=== PATIENT | female | born 1995 | race Caucasian/White ===

== ENCOUNTER 2021-12-18 18:54 | Emergency (ER) | payer OTHER ==
[2021-12-18] MEDS ORDERED: diphenhydrAMINE 50 MG/ML 1 ML VIAL IVP STA (20:20)
[2021-12-18] MEDS ORDERED: ONDANSETRON 4 MG/2 ML VIAL IVP STA (20:20)
[2021-12-18] MEDS ORDERED: MORPHINE SULFATE 4 MG/ML SYRINGE IV STA (20:20)
[2021-12-18] MEDS ORDERED: SODIUM CHLORIDE 0.9% 1,000 ML IV STA (20:20)
[2021-12-18 21:01] LABS: Basophils % (A) 1 %; Eosinophils # (A) 0.2 k/uL (0-0.7); Eosinophils % (A) 3 %; HCT 29.3 % (34.0-46.0); HGB 9.3 gm/dL (11.4-16.0); Hypochromasia Marked; Lymphocytes % (A) 15 %; MCH 25.3 pg (25.0-35.0); MCHC 31.8 g/dL (31.0-37.0); MCV 79.7 fL (80.0-100.0); Mean Platelet Volume 7.4; Monocytes # (A) 0.3 k/uL (0-1.0); Monocytes % (A) 5 %; Neutrophils % (A) 75 %; Platelet Count 205 k/uL (150-450); RBC 3.67 m/uL (3.80-5.40); RDW 15.6 % (11.5-15.5); WBC 6.7 k/uL (3.8-10.6)
[2021-12-18 21:11] LABS: ALT 21 U/L (4-34); AST 18 U/L (14-36); African American GFR (CKD) >90 (>60 ml/min/1.73 sqM); Albumin 3.4 g/dL (3.5-5.0); Alkaline Phosphatase 111 U/L (38-126); Amylase 65 U/L (30-110); Anion Gap 8 mmol/L; Blood Urea Nitrogen 4 mg/dL (7-17); Calcium 8.4 mg/dL (8.4-10.2); Carbon Dioxide 19 mmol/L (22-30); Chloride 114 mmol/L (98-107); Glucose 86 mg/dL (74-99); Lipase 95 U/L (23-300); Non-African American GFR(CKD) >90 (>60 ml/min/1.73 sqM); Potassium 3.4 mmol/L (3.5-5.1); Sodium 141 mmol/L (137-145); Total Bilirubin 0.2 mg/dL (0.2-1.3); Total Protein 6.3 g/dL (6.3-8.2)
[2021-12-18 21:12] LABS: Prothrombin Time 10.6 sec (9.0-12.0); RBC,Urine >182 /hpf (0-5)
[2021-12-18 21:14] LABS: Appearance,Urine Bloody (Clear); Color,Urine Red
--- NOTE | 2021-12-18 21:31 | ED ---
Abdominal Pain HPI - General Chief Complaint: Abdominal Pain Stated Complaint: flank pain/coughing up blood/blood in ileostomy Time Seen by Provider: 12/18/21 19:47 Source: patient Mode of arrival: ambulatory Limitations: no limitations - History of Present Illness Initial Comments: Patient is a 26-year-old female presenting with chief complaint of right-sided flank pain. Patient states that symptoms began on , she is experiencing nausea and vomiting. Patient has an ileostomy, states that she has episodes of hematochezia. Patient states that she was admitted at [facility], however they were not treating her pain adequately so she left AGAINST MEDICAL ADVICE. She denies any chest pain, shortness of breath, fever, chills, dizziness, weakness, numbness, tingling, cough, congestion, sore throat, dysuria, urgency, frequency. - Related Data Allergies Allergy/AdvReac Type Severity Reaction Status Date / Time acetaminophen [From Tylenol] AdvReac Anaphylaxis Verified 12/18/21 19:15 aspirin AdvReac Anaphylaxis Verified 12/18/21 19:15 famotidine [From Pepcid] AdvReac Anaphylaxis Verified 12/18/21 19:15 haloperidol [From Haldol] AdvReac Anaphylaxis Verified 12/18/21 19:15 iodine AdvReac Anaphylaxis Verified 12/18/21 19:15 ketorolac [From Toradol] AdvReac Anaphylaxis Verified 12/18/21 19:15 metoclopramide [From Reglan] AdvReac Anaphylaxis Verified 12/18/21 19:15 NSAIDS (Non-Steroidal AdvReac Anaphylaxis Verified 12/18/21 19:15 Anti-Inflamma prochlorperazine AdvReac Anaphylaxis Verified 12/18/21 19:15 [From Compazine] Review of Systems ROS Statement: Those systems with pertinent positive or pertinent negative responses have been documented in the HPI. ROS Other: All systems not noted in ROS Statement are negative. Past Medical History Past Medical History: Asthma Additional Past Medical History / Comment(s): FAP Past Surgical History: Appendectomy, Bowel Resection, Cholecystectomy Additional Past Surgical History / Comment(s): ileostomy Past Psychological History: No Psychological Hx Reported Smoking Status: Never smoker Past Alcohol Use History: None Reported Past Drug Use History: None Reported General Exam Limitations: no limitations General appearance: alert, in no apparent distress Head exam: Present: atraumatic, normocephalic, normal inspection Neck exam: Present: normal inspection Respiratory exam: Present: normal lung sounds bilaterally. Absent: respiratory distress, wheezes, rales, rhonchi, stridor Cardiovascular Exam: Present: regular rate, normal rhythm, normal heart sounds. Absent: systolic murmur, diastolic murmur, rubs, gallop, clicks GI/Abdominal exam: Present: soft. Absent: distended, tenderness, guarding, rebound, rigid Back exam: Absent: CVA tenderness (R), CVA tenderness (L) Neurological exam: Present: alert, oriented X3, CN II-XII intact Psychiatric exam: Present: normal affect, normal mood Skin exam: Present: warm, dry, intact, normal color. Absent: rash Course Vital Signs 12/18/21 12/18/21 12/18/21 19:10 20:26 21:59 Temperature 98.6 F 98.4 F Pulse Rate 120 H 105 H 116 H Respiratory 20 18 20 Rate Blood Pressure 108/78 110/81 105/55 O2 Sat by Pulse 97 98 99 Oximetry 12/18/21 23:13 Temperature Pulse Rate 113 H Respiratory 18 Rate Blood Pressure 106/69 O2 Sat by Pulse 98 Oximetry Medical Decision Making - Medical Decision Making Patient is a 26-year-old female presenting with chief complaint of right flank pain, hematuria. Patient states symptoms have been ongoing since . On examination no abdominal tenderness, no blood seen in ostomy bag. Hemoglobin is 9.3, no previous value for reference. Potassium is 3.4. Urine is bloody with no WBC. Negative hCG. CT shows no acute changes, there is a nonobstructing calculi in the lower pole of the right kidney. No hydronephrosis or bowel obstruction. Patient reports improvement with pain medication. Instructed to follow up outpatient with PCP and urology. Report back to ER if any new or worsening symptoms. Discussed return parameters and answered all questions. Patient conveyed verbal understanding and agreed to the plan. I discussed this case with my attending Dr. Almeida. - Lab Data Result diagrams: 12/18/21 20:54 12/18/21 20:54 Lab Results 12/18/21 12/18/21 12/18/21 Range/Units 20:54 20:54 20:54 WBC 6.7 (3.8-10.6) k/uL RBC 3.67 L (3.80-5.40) m/uL Hgb 9.3 L (11.4-16.0) gm/dL Hct 29.3 L (34.0-46.0) % MCV 79.7 L (80.0-100.0) fL MCH 25.3 (25.0-35.0) pg MCHC 31.8 (31.0-37.0) g/dL RDW 15.6 H (11.5-15.5) % Plt Count 205 (150-450) k/uL MPV 7.4 Neutrophils % 75 % Lymphocytes % 15 % Monocytes % 5 % Eosinophils % 3 % Basophils % 1 % Neutrophils # 5.0 (1.3-7.7) k/uL Lymphocytes # 1.0 (1.0-4.8) k/uL Monocytes # 0.3 (0-1.0) k/uL Eosinophils # 0.2 (0-0.7) k/uL Basophils # 0.0 (0-0.2) k/uL Hypochromasia Marked PT 10.6 (9.0-12.0) sec INR 1.0 (<1.2) APTT 23.0 (22.0-30.0) sec Sodium (137-145) mmol/L Potassium (3.5-5.1) mmol/L Chloride (98-107) mmol/L Carbon Dioxide (22-30) mmol/L Anion Gap mmol/L BUN (7-17) mg/dL Creatinine (0.52-1.04) mg/dL Est GFR (CKD-EPI)AfAm (>60 ml/min/1.73 sqM) Est GFR (CKD-EPI)NonAf (>60 ml/min/1.73 sqM) Glucose (74-99) mg/dL Plasma Lactic Acid Obdulio (0.7-2.0) mmol/L Calcium (8.4-10.2) mg/dL Total Bilirubin (0.2-1.3) mg/dL AST (14-36) U/L ALT (4-34) U/L Alkaline Phosphatase (38-126) U/L Total Protein (6.3-8.2) g/dL Albumin (3.5-5.0) g/dL Amylase (30-110) U/L Lipase (23-300) U/L Urine Color Red Urine Appearance Bloody H (Clear) Urine RBC >182 H (0-5) /hpf Urine HCG, Qual (Not Detectd) 12/18/21 12/18/21 12/18/21 Range/Units 20:54 20:54 20:54 WBC (3.8-10.6) k/uL RBC (3.80-5.40) m/uL Hgb (11.4-16.0) gm/dL Hct (34.0-46.0) % MCV (80.0-100.0) fL MCH (25.0-35.0) pg MCHC (31.0-37.0) g/dL RDW (11.5-15.5) % Plt Count (150-450) k/uL MPV Neutrophils % % Lymphocytes % % Monocytes % % Eosinophils % % Basophils % % Neutrophils # (1.3-7.7) k/uL Lymphocytes # (1.0-4.8) k/uL Monocytes # (0-1.0) k/uL Eosinophils # (0-0.7) k/uL Basophils # (0-0.2) k/uL Hypochromasia PT (9.0-12.0) sec INR (<1.2) APTT (22.0-30.0) sec Sodium 141 (137-145) mmol/L Potassium 3.4 L (3.5-5.1) mmol/L Chloride 114 H (98-107) mmol/L Carbon Dioxide 19 L (22-30) mmol/L Anion Gap 8 mmol/L BUN 4 L (7-17) mg/dL Creatinine 0.55 (0.52-1.04) mg/dL Est GFR (CKD-EPI)AfAm >90 (>60 ml/min/1.73 sqM) Est GFR (CKD-EPI)NonAf >90 (>60 ml/min/1.73 sqM) Glucose 86 (74-99) mg/dL Plasma Lactic Acid Obdulio 1.2 (0.7-2.0) mmol/L Calcium 8.4 (8.4-10.2) mg/dL Total Bilirubin 0.2 (0.2-1.3) mg/dL AST 18 (14-36) U/L ALT 21 (4-34) U/L Alkaline Phosphatase 111 (38-126) U/L Total Protein 6.3 (6.3-8.2) g/dL Albumin 3.4 L (3.5-5.0) g/dL Amylase 65 (30-110) U/L Lipase 95 (23-300) U/L Urine Color Urine Appearance (Clear) Urine RBC (0-5) /hpf Urine HCG, Qual Not Detected (Not Detectd) Disposition Clinical Impression: Hematuria Disposition: HOME SELF-CARE Condition: Fair Instructions (If sedation given, give patient instructions): Hematuria (ED), Flank Pain (ED) Additional Instructions: Follow-up with PCP in one to 2 days. Follow-up with urology. Report back to ER if any new or worsening symptoms. Is patient prescribed a controlled substance at d/c from ED?: No Referrals: Jeremy Narayanan MD [STAFF PHYSICIAN] - 1-2 days Mika Torres DO [Doctor of Osteopathic Medicine] - 1-2 days Time of Disposition: 22:46
[2021-12-18] MEDS ORDERED: HYDROmorphone 1 MG/ML 1 ML SYRINGE IVP STA (21:52)
[2021-12-18 22:00] VITALS: TEMP 98.4
--- NOTE | 2021-12-18 22:06 | CT ---
EXAMINATION TYPE: CT abdomen pelvis wo con DATE OF EXAM: 12/18/2021 COMPARISON: None HISTORY: flank pain. hx of many kidney stones CT DLP: 1255.4 mGycm Automated exposure control for dose reduction was used. Images obtained from the diaphragm to the floor the pelvis with no contrast. Lung bases are clear of infiltrate. No pleural effusion. Heart size is normal. No pericardial effusio n. Liver spleen and stomach pancreas appear intact. There are clips from cholecystectomy. There is no adrenal mass. Kidneys have normal size and contour. No hydronephrosis. There are some camille culi lower pole right kidney that measure up to 4 mm. There is left-sided inferior vena cava and IVC filter noted. No retroperitoneal adenopathy. The bladder distends smoothly. No inguinal hernia. No fr ee fluid in the pelvis. No pelvic mass. Uterus is anteverted. Lumbar vertebrae have normal alignment. Posterior elements are intact. Disc spa maldonado are fairly normal. No compression fracture. Bony pelvis is intact. The hip joints are intact. There is rectal stump. There is ileostomy or colostomy in the right mid abdomen. There is peristomal hernia with multiple small bowel loops. No ascites or free air. No bowel obstruction. No mesenteric edema. IMPRESSION: There is subtotal or total colectomy with ileostomy or colostomy. Nonobstructing calculi lower pole r ight kidney. No hydronephrosis. Parastomal hernia. No bowel obstruction.
[2021-12-18 23:15] VITALS: BP 106/69; PULSE 113; RESP 18
== END 2021-12-18 23:15 | disposition home or self-care (01) ==
LOC: EC 18:54
DX: R31.9 Hematuria, unspecified (principal)
CPT/HCPCS: 36415; 80053; 82150; 83605; 83690; 85025; 85610; 85730; 81001; 81025; 87040; 74176; 99284; 96374; 96375 ×3; 96361 ×2; J2270; J1200; J2405; J1170

== ENCOUNTER 2021-12-19 19:33 | Inpatient (IN) | payer OTHER ==
[2021-12-19] MEDS ORDERED: CEFEPIME 2 GM in SODIUM CHLORIDE 0.9% 100 ML IVPB STA (20:54)
[2021-12-19] MEDS ORDERED: MORPHINE SULFATE 4 MG/ML SYRINGE IVP STA ×2 (20:54→22:34)
[2021-12-19] MEDS ORDERED: ONDANSETRON 4 MG/2 ML VIAL IVP STA ×2 (20:54→22:34)
[2021-12-19] MEDS ORDERED: diphenhydrAMINE 50 MG/ML 1 ML VIAL IVP STA (20:54)
--- NOTE | 2021-12-19 21:37 | ED ---
General Adult HPI - General Source: patient Mode of arrival: ambulatory Limitations: no limitations <Darling Calix - Last Filed: 12/19/21 21:57> <Chelo Maher - Last Filed: 12/20/21 03:18> - General Chief complaint: Abdominal Pain Stated complaint: We called to come back, + cultures Time Seen by Provider: 12/19/21 20:37 - History of Present Illness Initial comments: 26 year-old female patient presents to the emergency department after being called to come back in for positive blood cultures. Patient was seen yesterday for right flank pain, hematochezia, and hematemesis. She was discharged home, but blood cultures came back positive today for enterobacter. She state she was coming back anyway because she has been having intermittent fevers up to 103 degrees, nausea, vomiting, and persistent flank pain. She is also concerned she may have C diff as her stool is similar to when she has had it in the past. She was admitted to [facility] in the last few months for UTI with sepsis and was on antibiotics at that time. (Darling Calix) - Related Data Home Medications Medication Instructions Recorded Confirmed Albuterol Nebulized [Ventolin 2.5 mg INHALATION RT-QID PRN 12/19/21 12/19/21 Nebulized] Albuterol Sulfate [Proair Hfa] 2 puff INHALATION RT-Q6H PRN 12/19/21 12/19/21 EPINEPHrine (Auto Inject) [Epipen] 0.3 mg IM ONCE PRN 12/19/21 12/19/21 Ferrous Sulfate [Feosol] 325 mg PO DAILY 12/19/21 12/19/21 Galcanezumab-Gnlm [Emgality Pen] 120 mg SQ Q30D 12/19/21 12/19/21 Loratadine 10 mg PO DAILY 12/19/21 12/19/21 Montelukast [Singulair] 10 mg PO DAILY 12/19/21 12/19/21 Omeprazole 40 mg PO DAILY 12/19/21 12/19/21 Ondansetron Odt [Zofran Odt] 4 mg PO Q8HR PRN 12/19/21 12/19/21 QUEtiapine [SEROquel] 50 mg PO HS 12/19/21 12/19/21 Salmeterol 50 mcg [Serevent Diskus] 1 puff INHALATION DIRECTED 12/19/21 12/19/21 Ubrogepant [Ubrelvy] 100 mg PO BID PRN 12/19/21 12/19/21 clonazePAM [KlonoPIN] 1 mg PO DAILY PRN 12/19/21 12/19/21 Allergies Allergy/AdvReac Type Severity Reaction Status Date / Time acetaminophen [From Tylenol] AdvReac Anaphylaxis Verified 12/19/21 22:09 aspirin AdvReac Anaphylaxis Verified 12/19/21 22:09 famotidine [From Pepcid] AdvReac Anaphylaxis Verified 12/19/21 22:09 haloperidol [From Haldol] AdvReac Anaphylaxis Verified 12/19/21 22:09 iodine AdvReac Anaphylaxis Verified 12/19/21 22:09 ketorolac [From Toradol] AdvReac Anaphylaxis Verified 12/19/21 22:09 metoclopramide [From Reglan] AdvReac Anaphylaxis Verified 12/19/21 22:09 NSAIDS (Non-Steroidal AdvReac Anaphylaxis Verified 12/19/21 22:09 Anti-Inflamma prochlorperazine AdvReac Anaphylaxis Verified 12/19/21 22:09 [From Compazine] Review of Systems ROS Other: All systems not noted in ROS Statement are negative. <Darling Calix - Last Filed: 12/19/21 21:57> ROS Other: All systems not noted in ROS Statement are negative. <Chelo Maher - Last Filed: 12/20/21 03:18> ROS Statement: Those systems with pertinent positive or pertinent negative responses have been documented in the HPI. Past Medical History Past Medical History: Asthma Additional Past Medical History / Comment(s): FAP, c diff in past History of Any Multi-Drug Resistant Organisms: Unobtainable, VRE Date of last positivie culture/infection: 12/03/2021 MDRO Source:: urine Past Surgical History: Appendectomy, Bowel Resection, Cholecystectomy Additional Past Surgical History / Comment(s): ileostomy, Past Psychological History: No Psychological Hx Reported Smoking Status: Never smoker Past Alcohol Use History: None Reported Past Drug Use History: None Reported <Darling Calix - Last Filed: 12/19/21 21:57> General Exam Limitations: no limitations General appearance: alert, in no apparent distress, other (This is a well- developed, well-nourished adult female in no acute distress.) Respiratory exam: Present: normal lung sounds bilaterally. Absent: respiratory distress, wheezes, rales, rhonchi, stridor Cardiovascular Exam: Present: regular rate, normal rhythm, normal heart sounds. Absent: systolic murmur, diastolic murmur, rubs, gallop, clicks GI/Abdominal exam: Present: soft, normal bowel sounds. Absent: distended, tenderness, guarding, rebound, rigid Back exam: Present: CVA tenderness (R). Absent: CVA tenderness (L) Neurological exam: Present: alert, oriented X3, CN II-XII intact Psychiatric exam: Present: normal affect, normal mood Skin exam: Present: warm, dry, intact, normal color. Absent: rash <Darling Calix - Last Filed: 12/19/21 21:57> Course <Chelo Maher - Last Filed: 12/20/21 03:18> Vital Signs 12/19/21 12/19/21 12/19/21 19:56 21:51 22:00 Temperature 98.0 F Pulse Rate 119 H 103 H 91 Respiratory 20 Rate Blood Pressure 97/69 O2 Sat by Pulse 98 Oximetry 12/19/21 12/19/21 12/19/21 22:10 22:20 22:30 Temperature Pulse Rate 102 H 95 120 H Respiratory Rate Blood Pressure O2 Sat by Pulse Oximetry 12/19/21 12/19/21 12/19/21 22:40 22:50 23:00 Temperature Pulse Rate 98 117 H 115 H Respiratory Rate Blood Pressure O2 Sat by Pulse Oximetry 12/19/21 12/19/21 12/19/21 23:35 23:40 23:50 Temperature Pulse Rate Respiratory Rate Blood Pressure 148/98 148/98 148/98 O2 Sat by Pulse 98 98 Oximetry 12/20/21 12/20/21 12/20/21 00:00 00:10 00:20 Temperature Pulse Rate 130 H 128 H 125 H Respiratory Rate Blood Pressure 148/98 122/73 122/73 O2 Sat by Pulse 97 98 99 Oximetry 12/20/21 12/20/21 12/20/21 00:30 00:40 00:50 Temperature Pulse Rate 98 112 H 126 H Respiratory Rate Blood Pressure 122/73 122/73 122/73 O2 Sat by Pulse 99 100 100 Oximetry 12/20/21 12/20/21 12/20/21 01:00 01:10 01:20 Temperature 98.9 F Pulse Rate 118 H 120 H 122 H Respiratory 18 Rate Blood Pressure 122/73 118/89 118/89 O2 Sat by Pulse 100 99 100 Oximetry 12/20/21 12/20/21 12/20/21 01:30 01:40 01:50 Temperature Pulse Rate 130 H 134 H 135 H Respiratory Rate Blood Pressure 118/89 118/89 118/89 O2 Sat by Pulse 98 97 97 Oximetry 12/20/21 12/20/21 12/20/21 02:00 02:10 02:20 Temperature Pulse Rate 131 H 137 H 154 H Respiratory 18 Rate Blood Pressure 118/89 91/48 92/41 O2 Sat by Pulse 98 97 94 L Oximetry 12/20/21 12/20/21 12/20/21 02:30 02:40 02:50 Temperature Pulse Rate 144 H 138 H 131 H Respiratory Rate Blood Pressure 108/57 108/57 108/57 O2 Sat by Pulse 97 96 97 Oximetry 12/20/21 12/20/21 03:00 03:07 Temperature Pulse Rate 130 H 120 H Respiratory Rate Blood Pressure 108/57 O2 Sat by Pulse 97 Oximetry - Reevaluation(s) Reevaluation #1: 12/19/21 22:58 I assumed this patient's care from Marcelle Calix NP. There has been difficulty accessing this patient's port to obtain laboratory st udies and provide pain medication. Patient is aware and is cooperative with this plan. 12/20/21 03:[address] North who agrees to accept this patient. (Chelo Maher) EKG Findings - EKG Comments: EKG Findings:: EKG obtained at 2120 shows sinus rhythm with a ventricular 93, OH interval 153, QRS duration 78, QT 345, QTC [address] elevation or depression. <Darling Calix - Last Filed: 12/19/21 21:57> Medical Decision Making - Lab Data Result diagrams: 12/19/21 20:54 <Chelo Maher - Last Filed: 12/20/21 03:18> - Medical Decision Making This is a 26-year-old female with a past medical history of asthma, FAP, bowel resection with ileostomy, and recent hospitalization for urosepsis. She presents to the emergency department after receiving a phone call regarding positive blood cultures from her visit yesterday. Upon exam, patient is well- appearing, though complains of significant ongoing abdominal pain, primarily right sided. No fever upon arrival, however she is tachycardic. There was some difficulty accessing her port therefore treatment was delayed. She was given IV fluids, medications for pain and nausea, and IV antibiotic after cultures were collected. Laboratory studies show urinalysis with gross hematuria. C. diff s ample was negative. Lactic was 1.4. Blood culture from yesterday was positive for Enterobacter cloacae. Patient will be admitted to the hospital for further evaluation and treatment. She is agreeable with this plan of care. Attending: Willam. (Chelo Maher) - Lab Data Lab Results 12/19/21 12/19/21 12/19/21 Range/Units 20:54 23:01 23:21 PT (9.0-12.0) sec INR (<1.2) APTT (22.0-30.0) sec Sodium 140 (137-145) mmol/L Potassium 3.6 (3.5-5.1) mmol/L Chloride 112 H (98-107) mmol/L Carbon Dioxide 21 L (22-30) mmol/L Anion Gap 7 mmol/L BUN 7 (7-17) mg/dL Creatinine 0.52 (0.52-1.04) mg/dL Est GFR (CKD-EPI)AfAm >90 (>60 ml/min/1.73 sqM) Est GFR (CKD-EPI)NonAf >90 (>60 ml/min/1.73 sqM) Glucose 86 (74-99) mg/dL Plasma Lactic Acid Obdulio 1.4 (0.7-2.0) mmol/L Calcium 8.4 (8.4-10.2) mg/dL Total Bilirubin 0.3 (0.2-1.3) mg/dL AST 20 (14-36) U/L ALT 19 (4-34) U/L Alkaline Phosphatase 119 (38-126) U/L Total Protein 6.4 (6.3-8.2) g/dL Albumin 3.5 (3.5-5.0) g/dL Urine Color Red Urine Appearance Bloody H (Clear) Urine RBC >182 H (0-5) /hpf Urine WBC 14 H (0-5) /hpf Ur Squamous Epith Cells 6 H (0-4) /hpf Urine HCG, Qual (Not Detectd) C. difficile (EIA) Intrp (Negative) 12/19/21 12/19/21 12/20/21 Range/Units 23:21 23:45 01:10 PT 10.3 (9.0-12.0) sec INR 0.9 (<1.2) APTT 18.3 L (22.0-30.0) sec Sodium (137-145) mmol/L Potassium (3.5-5.1) mmol/L Chloride (98-107) mmol/L Carbon Dioxide (22-30) mmol/L Anion Gap mmol/L BUN (7-17) mg/dL Creatinine (0.52-1.04) mg/dL Est GFR (CKD-EPI)AfAm (>60 ml/min/1.73 sqM) Est GFR (CKD-EPI)NonAf (>60 ml/min/1.73 sqM) Glucose (74-99) mg/dL Plasma Lactic Acid Obdulio (0.7-2.0) mmol/L Calcium (8.4-10.2) mg/dL Total Bilirubin (0.2-1.3) mg/dL AST (14-36) U/L ALT (4-34) U/L Alkaline Phosphatase (38-126) U/L Total Protein (6.3-8.2) g/dL Albumin (3.5-5.0) g/dL Urine Color Urine Appearance (Clear) Urine RBC (0-5) /hpf Urine WBC (0-5) /hpf Ur Squamous Epith Cells (0-4) /hpf Urine HCG, Qual Not Detected (Not Detectd) C. difficile (EIA) Intrp Negative (Negative) Disposition <Darling Calix - Last Filed: 12/19/21 21:57> Is patient prescribed a controlled substance at d/c from ED?: No Decision Date: 12/20/21 Decision Time: 02:24 <Chelo Maher - Last Filed: 12/20/21 03:18> Clinical Impression: Abdominal pain, Positive blood culture, Hematuria Disposition: ADMITTED IP TO THIS HOSP Condition: Serious Referrals: None,Stated [Primary Care Provider] - 1-2 days
[2021-12-19] MEDS ORDERED: ONDANSETRON ODT 4 MG TAB PO STA (22:30)
[2021-12-19] MEDS ORDERED: MORPHINE SULFATE 4 MG/ML SYRINGE IM STA (22:31)
[2021-12-19] MEDS: SODIUM CHLORIDE 0.9% 500 ML 500 ML IV SCH (22:56)
[2021-12-19 23:37] LABS: INR 0.9 (<1.2); Prothrombin Time 10.3 sec (9.0-12.0)
[2021-12-19 23:51] LABS: Appearance,Urine Bloody (Clear); Color,Urine Red
[2021-12-19 23:58] LABS: Partial Thromboplastin Time 18.3 sec (22.0-30.0)
[2021-12-20] LABS: RBC,Urine >182 /hpf (0-5); Squamous Epithelial Cell,Urine 6 /hpf (0-4); WBC,Urine 14 /hpf (0-5)
[2021-12-20 00:01] LABS: ALT 19 U/L (4-34); AST 20 U/L (14-36); African American GFR (CKD) >90 (>60 ml/min/1.73 sqM); Albumin 3.5 g/dL (3.5-5.0); Alkaline Phosphatase 119 U/L (38-126); Anion Gap 7 mmol/L; Blood Urea Nitrogen 7 mg/dL (7-17); Calcium 8.4 mg/dL (8.4-10.2); Carbon Dioxide 21 mmol/L (22-30); Chloride 112 mmol/L (98-107); Glucose 86 mg/dL (74-99); Non-African American GFR(CKD) >90 (>60 ml/min/1.73 sqM); Potassium 3.6 mmol/L (3.5-5.1); Sodium 140 mmol/L (137-145); Total Bilirubin 0.3 mg/dL (0.2-1.3); Total Protein 6.4 g/dL (6.3-8.2)
[2021-12-20] MEDS ORDERED: HYDROmorphone 0.5 MG/0.5 ML SYRINGE IVP STA ×2 (00:24→02:08)
[2021-12-20] MEDS: SODIUM CHLORIDE 0.9% 500 ML 500 ML IV SCH (01:04)
[2021-12-20] MEDS ORDERED: SODIUM CHLORIDE 0.9% 500 ML 500 ML IV STA (02:23)
[2021-12-20] MEDS ORDERED: HYDROmorphone 0.5 MG/0.5 ML SYRINGE IVP PRN (02:47)
[2021-12-20] MEDS ORDERED: NALOXONE 0.4 MG/ML 1 ML VIAL IV PRN (02:47)
[2021-12-20] MEDS ORDERED: diphenhydrAMINE 50 MG/ML 1 ML VIAL IVP STA (02:57)
[2021-12-20] MEDS ORDERED: Salmeterol 50 mcg INHALER INHALATION SCH (03:00)
[2021-12-20 03:29] LABS: Anisocytosis Slight; Basophils % (A) 0 %; Eosinophils # (A) 0.2 k/uL (0-0.7); Eosinophils % (A) 2 %; HCT 28.6 % (34.0-46.0); HGB 8.9 gm/dL (11.4-16.0); Hypochromasia Marked; Lymphocytes # (A) 0.6 k/uL (1.0-4.8); Lymphocytes % (A) 5 %; MCV 80.6 fL (80.0-100.0); Mean Platelet Volume 7.4; Monocytes # (A) 0.4 k/uL (0-1.0); Monocytes % (A) 3 %; Neutrophils # (A) 10.3 k/uL (1.3-7.7); Neutrophils % (A) 89 %; Platelet Count 221 k/uL (150-450); RBC 3.55 m/uL (3.80-5.40); RDW 16.2 % (11.5-15.5); WBC 11.5 k/uL (3.8-10.6)
[2021-12-20] MEDS: SODIUM CHLORIDE 0.9% 1,000 ML IV SCH ×3 (04:52→19:59)
--- NOTE | 2021-12-20 05:34 | P.HPIM ---
History of Present Illness H&P Date: 12/20/21 The patient is a 26-year-old female with a PMH of familial adenomatosis polyposis, status post ileostomy, numerous ALLERGIES, who presented to the emergency room with complaints of right flank pain with hematuria. Patient reports her symptoms started this past , when she developed a right f lank pain with radiation down to her groin. She reports developing nausea and vomiting, for which she was seen at [facility] a few days ago. She however reports leaving AGAINST MEDICAL ADVICE from that facility due to complaints of not controlling her pain adequately. She reports ongoing in termittent right flank pain dysuria, urinary frequency, as well as bright red hematuria. She reports developing a fever of 103.0F while at home. EKG in the emergency room revealed sinus rhythm at 92 bpm. Of note, the patient presented to the emergency room with similar complaints the day prior, at which point she was discharged home. She however was called back in after her blood cultures [place] a preliminary result of Enterobacter. She denied experiencing chest discomfort, shortness of breath, dizziness, headaches, weakness, numbness, tingling. Laboratory evaluation in emergency room was remarkable for WBC, 11.5, hemoglobin 8.9, and a UA with greater than [address] abdomen and pelvis performed on 12/18 revealed a nonobstructing calculi in the lower pole of the right kidney with no hydronephrosis. Review of systems: Pertinent positives and negatives as discussed in HPI, a complete review of systems was performed and all other systems are negative. Physical examination: General: Chronically ill-appearing female, no distress, appears older than stated age, obese Derm: no unusual rashes/lesions, warm Head: atraumatic, normocephalic, symmetric Eyes: EOMI, no lid lag, anicteric sclera, pupils equal round reactive to light ENT: Nose and ears atraumatic Neck: No cervical lymphadenopathy, trachea midline, supple Mouth: no lip lesion, mucus membranes moist Cardiovascular: S1S2 reg, no murmur, positive dorsalis pedis pulse bilateral, no edema Lungs: CTA bilateral, no rhonchi, no rales, no accessory muscle use Abdominal: soft, mild right flank and CVA tenderness, ileostomy bag in place with liquidy brown fecal material, no guarding Ext: muscle strength 5 out of 5 in all 4 extremities grossly, no gross muscle atrophy, no contractures, Neuro: CN II-XI grossly intact, no gross focal neuro deficits Psych: Alert, oriented, appropriate affect Assessment/plan Bacteremia, unclear etiology -Infectious disease consulted -Continue with empiric antibiotics cefepime Symptomatic right kidney stone -Urology consult -IV fluids -Pain control -Antiemetics Normocytic anemia -No long-term baseline for comparison -Monitor for now DVT prophylaxis -Heparin subcu The patient is admitted with an anticipated greater than 2 midnight stay for evaluation of bacteremia. CODE STATUS: Full Code Discussed with: Patient Anticipated discharge date: 3-[address]: Home Past Medical History Past Medical History: Asthma Additional Past Medical History / Comment(s): FAP, c diff in past History of Any Multi-Drug Resistant Organisms: Unobtainable, VRE Date of last positivie culture/infection: 12/03/2021 MDRO Source:: urine Past Surgical History: Appendectomy, Bowel Resection, Cholecystectomy Additional Past Surgical History / Comment(s): ileostomy, kidney stone removal, IVC filter in left groin October 2021. Past Psychological History: No Psychological Hx Reported Smoking Status: Never smoker Past Alcohol Use History: None Reported Past Drug Use History: None Reported - Past Family History Father Family Medical History: GI Bleed Medications and Allergies Home Medications Medication Instructions Recorded Confirmed Type Albuterol Nebulized [Ventolin 2.5 mg INHALATION RT-QID PRN 12/19/21 12/19/21 History Nebulized] Albuterol Sulfate [Proair Hfa] 2 puff INHALATION RT-Q6H PRN 12/19/21 12/19/21 History EPINEPHrine (Auto Inject) [Epipen] 0.3 mg IM ONCE PRN 12/19/21 12/19/21 History Ferrous Sulfate [Feosol] 325 mg PO DAILY 12/19/21 12/19/21 History Galcanezumab-Gnlm [Emgality Pen] 120 mg SQ Q30D 12/19/21 12/19/21 History Loratadine 10 mg PO DAILY 12/19/21 12/19/21 History Montelukast [Singulair] 10 mg PO DAILY 12/19/21 12/19/21 History Omeprazole 40 mg PO DAILY 12/19/21 12/19/21 History Ondansetron Odt [Zofran Odt] 4 mg PO Q8HR PRN 12/19/21 12/19/21 History QUEtiapine [SEROquel] 50 mg PO HS 12/19/21 12/19/21 History Salmeterol 50 mcg [Serevent Diskus] 1 puff INHALATION DIRECTED 12/19/21 12/19/21 History Ubrogepant [Ubrelvy] 100 mg PO BID PRN 12/19/21 12/19/21 History clonazePAM [KlonoPIN] 1 mg PO DAILY PRN 12/19/21 12/19/21 History Allergies Allergy/AdvReac Type Severity Reaction Status Date / Time acetaminophen [From Tylenol] AdvReac Anaphylaxis Verified 12/19/21 22:09 aspirin AdvReac Anaphylaxis Verified 12/19/21 22:09 famotidine [From Pepcid] AdvReac Anaphylaxis Verified 12/19/21 22:09 haloperidol [From Haldol] AdvReac Anaphylaxis Verified 12/19/21 22:09 iodine AdvReac Anaphylaxis Verified 12/19/21 22:09 ketorolac [From Toradol] AdvReac Anaphylaxis Verified 12/19/21 22:09 metoclopramide [From Reglan] AdvReac Anaphylaxis Verified 12/19/21 22:09 NSAIDS (Non-Steroidal AdvReac Anaphylaxis Verified 12/19/21 22:09 Anti-Inflamma prochlorperazine AdvReac Anaphylaxis Verified 12/19/21 22:09 [From Compazine] Physical Exam Vitals: Vital Signs Temp Pulse Resp BP Pulse Ox 12/20/21 03:31 98.4 F 12/20/21 03:07 120 H 12/20/21 03:00 130 H 108/57 97 12/20/21 02:50 131 H 108/57 97 12/20/21 02:40 138 H 108/57 96 12/20/21 02:30 144 H 108/57 97 12/20/21 02:20 154 H 18 92/41 94 L 12/20/21 02:10 137 H 91/48 97 12/20/21 02:00 131 H 118/89 98 12/20/21 01:50 135 H 118/89 97 12/20/21 01:40 134 H 118/89 97 12/20/21 01:30 130 H 118/89 98 12/20/21 01:20 122 H 118/89 100 12/20/21 01:10 98.9 F 120 H 18 118/89 99 12/20/21 01:00 118 H 122/73 100 12/20/21 00:50 126 H 122/73 100 12/20/21 00:40 112 H 122/73 100 12/20/21 00:30 98 122/73 99 12/20/21 00:20 125 H 122/73 99 12/20/21 00:10 128 H 122/73 98 12/20/21 00:00 130 H 148/98 97 12/19/21 23:50 148/98 12/19/21 23:40 148/98 98 12/19/21 23:35 148/98 98 12/19/21 23:00 115 H 12/19/21 22:50 117 H 12/19/21 22:40 98 12/19/21 22:30 120 H 12/19/21 22:20 95 12/19/21 22:10 102 H 12/19/21 22:00 91 12/19/21 21:51 103 H 12/19/21 19:56 98.0 F 119 H 20 97/69 98 Intake and Output 12/19/21 12/19/21 12/20/21 14:59 22:59 06:59 Other: Weight 105.823 kg 105.823 kg Results CBC & Chem 7: 12/20/21 02:25 12/19/21 20:54 Labs: Abnormal Lab Results - Last 24 Hours (Table) 12/19/21 12/19/21 12/19/21 Range/Units 20:54 23:21 23:45 WBC (3.8-10.6) k/uL RBC (3.80-5.40) m/uL Hgb (11.4-16.0) gm/dL Hct (34.0-46.0) % RDW (11.5-15.5) % Neutrophils # (1.3-7.7) k/uL Lymphocytes # (1.0-4.8) k/uL APTT 18.3 L (22.0-30.0) sec Chloride 112 H (98-107) mmol/L Carbon Dioxide 21 L (22-30) mmol/L Urine Appearance Bloody H (Clear) Urine RBC >182 H (0-5) /hpf Urine WBC 14 H (0-5) /hpf Ur Squamous Epith Cells 6 H (0-4) /hpf 12/20/21 Range/Units 02:25 WBC 11.5 H (3.8-10.6) k/uL RBC 3.55 L (3.80-5.40) m/uL Hgb 8.9 L (11.4-16.0) gm/dL Hct 28.6 L (34.0-46.0) % RDW 16.2 H (11.5-15.5) % Neutrophils # 10.3 H (1.3-7.7) k/uL Lymphocytes # 0.6 L (1.0-4.8) k/uL APTT (22.0-30.0) sec Chloride (98-107) mmol/L Carbon Dioxide (22-30) mmol/L Urine Appearance (Clear) Urine RBC (0-5) /hpf Urine WBC (0-5) /hpf Ur Squamous Epith Cells (0-4) /hpf Thrombosis Risk Factor Assmnt - Choose All That Apply Each Risk Factor Represents 3 Points: History of DVT/PE Thrombosis Risk Factor Assessment Total Risk Factor Score: 3 Thrombosis Risk Factor Assessment Level: Moderate Risk
[2021-12-20] MEDS ORDERED: MORPHINE SULFATE 4 MG/ML SYRINGE IVP PRN (09:08)
[2021-12-20] MEDS: MONTELUKAST 10 MG TAB PO SCH (09:26)
[2021-12-20] MEDS: PANTOPRAZOLE 40 MG TABLET PO SCH (09:26)
[2021-12-20] MEDS: LORATADINE 10 MG TAB PO SCH (09:26)
[2021-12-20] MEDS: CEFEPIME 2 GM in SODIUM CHLORIDE 0.9% 100 ML IVPB SCH ×2 (09:27→16:00)
--- NOTE | 2021-12-20 13:11 | P.PN ---
Progress Note - Text Progress Note Date: 12/20/21 Patient seen and examined. Awaiting ID evaluation. Follow up blood cultures negative.
[2021-12-20] MEDS: MORPHINE SULFATE 4 MG/ML SYRINGE IVP PRN ×2 (16:01→19:59)
--- NOTE | 2021-12-20 16:08 | P.GSCN ---
History of Present Illness Consult date: 12/20/21 Reason for Consult: Right-sided renal stones History of present illness: This is a 26-year-old female with history of recurrent kidney stones. Admitted to the hospital with sepsis. Urology is consulted for CT finding of right-sided renal stones. On presentation to the hospital she presented with right flank pain associated with gross hematuria. She is also been having fevers, chills and with associated with nausea and vomiting. Does have history of recurrent kidney stones required holmium laser lithotripsy in the past, she is unsure which which urology she follows up with. Blood culture is growing gram-negative bacilli. On presentation she underwent a CT that showed evidence of right-sided nonobstructing renal stones, no evidence of hydronephrosis or ureteral stones. Urine culture is pending. Review of Systems - Constitutional Reports chills, Reports fatigue, Reports fever - EENT Ears, nose, mouth and throat: Denies dysphagia - Cardiovascular Denies chest pain, Denies shortness of breath - Respiratory Denies cough, Denies 7 - Gastrointestinal Reports abdominal pain, Reports nausea, Reports vomiting - Genitourinary Genitourinary: Reports flank pain, Reports hematuria - Integumentary Denies rash, Denies unusual bruising - Neurological Denies headaches, Denies syncope Past Medical History Past Medical History: Asthma Additional Past Medical History / Comment(s): FAP, c diff in past History of Any Multi-Drug Resistant Organisms: Unobtainable, VRE Year Discovered:: 12/03/2021 MDRO Source:: urine Past Surgical History: Appendectomy, Bowel Resection, Cholecystectomy Additional Past Surgical History / Comment(s): ileostomy, kidney stone removal, IVC filter in left groin October 2021. Past Psychological History: No Psychological Hx Reported Smoking Status: Never smoker Past Alcohol Use History: None Reported Past Drug Use History: None Reported - Past Family History Father Family Medical History: GI Bleed Medications and Allergies Home Medications Medication Instructions Recorded Confirmed Type Albuterol Nebulized [Ventolin 2.5 mg INHALATION RT-QID PRN 12/19/21 12/19/21 History Nebulized] Albuterol Sulfate [Proair Hfa] 2 puff INHALATION RT-Q6H PRN 12/19/21 12/19/21 History EPINEPHrine (Auto Inject) [Epipen] 0.3 mg IM ONCE PRN 12/19/21 12/19/21 History Ferrous Sulfate [Feosol] 325 mg PO DAILY 12/19/21 12/19/21 History Galcanezumab-Gnlm [Emgality Pen] 120 mg SQ Q30D 12/19/21 12/19/21 History Loratadine 10 mg PO DAILY 12/19/21 12/19/21 History Montelukast [Singulair] 10 mg PO DAILY 12/19/21 12/19/21 History Omeprazole 40 mg PO DAILY 12/19/21 12/19/21 History Ondansetron Odt [Zofran Odt] 4 mg PO Q8HR PRN 12/19/21 12/19/21 History QUEtiapine [SEROquel] 50 mg PO HS 12/19/21 12/19/21 History Salmeterol 50 mcg [Serevent Diskus] 1 puff INHALATION RT-BID 12/19/21 12/20/21 History Ubrogepant [Ubrelvy] 100 mg PO BID PRN 12/19/21 12/19/21 History clonazePAM [KlonoPIN] 1 mg PO DAILY PRN 12/19/21 12/19/21 History Allergies Allergy/AdvReac Type Severity Reaction Status Date / Time acetaminophen [From Tylenol] AdvReac Anaphylaxis Verified 12/19/21 22:09 aspirin AdvReac Anaphylaxis Verified 12/19/21 22:09 famotidine [From Pepcid] AdvReac Anaphylaxis Verified 12/19/21 22:09 haloperidol [From Haldol] AdvReac Anaphylaxis Verified 12/19/21 22:09 iodine AdvReac Anaphylaxis Verified 12/19/21 22:09 ketorolac [From Toradol] AdvReac Anaphylaxis Verified 12/19/21 22:09 metoclopramide [From Reglan] AdvReac Anaphylaxis Verified 12/19/21 22:09 NSAIDS (Non-Steroidal AdvReac Anaphylaxis Verified 12/19/21 22:09 Anti-Inflamma prochlorperazine AdvReac Anaphylaxis Verified 12/19/21 22:09 [From Compazine] Surgical - Exam Vital Signs Temp Pulse Resp BP Pulse Ox 98.0 F 119 H 20 97/69 98 12/19/21 19:56 12/19/21 19:56 12/19/21 19:56 12/19/21 19:56 12/19/21 19:56 - General no distress, moderate pain - Eyes normal ocular movement, no pale - ENT normal nares, normal mucosa - Respiratory normal expansion, normal respiratory effort - Abdomen Abdomen: soft, tender (Right flank) - Psychiatric oriented to time, oriented to person, oriented to place Results - Labs 12/20/21 02:25 12/19/21 20:54 Abnormal Lab Results - Last 24 Hours (Table) 12/19/21 12/19/21 12/19/21 Range/Units 20:54 23:21 23:45 WBC (3.8-10.6) k/uL RBC (3.80-5.40) m/uL Hgb (11.4-16.0) gm/dL Hct (34.0-46.0) % RDW (11.5-15.5) % Neutrophils # (1.3-7.7) k/uL Lymphocytes # (1.0-4.8) k/uL APTT 18.3 L (22.0-30.0) sec Chloride 112 H (98-107) mmol/L Carbon Dioxide 21 L (22-30) mmol/L Urine Appearance Bloody H (Clear) Urine RBC >182 H (0-5) /hpf Urine WBC 14 H (0-5) /hpf Ur Squamous Epith Cells 6 H (0-4) /hpf 12/20/21 Range/Units 02:25 WBC 11.5 H (3.8-10.6) k/uL RBC 3.55 L (3.80-5.40) m/uL Hgb 8.9 L (11.4-16.0) gm/dL Hct 28.6 L (34.0-46.0) % RDW 16.2 H (11.5-15.5) % Neutrophils # 10.3 H (1.3-7.7) k/uL Lymphocytes # 0.6 L (1.0-4.8) k/uL APTT (22.0-30.0) sec Chloride (98-107) mmol/L Carbon Dioxide (22-30) mmol/L Urine Appearance (Clear) Urine RBC (0-5) /hpf Urine WBC (0-5) /hpf Ur Squamous Epith Cells (0-4) /hpf Microbiology - Last 24 Hours (Table) 12/20/21 01:04 Blood Culture Gram Stain - Preliminary Blood 12/20/21 01:04 Blood Culture - Final Blood 12/19/21 23:01 Blood Culture Gram Stain - Preliminary Blood 12/19/21 23:21 Urine Culture - Preliminary Urine,Voided 12/19/21 23:01 Blood Culture - Final Blood Diabetes panel 12/19/21 Range/Units 20:54 Sodium 140 (137-145) mmol/L Potassium 3.6 (3.5-5.1) mmol/L Chloride 112 H (98-107) mmol/L Carbon Dioxide 21 L (22-30) mmol/L BUN 7 (7-17) mg/dL Creatinine 0.52 (0.52-1.04) mg/dL Glucose 86 (74-99) mg/dL Calcium 8.4 (8.4-10.2) mg/dL AST 20 (14-36) U/L ALT 19 (4-34) U/L Alkaline Phosphatase 119 (38-126) U/L Total Protein 6.4 (6.3-8.2) g/dL Albumin 3.5 (3.5-5.0) g/dL Calcium panel 12/19/21 Range/Units 20:54 Calcium 8.4 (8.4-10.2) mg/dL Albumin 3.5 (3.5-5.0) g/dL Pituitary panel 12/19/21 Range/Units 20:54 Sodium 140 (137-145) mmol/L Potassium 3.6 (3.5-5.1) mmol/L Chloride 112 H (98-107) mmol/L Carbon Dioxide 21 L (22-30) mmol/L BUN 7 (7-17) mg/dL Creatinine 0.52 (0.52-1.04) mg/dL Glucose 86 (74-99) mg/dL Calcium 8.4 (8.4-10.2) mg/dL Adrenal panel 12/19/21 Range/Units 20:54 Sodium 140 (137-145) mmol/L Potassium 3.6 (3.5-5.1) mmol/L Chloride 112 H (98-107) mmol/L Carbon Dioxide 21 L (22-30) mmol/L BUN 7 (7-17) mg/dL Creatinine 0.52 (0.52-1.04) mg/dL Glucose 86 (74-99) mg/dL Calcium 8.4 (8.4-10.2) mg/dL Total Bilirubin 0.3 (0.2-1.3) mg/dL AST 20 (14-36) U/L ALT 19 (4-34) U/L Alkaline Phosphatase 119 (38-126) U/L Total Protein 6.4 (6.3-8.2) g/dL Albumin 3.5 (3.5-5.0) g/dL Assessment and Plan Assessment: This is a 26-year-old female with history of recurrent kidney stones. Presented to the hospital with right flank pain with gross hematuria, patient was bacteremic. Urology is consulted for her CT finding of right-sided nonobstructing renal stones. I reviewed the images I see no evidence of hydronephrosis or obstruction. The stones are nonobstructive. From urology standpoint no acute surgical intervention. Recommend following up on urine cultures and treating accordingly. Discussed with the patient she might benefit from further evaluation for her recurrent kidney stones as an outpatient.
[2021-12-20] MEDS: QUEtiapine 50 MG TAB PO SCH (19:59)
[2021-12-20] MEDS: ONDANSETRON 4 MG/2 ML VIAL IVP PRN (20:00)
--- NOTE | 2021-12-20 22:54 | P.CONS ---
History of Present Illness - Reason for Consult Consult date: 12/20/21 Positive blood culture Requesting physician: Chelo Maher - Chief Complaint Right flank pain and hematuria x few days - History of Present Illness Patient is a 26-year-old female with a past medical history significant for familial adenomatosis polyposis status post colectomy and did have an ileostomy patient did have a Mediport placed few years ago as the pa tient did have a hard time getting IV access patient presented to the ER with complaints of right-sided flank pain and hematuria symptom has been going on since last patient was developing nausea and vomiting, patient is also complaining of right flank pain more of a sharp 5-6 out of 10 no radiation complaining of some dysuria and frequency as well as hematuria patient was evaluated in the ER and the patient was discharged home subsequently blood culture came back positive and the patient advised to come back to the hospital patient did have a CT abdominal pelvis on 12/18/2021 which shows a nonobstructing calculi in the lower pole of the right kidney with no hydronephrosis there was n o evidence of any bowel obstruction or enteritis patient is currently being treated with cefepime infectious disease was consulted for further management of antibiotic therapy Review of Systems Positive point has been mentioned in the HPI rest of the systems are negative Past Medical History Past Medical History: Asthma Additional Past Medical History / Comment(s): FAP, c diff in past History of Any Multi-Drug Resistant Organisms: Unobtainable, VRE Year Discovered:: 12/03/2021 MDRO Source:: urine Past Surgical History: Appendectomy, Bowel Resection, Cholecystectomy Additional Past Surgical History / Comment(s): ileostomy, kidney stone removal, IVC filter in left groin October 2021. Past Psychological History: No Psychological Hx Reported Smoking Status: Never smoker Past Alcohol Use History: None Reported Past Drug Use History: None Reported - Past Family History Father Family Medical History: GI Bleed Medications and Allergies Home Medications Medication Instructions Recorded Confirmed Type Albuterol Nebulized [Ventolin 2.5 mg INHALATION RT-QID PRN 12/19/21 12/19/21 History Nebulized] Albuterol Sulfate [Proair Hfa] 2 puff INHALATION RT-Q6H PRN 12/19/21 12/19/21 History EPINEPHrine (Auto Inject) [Epipen] 0.3 mg IM ONCE PRN 12/19/21 12/19/21 History Ferrous Sulfate [Feosol] 325 mg PO DAILY 12/19/21 12/19/21 History Galcanezumab-Gnlm [Emgality Pen] 120 mg SQ Q30D 12/19/21 12/19/21 History Loratadine 10 mg PO DAILY 12/19/21 12/19/21 History Montelukast [Singulair] 10 mg PO DAILY 12/19/21 12/19/21 History Omeprazole 40 mg PO DAILY 12/19/21 12/19/21 History Ondansetron Odt [Zofran Odt] 4 mg PO Q8HR PRN 12/19/21 12/19/21 History QUEtiapine [SEROquel] 50 mg PO HS 12/19/21 12/19/21 History Salmeterol 50 mcg [Serevent Diskus] 1 puff INHALATION RT-BID 12/19/21 12/20/21 History Ubrogepant [Ubrelvy] 100 mg PO BID PRN 12/19/21 12/19/21 History clonazePAM [KlonoPIN] 1 mg PO DAILY PRN 12/19/21 12/19/21 History Allergies Allergy/AdvReac Type Severity Reaction Status Date / Time acetaminophen [From Tylenol] AdvReac Anaphylaxis Verified 12/19/21 22:09 aspirin AdvReac Anaphylaxis Verified 12/19/21 22:09 famotidine [From Pepcid] AdvReac Anaphylaxis Verified 12/19/21 22:09 haloperidol [From Haldol] AdvReac Anaphylaxis Verified 12/19/21 22:09 iodine AdvReac Anaphylaxis Verified 12/19/21 22:09 ketorolac [From Toradol] AdvReac Anaphylaxis Verified 12/19/21 22:09 metoclopramide [From Reglan] AdvReac Anaphylaxis Verified 12/19/21 22:09 NSAIDS (Non-Steroidal AdvReac Anaphylaxis Verified 12/19/21 22:09 Anti-Inflamma prochlorperazine AdvReac Anaphylaxis Verified 12/19/21 22:09 [From Compazine] Physical Exam Vitals: Vital Signs Temp Pulse Pulse Resp BP BP Pulse Ox 12/20/21 04:08 98.3 F 117 H 16 116/75 100 12/20/21 03:31 98.4 F 12/20/21 03:07 120 H 12/20/21 03:00 130 H 108/57 97 12/20/21 02:50 131 H 108/57 97 12/20/21 02:40 138 H 108/57 96 12/20/21 02:30 144 H 108/57 97 12/20/21 02:20 154 H 18 92/41 94 L 12/20/21 02:10 137 H 91/48 97 12/20/21 02:00 131 H 118/89 98 12/20/21 01:50 135 H 118/89 97 12/20/21 01:40 134 H 118/89 97 12/20/21 01:30 130 H 118/89 98 12/20/21 01:20 122 H 118/89 100 12/20/21 01:10 98.9 F 120 H 18 118/89 99 12/20/21 01:00 118 H 122/73 100 12/20/21 00:50 126 H 122/73 100 12/20/21 00:40 112 H 122/73 100 12/20/21 00:30 98 122/73 99 12/20/21 00:20 125 H 122/73 99 12/20/21 00:10 128 H 122/73 98 12/20/21 00:00 130 H 148/98 97 12/19/21 23:50 148/98 12/19/21 23:40 148/98 98 12/19/21 23:35 148/98 98 12/19/21 23:00 115 H 12/19/21 22:50 117 H 12/19/21 22:40 98 12/19/21 22:30 120 H 12/19/21 22:20 95 12/19/21 22:10 102 H 12/19/21 22:00 91 12/19/21 21:51 103 H 12/19/21 19:56 98.0 F 119 H 20 97/69 98 Intake and Output 12/19/21 12/20/21 12/20/21 22:59 06:59 14:59 Intake Total 50 Balance 50 Intake: Oral 50 Other: Voiding Method Toilet Weight 105.823 kg 105.823 kg GENERAL DESCRIPTION: Middle-aged female lying in bed, no distress. No tachypnea or accessory muscle of respiration use. HEENT: Shows Pallor , no scleral icterus. Oral mucous membrane is dry. No pharyngeal erythema or thrush NECK: Trachea central, no thyromegaly. LUNGS: Unlabored breathing. Clear to auscultation anteriorly. No wheeze or crackle. HEART: S1, S2, regular rate and rhythm. No loud murmur ABDOMEN: Soft, no tenderness , guarding or rigidity, no organomegaly EXTREMITIES: No edema of feet. SKIN: No rash, no masses palpable. NEUROLOGICAL: The patient is awake, alert, oriented x3, mood and affect normal. Results CBC & Chem 7: 12/20/21 02:25 12/19/21 20:54 Labs: Abnormal Lab Results - Last 24 Hours (Table) 12/19/21 12/19/21 12/19/21 Range/Units 20:54 23:21 23:45 WBC (3.8-10.6) k/uL RBC (3.80-5.40) m/uL Hgb (11.4-16.0) gm/dL Hct (34.0-46.0) % RDW (11.5-15.5) % Neutrophils # (1.3-7.7) k/uL Lymphocytes # (1.0-4.8) k/uL APTT 18.3 L (22.0-30.0) sec Chloride 112 H (98-107) mmol/L Carbon Dioxide 21 L (22-30) mmol/L Urine Appearance Bloody H (Clear) Urine RBC >182 H (0-5) /hpf Urine WBC 14 H (0-5) /hpf Ur Squamous Epith Cells 6 H (0-4) /hpf 12/20/21 Range/Units 02:25 WBC 11.5 H (3.8-10.6) k/uL RBC 3.55 L (3.80-5.40) m/uL Hgb 8.9 L (11.4-16.0) gm/dL Hct 28.6 L (34.0-46.0) % RDW 16.2 H (11.5-15.5) % Neutrophils # 10.3 H (1.3-7.7) k/uL Lymphocytes # 0.6 L (1.0-4.8) k/uL APTT (22.0-30.0) sec Chloride (98-107) mmol/L Carbon Dioxide (22-30) mmol/L Urine Appearance (Clear) Urine RBC (0-5) /hpf Urine WBC (0-5) /hpf Ur Squamous Epith Cells (0-4) /hpf Microbiology - Last 24 Hours (Table) 12/19/21 23:21 Urine Culture - Preliminary Urine,Voided 12/19/21 23:01 Blood Culture Gram Stain - Preliminary Blood 12/19/21 23:01 Blood Culture - Final Blood Assessment and Plan (1) Positive blood culture Current Visit: Yes Status: Acute Code(s): R78.81 - BACTEREMIA SNOMED Code(s): 129509107 Plan: 1patient with Enterobacter bacteremia in this patient predominantly urinary symptom of right flank pain and did have some hematuria with urinary burning I clinically suspicious for urinary source of this bacteremia CT abdominal pelvis did not show any evidence of enteritis or abscess however the patient do have a Mediport and bacteremia related to the port need to be ruled out. 2we will obtain blood cultures from the port and peripherally. 3patient to continue cefepime 2 g every 8 hours. We will follow on clinical condition and cultures to further adjust medication if needed Thank you for this consultation will follow this patient along with you Time with Patient: Greater than 30
[2021-12-20] MEDS ORDERED: diphenhydrAMINE 25 MG CAP PO STA (23:49)
[2021-12-21] MEDS: CEFEPIME 2 GM in SODIUM CHLORIDE 0.9% 100 ML IVPB SCH ×3 (00:05→18:40)
[2021-12-21] MEDS: MORPHINE SULFATE 4 MG/ML SYRINGE IVP PRN ×5 (00:05→20:15)
[2021-12-21] MEDS: SODIUM CHLORIDE 0.9% 1,000 ML IV SCH ×2 (04:15→21:14)
[2021-12-21] MEDS: PANTOPRAZOLE 40 MG TABLET PO SCH (09:29)
[2021-12-21] MEDS: MONTELUKAST 10 MG TAB PO SCH (09:29)
[2021-12-21] MEDS: LORATADINE 10 MG TAB PO SCH (09:29)
[2021-12-21 10:08] LABS: Basophils % (A) 0 %; Eosinophils # (A) 0.4 k/uL (0-0.7); Eosinophils % (A) 8 %; HCT 27.5 % (34.0-46.0); HGB 8.3 gm/dL (11.4-16.0); Hypochromasia Marked; Lymphocytes % (A) 18 %; MCH 24.2 pg (25.0-35.0); MCHC 30.2 g/dL (31.0-37.0); Mean Platelet Volume 8.5; Monocytes # (A) 0.4 k/uL (0-1.0); Monocytes % (A) 7 %; Neutrophils # (A) 3.4 k/uL (1.3-7.7); Neutrophils % (A) 65 %; Platelet Count 150 k/uL (150-450); RBC 3.44 m/uL (3.80-5.40); WBC 5.3 k/uL (3.8-10.6)
[2021-12-21 10:29] LABS: ALT 22 U/L (4-34); African American GFR (CKD) >90 (>60 ml/min/1.73 sqM); Albumin 3.1 g/dL (3.5-5.0); Anion Gap 8 mmol/L; Blood Urea Nitrogen 7 mg/dL (7-17); C Reactive Protein 4.1 mg/dL (<1.0); Calcium 8.2 mg/dL (8.4-10.2); Carbon Dioxide 19 mmol/L (22-30); Chloride 110 mmol/L (98-107); Glucose 91 mg/dL (74-99); Non-African American GFR(CKD) >90 (>60 ml/min/1.73 sqM); Sodium 137 mmol/L (137-145); Total Bilirubin 0.5 mg/dL (0.2-1.3)
[2021-12-21 10:41] LABS: Potassium 4.4 mmol/L (3.5-5.1)
[2021-12-21 10:42] LABS: AST 36 U/L (14-36); Alkaline Phosphatase 86 U/L (38-126)
--- NOTE | 2021-12-21 11:32 | P.PN ---
Subjective Progress Note Date: 12/21/21 Principal diagnosis: Right flank pain She is complaining of itching in the skin area covered by tape on the port area. She got po benadryl last night for that but did not help. Now she is asking for IV benadryl. No fevers. No sob. No n/v. Objective - Vital Signs Vital signs: Vital Signs Temp 98.0 F 12/21/21 08:00 Pulse 96 12/21/21 08:00 Resp 16 12/21/21 08:00 BP 92/66 12/21/21 08:00 Pulse Ox 100 12/21/21 08:00 FiO2 Intake & Output 12/20/21 12/21/21 12/21/21 18:59 06:59 18:59 Intake Total 118 200 120 Balance 118 200 120 Intake: Oral 118 200 120 Other: Voiding Method Toilet Toilet # Voids 2 1 1 - Exam General: Chronically ill-appearing female, no distress, appears older than stated age, obese Derm: no unusual rashes/lesions, warm Head: atraumatic, normocephalic, symmetric Eyes: EOMI, no lid lag, anicteric sclera, pupils equal round reactive to light ENT: Nose and ears atraumatic Neck: No cervical lymphadenopathy, trachea midline, supple Mouth: no lip lesion, mucus membranes moist Cardiovascular: S1S2 reg, no murmur, positive dorsalis pedis pulse bilateral, no edema Lungs: Port in the right chest area. CTA bilateral, no rhonchi, no rales, no accessory muscle use Abdominal: soft, mild right flank and CVA tenderness, ileostomy bag in place with liquidy brown fecal material, no guarding Ext: muscle strength 5 out of 5 in all 4 extremities grossly, no gross muscle atrophy, no contractures, Neuro: CN II-XI grossly intact, no gross focal neuro deficits Psych: Alert, oriented, appropriate affect - Labs CBC & Chem 7: 12/21/21 09:45 12/21/21 09:45 Labs: Abnormal Lab Results - Last 24 Hours (Table) 12/21/21 12/21/21 Range/Units 09:45 09:45 RBC 3.44 L (3.80-5.40) m/uL Hgb 8.3 L (11.4-16.0) gm/dL Hct 27.5 L (34.0-46.0) % MCH 24.2 L (25.0-35.0) pg MCHC 30.2 L (31.0-37.0) g/dL RDW 16.0 H (11.5-15.5) % Chloride 110 H (98-107) mmol/L Carbon Dioxide 19 L (22-30) mmol/L Calcium 8.2 L (8.4-10.2) mg/dL C-Reactive Protein 4.1 H (<1.0) mg/dL Total Protein 6.0 L (6.3-8.2) g/dL Albumin 3.1 L (3.5-5.0) g/dL Microbiology - Last 24 Hours (Table) 12/20/21 01:04 Blood Culture Gram Stain - Preliminary Blood Blood Culture - Preliminary Gram Neg Bacilli 12/19/21 23:01 Blood Culture Gram Stain - Preliminary Blood Blood Culture - Preliminary Gram Neg Bacilli 12/20/21 01:04 Blood Culture - Final Blood 12/19/21 23:21 Urine Culture - Preliminary Urine,Voided 12/19/21 23:01 Blood Culture - Final Blood Assessment and Plan Plan: Gram negative bacteremia -Infectious disease consulted -Continue with empiric antibiotics cefepime -Repeat blood cultures done Symptomatic right kidney stone -Urology consulted, stones are not obstructive, will need outpatient follow up. -IV fluids -Pain control -Antiemetics Normocytic anemia -No long-term baseline for comparison -Monitor for now DVT prophylaxis -Heparin subcu CODE STATUS: Full Code Discussed with: Patient Anticipated discharge date: 1-[address]: Home
[2021-12-21] MEDS: diphenhydrAMINE 50 MG/ML 1 ML VIAL IVP PRN ×2 (12:11→20:19)
[2021-12-21] MEDS: ONDANSETRON 4 MG/2 ML VIAL IVP PRN (12:11)
[2021-12-21] MEDS: QUEtiapine 50 MG TAB PO SCH (20:15)
[2021-12-22] MEDS: MORPHINE SULFATE 4 MG/ML SYRINGE IVP PRN ×6 (00:20→20:31)
[2021-12-22] MEDS: ONDANSETRON 4 MG/2 ML VIAL IVP PRN ×3 (00:20→16:40)
[2021-12-22] MEDS: CEFEPIME 2 GM in SODIUM CHLORIDE 0.9% 100 ML IVPB SCH ×3 (00:21→16:40)
[2021-12-22] MEDS: diphenhydrAMINE 50 MG/ML 1 ML VIAL IVP PRN ×3 (02:10→18:15)
[2021-12-22] MEDS: SODIUM CHLORIDE 0.9% 1,000 ML IV SCH ×3 (04:21→13:11)
--- NOTE | 2021-12-22 06:44 | P.PN ---
Subjective Progress Note Date: 12/21/21 Principal diagnosis: Gram-negative bacteremia Patient is a 26-year-old female with a past medical history significant for familial adenomatous polyposis status post colectomy and ileostomy also with a history of renal stones patient did have right chest wall Mediport presenting to the hospital with right-sided flank pain nausea vomiting and hematuria also have a positive blood culture. On today's evaluation that is 12/31/2021, the patient is afebrile she is feeling slightly better right flank pain has improved no further vomiting have some urinary symptoms no chest pain shortness of breath or cough and no worsening output in the ileostomy Objective - Vital Signs Vital signs: Vital Signs Temp 98.0 F 12/21/21 08:00 Pulse 96 12/21/21 08:00 Resp 16 12/21/21 08:00 BP 92/66 12/21/21 08:00 Pulse Ox 100 12/21/21 08:00 FiO2 Intake & Output 12/20/21 12/21/21 12/21/21 18:59 06:59 18:59 Intake Total 118 200 120 Balance 118 200 120 Intake: Oral 118 200 120 Other: Voiding Method Toilet Toilet # Voids 2 1 1 - Exam GENERAL DESCRIPTION: Middle-aged female lying in bed in no distress RESPIRATORY SYSTEM: Unlabored breathing , decreased breath sounds at bases HEART: S1 S2 regular rate and rhythm , ABDOMEN: Soft , no tenderness EXTREMITIES: No edema feet - Labs CBC & Chem 7: 12/21/21 09:45 12/21/21 09:45 Labs: Abnormal Lab Results - Last 24 Hours (Table) 12/21/21 12/21/21 Range/Units 09:45 09:45 RBC 3.44 L (3.80-5.40) m/uL Hgb 8.3 L (11.4-16.0) gm/dL Hct 27.5 L (34.0-46.0) % MCH 24.2 L (25.0-35.0) pg MCHC 30.2 L (31.0-37.0) g/dL RDW 16.0 H (11.5-15.5) % Chloride 110 H (98-107) mmol/L Carbon Dioxide 19 L (22-30) mmol/L Calcium 8.2 L (8.4-10.2) mg/dL C-Reactive Protein 4.1 H (<1.0) mg/dL Total Protein 6.0 L (6.3-8.2) g/dL Albumin 3.1 L (3.5-5.0) g/dL Microbiology - Last 24 Hours (Table) 12/20/21 01:04 Blood Culture Gram Stain - Preliminary Blood Blood Culture - Preliminary Gram Neg Bacilli 12/19/21 23:01 Blood Culture Gram Stain - Preliminary Blood Blood Culture - Preliminary Gram Neg Bacilli 12/20/21 01:04 Blood Culture - Final Blood 12/19/21 23:21 Urine Culture - Preliminary Urine,Voided Assessment and Plan (1) Positive blood culture Current Visit: Yes Status: Acute Code(s): R78.81 - BACTEREMIA SNOMED Code(s): 595647770 Plan: 1patient with Enterobacter bacteremia in this patient predominantly urinary symptom of right flank pain and did have some hematuria with urinary burning I clinically suspicious for urinary source of this bacteremia CT abdominal pelvis did not show any evidence of enteritis or abscess however the patient do have a Mediport and bacteremia related to the port need to be ruled out. 2repeat blood cultures from the port and peripheral are currently pending. 3patient to continue cefepime 2 g every 8 hours while waiting for these cultures to finalize, patient is reluctant to the idea of removal of her port. Time with Patient: Less than 30
[2021-12-22] MEDS: PANTOPRAZOLE 40 MG TABLET PO SCH (08:18)
[2021-12-22] MEDS: MONTELUKAST 10 MG TAB PO SCH (08:18)
[2021-12-22] MEDS: LORATADINE 10 MG TAB PO SCH (08:18)
[2021-12-22 08:41] LABS: Basophils % (A) 1 %; Eosinophils # (A) 0.5 k/uL (0-0.7); Eosinophils % (A) 8 %; HGB 8.6 gm/dL (11.4-16.0); Hypochromasia Marked; Lymphocytes # (A) 1.1 k/uL (1.0-4.8); Lymphocytes % (A) 21 %; MCH 24.8 pg (25.0-35.0); MCHC 30.7 g/dL (31.0-37.0); MCV 80.7 fL (80.0-100.0); Monocytes # (A) 0.3 k/uL (0-1.0); Monocytes % (A) 6 %; Neutrophils # (A) 3.4 k/uL (1.3-7.7); Neutrophils % (A) 63 %; Platelet Count 188 k/uL (150-450); RBC 3.47 m/uL (3.80-5.40); WBC 5.4 k/uL (3.8-10.6)
[2021-12-22 08:50] LABS: African American GFR (CKD) >90 (>60 ml/min/1.73 sqM); Anion Gap 9 mmol/L; Blood Urea Nitrogen 8 mg/dL (7-17); Calcium 8.1 mg/dL (8.4-10.2); Carbon Dioxide 18 mmol/L (22-30); Chloride 111 mmol/L (98-107); Glucose 103 mg/dL (74-99); Non-African American GFR(CKD) >90 (>60 ml/min/1.73 sqM); Sodium 138 mmol/L (137-145)
[2021-12-22 08:51] LABS: Potassium 5.1 mmol/L (3.5-5.1)
--- NOTE | 2021-12-22 15:24 | P.PN ---
Subjective Progress Note Date: 12/22/21 Principal diagnosis: Right flank pain Patient is still complaining of subjective severe pain in the right flank. No nausea or vomiting. No fevers or chills. No urinary symptoms. Objective - Vital Signs Vital signs: Vital Signs Temp 98.0 F 12/22/21 12:00 Pulse 87 12/22/21 13:10 Resp 17 12/22/21 12:00 BP 104/64 12/22/21 12:00 Pulse Ox 99 12/22/21 12:00 FiO2 Intake & Output 12/21/21 12/22/21 12/22/21 18:59 06:59 18:59 Intake Total 480 240 Balance 480 240 Intake: Oral 480 240 Other: Voiding Method Toilet Toilet Toilet # Voids 1 - Exam General: Chronically ill-appearing female, no distress, appears older than stated age, obese Derm: no unusual rashes/lesions, warm Head: atraumatic, normocephalic, symmetric Eyes: EOMI, no lid lag, anicteric sclera, pupils equal round reactive to light ENT: Nose and ears atraumatic Neck: No cervical lymphadenopathy, trachea midline, supple Mouth: no lip lesion, mucus membranes moist Cardiovascular: S1S2 reg, no murmur, positive dorsalis pedis pulse bilateral, no edema Lungs: Port in the right chest area. CTA bilateral, no rhonchi, no rales, no accessory muscle use Abdominal: soft, mild right flank and CVA tenderness, ileostomy bag in place with liquidy brown fecal material, no guarding Ext: muscle strength 5 out of 5 in all 4 extremities grossly, no gross muscle atrophy, no contractures, Neuro: CN II-XI grossly intact, no gross focal neuro deficits Psych: Alert, oriented, appropriate affect - Labs CBC & Chem 7: 12/22/21 08:26 12/22/21 08:26 Labs: Abnormal Lab Results - Last 24 Hours (Table) 12/22/21 12/22/21 Range/Units 08:26 08:26 RBC 3.47 L (3.80-5.40) m/uL Hgb 8.6 L (11.4-16.0) gm/dL Hct 28.0 L (34.0-46.0) % MCH 24.8 L (25.0-35.0) pg MCHC 30.7 L (31.0-37.0) g/dL RDW 16.0 H (11.5-15.5) % Chloride 111 H (98-107) mmol/L Carbon Dioxide 18 L (22-30) mmol/L Glucose 103 H (74-99) mg/dL Calcium 8.1 L (8.4-10.2) mg/dL Microbiology - Last 24 Hours (Table) 12/20/21 12:13 Blood Culture - Preliminary Blood No Growth after 48 hours 12/21/21 09:45 Blood Culture - Preliminary Blood No Growth after 24 hours 12/20/21 01:04 Blood Culture Gram Stain - Preliminary Blood Blood Culture - Preliminary Enterobacter cloacae 12/19/21 23:01 Blood Culture Gram Stain - Preliminary Blood Blood Culture - Preliminary Enterobacter cloacae 12/19/21 23:21 Urine Culture - Final Urine,Voided Assessment and Plan Plan: Gram negative bacteremia, growing Enterobacter in the blood -Infectious disease following -Continue with empiric antibiotics cefepime -Repeat blood cultures done, follow until negative Symptomatic right kidney stone -Urology consulted, stones are not obstructive, will need outpatient follow up. -IV fluids -Pain control -Antiemetics Normocytic anemia -No long-term baseline for comparison -Monitor for now DVT prophylaxis -Heparin subcu CODE STATUS: Full Code Discussed with: Patient Anticipated discharge date: 2-[address]: Home
[2021-12-22] MEDS: QUEtiapine 50 MG TAB PO SCH (20:31)
--- NOTE | 2021-12-22 20:35 | P.PN ---
Subjective Progress Note Date: 12/22/21 Principal diagnosis: Gram-negative bacteremia Patient is a 26-year-old female with a past medical history significant for familial adenomatous polyposis status post colectomy and ileostomy also with a history of renal stones patient did have right chest wall Mediport presenting to the hospital with right-sided flank pain nausea vomiting and hematuria also have a positive blood culture. On today's evaluation that is 12/22/2021, the patient remains to be afebrile, the patient is feeling slightly better , the patient right flank pain has improved no further vomiting have some urinary symptoms no chest pain shortness of breath or cough and no worsening output in the ileostomy Objective - Vital Signs Vital signs: Vital Signs Temp 98.2 F 12/22/21 08:00 Pulse 87 12/22/21 08:00 Resp 17 12/22/21 08:00 BP 91/66 12/22/21 08:00 Pulse Ox 98 12/22/21 08:00 FiO2 Intake & Output 12/21/21 12/22/21 12/22/21 18:59 06:59 18:59 Intake Total 480 Balance 480 Intake: Oral 480 Other: Voiding Method Toilet Toilet Toilet # Voids 1 - Exam GENERAL DESCRIPTION: Middle-aged female lying in bed in no distress RESPIRATORY SYSTEM: Unlabored breathing , decreased breath sounds at bases HEART: S1 S2 regular rate and rhythm , ABDOMEN: Soft , no tenderness EXTREMITIES: No edema feet - Labs CBC & Chem 7: 12/22/21 08:26 12/22/21 08:26 Labs: Abnormal Lab Results - Last 24 Hours (Table) 12/22/21 12/22/21 Range/Units 08:26 08:26 RBC 3.47 L (3.80-5.40) m/uL Hgb 8.6 L (11.4-16.0) gm/dL Hct 28.0 L (34.0-46.0) % MCH 24.8 L (25.0-35.0) pg MCHC 30.7 L (31.0-37.0) g/dL RDW 16.0 H (11.5-15.5) % Chloride 111 H (98-107) mmol/L Carbon Dioxide 18 L (22-30) mmol/L Glucose 103 H (74-99) mg/dL Calcium 8.1 L (8.4-10.2) mg/dL Microbiology - Last 24 Hours (Table) 12/20/21 12:13 Blood Culture - Preliminary Blood No Growth after 24 hours 12/19/21 23:21 Urine Culture - Final Urine,Voided 12/20/21 01:04 Blood Culture Gram Stain - Preliminary Blood Blood Culture - Preliminary Gram Neg Bacilli 12/19/21 23:01 Blood Culture Gram Stain - Preliminary Blood Blood Culture - Preliminary Gram Neg Bacilli Assessment and Plan (1) Positive blood culture Current Visit: Yes Status: Acute Code(s): R78.81 - BACTEREMIA SNOMED Code(s): 347133817 Plan: 1patient with Enterobacter bacteremia in this patient predominantly urinary symptom of right flank pain and did have some hematuria with urinary burning I clinically suspicious for urinary source of this bacteremia CT abdominal pelvis did not show any evidence of enteritis or abscess however the patient do have a Mediport and bacteremia related to the port need to be ruled out. 2repeat blood cultures from the port and peripheral are so far negative 3patient seemed to have improved and will continue cefepime 2 g every 8 hours , patient is reluctant to the idea of removal of her port. Time with Patient: Less than 30
[2021-12-23] MEDS: diphenhydrAMINE 50 MG/ML 1 ML VIAL IVP PRN ×2 (00:05→06:17)
[2021-12-23] MEDS: MORPHINE SULFATE 4 MG/ML SYRINGE IVP PRN ×3 (00:06→08:33)
[2021-12-23] MEDS: CEFEPIME 2 GM in SODIUM CHLORIDE 0.9% 100 ML IVPB SCH ×3 (00:06→15:58)
[2021-12-23] MEDS: ONDANSETRON 4 MG/2 ML VIAL IVP PRN ×3 (00:06→15:32)
[2021-12-23] MEDS: SODIUM CHLORIDE 0.9% 1,000 ML IV SCH ×3 (04:32→11:57)
[2021-12-23] MEDS: MONTELUKAST 10 MG TAB PO SCH (08:33)
[2021-12-23] MEDS: PANTOPRAZOLE 40 MG TABLET PO SCH (08:33)
[2021-12-23] MEDS: LORATADINE 10 MG TAB PO SCH (08:33)
[2021-12-23] MEDS ORDERED: HYDROcodone/APAP 5-325MG 1 EACH TAB PO PRN (09:18)
[2021-12-23] MEDS ORDERED: diphenhydrAMINE 25 MG CAP ONE (10:00)
[2021-12-23] MEDS: traMADol 50 MG TAB PO PRN ×3 (10:01→21:21)
--- NOTE | 2021-12-23 10:57 | P.PN ---
Subjective Progress Note Date: 12/23/21 Principal diagnosis: Right flank pain Patient complaining from hives and itching subjectively but when examined, hives are not present on her skin. She is asking for IV Benadryl. Still complaining of pain. Objective - Vital Signs Vital signs: Vital Signs Temp 98 F 12/23/21 08:00 Pulse 108 H 12/23/21 08:00 Resp 16 12/23/21 08:00 BP 108/76 12/23/21 08:00 Pulse Ox 98 12/23/21 08:00 FiO2 Intake & Output 12/22/21 12/23/21 12/23/21 18:59 06:59 18:59 Intake Total 480 Balance 480 Intake: Oral 480 Other: Voiding Method Toilet Toilet Toilet - Exam General: Chronically ill-appearing female, no distress, appears older than stated age, obese Derm: no unusual rashes/lesions, warm Head: atraumatic, normocephalic, symmetric Eyes: EOMI, no lid lag, anicteric sclera, pupils equal round reactive to light ENT: Nose and ears atraumatic Neck: No cervical lymphadenopathy, trachea midline, supple Mouth: no lip lesion, mucus membranes moist Cardiovascular: S1S2 reg, no murmur, positive dorsalis pedis pulse bilateral, no edema Lungs: Port in the right chest area. CTA bilateral, no rhonchi, no rales, no accessory muscle use Abdominal: soft, mild right flank and CVA tenderness, ileostomy bag in place with liquidy brown fecal material, no guarding Ext: muscle strength 5 out of 5 in all 4 extremities grossly, no gross muscle atrophy, no contractures, Neuro: CN II-XI grossly intact, no gross focal neuro deficits Psych: Alert, oriented, appropriate affect - Labs CBC & Chem 7: 12/22/21 08:26 12/22/21 08:26 Labs: Microbiology - Last 24 Hours (Table) 12/20/21 12:13 Blood Culture - Preliminary Blood No Growth after 48 hours 12/21/21 09:45 Blood Culture - Preliminary Blood No Growth after 24 hours 12/20/21 01:04 Blood Culture Gram Stain - Preliminary Blood Blood Culture - Preliminary Enterobacter cloacae 12/19/21 23:01 Blood Culture Gram Stain - Preliminary Blood Blood Culture - Preliminary Enterobacter cloacae Assessment and Plan Plan: Gram negative bacteremia, growing Enterobacter in the blood -Infectious disease following -Continue with empiric antibiotics cefepime -Repeat blood cultures done, follow until negative Symptomatic right kidney stone -Urology consulted, stones are not obstructive, will need outpatient follow up. -IV fluids -Pain control -Antiemetics Normocytic anemia -No long-term baseline for comparison -Monitor for now DVT prophylaxis -Heparin subcu CODE STATUS: Full Code Discussed with: Patient Anticipated discharge date: 2-[address]: Home
[2021-12-23] MEDS: diphenhydrAMINE 50 MG CAP PO PRN ×2 (15:33→16:53)
[2021-12-23] MEDS: QUEtiapine 50 MG TAB PO SCH (19:50)
[2021-12-23] MEDS ORDERED: ONDANSETRON 4 MG/2 ML VIAL IVP STA (20:55)
[2021-12-23] MEDS: PANTOPRAZOLE 40 MG/10 ML VIAL IVP ONE (20:59)
[2021-12-23] MEDS ORDERED: diphenhydrAMINE 50 MG/ML 1 ML VIAL IVP ONE (21:00)
[2021-12-23 21:38] LABS: HGB 9.3 gm/dL (11.4-16.0); Hypochromasia Moderate; MCH 25.1 pg (25.0-35.0); MCHC 31.9 g/dL (31.0-37.0); MCV 78.6 fL (80.0-100.0); Mean Platelet Volume 7.2; Platelet Count 243 k/uL (150-450); RBC 3.69 m/uL (3.80-5.40); RDW 15.8 % (11.5-15.5); WBC 9.2 k/uL (3.8-10.6)
[2021-12-23 21:52] LABS: Amylase 67 U/L (30-110); Lipase 39 U/L (23-300)
--- NOTE | 2021-12-23 23:01 | P.EN ---
patient reported hematemesis , she has no history of this , she was eating dinner, followed by desert. when examined the bassinet where she has vomited into, it was pure blood with c lots. very large amount, however without any food particles. RN had suspicion that the patient probably used her mediport to bleed through and placed it in the bassinet. vital signs stable general alert, oriented X 4 , pleasant , no acute distress abd soft lax no tenderness llungs CTA bilaterally heart normal S1 S2 RRR plan IVP 80 mg of protonix , then continue with IVP BID 40mg cbc q6hr NPO IVF hydration with normal saline Surgery consult d/c heparin sc DVT PPX symptomatic control of nausea and vomtiing check lipase and amylase bed side sitter for safety psych consult , suspected patient seeking secondary gain continue to monitor closely on the 3S floor
[2021-12-24] MEDS ORDERED: SODIUM CHLORIDE 0.9% 1,000 ML IV ONE (00:08)
[2021-12-24] MEDS ORDERED: MORPHINE SULFATE 2 MG/ML SYRINGE IVP STA ×3 (00:21→21:24)
[2021-12-24] MEDS: CEFEPIME 2 GM in SODIUM CHLORIDE 0.9% 100 ML IVPB SCH ×3 (00:35→17:36)
--- NOTE | 2021-12-24 00:49 | XR ---
EXAM: XR Abdomen, 2 Views and XR Chest, 1 View CLINICAL HISTORY: ITS.REASON XR Reason: Vomiting blood TECHNIQUE: Frontal view of the chest, frontal view of the abdomen/pelvis and upright or decubitus view of the abdomen. COMPARISON: No previous studies. FINDINGS: Lungs: No consolidative change. Pleural space: No pleural effusions. No pneumothorax. Heart: Unremarkable. No cardiomegaly. Mediastinum: Cardiomediastinal silhouette unremarkable. Intraperitoneal space: No free air. Gastrointestinal tract: Nonspecific bowel gas pattern. No dilation. Organs: The patient is status post cholecystectomy. Bones/joints: Osseous structures are unremarkable. Vasculature: IVC filter is noted in place. Tubes, lines and devices: Right internal jugular Port-A-Cath is noted in place with its tip at the mid superior vena cava. Other findings: No abnormal calcifications. IMPRESSION: 1. Nonspecific bowel gas pattern. 2. No active disease.
[2021-12-24 00:54] LABS: Glucose,Whole Blood 102 mg/dL (70-110)
[2021-12-24 00:55] LABS: Anisocytosis Slight; HCT 28.3 % (34.0-46.0); HGB 8.9 gm/dL (11.4-16.0); Hypochromasia Moderate; MCH 24.9 pg (25.0-35.0); MCHC 31.4 g/dL (31.0-37.0); MCV 79.5 fL (80.0-100.0); Platelet Count 261 k/uL (150-450); RBC 3.57 m/uL (3.80-5.40); RDW 16.4 % (11.5-15.5); WBC 7.4 k/uL (3.8-10.6)
[2021-12-24] MEDS: SODIUM CHLORIDE 0.9% 1,000 ML IV SCH ×3 (01:13→21:08)
[2021-12-24] MEDS ORDERED: methylPREDNISolone SOD SUCCI 125 MG/2 ML VIAL IV STA ×2 (01:47→15:05)
[2021-12-24] MEDS ORDERED: diphenhydrAMINE 50 MG/ML 1 ML VIAL IVP STA ×2 (01:47→15:06)
[2021-12-24 04:13] LABS: HCT 25.3 % (34.0-46.0); HGB 7.9 gm/dL (11.4-16.0); Hypochromasia Marked; MCH 24.8 pg (25.0-35.0); MCHC 31.3 g/dL (31.0-37.0); MCV 79.2 fL (80.0-100.0); Mean Platelet Volume 8.1; Platelet Count 231 k/uL (150-450); RBC 3.19 m/uL (3.80-5.40); RDW 15.9 % (11.5-15.5); WBC 6.7 k/uL (3.8-10.6)
--- NOTE | 2021-12-24 04:17 | CT ---
EXAM: CT Abdomen and Pelvis Without Intravenous Contrast CLINICAL HISTORY: ITS.REASON CT Reason: Abdominal pain/hematemisis TECHNIQUE: Axial computed tomography images of the abdomen and pelvis without intravenous contrast. CTDI is 17.8 mGy and DLP is 1003.9 mGy-cm. This CT exam was performed using one or more of the following dose reduction techniques: automated exposure control, adjustment of the mA and/or kV according to patient size, and/or use of iterative reconstruction technique. COMPARISON: 12/18/2021. Plain film evaluation of the chest and abdomen 12/24/2021. FINDINGS: Lung bases: Best seen on series 204 image 4, there is a 0.9 cm noncalcified pulmonary nodule of uncertain etiology. Areas of scarring and atelectasis noted at the lung bases. Located at the left lung base posterior laterally there is a second similar 1.1 cm noncalcified pulmonary nodule with central cavitation. Heart: Heart is normal in size. ABDOMEN: Liver: Fatty liver. Gallbladder and bile ducts: Patient is status post cholecystectomy. No ductal dilation. Pancreas: See below. Spleen: Spleen is normal in contour. Adrenals: The adrenal glands, the head, body, tail of the pancreas are unremarkable. Kidneys and ureters: No renal calculus or hydronephrosis. Stomach and bowel: Moderate quantity of ingested material in the stomach. A medial right periumbilical ostomy site is noted. A 6.7 x 4.2 cm infrasternal hernias noted containing nondilated bowel loops. Postsurgical changes of bowel. No bowel obstruction. No mucosal thickening. PELVIS: Appendix: No findings to suggest acute appendicitis. Bladder: Mildly distended urinary bladder which requires clinical correlation. No stones. Reproductive: Atrophic uterus. ABDOMEN and PELVIS: Intraperitoneal space: Unremarkable. No free air. No significant fluid collection. Bones/joints: No acute fracture. No dislocation. Soft tissues: Ischiorectal fat is clean. Vasculature: Abdominal aorta is normal in caliber. IVC filter is noted in place. No abdominal aortic aneurysm. Lymph nodes: No retroperitoneal lymphadenopathy. No pelvic or inguinal lymphadenopathy. No spondylolysis. Other findings: These findings are new since the previous study of 12/18/2021. Consideration should be given etiology such as septic emboli. Minimal ASCVD. IMPRESSION: 1. New noncalcified nodular densities are noted at the lung bases as discussed above 1 of which is cavitary at the left lung base. Etiology such as septic emboli should be considered. Further workup or follow-up are advised of the findings are equivocal. 2. Status post cholecystectomy. 3. No hydronephrosis. 4. Infrasternal hernias noted containing nondilated bowel loops. 5. Extensive bowel surgery. 6. No bowel obstruction. 7. Distention of the urinary bladder of uncertain etiology which requires clinical correlation.
[2021-12-24 04:23] LABS: Prothrombin Time 11.3 sec (9.0-12.0)
[2021-12-24 04:36] LABS: African American GFR (CKD) >90 (>60 ml/min/1.73 sqM); Anion Gap 6 mmol/L; Blood Urea Nitrogen 5 mg/dL (7-17); Calcium 8.3 mg/dL (8.4-10.2); Carbon Dioxide 19 mmol/L (22-30); Chloride 110 mmol/L (98-107); Glucose 88 mg/dL (74-99); Non-African American GFR(CKD) >90 (>60 ml/min/1.73 sqM); Potassium 3.8 mmol/L (3.5-5.1); Sodium 135 mmol/L (137-145)
[2021-12-24 07:11] LABS: Basophils % (A) 0 %; Eosinophils # (A) 0.3 k/uL (0-0.7); Eosinophils % (A) 5 %; HCT 25.7 % (34.0-46.0); HGB 8.2 gm/dL (11.4-16.0); Hypochromasia Marked; Lymphocytes % (A) 16 %; MCH 25.1 pg (25.0-35.0); MCHC 31.8 g/dL (31.0-37.0); MCV 78.9 fL (80.0-100.0); Mean Platelet Volume 7.4; Monocytes # (A) 0.4 k/uL (0-1.0); Monocytes % (A) 6 %; Neutrophils # (A) 4.6 k/uL (1.3-7.7); Neutrophils % (A) 72 %; Platelet Count 248 k/uL (150-450); RBC 3.25 m/uL (3.80-5.40); RDW 15.9 % (11.5-15.5); WBC 6.4 k/uL (3.8-10.6)
[2021-12-24] MEDS ORDERED: Potassium Replacement Protocol 1 EACH MISC MISCELLANE PRN (07:21)
[2021-12-24] MEDS: MONTELUKAST 10 MG TAB PO SCH (09:01)
[2021-12-24] MEDS: LORATADINE 10 MG TAB PO SCH (09:02)
[2021-12-24] MEDS: ONDANSETRON 4 MG/2 ML VIAL IVP PRN ×2 (09:04→17:38)
[2021-12-24] MEDS: PANTOPRAZOLE 40 MG/10 ML VIAL IVP SCH ×2 (09:05→21:09)
[2021-12-24] MEDS: POTASSIUM CHLORIDE 10 MEQ in WATER FOR INJECTION 1 100ML.BAG IVPB SCH ×2 (09:06→10:18)
[2021-12-24] MEDS: traMADol 50 MG TAB PO PRN ×2 (13:10→18:09)
--- NOTE | 2021-12-24 13:26 | P.PN ---
Subjective Progress Note Date: 12/24/21 Principal diagnosis: Right flank pain Overnight patient had a few episodes of hematemesis. Large amount of blood was reported with vomiting. It was witnessed by the nursing staff. Patient continues to have abdominal pain which she always describes. Objective - Vital Signs Vital signs: Vital Signs Temp 98.1 F 12/24/21 08:00 Pulse 96 12/24/21 11:00 Resp 21 12/24/21 11:00 BP 90/63 12/24/21 11:00 Pulse Ox 97 12/24/21 11:00 FiO2 Intake & Output 12/23/21 12/24/21 12/24/21 18:59 06:59 18:59 Intake Total 1780 920 Output Total 1020 Balance 1780 -100 Intake: Intake, IV Titration 178 920 Amount Cefepime 2 gm In Sodium 100 Chloride 0.9% 100 ml @ 25 mls/hr IVPB Q8H [facility] Rx#: [id number] Potassium Chloride 10 meq 300 In Water For Injection 1 100ml.bag @ 100 mls/hr IVPB Q1H [facility] Rx#: [id number] Sodium Chloride 0.9% 1, 780 520 000 ml @ 130 mls/hr IV . Q7H42M [facility] Rx#:[id number] Sodium Chloride 0.9% 1, 1000 000 ml @ 999 mls/hr IV . Q1H1M ONE Rx#:[id number] Output: Urine 950 Stool 70 Other: Voiding Method Toilet Bedside Commode # Voids 1 - Exam General: Chronically ill-appearing female, no distress, appears older than stated age, obese Derm: no unusual rashes/lesions, warm Head: atraumatic, normocephalic, symmetric Eyes: EOMI, no lid lag, anicteric sclera, pupils equal round reactive to light ENT: Nose and ears atraumatic Neck: No cervical lymphadenopathy, trachea midline, supple Mouth: no lip lesion, mucus membranes moist Cardiovascular: S1S2 reg, no murmur, positive dorsalis pedis pulse bilateral, no edema Lungs: Port in the right chest area. CTA bilateral, no rhonchi, no rales, no accessory muscle use Abdominal: soft, mild right flank and CVA tenderness, ileostomy bag in place with liquidy brown fecal material, no guarding Ext: muscle strength 5 out of 5 in all 4 extremities grossly, no gross muscle atrophy, no contractures, Neuro: CN II-XI grossly intact, no gross focal neuro deficits Psych: Alert, oriented, appropriate affect - Labs CBC & Chem 7: 12/24/21 06:55 12/24/21 04:00 Labs: Abnormal Lab Results - Last 24 Hours (Table) 12/23/21 12/24/21 12/24/21 Range/Units 21:20 00:30 00:30 RBC 3.69 L 3.57 L (3.80-5.40) m/uL Hgb 9.3 L 8.9 L (11.4-16.0) gm/dL Hct 29.0 L 28.3 L (34.0-46.0) % MCV 78.6 L 79.5 L (80.0-100.0) fL MCH 24.9 L (25.0-35.0) pg RDW 15.8 H 16.4 H (11.5-15.5) % Sodium (137-145) mmol/L Chloride (98-107) mmol/L Carbon Dioxide (22-30) mmol/L BUN (7-17) mg/dL Calcium (8.4-10.2) mg/dL Crossmatch See Detail 12/24/21 12/24/21 12/24/21 Range/Units 04:00 04:00 06:55 RBC 3.19 L 3.25 L (3.80-5.40) m/uL Hgb 7.9 L 8.2 L (11.4-16.0) gm/dL Hct 25.3 L 25.7 L (34.0-46.0) % MCV 79.2 L 78.9 L (80.0-100.0) fL MCH 24.8 L (25.0-35.0) pg RDW 15.9 H 15.9 H (11.5-15.5) % Sodium 135 L (137-145) mmol/L Chloride 110 H (98-107) mmol/L Carbon Dioxide 19 L (22-30) mmol/L BUN 5 L (7-17) mg/dL Calcium 8.3 L (8.4-10.2) mg/dL Crossmatch Microbiology - Last 24 Hours (Table) 12/21/21 09:45 Blood Culture - Preliminary Blood No Growth after 72 hours 12/20/21 01:04 Blood Culture Gram Stain - Final Blood Blood Culture - Final Enterobacter cloacae 12/19/21 23:01 Blood Culture Gram Stain - Final Blood Blood Culture - Final Enterobacter cloacae 12/20/21 12:13 Blood Culture - Preliminary Blood No Growth after 72 hours Assessment and Plan Plan: Gram negative bacteremia, growing Enterobacter in the blood -Infectious disease following -Enterobacter sensitive to third-generation cephalosporin, we'll discontinue cefepime, start ceftriaxone. -Repeat blood cultures done, follow until negative Septic emboli found on CT chest in the lung bases -Will notify ID Hematemesis -Consult GI -IV PPI -IV fluids -Follow hemoglobin Symptomatic right kidney stone -Urology consulted, stones are not obstructive, will need outpatient follow up. -IV fluids -Pain control -Antiemetics Normocytic anemia -No long-term baseline for comparison -Monitor for now DVT prophylaxis -Heparin subcu CODE STATUS: Full Code Discussed with: Patient Anticipated discharge date: 2-[address]: Home
--- NOTE | 2021-12-24 13:29 | P.CONS ---
History of Present Illness - Reason for Consult Consult date: 12/24/21 GI bleed Requesting physician: Wojciech Richards - Chief Complaint Abdominal pain, positive blood cultures - History of Present Illness This is a 26-year-old white female who presented to the emergency department on 12/19/2021 for complaints of abdominal pain and patient was called back to the emergency department for positive blood cultures. Apparently the patient had b een seen the day before for right flank pain and urinary tract infection symptoms. Patient had stated that she was having fevers up to 103 with nausea and vomiting since last Friday. She has a past medical history including asthma, familial adenomatosis polyposis, and peptic ulcer disease. She had reported vomiting yesterday evening with bright red blood. Last episode 1 AM. Hemoglobin was 7.2 with a repeat today of 8.2. She has 2 units of blood on hold. 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 She states that she gets EGDs and colonoscopies every 3 years. Her last EGD was in May 2021 which she states she had a ulc ers as well as 4-5 polyps. She continues to have lower abdominal pain. No further nausea or vomiting. Review of Systems REVIEW OF SYSTEMS: CARDIOPULMONARY: No chest pain or shortness of breath. Gastrointestinal: Reports of flank pain. Left lower abdominal pain. Nausea and vomiting with bright red emesis No hematemesis, coffee-ground emesis. No rectal bleeding, or melena. GENITOURINARY: No dysuria, flank pain. History of kidney stones. MUSCULOSKELETAL: Reports normal range of motion. SKIN: No rashes. No jaundice. ENDOCRINE: No chills, fevers. No excessive weight gain or loss. No polydipsia or polyuria. PSYCHIATRIC: Unremarkable. NEUROLOGY: No change in mental status. Denies dizziness, headache. ENT: Vision unremarkable. CONSTITUTIONAL: No recent weight loss. Fevers. Past Medical History Past Medical History: Asthma Additional Past Medical History / Comment(s): FAP, c diff in past History of Any Multi-Drug Resistant Organisms: Unobtainable, VRE Year Discovered:: 12/03/2021 MDRO Source:: urine Past Surgical History: Appendectomy, Bowel Resection, Cholecystectomy Additional Past Surgical History / Comment(s): ileostomy, kidney stone removal, IVC filter in left groin October 2021. Past Psychological History: No Psychological Hx Reported Smoking Status: Never smoker Past Alcohol Use History: None Reported Past Drug Use History: None Reported - Past Family History Father Family Medical History: GI Bleed Medications and Allergies Home Medications Medication Instructions Recorded Confirmed Type Albuterol Nebulized [Ventolin 2.5 mg INHALATION RT-QID PRN 12/19/21 12/19/21 History Nebulized] Albuterol Sulfate [Proair Hfa] 2 puff INHALATION RT-Q6H PRN 12/19/21 12/19/21 History EPINEPHrine (Auto Inject) [Epipen] 0.3 mg IM ONCE PRN 12/19/21 12/19/21 History Ferrous Sulfate [Feosol] 325 mg PO DAILY 12/19/21 12/19/21 History Galcanezumab-Gnlm [Emgality Pen] 120 mg SQ Q30D 12/19/21 12/19/21 History Loratadine 10 mg PO DAILY 12/19/21 12/19/21 History Montelukast [Singulair] 10 mg PO DAILY 12/19/21 12/19/21 History Omeprazole 40 mg PO DAILY 12/19/21 12/19/21 History Ondansetron Odt [Zofran Odt] 4 mg PO Q8HR PRN 12/19/21 12/19/21 History QUEtiapine [SEROquel] 50 mg PO HS 12/19/21 12/19/21 History Salmeterol 50 mcg [Serevent Diskus] 1 puff INHALATION RT-BID 12/19/21 12/20/21 History Ubrogepant [Ubrelvy] 100 mg PO BID PRN 12/19/21 12/19/21 History clonazePAM [KlonoPIN] 1 mg PO DAILY PRN 12/19/21 12/19/21 History Allergies Allergy/AdvReac Type Severity Reaction Status Date / Time acetaminophen [From Tylenol] AdvReac Anaphylaxis Verified 12/19/21 22:09 aspirin AdvReac Anaphylaxis Verified 12/19/21 22:09 famotidine [From Pepcid] AdvReac Anaphylaxis Verified 12/19/21 22:09 haloperidol [From Haldol] AdvReac Anaphylaxis Verified 12/19/21 22:09 iodine AdvReac Anaphylaxis Verified 07/06/22 22:09 ketorolac [From Toradol] AdvReac Anaphylaxis Verified 12/19/21 22:09 metoclopramide [From Reglan] AdvReac Anaphylaxis Verified 12/19/21 22:09 NSAIDS (Non-Steroidal AdvReac Anaphylaxis Verified 12/19/21 22:09 Anti-Inflamma prochlorperazine AdvReac Anaphylaxis Verified 12/19/21 22:09 [From Compazine] Physical Exam Vitals: Vital Signs Temp Pulse Pulse Pulse Resp BP BP 12/24/21 07:00 101 H 26 H 91/59 12/24/21 06:30 25 H 100/63 12/24/21 06:00 21 92/46 12/24/21 05:30 19 98/56 12/24/21 05:00 109 H 20 98/49 12/24/21 04:30 108 H 17 94/42 12/24/21 04:00 97.9 F 105 H 105 H 14 98/56 12/24/21 03:30 112 H 21 107/65 12/24/21 03:00 108 H 14 98/40 12/24/21 02:30 100/61 12/24/21 02:00 114 H 19 110/55 12/24/21 01:30 107 H 27 H 94/63 12/24/21 01:18 19 12/24/21 01:00 31 H 98/58 12/24/21 00:53 112 H 25 H 108/69 12/23/21 23:41 98.4 F 129 H 97/61 12/23/21 19:51 98.5 F 131 H 131 H 18 107/68 12/23/21 12:00 97.8 F 104 H 18 110/67 Pulse Ox 12/24/21 07:00 95 12/24/21 06:30 95 12/24/21 06:00 95 12/24/21 05:30 12/24/21 05:00 95 12/24/21 04:30 95 12/24/21 04:00 97 12/24/21 03:30 96 12/24/21 03:00 98 12/24/21 02:30 12/24/21 02:00 97 12/24/21 01:30 100 12/24/21 01:18 12/24/21 01:00 98 12/24/21 00:53 12/23/21 23:41 100 12/23/21 19:51 99 12/23/21 12:00 98 Intake and Output 12/23/21 12/24/21 12/24/21 22:59 06:59 14:59 Intake Total 1780 Balance 1780 Intake: Intake, IV Titration 1780 Amount Sodium Chloride 0.9% 1, 780 000 ml @ 130 mls/hr IV . Q7H42M [facility] Rx#:[id number] Sodium Chloride 0.9% 1, 1000 000 ml @ 999 mls/hr IV . Q1H1M [facility] Rx#:[id number] Other: # Voids 1 General appearance: The patient is alert, oriented, appears in no acute distress. HET: Head is normocephalic and atraumatic. Conjunctiva pink. Sclera anicteric. Neck: Supple without lymphadenopathy. Trachea midline. Heart: S1 S2. Regular rate and rhythm. Lungs: Clear to auscultation. Abdomen: Soft, mid and left lower abdominal tenderness nondistended with bowel sounds. Ostomy right abdomen with loose brown stool. No guarding or rigidity. Skin: No rashes. No jaundice. Extremities: Normal skin color and turgor. No pedal edema. Neurological: No focal deficits. Alert and oriented x3. Results CBC & Chem 7: 12/24/21 06:55 12/24/21 04:00 Labs: Abnormal Lab Results - Last 24 Hours (Table) 12/23/21 12/24/21 12/24/21 Range/Units 21:20 00:30 00:30 RBC 3.69 L 3.57 L (3.80-5.40) m/uL Hgb 9.3 L 8.9 L (11.4-16.0) gm/dL Hct 29.0 L 28.3 L (34.0-46.0) % MCV 78.6 L 79.5 L (80.0-100.0) fL MCH 24.9 L (25.0-35.0) pg RDW 15.8 H 16.4 H (11.5-15.5) % Sodium (137-145) mmol/L Chloride (98-107) mmol/L Carbon Dioxide (22-30) mmol/L BUN (7-17) mg/dL Calcium (8.4-10.2) mg/dL Crossmatch See Detail 12/24/21 12/24/21 12/24/21 Range/Units 04:00 04:00 06:55 RBC 3.19 L 3.25 L (3.80-5.40) m/uL Hgb 7.9 L 8.2 L (11.4-16.0) gm/dL Hct 25.3 L 25.7 L (34.0-46.0) % MCV 79.2 L 78.9 L (80.0-100.0) fL MCH 24.8 L (25.0-35.0) pg RDW 15.9 H 15.9 H (11.5-15.5) % Sodium 135 L (137-145) mmol/L Chloride 110 H (98-107) mmol/L Carbon Dioxide 19 L (22-30) mmol/L BUN 5 L (7-17) mg/dL Calcium 8.3 L (8.4-10.2) mg/dL Crossmatch Microbiology - Last 24 Hours (Table) 12/20/21 01:04 Blood Culture Gram Stain - Final Blood Blood Culture - Final Enterobacter cloacae 12/19/21 23:01 Blood Culture Gram Stain - Final Blood Blood Culture - Final Enterobacter cloacae 12/20/21 12:13 Blood Culture - Preliminary Blood No Growth after 72 hours 12/21/21 09:45 Blood Culture - Preliminary Blood No Growth after 48 hours Comments: CT abdomen and pelvis reports new noncalcified nodular densities noted at the lung bases as discussed above one of which is cavitary at the left lung base. Etiology such as septic emboli should be considered. Further workup or follow- up advised of the findings are equivocal. Status post cholecystectomy. No hydronephrosis. And for sternal hernia is noted containing nondilated bowel loops. Extensive bowel surgery. Distention of urinary bladder of uncertain etiology which requires clinical correlation. Assessment and Plan (1) Hematemesis Narrative/Plan: 26-year-old female who was admitted several days ago for positive blood cultures and flank pain. Has a history of FAP who currently has a colostomy. Patient is admitted to the ICU with positive blood cultures and sepsis. Unsure etiology. Patient has had nausea and vomiting since last week Friday. Apparently late yesterday evening patient had 4 episodes of nausea with vomiting with small to moderate amount of bright red blood. Likely we are dealing with a Jo-Currie tear. However patient does state that she has a history of peptic ulcer disease as well as polyps. Will proceed with EGD for further evaluation. Current Visit: Yes Status: Acute Code(s): K92.0 - HEMATEMESIS SNOMED Code(s): 5241334 (2) Abdominal pain Current Visit: Yes Status: Acute Code(s): R10.9 - UNSPECIFIED ABDOMINAL PAIN SNOMED Code(s): 86019183 (3) Positive blood culture Current Visit: Yes Status: Acute Code(s): R78.81 - BACTEREMIA SNOMED Code(s): 807230310 Plan: 1. Continue symptomatic and supportive care 2. Clear liquid diet, nothing by mouth after midnight 3. Daily CBC 4. Protonix 40 mg twice a day 5. Will proceed with EGD tomorrow 6. Continue medical management Thank you for this consultation, we will continue to follow. Dr. Alvaro Sofia I agree with the dictator's note, documented as a scribe by Cyndi SNELL.
--- NOTE | 2021-12-24 13:58 | P.CNPUL ---
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 She was seen at [facility] . Days prior to admission however patient left AGAINST MEDICAL ADVICE related to poor pain control. Patient continued to have a fever at home, her blood cultures showed a preliminary result of Enterobacter. In the emergency department on 12/20/2021 patient had mild leukocytosis with a white blood cell count of 11.5, her hemoglobin was 8.9 INR was 0.9, sodium is 140, potassium 3.6, chloride is 112, CO2 is 21, BUN 7 creatinine 0.52, LFTs within normal limits, lactic acid was 1.4, urinalysis was bloody, with 14 white blood cells, urine hCG was negative, blood culture collected on 12/19/2021 showed Enterobacter cloacae, urine culture showed no growth. Patient was started on antibiotics in the form of cefepime, urology service saw the patient in consultation for recurrent kidney stones and CT of the abdomen and pelvis showed right-sided nonobstructing renal stones without evidence of hydronephrosis. No surgical intervention was recommended. On the computed tomography scan of the abdomen and pelvis they were new noncalcified nodular densities noted at the lung bases one of which was cavitary in nature at the left lung base with a suspicion of septic emboli. In addition patient had a IVC filter placed in October 2021. She is not on any chronic anticoagulation on a regular basis. On 12/24/2021 rapid response team was called because of hematemesis, patient had 2 episodes of bloody vomiting. And patient was noted to have Pure blood in the emesis with clots, was a fairly large amount. Patient was transferred to the intensive care unit, her vital signs have remained stable, she was given IV hydration with normal saline, her prophylactic subcutaneous heparin was discontinued, she was initiated on antiemetics, on PPI therapy with IV Protonix. Serial H&H's were initiated, admission hemoglobin was 8.9, and is currently up to 9.3, 1 unit of packed red blood cells has been ord ered but patient has not required a transfusion. Hemodynamically she remains stable, she is in sinus mechanism no tachycardia, no complaints of shortness of breath, no chest pain. No further hematemesis since transfer to the intensive care unit, GI service has been consulted and patient is scheduled for EGD tomorrow. Review of Systems All systems: negative Constitutional: Denies chills, Denies fever Eyes: denies blurred vision, denies pain Ears, nose, mouth and throat: Denies headache, Denies sore throat Cardiovascular: Denies chest pain, Denies shortness of breath Respiratory: Denies cough Gastrointestinal: Reports hematemesis, Denies abdominal pain, Denies diarrhea, Denies nausea, Denies vomiting Genitourinary: Denies dysuria, Denies hematuria Musculoskeletal: Denies myalgias Integumentary: Denies pruritus, Denies rash Neurological: Denies numbness, Denies weakness Psychiatric: Denies anxiety, Denies depression Endocrine: Denies fatigue, Denies weight change Past Medical History Past Medical History: Asthma Additional Past Medical History / Comment(s): FAP, c diff in past History of Any Multi-Drug Resistant Organisms: Unobtainable, VRE Date of last positivie culture/infection: 12/03/2021 MDRO Source:: urine Past Surgical History: Appendectomy, Bowel Resection, Cholecystectomy Additional Past Surgical History / Comment(s): ileostomy, kidney stone removal, IVC filter in left groin October 2021. Past Psychological History: No Psychological Hx Reported Smoking Status: Never smoker Past Alcohol Use History: None Reported Past Drug Use History: None Reported - Past Family History Father Family Medical History: GI Bleed Medications and Allergies Home Medications Medication Instructions Recorded Confirmed Type Albuterol Nebulized [Ventolin 2.5 mg INHALATION RT-QID PRN 12/19/21 12/19/21 History Nebulized] Albuterol Sulfate [Proair Hfa] 2 puff INHALATION RT-Q6H PRN 12/19/21 12/19/21 History EPINEPHrine (Auto Inject) [Epipen] 0.3 mg IM ONCE PRN 12/19/21 12/19/21 History Ferrous Sulfate [Feosol] 325 mg PO DAILY 12/19/21 12/19/21 History Galcanezumab-Gnlm [Emgality Pen] 120 mg SQ Q30D 12/19/21 12/19/21 History Loratadine 10 mg PO DAILY 12/19/21 12/19/21 History Montelukast [Singulair] 10 mg PO DAILY 12/19/21 12/19/21 History Omeprazole 40 mg PO DAILY 12/19/21 12/19/21 History Ondansetron Odt [Zofran Odt] 4 mg PO Q8HR PRN 12/19/21 12/19/21 History QUEtiapine [SEROquel] 50 mg PO HS 12/19/21 12/19/21 History Salmeterol 50 mcg [Serevent Diskus] 1 puff INHALATION RT-BID 12/19/21 12/20/21 History Ubrogepant [Ubrelvy] 100 mg PO BID PRN 12/19/21 12/19/21 History clonazePAM [KlonoPIN] 1 mg PO DAILY PRN 12/19/21 12/19/21 History Allergies Allergy/AdvReac Type Severity Reaction Status Date / Time acetaminophen [From Tylenol] AdvReac Anaphylaxis Verified 12/19/21 22:09 aspirin AdvReac Anaphylaxis Verified 12/19/21 22:09 famotidine [From Pepcid] AdvReac Anaphylaxis Verified 12/19/21 22:09 haloperidol [From Haldol] AdvReac Anaphylaxis Verified 12/19/21 22:09 iodine AdvReac Anaphylaxis Verified 12/19/21 22:09 ketorolac [From Toradol] AdvReac Anaphylaxis Verified 12/19/21 22:09 metoclopramide [From Reglan] AdvReac Anaphylaxis Verified 12/19/21 22:09 NSAIDS (Non-Steroidal AdvReac Anaphylaxis Verified 12/19/21 22:09 Anti-Inflamma prochlorperazine AdvReac Anaphylaxis Verified 12/19/21 22:09 [From Compazine] Physical Exam Vitals: Vital Signs Temp Pulse Pulse Pulse Resp BP BP 12/24/21 11:00 96 21 90/63 12/24/21 10:30 98 25 H 80/56 12/24/21 10:00 95 24 91/60 12/24/21 09:30 101 H 27 H 107/68 12/24/21 09:00 105 H 14 90/67 12/24/21 08:30 98 24 88/61 12/24/21 08:00 98.1 F 100 105 H 19 92/54 12/24/21 07:30 101 H 16 101/65 12/24/21 07:00 101 H 26 H 91/59 12/24/21 06:30 25 H 100/63 12/24/21 06:00 21 92/46 12/24/21 05:30 19 98/56 12/24/21 05:00 109 H 20 98/49 12/24/21 04:30 108 H 17 94/42 12/24/21 04:00 97.9 F 105 H 105 H 14 98/56 12/24/21 03:30 112 H 21 107/65 12/24/21 03:00 108 H 14 98/40 12/24/21 02:30 100/61 12/24/21 02:00 114 H 19 110/55 12/24/21 01:30 107 H 27 H 94/63 12/24/21 01:18 19 12/24/21 01:00 31 H 98/58 12/24/21 00:53 112 H 25 H 108/69 12/23/21 23:41 98.4 F 129 H 97/61 12/23/21 19:51 98.5 F 131 H 131 H 18 107/68 Pulse Ox 12/24/21 11:00 97 12/24/21 10:30 97 12/24/21 10:00 97 12/24/21 09:30 97 12/24/21 09:00 97 12/24/21 08:30 96 12/24/21 08:00 96 12/24/21 07:30 12/24/21 07:00 95 12/24/21 06:30 95 12/24/21 06:00 95 12/24/21 05:30 12/24/21 05:00 95 12/24/21 04:30 95 12/24/21 04:00 97 12/24/21 03:30 96 12/24/21 03:00 98 12/24/21 02:30 12/24/21 02:00 97 12/24/21 01:30 100 12/24/21 01:18 12/24/21 01:00 98 12/24/21 00:53 12/23/21 23:41 100 12/23/21 19:51 99 Intake and Output 12/23/21 12/24/21 12/24/21 22:59 06:59 14:59 Intake Total 1780 920 Output Total 1020 Balance 1780 -100 Intake: Intake, IV Titration 1780 920 Amount Cefepime 2 gm In Sodium 100 Chloride 0.9% 100 ml @ 25 mls/hr IVPB Q8H [facility] Rx#: [id number] Potassium Chloride 10 meq 300 In Water For Injection 1 100ml.bag @ 100 mls/hr IVPB Q1H [facility] Rx#: [id number] Sodium Chloride 0.9% 1, 780 520 000 ml @ 130 mls/hr IV . Q7H42M [facility] Rx#:[id number] Sodium Chloride 0.9% 1, 1000 000 ml @ 999 mls/hr IV . Q1H1M [facility] Rx#:[id number] Output: Urine 950 Stool 70 Other: Voiding Method Bedside Commode # Voids 1 GENERAL EXAM: Alert, very pleasant, 26-year-old very pale white female, appears to be in no acute distress, room air with pulse ox of 96% comfortable in no apparent distress. HEAD: Normocephalic/atraumatic. EYES: Normal reaction of pupils, equal size. Conjunctiva pink, sclera white. NOSE: Clear with pink turbinates. THROAT: No erythema or exudates. NECK: No masses, no JVD, no thyroid enlargement, no adenopathy. CHEST: No chest wall deformity. Symmetrical expansion. Right chest MediPort is in place and accessed with IV fluids infusing, the site is clean dry and intact LUNGS: Equal air entry with no crackles, wheeze, rhonchi or dullness. CVS: Regular rate and rhythm, normal S1 and S2, no gallops, no murmurs, no rubs ABDOMEN: Soft, nontender. No hepatosplenomegaly, normal bowel sounds, no guarding or rigidity. EXTREMITIES: No clubbing, no edema, no cyanosis, 2+ pulses and upper and lower extremities. MUSCULOSKELETAL: Muscle strength and tone normal. SPINE: No scoliosis or deformity SKIN: No rashes CENTRAL NERVOUS SYSTEM: Alert and oriented -3. No focal deficits, tone is normal in all 4 extremities. PSYCHIATRIC: Alert and oriented -3. Appropriate affect. Intact judgment and insight. Results - Laboratory Findings CBC and BMP: 12/24/21 06:55 12/24/21 04:00 PT/INR, D-dimer PT 11.3 sec (9.0-12.0) 12/24/21 04:00 INR 1.0 (<1.2) 12/24/21 04:00 Abnormal lab findings: Abnormal Labs 12/19/21 12/19/21 12/19/21 20:54 23:21 23:45 WBC RBC Hgb Hct MCV MCH MCHC RDW Neutrophils # Lymphocytes # APTT 18.3 L Sodium Chloride 112 H Carbon Dioxide 21 L BUN Glucose Calcium C-Reactive Protein Total Protein Albumin Urine Appearance Bloody H Urine RBC >182 H Urine WBC 14 H Ur Squamous Epith Cells 6 H Crossmatch 12/20/21 12/21/21 12/21/21 02:25 09:45 09:45 WBC 11.5 H RBC 3.55 L 3.44 L Hgb 8.9 L 8.3 L Hct 28.6 L 27.5 L MCV MCH 24.2 L MCHC 30.2 L RDW 16.2 H 16.0 H Neutrophils # 10.3 H Lymphocytes # 0.6 L APTT Sodium Chloride 110 H Carbon Dioxide 19 L BUN Glucose Calcium 8.2 L C-Reactive Protein 4.1 H Total Protein 6.0 L Albumin 3.1 L Urine Appearance Urine RBC Urine WBC Ur Squamous Epith Cells Crossmatch 12/22/21 12/22/21 12/23/21 08:26 08:26 21:20 WBC RBC 3.47 L 3.69 L Hgb 8.6 L 9.3 L Hct 28.0 L 29.0 L MCV 78.6 L MCH 24.8 L MCHC 30.7 L RDW 16.0 H 15.8 H Neutrophils # Lymphocytes # APTT Sodium Chloride 111 H Carbon Dioxide 18 L BUN Glucose 103 H Calcium 8.1 L C-Reactive Protein Total Protein Albumin Urine Appearance Urine RBC Urine WBC Ur Squamous Epith Cells Crossmatch 12/24/21 12/24/21 12/24/21 00:30 00:30 04:00 WBC RBC 3.57 L 3.19 L Hgb 8.9 L 7.9 L Hct 28.3 L 25.3 L MCV 79.5 L 79.2 L MCH 24.9 L 24.8 L MCHC RDW 16.4 H 15.9 H Neutrophils # Lymphocytes # APTT Sodium Chloride Carbon Dioxide BUN Glucose Calcium C-Reactive Protein Total Protein Albumin Urine Appearance Urine RBC Urine WBC Ur Squamous Epith Cells Crossmatch See Detail 12/24/21 12/24/21 04:00 06:55 WBC RBC 3.25 L Hgb 8.2 L Hct 25.7 L MCV 78.9 L MCH MCHC RDW 15.9 H Neutrophils # Lymphocytes # APTT Sodium 135 L Chloride 110 H Carbon Dioxide 19 L BUN 5 L Glucose Calcium 8.3 L C-Reactive Protein Total Protein Albumin Urine Appearance Urine RBC Urine WBC Ur Squamous Epith Cells Crossmatch - Diagnostic Findings Additional studies: CT scan of the abdomen and pelvis, EKG, and acute abdominal series Assessment and Plan Plan: Assessment: #1. Acute GI blood loss anemia related to hematemesis, patient is awaiting EGD tomorrow on 12/25/2021 #2. Enterococcus faecalis bacteremia related to urinary source #3. Recurrent nephrolithiasis, non-obstructing, no surgical intervention was recommended by urology #4. Possible septic emboli, computed tomography scan of the abdomen and pelvis showed noncalcified new nodular densities at the lung bases with cavitation in t he left lung base. Dedicated computed tomography scan of the chest is pending #5. 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 History of familial adenomatosis polyposis, status post ileostomy #7. Numerous ALLERGIES #8. Obesity with BMI 38.8 kg/m #9. Previous history of VRE urinary tract infection #10. History of IVC placement in the mid 2021 #11. Migraine headaches #12. Anxiety Plan: Computed tomography scan of the abdomen and pelvis shows possibility of septic emboli at the lung bases We'll obtain dedicated computed tomography scan of the chest without contrast Most recent set of blood cultures from 12/21/2021 has shown no growth Patient remains on IV antibiotics No further hematemesis General surgeries on the case and patient is scheduled for EGD tomorrow Patient's asthma is currently stable We'll DC the Serevent We will continue on Singulair and albuterol We'll continue close monitoring in the intensive care unit Serial H&H's Continue PPI therapy I have personally seen and examined the patient, performed the documentation and the assessment and plan as written. Number of minutes spent on the visit: [15] Time with Patient: Greater than 30
[2021-12-24] MEDS ORDERED: ALBUTEROL HFA INHALER INHALATION PRN (13:59)
--- NOTE | 2021-12-24 15:43 | P.GSCN ---
History of Present Illness Consult date: 12/24/21 Reason for Consult: GI bleeding History of present illness: The patient presented to the emergency department after report of positive blood cultures. She was seen in the ER and had been discharged home. She was contacted when Enterococcus grew in her blood cultures. After being admitted she had a couple of episodes of hematemesis. She has a history of ulcer disease with bleeding ulcers in the past. Patient denies any bleeding this morning. Has some discomfort in the upper abdomen. Has a extensive surgical history. Evidently had a colonic perforation after colonoscopy which required several surgeries and she was in the hospital for prolonged period of time. She also has had a total colectomy with ileostomy due to familial adenomatous polyposis syndrome. A ventral hernia was seen on CT scan. The patient herself has not noticed a hernia Review of Systems All systems: negative Past Medical History Past Medical History: Asthma Additional Past Medical History / Comment(s): FAP, c diff in past History of Any Multi-Drug Resistant Organisms: Unobtainable, VRE Year Discovered:: 12/03/2021 MDRO Source:: urine Past Surgical History: Appendectomy, Bowel Resection, Cholecystectomy Additional Past Surgical History / Comment(s): ileostomy, kidney stone removal, IVC filter in left groin October 2021. Past Psychological History: No Psychological Hx Reported Smoking Status: Never smoker Past Alcohol Use History: None Reported Past Drug Use History: None Reported - Past Family History Father Family Medical History: GI Bleed Medications and Allergies Home Medications Medication Instructions Recorded Confirmed Type Albuterol Nebulized [Ventolin 2.5 mg INHALATION RT-QID PRN 12/19/21 12/19/21 History Nebulized] Albuterol Sulfate [Proair Hfa] 2 puff INHALATION RT-Q6H PRN 12/19/21 12/19/21 History EPINEPHrine (Auto Inject) [Epipen] 0.3 mg IM ONCE PRN 12/19/21 12/19/21 History Ferrous Sulfate [Feosol] 325 mg PO DAILY 12/19/21 12/19/21 History Galcanezumab-Gnlm [Emgality Pen] 120 mg SQ Q30D 12/19/21 12/19/21 History Loratadine 10 mg PO DAILY 12/19/21 12/19/21 History Montelukast [Singulair] 10 mg PO DAILY 12/19/21 12/19/21 History Omeprazole 40 mg PO DAILY 12/19/21 12/19/21 History Ondansetron Odt [Zofran Odt] 4 mg PO Q8HR PRN 12/19/21 12/19/21 History QUEtiapine [SEROquel] 50 mg PO HS 12/19/21 12/19/21 History Salmeterol 50 mcg [Serevent Diskus] 1 puff INHALATION RT-BID 12/19/21 12/20/21 History Ubrogepant [Ubrelvy] 100 mg PO BID PRN 12/19/21 12/19/21 History clonazePAM [KlonoPIN] 1 mg PO DAILY PRN 12/19/21 12/19/21 History Allergies Allergy/AdvReac Type Severity Reaction Status Date / Time acetaminophen [From Tylenol] AdvReac Anaphylaxis Verified 12/19/21 22:09 aspirin AdvReac Anaphylaxis Verified 12/19/21 22:09 famotidine [From Pepcid] AdvReac Anaphylaxis Verified 12/19/21 22:09 haloperidol [From Haldol] AdvReac Anaphylaxis Verified 12/19/21 22:09 iodine AdvReac Anaphylaxis Verified 12/19/21 22:09 ketorolac [From Toradol] AdvReac Anaphylaxis Verified 12/19/21 22:09 metoclopramide [From Reglan] AdvReac Anaphylaxis Verified 12/19/21 22:09 NSAIDS (Non-Steroidal AdvReac Anaphylaxis Verified 12/19/21 22:09 Anti-Inflamma prochlorperazine AdvReac Anaphylaxis Verified 12/19/21 22:09 [From Compazine] sulfur hexafluoride AdvReac Anaphylaxis Verified 12/24/21 15:18 microspheres [From Lumason] Surgical - Exam Osteopathic Statement: *. No significant issues noted on an osteopathic structural exam other than those noted in the History and Physical/Consult. Vital Signs Temp Pulse Resp BP Pulse Ox 98.0 F 119 H 20 97/69 98 12/19/21 19:56 12/19/21 19:56 12/19/21 19:56 12/19/21 19:56 12/19/21 19:56 - General well developed, well nourished, moderate distress - Eyes normal ocular movement - Neck trachea midline - Respiratory clear to auscultation - Cardiovascular Rhythm: regular - Abdomen Abdomen: soft, tender (Epigastric tenderness), bowel sounds, no guarding, no rigid, no rebound, no distended Results - Labs 12/24/21 06:55 12/24/21 04:00 Abnormal Lab Results - Last 24 Hours (Table) 12/23/21 12/24/21 12/24/21 Range/Units 21:20 00:30 00:30 RBC 3.69 L 3.57 L (3.80-5.40) m/uL Hgb 9.3 L 8.9 L (11.4-16.0) gm/dL Hct 29.0 L 28.3 L (34.0-46.0) % MCV 78.6 L 79.5 L (80.0-100.0) fL MCH 24.9 L (25.0-35.0) pg RDW 15.8 H 16.4 H (11.5-15.5) % Sodium (137-145) mmol/L Chloride (98-107) mmol/L Carbon Dioxide (22-30) mmol/L BUN (7-17) mg/dL Calcium (8.4-10.2) mg/dL Crossmatch See Detail 12/24/21 12/24/21 12/24/21 Range/Units 04:00 04:00 06:55 RBC 3.19 L 3.25 L (3.80-5.40) m/uL Hgb 7.9 L 8.2 L (11.4-16.0) gm/dL Hct 25.3 L 25.7 L (34.0-46.0) % MCV 79.2 L 78.9 L (80.0-100.0) fL MCH 24.8 L (25.0-35.0) pg RDW 15.9 H 15.9 H (11.5-15.5) % Sodium 135 L (137-145) mmol/L Chloride 110 H (98-107) mmol/L Carbon Dioxide 19 L (22-30) mmol/L BUN 5 L (7-17) mg/dL Calcium 8.3 L (8.4-10.2) mg/dL Crossmatch Microbiology - Last 24 Hours (Table) 12/20/21 12:13 Blood Culture - Preliminary Blood No Growth after 96 hours 12/21/21 09:45 Blood Culture - Preliminary Blood No Growth after 72 hours 12/20/21 01:04 Blood Culture Gram Stain - Final Blood Blood Culture - Final Enterobacter cloacae 12/19/21 23:01 Blood Culture Gram Stain - Final Blood Blood Culture - Final Enterobacter cloacae Diabetes panel 12/24/21 Range/Units 04:00 Sodium 135 L (137-145) mmol/L Potassium 3.8 (3.5-5.1) mmol/L Chloride 110 H (98-107) mmol/L Carbon Dioxide 19 L (22-30) mmol/L BUN 5 L (7-17) mg/dL Creatinine 0.54 (0.52-1.04) mg/dL Glucose 88 (74-99) mg/dL Calcium 8.3 L (8.4-10.2) mg/dL Calcium panel 12/24/21 Range/Units 04:00 Calcium 8.3 L (8.4-10.2) mg/dL Pituitary panel 12/24/21 Range/Units 04:00 Sodium 135 L (137-145) mmol/L Potassium 3.8 (3.5-5.1) mmol/L Chloride 110 H (98-107) mmol/L Carbon Dioxide 19 L (22-30) mmol/L BUN 5 L (7-17) mg/dL Creatinine 0.54 (0.52-1.04) mg/dL Glucose 88 (74-99) mg/dL Calcium 8.3 L (8.4-10.2) mg/dL Adrenal panel 12/24/21 Range/Units 04:00 Sodium 135 L (137-145) mmol/L Potassium 3.8 (3.5-5.1) mmol/L Chloride 110 H (98-107) mmol/L Carbon Dioxide 19 L (22-30) mmol/L BUN 5 L (7-17) mg/dL Creatinine 0.54 (0.52-1.04) mg/dL Glucose 88 (74-99) mg/dL Calcium 8.3 L (8.4-10.2) mg/dL - Imaging CT scan - abdomen: report reviewed, image reviewed (parastomal hernia) Assessment and Plan (1) GI bleeding Current Visit: Yes Status: Acute Code(s): K92.2 - GASTROINTESTINAL HEMORRHAGE, UNSPECIFIED SNOMED Code(s): 43020419 (2) History of bleeding ulcers Current Visit: Yes Status: Acute Code(s): Z87.11 - PERSONAL HISTORY OF PEPTIC ULCER DISEASE SNOMED Code(s): 430421146 (3) FAP (familial adenomatous polyposis) Current Visit: Yes Status: Acute Code(s): D12.6 - BENIGN NEOPLASM OF COLON, UNSPECIFIED SNOMED Code(s): 18364141 (4) Sepsis Current Visit: Yes Status: Acute Code(s): A41.9 - SEPSIS, UNSPECIFIED ORGANISM SNOMED Code(s): 75634358 (5) Ventral hernia without obstruction or gangrene Current Visit: Yes Status: Acute Code(s): K43.9 - VENTRAL HERNIA WITHOUT OBSTRUCTION OR GANGRENE SNOMED Code(s): 364948919 Plan: Patient will undergo EGD by gastroenterology. Serial H&H. There is an incidentally found ventral hernia which is currently asymptomatic. That can be addressed as outpatient. Continue medical work-up and treatment for the sepsis. Patient is currently nonsurgical.
[2021-12-24 16:46] LABS: Basophils % (A) 1 %; Eosinophils # (A) 0.3 k/uL (0-0.7); Eosinophils % (A) 6 %; HGB 8.4 gm/dL (11.4-16.0); Hypochromasia Marked; Lymphocytes # (A) 0.5 k/uL (1.0-4.8); Lymphocytes % (A) 10 %; MCH 24.8 pg (25.0-35.0); MCHC 31.3 g/dL (31.0-37.0); MCV 79.2 fL (80.0-100.0); Mean Platelet Volume 7.7; Monocytes # (A) 0.3 k/uL (0-1.0); Monocytes % (A) 5 %; Neutrophils % (A) 77 %; Platelet Count 227 k/uL (150-450); RBC 3.41 m/uL (3.80-5.40); RDW 15.9 % (11.5-15.5); WBC 5.2 k/uL (3.8-10.6)
--- NOTE | 2021-12-24 17:57 | CA ---
Transthoracic Echo Report Name: Lissett Gutierrez Age: 26 Gender: F : 1995 Exam Date: 12/24/2021 14:48 Exam Location: [facility] Ht (in): 65 Wt (lb): 233 Ordering Physician: Nicho Dickerson MD Attending/Referring Phys: [id number], Jayla [employer] Anusha Damon RDCS Procedure CPT: Indications: septic emboli Cardiac Hx: Technical Quality: Very technically difficult study Contrast 1: Lumason Total Dose (mL): 1 Contrast 2: Total Dose (mL): MEASUREMENTS (Male / Female) Normal Values 2D ECHO LV Diastolic Diameter PLAX 3.8 cm 4.2 - 5.9 / 3.9 - 5.3 cm LV Systolic Diameter PLAX 2.2 cm IVS Diastolic Thickness 1.0 cm 0.6 - 1.0 / 0.6 - 0.9 cm LVPW Diastolic Thickness 1.1 cm 0.6 - 1.0 / 0.6 - 0.9 cm LV Relative Wall Thickness 0.5 RV Internal Dim ED PLAX 2.2 cm M-MODE Aortic Root Diameter MM 3.3 cm LA Systolic Diameter MM 2.1 cm LA Ao Ratio MM 0.6 MV E Point Septal Separation 0.8 cm AV Cusp Separation MM 2.0 cm DOPPLER AV Peak Velocity 82.7 cm/s AV Peak Gradient 2.7 mmHg MV Area PHT 6.7 cm??? MR Peak Velocity 111.1 cm/s MR Peak Gradient 4.9 mmHg Mitral E Point Velocity 64.2 cm/s Mitral A Point Velocity 69.1 cm/s Mitral E to A Ratio 0.9 MV Deceleration Time 112.6 ms TR Peak Velocity 118.9 cm/s TR Peak Gradient 5.7 mmHg Right Ventricular Systolic Press 10.7 mmHg FINDINGS Left Ventricle Mildly increased septal wall thickness. Mildly increased posterior wall thickness. Left ventricular ejection fraction is estimated at 55-60_ %. Left ventricular cavity size normal. Right Ventricle The right ventricle is normal in size and function. Right Atrium The right atrium is normal in size. Left Atrium The left atrium is normal in size. Mitral Valve Structurally normal mitral valve without significant stenosis or prolapse. There is trace mitral regurgitation. Aortic Valve Structurally normal aortic valve without significant sclerosis or stenosis. There is no aortic regurgitation. Tricuspid Valve Structurally normal tricuspid valve without significant stenosis. Pulmonary artery systolic pressure is normal. Trace tricuspid regurgitation. Pulmonic Valve Pericardium Normal pericardium without effusion. Aorta Normal aortic root dimension. CONCLUSIONS Pt had itchy throat after recieving lumason. Put in chart as allergy. Technically difficult study 1. Normal size and systolic function 2. No clear valvular abnormalities although suboptimal. Previewed by: Dr. Jonn Dominique MD (Electronically Signed) Final Date: 24 December 2021 17:56
--- NOTE | 2021-12-24 21:07 | CT ---
EXAMINATION TYPE: CT chest wo con CT DLP: 473.7 mGycm, Automated exposure control for dose reduction was used. DATE OF EXAM: 12/24/2021 5:21 PM COMPARISON: None. CLINICAL INDICATION:Female, 26 years old with history of dyspnea; TECHNIQUE: Multiple axial images were obtained through the chest without IV contrast. Lack of IV or o ral contrast limits evaluation of solid and hollow organ viscera. FINDINGS: LUNGS/ PLEURA: Multiple lower lobe nodules some of which are groundglass and multiple others have mor e solid appearance including a more solid-appearing nodule measuring 12 mm in the right lower lobe an d 16 mm groundglass nodule in the left lower lobe. These nodules have increased in size compared to . No evidence of pleural effusion since focal consolidation or pneumothorax. AIRWAY: Patent and unremarkable. HEART: Size within normal limits. MEDIASTINUM: No gross evidence of adenopathy. VASCULATURE: No aortic aneurysm. Right Niwzff-d-Crod with distal tip projecting at the superior cavo atrial junction. MUSCULOSKELETAL: No acute osseous abnormalities SOFT TISSUES/LYMPH NODES: Unremarkable. LOWER NECK: No significant findings. UPPER ABDOMEN: Diffuse low-attenuation to the liver parenchyma. IMPRESSION: 1. Scattered lower lobe pulmonary nodules lobe which appear increased from prior on 12/18/2021. Some o f these have a more solid appearance while others are more groundglass. Correlate for septic emboli g iven patient's [id number], consider infectious/inflammatory process. 2. Hepatic steatosis.
[2021-12-24] MEDS: QUEtiapine 50 MG TAB PO SCH (21:34)
[2021-12-25 00:40] LABS: Basophils % (A) 1 %; Eosinophils % (A) 0 %; HCT 28.6 % (34.0-46.0); HGB 9.1 gm/dL (11.4-16.0); Hypochromasia Marked; Lymphocytes # (A) 0.4 k/uL (1.0-4.8); Lymphocytes % (A) 12 %; MCH 25.5 pg (25.0-35.0); MCV 79.8 fL (80.0-100.0); Mean Platelet Volume 7.6; Monocytes % (A) 1 %; Neutrophils # (A) 3.1 k/uL (1.3-7.7); Neutrophils % (A) 86 %; Platelet Count 271 k/uL (150-450); RBC 3.58 m/uL (3.80-5.40); RDW 15.6 % (11.5-15.5); WBC 3.6 k/uL (3.8-10.6)
[2021-12-25] MEDS ORDERED: MORPHINE SULFATE 2 MG/ML SYRINGE IVP STA (02:02)
[2021-12-25] MEDS: SODIUM CHLORIDE 0.9% 1,000 ML IV SCH ×3 (02:43→17:38)
[2021-12-25] MEDS: CEFEPIME 2 GM in SODIUM CHLORIDE 0.9% 100 ML IVPB SCH ×3 (02:53→17:38)
[2021-12-25 06:06] LABS: Basophils % (A) 1 %; Eosinophils % (A) 0 %; HGB 8.8 gm/dL (11.4-16.0); Hypochromasia Marked; Lymphocytes # (A) 0.5 k/uL (1.0-4.8); Lymphocytes % (A) 11 %; MCH 24.8 pg (25.0-35.0); MCHC 31.3 g/dL (31.0-37.0); Mean Platelet Volume 7.5; Monocytes # (A) 0.1 k/uL (0-1.0); Monocytes % (A) 3 %; Neutrophils # (A) 3.9 k/uL (1.3-7.7); Neutrophils % (A) 85 %; Platelet Count 297 k/uL (150-450); RBC 3.54 m/uL (3.80-5.40); RDW 15.6 % (11.5-15.5); WBC 4.5 k/uL (3.8-10.6)
[2021-12-25 06:19] LABS: African American GFR (CKD) >90 (>60 ml/min/1.73 sqM); Anion Gap 8 mmol/L; Blood Urea Nitrogen 6 mg/dL (7-17); Calcium 9.4 mg/dL (8.4-10.2); Carbon Dioxide 20 mmol/L (22-30); Chloride 109 mmol/L (98-107); Glucose 136 mg/dL (74-99); Magnesium 1.9 mg/dL (1.6-2.3); Non-African American GFR(CKD) >90 (>60 ml/min/1.73 sqM); Potassium 4.5 mmol/L (3.5-5.1); Sodium 137 mmol/L (137-145)
--- NOTE | 2021-12-25 07:10 | P.PN ---
Subjective Progress Note Date: 12/23/21 Principal diagnosis: Gram-negative bacteremia Patient is a 26-year-old female with a past medical history significant for familial adenomatous polyposis status post colectomy and ileostomy also with a history of renal stones patient did have right chest wall Mediport presenting to the hospital with right-sided flank pain nausea vomiting and hematuria also have a positive blood culture. On today's evaluation that is 12/23/2021, the patient continues to be afebrile, the patient is right flank pain decreased in intensity and no further vomiting have some urinary symptoms no chest pain shortness of breath or cough and no worsening output in the ileostomy Objective - Vital Signs Vital signs: Vital Signs Temp 97.8 F 12/23/21 12:00 Pulse 104 H 12/23/21 12:00 Resp 18 12/23/21 12:00 BP 110/67 12/23/21 12:00 Pulse Ox 98 12/23/21 12:00 FiO2 Intake & Output 12/22/21 12/23/21 12/23/21 18:59 06:59 18:59 Intake Total 480 Balance 480 Intake: Oral 480 Other: Voiding Method Toilet Toilet Toilet - Exam GENERAL DESCRIPTION: Middle-aged female lying in bed in no distress RESPIRATORY SYSTEM: Unlabored breathing , decreased breath sounds at bases HEART: S1 S2 regular rate and rhythm , ABDOMEN: Soft , no tenderness EXTREMITIES: No edema feet - Labs CBC & Chem 7: 12/25/21 05:50 12/25/21 05:50 Labs: Microbiology - Last 24 Hours (Table) 12/20/21 01:04 Blood Culture Gram Stain - Final Blood Blood Culture - Final Enterobacter cloacae 12/19/21 23:01 Blood Culture Gram Stain - Final Blood Blood Culture - Final Enterobacter cloacae 12/20/21 12:13 Blood Culture - Preliminary Blood No Growth after 72 hours 12/21/21 09:45 Blood Culture - Preliminary Blood No Growth after 48 hours Assessment and Plan (1) Positive blood culture Current Visit: Yes Status: Acute Code(s): R78.81 - BACTEREMIA SNOMED Code(s): 573260794 Plan: 1patient with Enterobacter bacteremia in this patient predominantly urinary symptom of right flank pain and did have some hematuria with urinary burning I clinically suspicious for urinary source of this bacteremia CT abdominal pelvis did not show any evidence of enteritis or abscess however the patient do have a Mediport and bacteremia related to the port need to be ruled out. 2repeat blood cultures from the port and peripheral are so far negative 3patient currently being treated with cefepime 2 g every 8 hours , patient continued to refuse the idea of removal of her port. Time with Patient: Less than 30
--- NOTE | 2021-12-25 07:13 | P.PN ---
Subjective Progress Note Date: 12/24/21 Principal diagnosis: Gram-negative bacteremia Patient is a 26-year-old female with a past medical history significant for familial adenomatous polyposis status post colectomy and ileostomy also with a history of renal stones patient did have right chest wall Mediport presenting to the hospital with right-sided flank pain nausea vomiting and hematuria also have a positive blood culture. Patient did have an episode of vomiting and hematemesis. The patient has been transferred to ICU On today's evaluation that is 12/24/2021, the patient remains to be afebrile, the patient is sleep lethargic and did not provide any history no further nausea vomiting per the nursing staff patient is hemodynamically stable not requiring any pressor support or supplemental oxygen, Objective - Vital Signs Vital signs: Vital Signs Temp 98.0 F 12/24/21 12:00 Pulse 107 H 12/24/21 14:00 Resp 27 H 12/24/21 14:00 BP 86/60 12/24/21 14:00 Pulse Ox 97 12/24/21 14:00 FiO2 Intake & Output 12/23/21 12/24/21 12/24/21 18:59 06:59 18:59 Intake Total 1780 1180 Output Total 1820 Balance 1780 -640 Intake: Intake, IV Titration 1780 1180 Amount Cefepime 2 gm In Sodium 100 Chloride 0.9% 100 ml @ 25 mls/hr IVPB Q8H [facility] Rx#: [id number] Potassium Chloride 10 meq 300 In Water For Injection 1 100ml.bag @ 100 mls/hr IVPB Q1H [facility] Rx#: [id number] Sodium Chloride 0.9% 1, 780 780 000 ml @ 130 mls/hr IV . Q7H42M [facility] Rx#:[id number] Sodium Chloride 0.9% 1, 1000 000 ml @ 999 mls/hr IV . Q1H1M [facility] Rx#:[id number] Output: Urine 1750 Stool 70 Other: Voiding Method Toilet Bedside Commode # Voids 1 - Exam GENERAL DESCRIPTION: Middle-aged female lying in bed in no distress RESPIRATORY SYSTEM: Unlabored breathing , decreased breath sounds at bases HEART: S1 S2 regular rate and rhythm , ABDOMEN: Soft , no tenderness EXTREMITIES: No edema feet - Labs CBC & Chem 7: 12/25/21 05:50 12/25/21 05:50 Labs: Abnormal Lab Results - Last 24 Hours (Table) 12/23/21 12/24/21 12/24/21 Range/Units 21:20 00:30 00:30 RBC 3.69 L 3.57 L (3.80-5.40) m/uL Hgb 9.3 L 8.9 L (11.4-16.0) gm/dL Hct 29.0 L 28.3 L (34.0-46.0) % MCV 78.6 L 79.5 L (80.0-100.0) fL MCH 24.9 L (25.0-35.0) pg RDW 15.8 H 16.4 H (11.5-15.5) % Sodium (137-145) mmol/L Chloride (98-107) mmol/L Carbon Dioxide (22-30) mmol/L BUN (7-17) mg/dL Calcium (8.4-10.2) mg/dL Crossmatch See Detail 12/24/21 12/24/21 12/24/21 Range/Units 04:00 04:00 06:55 RBC 3.19 L 3.25 L (3.80-5.40) m/uL Hgb 7.9 L 8.2 L (11.4-16.0) gm/dL Hct 25.3 L 25.7 L (34.0-46.0) % MCV 79.2 L 78.9 L (80.0-100.0) fL MCH 24.8 L (25.0-35.0) pg RDW 15.9 H 15.9 H (11.5-15.5) % Sodium 135 L (137-145) mmol/L Chloride 110 H (98-107) mmol/L Carbon Dioxide 19 L (22-30) mmol/L BUN 5 L (7-17) mg/dL Calcium 8.3 L (8.4-10.2) mg/dL Crossmatch Microbiology - Last 24 Hours (Table) 12/21/21 09:45 Blood Culture - Preliminary Blood No Growth after 72 hours 12/20/21 01:04 Blood Culture Gram Stain - Final Blood Blood Culture - Final Enterobacter cloacae 12/19/21 23:01 Blood Culture Gram Stain - Final Blood Blood Culture - Final Enterobacter cloacae 12/20/21 12:13 Blood Culture - Preliminary Blood No Growth after 72 hours Assessment and Plan (1) Positive blood culture Current Visit: Yes Status: Acute Code(s): R78.81 - BACTEREMIA SNOMED Code(s): 913078573 Plan: 1patient with Enterobacter bacteremia in this patient predominantly urinary symptom of right flank pain and did have some hematuria with urinary burning I clinically suspicious for urinary source of this bacteremia CT abdominal pelvis did not show any evidence of enteritis or abscess however the patient do have a Mediport and bacteremia related to the port need to be ruled out. 2repeat blood cultures from the port and peripheral are so far negative 3patient did have a CT of abdominal pelvis with evidence of pulmonary nodules and one of them being cavitating concerning for endocarditis, echocardiogram has been ordered 4-continue with the cefepime and monitor clinical course closely Time with Patient: Less than 30
[2021-12-25] MEDS: LORATADINE 10 MG TAB PO SCH (09:34)
[2021-12-25] MEDS: MONTELUKAST 10 MG TAB PO SCH (09:34)
[2021-12-25] MEDS: ONDANSETRON 4 MG/2 ML VIAL IVP PRN ×2 (09:47→18:45)
[2021-12-25] MEDS: PANTOPRAZOLE 40 MG/10 ML VIAL IVP SCH ×2 (09:49→20:48)
[2021-12-25] MEDS ORDERED: diphenhydrAMINE 25 MG CAP PO PRN (10:03)
--- NOTE | 2021-12-25 11:17 | P.PN ---
Subjective Progress Note Date: 12/25/21 Principal diagnosis: Acute hematemesis, GI blood loss anemia, bacteremia, septic emboli 26-year-old female patient with past medical history of mild intermittent bronchial asthma, with history of multiple ALLERGIES including aspirin, NSAIDs, and many others (please refer to the ALLERGY list), history of recurrent kidney stones, urinary tract infections including vancomycin-resistant enterococcus, familial adenomatosis polyposis, status post ileostomy, who presented to the e mergepry department on 12/20/2021 with complaints of right flank pain and hematuria. She was seen at [facility] . Days prior to admission however patient left AGAINST MEDICAL ADVICE related to poor pain control. Patient continued to have a fever at home, her blood cultures showed a preliminary result of Enterobacter. In the emergency department on 12/20/2021 patient had mild leukocytosis with a white blood cell count of 11.5, her hemoglobin was 8.9 INR was 0.9, sodium is 140, potassium 3.6, chloride is 112, CO2 is 21, BUN 7 creatinine 0.52, LFTs within normal limits, lactic acid was 1.4, urinalysis was bloody, with 14 white blood cells, urine hCG was negative, blood culture collected on 12/19/2021 showed Enterobacter cloacae, urine culture showed no growth. Patient was started on antibiotics in the form of cefepime, urology service saw the patient in consultation for recurrent kidney stones and CT of the abdomen and pelvis showed right-sided nonobstructing renal stones without evidence of hydronephrosis. No surgical intervention was recommended. On the computed tomography scan of the abdomen and pelvis they were new noncalcified nodular densities noted at the lung bases one of which was cavitary in nature at the left lung base with a suspicion of septic emboli. In addition patient had a IVC filter placed in October 2021. She is not on any chronic anticoagulation on a r egular basis. On 12/24/2021 rapid response team was called because of hematemesis, patient had 2 episodes of bloody vomiting. And patient was noted to have Pure blood in the emesis with clots, was a fairly large amount. Patient was transferred to the intensive care unit, her vital signs have remained stable, she was given IV hydration with normal saline, her prophylactic subcutaneous heparin was discontinued, she was initiated on antiemetics, on PPI therapy with IV Protonix. Serial H&H's were initiated, admission hemoglobin was 8.9, and is currently up to 9.3, 1 unit of packed red blood cells has been ordered but patient has not required a transfusion. Hemodynamically she remains stable, she is in sinus mechanism no tachycardia, no complaints of shortness of breath, no chest pain. No further hematemesis since transfer to the intensive care unit, GI service has been consulted and patient is scheduled for EGD tomorrow. On 12/25/2021 patient seen in follow-up in the intensive care unit, she states during the day yesterday she had the 2 smaller episodes of hematemesis, and no hematemesis overnight. She has ileostomy in place, she is passing some liquid stools, possibly a bit more liquid than usual. But no dark or bloody output was noted, she is hemodynamically stable, she is in sinus mechanism with a rate of 71 BPM, blood pressure is 96/62, afebrile, she remains on antibiotics with cefepime for enterococcus cloacae bacteremia, follow-up blood cultures from 12/21/[address] scan of the chest was obtained yesterday, showing scattered lower lobe pulmonary nodules that were seen on the computed tomography scan of the abdomen and pelvis, with the possibility of septic emboli given the patient's [id number]. Hepatic steatosis noted. Echocardiogram has been completed showing normal size and systolic function, no clear valvular abnormalities however suboptimal. Remainder pulse ox is 93%, patient is breathing comfortably, no rhonchi or wheezing, shortness of breath, no chest pain. No hemoptysis, no fever or chills. Cardiology is on the case, and case discussed with them for possibility of transesophageal echocardiogram. General surgeries on the case and patient scheduled for EGD today. Today's hemoglobin is 8.8 Objective - Vital Signs Vital signs: Vital Signs Temp 97.9 F 12/25/21 08:00 Pulse 83 12/25/21 08:00 Resp 11 L 12/25/21 08:00 BP 96/62 12/25/21 08:00 Pulse Ox 93 L 12/25/21 08:00 FiO2 Intake & Output 12/24/21 12/25/21 12/25/21 18:59 06:59 18:59 Intake Total 1830 1610 260 Output Total 3420 2470 Balance -1590 -860 260 Weight 105.823 kg 108.9 kg Intake: IV 130 Sodium Chloride 0.9% 1, 130 000 ml @ 130 mls/hr IV . Q7H42M RADHA Rx#:[id number] Intake, IV Titration 1830 1560 130 Amount Cefepime 2 gm In Sodium 100 Chloride 0.9% 100 ml @ 25 mls/hr IVPB Q8H RADHA Rx#: [id number] Potassium Chloride 10 meq 300 In Water For Injection 1 100ml.bag @ 100 mls/hr IVPB Q1H RADHA Rx#: [id number] Sodium Chloride 0.9% 1, 1430 1560 130 000 ml @ 130 mls/hr IV . Q7H42M RADHA Rx#:[id number] Oral 50 Output: Urine 3350 2300 Stool 70 150 Emesis 20 Other: Voiding Method Bedside Commode Bedside Commode - Exam GENERAL EXAM: Alert, very pleasant, 26-year-old very pale white female, appears to be in no acute distress, room air with pulse ox of 96% comfortable in no apparent distress. HEAD: Normocephalic/atraumatic. EYES: Normal reaction of pupils, equal size. Conjunctiva pink, sclera white. NOSE: Clear with pink turbinates. THROAT: No erythema or exudates. NECK: No masses, no JVD, no thyroid enlargement, no adenopathy. CHEST: No chest wall deformity. Symmetrical expansion. Right chest MediPort is in place and accessed with IV fluids infusing, the site is clean dry and intact LUNGS: Equal air entry with no crackles, wheeze, rhonchi or dullness. CVS: Regular rate and rhythm, normal S1 and S2, no gallops, no murmurs, no rubs ABDOMEN: Soft, nontender. No hepatosplenomegaly, normal bowel sounds, no guarding or rigidity. EXTREMITIES: No clubbing, no edema, no cyanosis, 2+ pulses and upper and lower extremities. MUSCULOSKELETAL: Muscle strength and tone normal. SPINE: No scoliosis or deformity SKIN: No rashes CENTRAL NERVOUS SYSTEM: Alert and oriented -3. No focal deficits, tone is normal in all 4 extremities. PSYCHIATRIC: Alert and oriented -3. Appropriate affect. Intact judgment and insight. - Labs CBC & Chem 7: 12/25/21 05:50 12/25/21 05:50 Labs: Abnormal Lab Results - Last 24 Hours (Table) 12/24/21 12/24/21 12/25/21 Range/Units 16:25 16:25 00:30 WBC 3.6 L (3.8-10.6) k/uL RBC 3.41 L 3.58 L (3.80-5.40) m/uL Hgb 8.4 L 9.1 L (11.4-16.0) gm/dL Hct 27.0 L 28.6 L (34.0-46.0) % MCV 79.2 L 79.8 L (80.0-100.0) fL MCH 24.8 L (25.0-35.0) pg RDW 15.9 H 15.6 H (11.5-15.5) % Lymphocytes # 0.5 L 0.4 L (1.0-4.8) k/uL D-Dimer 1.24 H (<0.60) mg/L FEU Chloride (98-107) mmol/L Carbon Dioxide (22-30) mmol/L BUN (7-17) mg/dL Creatinine (0.52-1.04) mg/dL Glucose (74-99) mg/dL 12/25/21 12/25/21 Range/Units 05:50 05:50 WBC (3.8-10.6) k/uL RBC 3.54 L (3.80-5.40) m/uL Hgb 8.8 L (11.4-16.0) gm/dL Hct 28.0 L (34.0-46.0) % MCV 79.0 L (80.0-100.0) fL MCH 24.8 L (25.0-35.0) pg RDW 15.6 H (11.5-15.5) % Lymphocytes # 0.5 L (1.0-4.8) k/uL D-Dimer (<0.60) mg/L FEU Chloride 109 H (98-107) mmol/L Carbon Dioxide 20 L (22-30) mmol/L BUN 6 L (7-17) mg/dL Creatinine 0.44 L (0.52-1.04) mg/dL Glucose 136 H (74-99) mg/dL Microbiology - Last 24 Hours (Table) 12/20/21 12:13 Blood Culture - Preliminary Blood No Growth after 96 hours 12/21/21 09:45 Blood Culture - Preliminary Blood No Growth after 72 hours Assessment and Plan Plan: Assessment: #1. Acute GI blood loss anemia related to hematemesis, patient is awaiting EGD tomorrow on 12/25/2021 #2. Enterococcus faecalis bacteremia related to urinary source, rule out possibility of endocarditis, RADHA will be scheduled for tomorrow 12/26/2021 #3. Recurrent nephrolithiasis, non-obstructing, no surgical intervention was recommended by urology #4. Possible septic emboli, computed tomography scan of the abdomen and pelvis showed noncalcified new nodular densities at the lung bases with cavitation in the left lung base. Dedicated computed tomography scan of the chest completed showing scattered lower lobe pulmonary nodules one of them with cavitation, possibly related to septic emboli #5. 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 History of familial adenomatosis polyposis, status post ileostomy #7. Numerous ALLERGIES #8. Obesity with BMI 38.8 kg/m #9. Previous history of VRE urinary tract infection #10. History of IVC placement in the mid 2021 #11. Migraine headaches #12. Anxiety Plan: Hemodynamic patient has remained stable, and there is been no active bleeding overnight No hematemesis Continue PPI therapy, Patient is scheduled for EGD today Cardiology has been consulted for a transesophageal echocardiogram to rule out endocarditis Continue antibiotics per ID service recommendations Continue close monitoring in the ICU I have personally seen and examined the patient, performed the documentation and the assessment and plan as written. Number of minutes spent on the visit: [15] Time with Patient: Less than 30
[2021-12-25] MEDS ORDERED: ONDANSETRON 4 MG/2 ML VIAL ONE (12:01)
[2021-12-25] MEDS ORDERED: PROPOFOL 10 MG/ML 20 ML VIAL IV ONE (12:01)
[2021-12-25] MEDS ORDERED: LIDOCAINE 2% INJ 20 MG/ML (2 ML VIAL) ONE (12:01)
[2021-12-25] MEDS ORDERED: fentaNYL (PF) 50 MCG/ML 2 ML AMP ONE (12:01)
[2021-12-25] MEDS ORDERED: DEXAMETHASONE SOD PHOSPHATE 10 MG/ML 1 ML VIAL ONE (12:01)
--- NOTE | 2021-12-25 12:12 | P.PN ---
Subjective Progress Note Date: 12/25/21 Principal diagnosis: Right flank pain Patient keeps asking for pain medications IV. She states that she has severe abdominal pain. She has been saying the same thing since she was admitted. She keeps asking for IV benadryl and IV morphine. No further episodes of bleeding noted. Objective - Vital Signs Vital signs: Vital Signs Temp 97.9 F 12/25/21 08:00 Pulse 61 12/25/21 11:00 Resp 18 12/25/21 11:00 BP 106/64 12/25/21 11:00 Pulse Ox 95 12/25/21 11:00 FiO2 Intake & Output 12/24/21 12/25/21 12/25/21 18:59 06:59 18:59 Intake Total 1830 1610 335 Output Total 3420 2470 Balance -1590 -860 335 Weight 105.823 kg 108.9 kg Intake: IV 205 Cefepime 2 gm In Sodium 75 Chloride 0.9% 100 ml @ 25 mls/hr IVPB Q8H RADHA Rx#: [id number] Sodium Chloride 0.9% 1, 130 000 ml @ 130 mls/hr IV . Q7H42M RADHA Rx#:[id number] Intake, IV Titration 1830 1560 130 Amount Cefepime 2 gm In Sodium 100 Chloride 0.9% 100 ml @ 25 mls/hr IVPB Q8H RADHA Rx#: [id number] Potassium Chloride 10 meq 300 In Water For Injection 1 100ml.bag @ 100 mls/hr IVPB Q1H RADHA Rx#: [id number] Sodium Chloride 0.9% 1, 1430 1560 130 000 ml @ 130 mls/hr IV . Q7H42M RADHA Rx#:[id number] Oral 50 Output: Urine 3350 2300 Stool 70 150 Emesis 20 Other: Voiding Method Bedside Commode Bedside Commode Bedside Commode - Exam General: Chronically ill-appearing female, no distress, appears older than stated age, obese Derm: no unusual rashes/lesions, warm Head: atraumatic, normocephalic, symmetric Eyes: EOMI, no lid lag, anicteric sclera, pupils equal round reactive to light ENT: Nose and ears atraumatic Neck: No cervical lymphadenopathy, trachea midline, supple Mouth: no lip lesion, mucus membranes moist Cardiovascular: S1S2 reg, no murmur, positive dorsalis pedis pulse bilateral, no edema Lungs: Port in the right chest area. CTA bilateral, no rhonchi, no rales, no accessory muscle use Abdominal: soft, mild right flank and CVA tenderness, ileostomy bag in place with liquidy brown fecal material, no guarding Ext: muscle strength 5 out of 5 in all 4 extremities grossly, no gross muscle atrophy, no contractures, Neuro: CN II-XI grossly intact, no gross focal neuro deficits Psych: Alert, oriented, appropriate affect - Labs CBC & Chem 7: 12/25/21 05:50 12/25/21 05:50 Labs: Abnormal Lab Results - Last 24 Hours (Table) 12/24/21 12/24/21 12/25/21 Range/Units 16:25 16:25 00:30 WBC 3.6 L (3.8-10.6) k/uL RBC 3.41 L 3.58 L (3.80-5.40) m/uL Hgb 8.4 L 9.1 L (11.4-16.0) gm/dL Hct 27.0 L 28.6 L (34.0-46.0) % MCV 79.2 L 79.8 L (80.0-100.0) fL MCH 24.8 L (25.0-35.0) pg RDW 15.9 H 15.6 H (11.5-15.5) % Lymphocytes # 0.5 L 0.4 L (1.0-4.8) k/uL D-Dimer 1.24 H (<0.60) mg/L FEU Chloride (98-107) mmol/L Carbon Dioxide (22-30) mmol/L BUN (7-17) mg/dL Creatinine (0.52-1.04) mg/dL Glucose (74-99) mg/dL 12/25/21 12/25/21 Range/Units 05:50 05:50 WBC (3.8-10.6) k/uL RBC 3.54 L (3.80-5.40) m/uL Hgb 8.8 L (11.4-16.0) gm/dL Hct 28.0 L (34.0-46.0) % MCV 79.0 L (80.0-100.0) fL MCH 24.8 L (25.0-35.0) pg RDW 15.6 H (11.5-15.5) % Lymphocytes # 0.5 L (1.0-4.8) k/uL D-Dimer (<0.60) mg/L FEU Chloride 109 H (98-107) mmol/L Carbon Dioxide 20 L (22-30) mmol/L BUN 6 L (7-17) mg/dL Creatinine 0.44 L (0.52-1.04) mg/dL Glucose 136 H (74-99) mg/dL Microbiology - Last 24 Hours (Table) 12/20/21 12:13 Blood Culture - Preliminary Blood No Growth after 96 hours 12/21/21 09:45 Blood Culture - Preliminary Blood No Growth after 72 hours Assessment and Plan Plan: Gram negative bacteremia, growing Enterobacter in the blood -Infectious disease following -Repeat blood cultures have been negative so far Septic emboli found on CT chest in the lung bases -D/w ID, echo done, no vegetations found. Cardio consulted for RADHA. Hematemesis -Hgb stable, is this truely hematemesis or blood from the port?, episode happened right after she was refused pain meds. -GI planning EGD today -IV PPI -IV fluids -Follow hemoglobin Symptomatic right kidney stone -Urology consulted, stones are not obstructive, will need outpatient follow up. -IV fluids -Pain control -Antiemetics Normocytic anemia -No long-term baseline for comparison -Monitor for now Drug seeking behaviors: -Pateint singed out ama from multiple medical institutions in the past due to this issue -She keeps asking for IV pain meds for ''severe abdominal pain'' since she was a dmitted. Objectively she does not have any signs of severe pain. DVT prophylaxis -Hold heparin due to bleeding CODE STATUS: Full Code Discussed with: Patient Anticipated discharge date: 2-[address]: Home
[2021-12-25] MEDS ORDERED: SODIUM CHLORIDE 0.9% 500 ML 500 ML IV ONE (12:13)
--- NOTE | 2021-12-25 12:13 | P.PCN ---
Date of Procedure: 12/25/21 Procedure(s) Performed: BRIEF HISTORY: Patient is a 26-year-old, pleasant, [ hematemesiwhite female admitted hospital with gram-negative bacteremia and sepsis. While in the hospital she developed acute upper GI bleed. Had 3 episodes of hematemesis 2 days ago. Last hemoglobinwas 8.5 g/dL. She has history of familial adenomatous polyposis and underwent total colectomy with ileostomy several years ago.she was diagnosed with multiple duodenal polyps and she undergoes upper endoscopy every 6 weeks by her loss mitigation specialist in [facility]. Last EGD according to the patient was 6 months ago and was diagnosed withpeptic ulcer disease. PROCEDURE PERFORMED: Esophagogastroduodenoscopy with biopsy. PREOPERATIVE DIAGNOSIS: Acute upper GI bleed. IV sedation per anesthesia. PROCEDURE: After informed consent was obtained, the patient was brought into the endoscopy unit. IV sedation was administered by Anesthesia under continuous monitoring. Initially the Olympus GIF-140 video endoscope was inserted into the mouth. Esophagus intubated without any difficulty. It was gradually advanced into the stomach and duodenum and carefully examined. The bulb and the second part of the duodenum and multiple small sessile polyps measuring between 2-3 mm in size and some of which were biopsied.. The scope at this time was withdrawn to the stomach, adequately insufflated with air, and upon careful examination, mucosa of the antrum, body, cardia and the fundus appeared normal. The scope was then withdrawn into the esophagus. The GE junction was located at 39 cm from the incisors. The esophagus appeared normal. There were no erosions or ulcerations seen and the patient tolerated the procedure well. IMPRESSION: 1. No active upper GI bleed. 2. Multiple small duodenal polyps measuring between 3-4 mm in size involving the duodenal bulb and second part of the duodenum and multiple biopsies were done from this area.. RECOMMENDATIONS: The findings of this examination were discussed with the patient . She was advised to follow with the biopsy results. Continue with Protonix 40 mg daily. Advance diet as tolerated..
--- NOTE | 2021-12-25 13:07 | CONS ---
CONSULTATION REASON FOR CONSULTATION: Need for transesophageal echo. HISTORY OF PRESENT ILLNESS: This is a 26-year-old lady who has been admitted to the hospital with a history of bronchial asthma, multiple allergies, and also recurrent kidney stones, urinary tract infection, and vancomycin-resistant Enterococcus infection. She has familial adenomatosis. She has had a previous ileostomy. She came into the hospital with flank pain, hematuria. Prior to that, apparently, she left against medical advice. She now has Enterobacter bacteremia. CT scan suggests the possibility of septic emboli in the lungs and there is also some nonobstructing renal stones. The patient has had an IVC filter placed in 2021. She is not on any chronic anticoagulation. She is on subcu heparin and also because of septic emboli, we were asked to see her for possible transesophageal echo. I discussed with Dr. Pinto and I will request Dr. Dominique to perform transesophageal echo tomorrow. She is having an upper endoscopy today. This patient has multiple comorbid conditions. However, concern about septic emboli is justified. She does have a port on the right side. We will therefore perform transesophageal echo tomorrow. I explained to the patient the risks, benefits, options, rationale. She understands and wishes to proceed with the procedure. PHYSICAL EXAMINATION: On examination, blood pressure is 108/70, pulse rate is 64 per minute. EKG revealed a sinus mechanism, no acute changes. Physical exam revealed no JVD. S1-S2 heard normally. No significant murmurs. Lungs reveal bilateral air entry. Abdomen is soft, nontender. Lower extremities reveal diminished pulses. Central nervous system grossly no focal deficits. IMPRESSION: 1. Concern regarding septic emboli. 2. History of acute gastrointestinal bleed with anemia, rule out any upper gastrointestinal bleeding. 3. Enterococcus bacteremia. 4. Nephrolithiasis. RECOMMENDATIONS: I will arrange for a transesophageal echo tomorrow. We will request Dr. Dominique to perform the procedure. I explained to the patient. She understands and wishes to proceed. MMODL / IJN: [id number] /
[2021-12-25 13:21] LABS: Basophils % (A) 0 %; Eosinophils % (A) 0 %; HCT 27.1 % (34.0-46.0); HGB 8.6 gm/dL (11.4-16.0); Hypochromasia Marked; Lymphocytes # (A) 0.8 k/uL (1.0-4.8); Lymphocytes % (A) 11 %; MCHC 31.6 g/dL (31.0-37.0); MCV 79.1 fL (80.0-100.0); Mean Platelet Volume 7.4; Monocytes # (A) 0.4 k/uL (0-1.0); Monocytes % (A) 5 %; Neutrophils # (A) 5.8 k/uL (1.3-7.7); Neutrophils % (A) 82 %; Platelet Count 308 k/uL (150-450); RBC 3.43 m/uL (3.80-5.40); RDW 15.5 % (11.5-15.5); WBC 7.1 k/uL (3.8-10.6)
[2021-12-25] MEDS: traMADol 50 MG TAB PO PRN (18:46)
[2021-12-25] MEDS: QUEtiapine 50 MG TAB PO SCH (20:47)
[2021-12-26] MEDS: MORPHINE SULFATE 2 MG/ML SYRINGE IVP PRN ×6 (00:02→21:55)
[2021-12-26] MEDS: CEFEPIME 2 GM in SODIUM CHLORIDE 0.9% 100 ML IVPB SCH ×3 (00:03→17:53)
[2021-12-26] MEDS: SODIUM CHLORIDE 0.9% 1,000 ML IV SCH ×2 (04:08→08:34)
[2021-12-26 06:56] LABS: Basophils % (A) 0 %; Eosinophils # (A) 0.1 k/uL (0-0.7); Eosinophils % (A) 1 %; HCT 25.5 % (34.0-46.0); HGB 7.7 gm/dL (11.4-16.0); Hypochromasia Marked; Lymphocytes # (A) 1.4 k/uL (1.0-4.8); Lymphocytes % (A) 25 %; MCH 24.4 pg (25.0-35.0); MCHC 30.4 g/dL (31.0-37.0); MCV 80.3 fL (80.0-100.0); Mean Platelet Volume 7.6; Monocytes # (A) 0.3 k/uL (0-1.0); Monocytes % (A) 6 %; Neutrophils # (A) 3.6 k/uL (1.3-7.7); Neutrophils % (A) 65 %; Platelet Count 302 k/uL (150-450); RBC 3.17 m/uL (3.80-5.40); WBC 5.5 k/uL (3.8-10.6)
[2021-12-26 07:10] LABS: African American GFR (CKD) >90 (>60 ml/min/1.73 sqM); Anion Gap 8 mmol/L; Blood Urea Nitrogen 15 mg/dL (7-17); Calcium 8.2 mg/dL (8.4-10.2); Carbon Dioxide 17 mmol/L (22-30); Chloride 115 mmol/L (98-107); Glucose 117 mg/dL (74-99); Non-African American GFR(CKD) >90 (>60 ml/min/1.73 sqM); Potassium 3.7 mmol/L (3.5-5.1); Sodium 140 mmol/L (137-145)
[2021-12-26] MEDS: MONTELUKAST 10 MG TAB PO SCH (08:56)
[2021-12-26] MEDS: LORATADINE 10 MG TAB PO SCH (08:56)
[2021-12-26] MEDS: ONDANSETRON 4 MG/2 ML VIAL IVP PRN ×2 (09:04→17:51)
[2021-12-26] MEDS: PANTOPRAZOLE 40 MG/10 ML VIAL IVP SCH ×2 (09:05→21:57)
[2021-12-26] MEDS ORDERED: fentaNYL (PF) 50 MCG/ML 2 ML AMP ONE (10:12)
[2021-12-26] MEDS ORDERED: MIDAZOLAM 2 MG/2 ML VIAL ONE ×2 (10:12→10:35)
--- NOTE | 2021-12-26 10:51 | P.PCN ---
Date of Procedure: 12/26/21 Description of Procedure: Indication: Evaluation for possible endocarditis Procedure Description: After explaining the procedure to the patient, it's risk and complications, blood pressure, heart rate and O2 saturation were monitored. The throat was sprayed with Cetacaine. Patient received 3 mg intravenous Versed, 50 mcg intravenous fentanyl. The probe was introduced into the esophagus without difficulty. Images were obtained. Following that, the probe was removed. There was no immediate complication. Findings: Left atrial size is normal, left atrial appendage is normal, left ventricular size and systolic function is normal. The aortic valve, mitral valve, tricuspid and pulmonic valves are normal. Descending thoracic aorta appears to be normal. No pericardial effusion was noted. Contrast bubble study revealed no shunting across the intra-atrial septum. Doppler: Pulse wave and color Doppler were obtained, mild mitral and tricuspid regurgitation with no evidence of shunting across the intra-atrial septum. Conclusion: 1. Normal left ventricle size and systolic function 2. Normal appearance of the valvular structures 3. No evidence of vegetations 4. Mild mitral and tricuspid regurgitation 5. No shunting across the intra-atrial septum
[2021-12-26] MEDS ORDERED: SODIUM CHLORIDE 0.9% 1,000 ML IV SCH (11:00)
--- NOTE | 2021-12-26 11:13 | P.PN ---
Subjective Progress Note Date: 12/26/21 Principal diagnosis: Acute hematemesis, GI blood loss anemia, bacteremia, septic emboli 26-year-old female patient with past medical history of mild intermittent bronchial asthma, with history of multiple ALLERGIES including aspirin, NSAIDs, and many others (please refer to the ALLERGY list), history of recurrent kidney stones, urinary tract infections including vancomycin-resistant enterococcus, familial adenomatosis polyposis, status post ileostomy, who presented to the [facility] department on 12/20/2021 with complaints of right flank pain and hematuria. She was seen at [facility] . Days prior to admission however patient left AGAINST MEDICAL ADVICE related to poor pain control. Patient continued to have a fever at home, her blood cultures showed a preliminary result of Enterobacter. In the emergency department on 12/20/2021 patient had mild leukocytosis with a white blood cell count of 11.5, her hemoglobin was 8.9 INR was 0.9, sodium is 140, potassium 3.6, chloride is 112, CO2 is 21, BUN 7 creatinine 0.52, LFTs within normal limits, lactic acid was 1.4, urinalysis was bloody, with 14 white blood cells, urine hCG was negative, blood culture collected on 12/19/2021 showed Enterobacter cloacae, urine culture showed no growth. Patient was started on antibiotics in the form of cefepime, urology service saw the patient in consultation for recurrent kidney stones and CT of the abdomen and pelvis showed right-sided nonobstructing renal stones without evidence of hydronephrosis. No surgical intervention was recommended. On the computed tomography scan of the abdomen and pelvis they were new noncalcified nodular densities noted at the lung bases one of which was cavitary in nature at the left lung base with a suspicion of septic emboli. In addition patient had a IVC filter placed in October 2021. She is not on any chronic anticoagulation on a r egular basis. On 12/24/2021 rapid response team was called because of hematemesis, patient had 2 episodes of bloody vomiting. And patient was noted to have Pure blood in the emesis with clots, was a fairly large amount. Patient was transferred to the intensive care unit, her vital signs have remained stable, she was given IV hydration with normal saline, her prophylactic subcutaneous heparin was discontinued, she was initiated on antiemetics, on PPI therapy with IV Protonix. Serial H&H's were initiated, admission hemoglobin was 8.9, and is currently up to 9.3, 1 unit of packed red blood cells has been ordered but patient has not required a transfusion. Hemodynamically she remains stable, she is in sinus mechanism no tachycardia, no complaints of shortness of breath, no chest pain. No further hematemesis since transfer to the intensive care unit, GI service has been consulted and patient is scheduled for EGD tomorrow. On 12/25/2021 patient seen in follow-up in the intensive care unit, she states during the day yesterday she had the 2 smaller episodes of hematemesis, and no hematemesis overnight. She has ileostomy in place, she is passing some liquid stools, possibly a bit more liquid than usual. But no dark or bloody output was noted, she is hemodynamically stable, she is in sinus mechanism with a rate of 71 BPM, blood pressure is 96/62, afebrile, she remains on antibiotics with cefepime for enterococcus cloacae bacteremia, follow-up blood cultures from 12/21/[address] scan of the chest was obtained yesterday, showing scattered lower lobe pulmonary nodules that were seen on the computed tomography scan of the abdomen and pelvis, with the possibility of septic emboli given the patient's [id number]. Hepatic steatosis noted. Echocardiogram has been completed showing normal size and systolic function, no clear valvular abnormalities however suboptimal. Remainder pulse ox is 93%, patient is breathing comfortably, no rhonchi or wheezing, shortness of breath, no chest pain. No hemoptysis, no fever or chills. Cardiology is on the case, and case discussed with them for possibility of transesophageal echocardiogram. General surgeries on the case and patient scheduled for EGD today. Today's hemoglobin is 8.8 On 12/26/2021 patient seen in follow-up in intensive care unit. She is awake and alert, she stated she had 3 episodes of hematemesis last night, moderate amount. Hemodynamically she has remained stable, she did have EGD yesterday which showed no active upper GI bleed, multiple small duodenal polyps involving the duodenal bulb and second part of the duodenum and multiple biopsies were done from this area. Patient remains on PPI therapy. She is tolerating clear liquid diet, she had her transesophageal echocardiogram today, and there was no evidence of vegetation, there was normal left ventricle size and systolic function, there was no shunting across the intra-atrial septum. Patient still has intermittent discomfort in the epigastric area, but abdomen is soft. Her ileostomy is functioning, and putting out brown colored stool, with no visible blood in it. Today's hemoglobin is 7.7, platelet count is 302, sodium is 140, potassium 3.7, chloride is 115, CO2 is 17, BUN is 15, creatinine 0.63. Patient has IV fluids infusing at a rate of 130 ML per hour, she remains on room air, lung sounds are clear to auscultation. Her asthma is stable without evidence of exacerbation. Objective - Vital Signs Vital signs: Vital Signs Temp 97.8 F 12/26/21 08:00 Pulse 84 12/26/21 10:45 Resp 16 12/26/21 10:45 BP 102/64 12/26/21 10:45 Pulse Ox 93 L 12/26/21 10:45 FiO2 Intake & Output 12/25/21 12/26/21 12/26/21 18:59 06:59 18:59 Intake Total 1315 1185 310 Output Total 1100 550 Balance 1315 85 -240 Weight 110 kg Intake: IV 1005 825 310 Cefepime 2 gm In Sodium 125 175 50 Chloride 0.9% 100 ml @ 25 mls/hr IVPB Q8H RADHA Rx#: [id number] Sodium Chloride 0.9% 1, 780 650 260 000 ml @ 130 mls/hr IV . Q7H42M RADHA Rx#:[id number] Intake, IV Titration 130 Amount Sodium Chloride 0.9% 1, 130 000 ml @ 130 mls/hr IV . Q7H42M RADHA Rx#:[id number] Oral 180 360 Output: Urine 1100 400 Stool 150 Other: Voiding Method Bedside Commode Bedside Commode Bedside Commode # Voids 3 1 1 - Exam GENERAL EXAM: Alert, very pleasant, 26-year-old very pale white female, appears to be in no acute distress, room air with pulse ox of 96% comfortable in no apparent distress. HEAD: Normocephalic/atraumatic. EYES: Normal reaction of pupils, equal size. Conjunctiva pink, sclera white. NOSE: Clear with pink turbinates. THROAT: No erythema or exudates. NECK: No masses, no JVD, no thyroid enlargement, no adenopathy. CHEST: No chest wall deformity. Symmetrical expansion. Right chest MediPort is in place and accessed with IV fluids infusing, the site is clean dry and intact LUNGS: Equal air entry with no crackles, wheeze, rhonchi or dullness. CVS: Regular rate and rhythm, normal S1 and S2, no gallops, no murmurs, no rubs ABDOMEN: Soft, nontender. No hepatosplenomegaly, normal bowel sounds, no guarding or rigidity. EXTREMITIES: No clubbing, no edema, no cyanosis, 2+ pulses and upper and lower extremities. MUSCULOSKELETAL: Muscle strength and tone normal. SPINE: No scoliosis or deformity SKIN: No rashes CENTRAL NERVOUS SYSTEM: Alert and oriented -3. No focal deficits, tone is normal in all 4 extremities. PSYCHIATRIC: Alert and oriented -3. Appropriate affect. Intact judgment and insight. - Labs CBC & Chem 7: 12/26/21 06:45 12/26/21 06:45 Labs: Abnormal Lab Results - Last 24 Hours (Table) 12/24/21 12/25/21 12/26/21 Range/Units 00:30 13:18 06:45 RBC 3.43 L 3.17 L (3.80-5.40) m/uL Hgb 8.6 L 7.7 L (11.4-16.0) gm/dL Hct 27.1 L 25.5 L (34.0-46.0) % MCV 79.1 L (80.0-100.0) fL MCH 24.4 L (25.0-35.0) pg MCHC 30.4 L (31.0-37.0) g/dL RDW 16.0 H (11.5-15.5) % Lymphocytes # 0.8 L (1.0-4.8) k/uL Chloride (98-107) mmol/L Carbon Dioxide (22-30) mmol/L Glucose (74-99) mg/dL Calcium (8.4-10.2) mg/dL Crossmatch See Detail 12/26/21 Range/Units 06:45 RBC (3.80-5.40) m/uL Hgb (11.4-16.0) gm/dL Hct (34.0-46.0) % MCV (80.0-100.0) fL MCH (25.0-35.0) pg MCHC (31.0-37.0) g/dL RDW (11.5-15.5) % Lymphocytes # (1.0-4.8) k/uL Chloride 115 H (98-107) mmol/L Carbon Dioxide 17 L (22-30) mmol/L Glucose 117 H (74-99) mg/dL Calcium 8.2 L (8.4-10.2) mg/dL Crossmatch Microbiology - Last 24 Hours (Table) 12/20/21 12:13 Blood Culture - Preliminary Blood No Growth after 120 hours 12/21/21 09:45 Blood Culture - Preliminary Blood No Growth after 96 hours Assessment and Plan Plan: Assessment: #1. Acute GI blood loss anemia related to hematemesis, patient is awaiting EGD tomorrow on 12/25/2021 #2. Enterococcus faecalis bacteremia related to urinary source, rule out possibility of endocarditis, RADHA on 12/26/2021 showed no evidence of vegetation on the valves #3. Recurrent nephrolithiasis, non-obstructing, no surgical intervention was recommended by urology #4. Possible septic emboli, computed tomography scan of the abdomen and pelvis showed noncalcified new nodular densities at the lung bases with cavitation in the left lung base. Dedicated computed tomography scan of the chest completed showing scattered lower lobe pulmonary nodules one of them with cavitation, possibly related to septic emboli #5. 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 History of familial adenomatosis polyposis, status post ileostomy #7. Numerous ALLERGIES #8. Obesity with BMI 38.8 kg/m #9. Previous history of VRE urinary tract infection #10. History of IVC placement in the mid 2021 #11. Migraine headaches #12. Anxiety Plan: Continue antibiotics per ID service recommendation Follow-up blood cultures from 12/21/2021 remain negative Vital signs are stable EGD results have been noted Transesophageal echocardiogram has been completed show no evidence of vegetation on the valves Patient can be transferred out of intensive care unit to medical surgical floor She continues on PPI therapy She continues to have some intermittent hematemesis GI service recommendations I have personally seen and examined the patient, performed the documentation and the assessment and plan as written. Number of minutes spent on the visit: [10] Time with Patient: Less than 30
--- NOTE | 2021-12-26 14:49 | P.PN ---
Subjective Progress Note Date: 12/26/21 Principal diagnosis: GI bleed, hematemesis This is a 26-year-old female who was admitted with sepsis who had been having nausea and vomiting for several days. About 2 days ago she had hematemesis approximately 3-4 times. Yesterday she underwent an EGD that showed no evidence of active upper GI bleed. There were multiple small tumor no polyps status post biopsy. Today the patient states she is doing better. Has some minimal abdominal discomfort. States she had a little vomiting yesterday with a small amount of blood. Patient likely retching and has a small Jo Currie tear. Hemoglobin 7.7. Objective - Vital Signs Vital signs: Vital Signs Temp 98.3 F 12/26/21 04:00 Pulse 90 12/26/21 07:00 Resp 23 12/26/21 07:00 BP 93/54 12/26/21 07:00 Pulse Ox 96 12/26/21 07:00 FiO2 Intake & Output 12/25/21 12/26/21 12/26/21 18:59 06:59 18:59 Intake Total 1315 1185 130 Output Total 1100 0 Balance 1315 85 130 Weight 110 kg Intake: IV 1005 825 130 Cefepime 2 gm In Sodium 125 175 Chloride 0.9% 100 ml @ 25 mls/hr IVPB Q8H RADHA Rx#: [id number] Sodium Chloride 0.9% 1, 780 650 130 000 ml @ 130 mls/hr IV . Q7H42M RADHA Rx#:[id number] Intake, IV Titration 130 Amount Sodium Chloride 0.9% 1, 130 000 ml @ 130 mls/hr IV . Q7H42M RADHA Rx#:[id number] Oral 180 360 Output: Urine 1100 0 Other: Voiding Method Bedside Commode Bedside Commode # Voids 3 1 - Exam General appearance: The patient is alert, oriented, appears in no acute distress. HET: Head is normocephalic and atraumatic. Conjunctiva pink. Sclera anicteric. Neck: Supple without lymphadenopathy. Abdomen: Soft, obese, nontender, ostomy with soft brown stool, nondistended with bowel sounds. No guarding or rigidity. Extremities: Normal skin color and turgor. No pedal edema Skin: No rashes, no jaundice Neurological: No focal deficits. Alert and oriented x 3. - Labs CBC & Chem 7: 12/26/21 06:45 12/26/21 06:45 Labs: Abnormal Lab Results - Last 24 Hours (Table) 12/24/21 12/25/21 12/26/21 Range/Units 00:30 13:18 06:45 RBC 3.43 L 3.17 L (3.80-5.40) m/uL Hgb 8.6 L 7.7 L (11.4-16.0) gm/dL Hct 27.1 L 25.5 L (34.0-46.0) % MCV 79.1 L (80.0-100.0) fL MCH 24.4 L (25.0-35.0) pg MCHC 30.4 L (31.0-37.0) g/dL RDW 16.0 H (11.5-15.5) % Lymphocytes # 0.8 L (1.0-4.8) k/uL Chloride (98-107) mmol/L Carbon Dioxide (22-30) mmol/L Glucose (74-99) mg/dL Calcium (8.4-10.2) mg/dL Crossmatch See Detail 12/26/21 Range/Units 06:45 RBC (3.80-5.40) m/uL Hgb (11.4-16.0) gm/dL Hct (34.0-46.0) % MCV (80.0-100.0) fL MCH (25.0-35.0) pg MCHC (31.0-37.0) g/dL RDW (11.5-15.5) % Lymphocytes # (1.0-4.8) k/uL Chloride 115 H (98-107) mmol/L Carbon Dioxide 17 L (22-30) mmol/L Glucose 117 H (74-99) mg/dL Calcium 8.2 L (8.4-10.2) mg/dL Crossmatch Microbiology - Last 24 Hours (Table) 12/20/21 12:13 Blood Culture - Preliminary Blood No Growth after 120 hours 12/21/21 09:45 Blood Culture - Preliminary Blood No Growth after 96 hours Assessment and Plan (1) Hematemesis Narrative/Plan: 26-year-old female who was admitted several days ago for positive blood cultures and flank pain. Has a history of FAP who currently has a colostomy. Patient is admitted to the ICU with positive blood cultures and sepsis. Unsure etiology. Patient has had nausea and vomiting since last week Friday. Apparently late yesterday evening patient had 4 episodes of nausea with vomiting with small to moderate amount of bright red blood. Likely we are dealing with a Jo-Currie tear. However patient does state that she has a history of peptic ulcer disease as well as polyps. Will proceed with EGD for further evaluation. EGD performed with no evidence of active GI bleed. Multiple small duodenal polyps status post biopsy. Possible Jo-Currie tear from vomiting and retching. Current Visit: Yes Status: Acute Code(s): K92.0 - HEMATEMESIS SNOMED Code(s): 2430905 (2) Abdominal pain Current Visit: Yes Status: Acute Code(s): R10.9 - UNSPECIFIED ABDOMINAL PAIN SNOMED Code(s): 48108903 (3) Positive blood culture Current Visit: Yes Status: Acute Code(s): R78.81 - BACTEREMIA SNOMED Code(s): 958882113 Plan: 1. Continue symptomatic and supportive care 2. Diabetes tolerated 3. Protonix 40 mg twice a day 4. Patient is status post EGD with no active bleeding 5. Continue medical management Thank you for this consultation, we will sign off at this time. Dr. Alvaro Sofia I agree with the dictator's note, documented as a scribe by Cyndi Dempsey.
--- NOTE | 2021-12-26 15:57 | P.PN ---
Subjective Progress Note Date: 12/26/21 Principal diagnosis: Abdominal pain Patient was seen and examined. No acute events overnight. Patient reports epigastric pain that is 9 out of 10 in severity. She reports that morphine is the only thing that works for her pain. She is requesting IV Benadryl. RADHA showing normal EF and no vegetation. Repeat blood cultures negative so far. No more hematemesis. Objective - Vital Signs Vital signs: Vital Signs Temp 97.8 F 12/26/21 08:00 Pulse 93 12/26/21 15:00 Resp 20 12/26/21 15:00 BP 101/57 12/26/21 15:00 Pulse Ox 97 12/26/21 15:00 FiO2 Intake & Output 12/25/21 12/26/21 12/26/21 18:59 06:59 18:59 Intake Total 1315 1185 310 Output Total 1100 550 Balance 1315 85 -240 Weight 110 kg Intake: IV 1005 825 310 Cefepime 2 gm In Sodium 125 175 50 Chloride 0.9% 100 ml @ 25 mls/hr IVPB Q8H RADHA Rx#: [id number] Sodium Chloride 0.9% 1, 780 650 260 000 ml @ 130 mls/hr IV . Q7H42M RADHA Rx#:[id number] Intake, IV Titration 130 Amount Sodium Chloride 0.9% 1, 130 000 ml @ 130 mls/hr IV . Q7H42M RADHA Rx#:[id number] Oral 180 360 Output: Urine 1100 400 Stool 150 Other: Voiding Method Bedside Commode Bedside Commode Bedside Commode # Voids 3 1 1 - Exam General: [non toxic], [no distress], [appears at stated age] Derm: [warm], [dry] Head: [atraumatic], [normocephalic], [symmetric] Eyes: [EOMI], [no lid lag], [anicteric sclera] Mouth: [no lip lesion], [mucus membranes moist] Cardiovascular: [S1S2 reg], [no murmur] Lungs: [CTA bilateral], [no rhonchi, no rales] , [no accessory muscle use] Abdominal: [soft], [ nontender to palpation], [no guarding], [no appreciable organomegaly], [colostomy bag intact with stool] Ext: [no gross muscle atrophy], [no edema], [no contractures] Neuro: [no focal neuro deficits] Psych: [Alert], [oriented], [appropriate affect] - Labs CBC & Chem 7: 12/26/21 06:45 12/26/21 06:45 Labs: Abnormal Lab Results - Last 24 Hours (Table) 12/24/21 12/26/21 12/26/21 Range/Units 00:30 06:45 06:45 RBC 3.17 L (3.80-5.40) m/uL Hgb 7.7 L (11.4-16.0) gm/dL Hct 25.5 L (34.0-46.0) % MCH 24.4 L (25.0-35.0) pg MCHC 30.4 L (31.0-37.0) g/dL RDW 16.0 H (11.5-15.5) % Chloride 115 H (98-107) mmol/L Carbon Dioxide 17 L (22-30) mmol/L Glucose 117 H (74-99) mg/dL Calcium 8.2 L (8.4-10.2) mg/dL Crossmatch See Detail Microbiology - Last 24 Hours (Table) 12/20/21 12:13 Blood Culture - Final Blood No Growth after 144 hours 12/21/21 09:45 Blood Culture - Preliminary Blood No Growth after 120 hours Assessment and Plan Assessment: Gram negative bacteremia, growing Enterobacter in the blood -Infectious disease following -Repeat blood cultures have been negative so far -Will likely need terminal manager IV antibiotics Septic emboli found on CT chest in the lung bases -D/w ID, echo done, no vegetations found -RADHA negative -Pulmonology on board Hematemesis -Hgb stable, is this truely hematemesis or blood from the port?, episode happened right after she was refused pain meds. -EGD showing polyps -PPI IV BID -Follow hemoglobin Symptomatic right kidney stone -Urology consulted, stones are not obstructive, will need outpatient follow up. -Pain control -Antiemetics Normocytic anemia -No long-term baseline for comparison -Monitor for now Drug seeking behaviors: -Pateint singed out AMA from multiple medical institutions in the past due to this issue -She keeps asking for IV pain meds for ''severe abdominal pain'' since she was admitted. Objectively she does not have any signs of severe pain. DVT prophylaxis -Hold heparin due to bleeding CODE STATUS: Full Code Discussed with: Patient Anticipated discharge date: 1-[address]: Home
[2021-12-26 17:56] LABS: Appearance,Urine Clear (Clear); Bacteria,Urine Rare /hpf; Bilirubin,Urine Negative (Negative); Blood,Urine Negative (Negative); Color,Urine Light Yellow; Glucose,Urine (UA) Negative (Negative); Ketones,Urine Negative (Negative); Leukocyte Esterase,Urine Large (Negative); Mucus,Urine Occasional /hpf; Nitrite,Urine Negative (Negative); PH, Urine 6.5 (5.0-8.0); Protein,Urine Trace (Negative); RBC,Urine 10 /hpf (0-5); Specific Gravity,Urine 1.016 (1.001-1.035); Squamous Epithelial Cell,Urine 2 /hpf (0-4); Urobilinogen,Urine <2.0 mg/dL (<2.0); WBC,Urine 40 /hpf (0-5)
--- NOTE | 2021-12-26 18:42 | PN ---
PROGRESS NOTE The patient is a 26-year-old lady with possible septic emboli. She is doing well. Vitals are stable. S1-S2 heard normally. Lungs are clear. Abdomen and lower extremity exam unchanged. Patient is going to have a transesophageal echo today and based on the findings, will make further recommendations. MMODL / IJN: [id number] /
[2021-12-26 21:15] VITALS: RESP 16
[2021-12-26] MEDS: QUEtiapine 50 MG TAB PO SCH (21:57)
[2021-12-26] MEDS: diphenhydrAMINE 50 MG/ML 1 ML VIAL IVP PRN (23:23)
--- NOTE | 2021-12-27 00:20 | P.PN ---
Subjective Progress Note Date: 12/25/21 Principal diagnosis: Gram-negative bacteremia Patient is a 26-year-old female with a past medical history significant for familial adenomatous polyposis status post colectomy and ileostomy also with a history of renal stones patient did have right chest wall Mediport presenting to the hospital with right-sided flank pain nausea vomiting and hematuria also have a positive blood culture. Patient did have an episode of vomiting and hematemesis. The patient has been transferred to ICU, cardiology has been consulted for RADHA On today's evaluation that is 12/25/2021, the patient denies any fever or chills, the patient is breathing comfortably on nasal cannula oxygen, denies any chest pain or cough no further vomiting or hematemesis or abdominal pain no diarrhea Objective - Vital Signs Vital signs: Vital Signs Temp 97.9 F 12/25/21 08:00 Pulse 61 12/25/21 11:00 Resp 18 12/25/21 11:00 BP 106/64 12/25/21 11:00 Pulse Ox 95 12/25/21 11:00 FiO2 Intake & Output 12/24/21 12/25/21 12/25/21 18:59 06:59 18:59 Intake Total 1830 1610 590 Output Total 3420 2470 Balance -1590 -860 590 Weight 105.823 kg 108.9 kg Intake: IV 460 Cefepime 2 gm In Sodium 100 Chloride 0.9% 100 ml @ 25 mls/hr IVPB Q8H RADHA Rx#: [id number] Sodium Chloride 0.9% 1, 260 000 ml @ 130 mls/hr IV . Q7H42M RADHA Rx#:[id number] Intake, IV Titration 1830 1560 130 Amount Cefepime 2 gm In Sodium 100 Chloride 0.9% 100 ml @ 25 mls/hr IVPB Q8H RADHA Rx#: [id number] Potassium Chloride 10 meq 300 In Water For Injection 1 100ml.bag @ 100 mls/hr IVPB Q1H RADHA Rx#: [id number] Sodium Chloride 0.9% 1, 1430 1560 130 000 ml @ 130 mls/hr IV . Q7H42M RADHA Rx#:[id number] Oral 50 Output: Urine 3350 2300 Stool 70 150 Emesis 20 Other: Voiding Method Bedside Commode Bedside Commode Bedside Commode # Voids 3 - Exam GENERAL DESCRIPTION: Middle-aged female lying in bed in no distress RESPIRATORY SYSTEM: Unlabored breathing , decreased breath sounds at bases HEART: S1 S2 regular rate and rhythm , ABDOMEN: Soft , no tenderness EXTREMITIES: No edema feet - Labs CBC & Chem 7: 12/26/21 06:45 12/26/21 06:45 Labs: Abnormal Lab Results - Last 24 Hours (Table) 12/24/21 12/24/21 12/25/21 Range/Units 16:25 16:25 00:30 WBC 3.6 L (3.8-10.6) k/uL RBC 3.41 L 3.58 L (3.80-5.40) m/uL Hgb 8.4 L 9.1 L (11.4-16.0) gm/dL Hct 27.0 L 28.6 L (34.0-46.0) % MCV 79.2 L 79.8 L (80.0-100.0) fL MCH 24.8 L (25.0-35.0) pg RDW 15.9 H 15.6 H (11.5-15.5) % Lymphocytes # 0.5 L 0.4 L (1.0-4.8) k/uL D-Dimer 1.24 H (<0.60) mg/L FEU Chloride (98-107) mmol/L Carbon Dioxide (22-30) mmol/L BUN (7-17) mg/dL Creatinine (0.52-1.04) mg/dL Glucose (74-99) mg/dL 12/25/21 12/25/21 12/25/21 Range/Units 05:50 05:50 13:18 WBC (3.8-10.6) k/uL RBC 3.54 L 3.43 L (3.80-5.40) m/uL Hgb 8.8 L 8.6 L (11.4-16.0) gm/dL Hct 28.0 L 27.1 L (34.0-46.0) % MCV 79.0 L 79.1 L (80.0-100.0) fL MCH 24.8 L (25.0-35.0) pg RDW 15.6 H (11.5-15.5) % Lymphocytes # 0.5 L 0.8 L (1.0-4.8) k/uL D-Dimer (<0.60) mg/L FEU Chloride 109 H (98-107) mmol/L Carbon Dioxide 20 L (22-30) mmol/L BUN 6 L (7-17) mg/dL Creatinine 0.44 L (0.52-1.04) mg/dL Glucose 136 H (74-99) mg/dL Microbiology - Last 24 Hours (Table) 12/21/21 09:45 Blood Culture - Preliminary Blood No Growth after 96 hours 12/20/21 12:13 Blood Culture - Preliminary Blood No Growth after 96 hours Assessment and Plan (1) Positive blood culture Current Visit: Yes Status: Acute Code(s): R78.81 - BACTEREMIA SNOMED Code(s): 472465022 Plan: 1patient with Enterobacter bacteremia in this patient predominantly urinary symptom of right flank pain and did have some hematuria with urinary burning I clinically suspicious for urinary source of this bacteremia CT abdominal pelvis did not show any evidence of enteritis or abscess however the patient do have a Mediport and bacteremia related to the port need to be ruled out. 2repeat blood cultures from the port and peripheral are so far negative 3patient did have a CT of abdominal pelvis with evidence of pulmonary nodules and one of them being cavitating concerning for endocarditis, echocardiogram did not show any vegetation RADHA is pending 4-patient to continue with the cefepime and monitor clinical course closely Time with Patient: Less than 30
--- NOTE | 2021-12-27 00:22 | P.PN ---
Subjective Progress Note Date: 12/26/21 Principal diagnosis: Gram-negative bacteremia Patient is a 26-year-old female with a past medical history significant for familial adenomatous polyposis status post colectomy and ileostomy also with a history of renal stones patient did have right chest wall Mediport presenting to the hospital with right-sided flank pain nausea vomiting and hematuria also have a positive blood culture. Patient did have an episode of vomiting and hematemesis. The patient has been transferred to ICU, patient is status post RADHA this morning didn't mention any endocarditis On today's evaluation that is 12/26/2021, the patient remains to be afebrile, the patient is breathing comfortably on nasal cannula oxygen, the patient denies any chest pain or cough no further vomiting or hematemesis or abdominal pain no diarrhea Objective - Vital Signs Vital signs: Vital Signs Temp 97.8 F 12/26/21 08:00 Pulse 84 12/26/21 10:45 Resp 16 12/26/21 10:45 BP 102/64 12/26/21 10:45 Pulse Ox 93 L 12/26/21 10:45 FiO2 Intake & Output 12/25/21 12/26/21 12/26/21 18:59 06:59 18:59 Intake Total 1315 1185 310 Output Total 1100 550 Balance 1315 85 -240 Weight 110 kg Intake: IV 1005 825 310 Cefepime 2 gm In Sodium 125 175 50 Chloride 0.9% 100 ml @ 25 mls/hr IVPB Q8H RADHA Rx#: [id number] Sodium Chloride 0.9% 1, 780 650 260 000 ml @ 130 mls/hr IV . Q7H42M RADHA Rx#:[id number] Intake, IV Titration 130 Amount Sodium Chloride 0.9% 1, 130 000 ml @ 130 mls/hr IV . Q7H42M RADHA Rx#:[id number] Oral 180 360 Output: Urine 1100 400 Stool 150 Other: Voiding Method Bedside Commode Bedside Commode Bedside Commode # Voids 3 1 1 - Exam GENERAL DESCRIPTION: Middle-aged female lying in bed in no distress RESPIRATORY SYSTEM: Unlabored breathing , decreased breath sounds at bases HEART: S1 S2 regular rate and rhythm , ABDOMEN: Soft , no tenderness EXTREMITIES: No edema feet - Labs CBC & Chem 7: 12/26/21 06:45 12/26/21 06:45 Labs: Abnormal Lab Results - Last 24 Hours (Table) 12/24/21 12/25/21 12/26/21 Range/Units 00:30 13:18 06:45 RBC 3.43 L 3.17 L (3.80-5.40) m/uL Hgb 8.6 L 7.7 L (11.4-16.0) gm/dL Hct 27.1 L 25.5 L (34.0-46.0) % MCV 79.1 L (80.0-100.0) fL MCH 24.4 L (25.0-35.0) pg MCHC 30.4 L (31.0-37.0) g/dL RDW 16.0 H (11.5-15.5) % Lymphocytes # 0.8 L (1.0-4.8) k/uL Chloride (98-107) mmol/L Carbon Dioxide (22-30) mmol/L Glucose (74-99) mg/dL Calcium (8.4-10.2) mg/dL Crossmatch See Detail 12/26/21 Range/Units 06:45 RBC (3.80-5.40) m/uL Hgb (11.4-16.0) gm/dL Hct (34.0-46.0) % MCV (80.0-100.0) fL MCH (25.0-35.0) pg MCHC (31.0-37.0) g/dL RDW (11.5-15.5) % Lymphocytes # (1.0-4.8) k/uL Chloride 115 H (98-107) mmol/L Carbon Dioxide 17 L (22-30) mmol/L Glucose 117 H (74-99) mg/dL Calcium 8.2 L (8.4-10.2) mg/dL Crossmatch Microbiology - Last 24 Hours (Table) 12/21/21 09:45 Blood Culture - Preliminary Blood No Growth after 120 hours 12/20/21 12:13 Blood Culture - Preliminary Blood No Growth after 120 hours Assessment and Plan (1) Positive blood culture Current Visit: Yes Status: Acute Code(s): R78.81 - BACTEREMIA SNOMED Code(s): 997707138 Plan: 1patient with Enterobacter bacteremia in this patient predominantly urinary symptom of right flank pain and did have some hematuria with urinary burning I clinically suspicious for urinary source of this bacteremia CT abdominal pelvis did not show any evidence of enteritis or abscess however the patient do have a Mediport and bacteremia related to the port need to be ruled out. 2repeat blood cultures from the port and peripheral are so far negative 3patient did have a CT of abdominal pelvis with evidence of pulmonary nodules and one of them being cavitating concerning for endocarditis, echocardiogram did not show any vegetation RADHA was negative as well however did not mention anything about the Mediport site 4-patient to continue with the cefepime however high clinical suspicious for the port to be infected and needs to be removed when discussed further with the admitting team as the patient has been reluctant Time with Patient: Less than 30
[2021-12-27] MEDS: CEFEPIME 2 GM in SODIUM CHLORIDE 0.9% 100 ML IVPB SCH ×2 (02:13→08:40)
[2021-12-27] MEDS: MORPHINE SULFATE 2 MG/ML SYRINGE IVP PRN ×4 (02:26→14:36)
[2021-12-27 02:46] VITALS: TEMP 98.4
[2021-12-27 08:25] VITALS: BP 94/63; PULSE 90
[2021-12-27] MEDS: MONTELUKAST 10 MG TAB PO SCH (08:40)
[2021-12-27] MEDS: PANTOPRAZOLE 40 MG/10 ML VIAL IVP SCH (08:40)
[2021-12-27] MEDS: LORATADINE 10 MG TAB PO SCH (08:40)
--- NOTE | 2021-12-27 11:33 | P.PN ---
Subjective Progress Note Date: 12/27/21 Principal diagnosis: Acute hematemesis, GI blood loss anemia, bacteremia, septic emboli 26-year-old female patient with past medical history of mild intermittent bronchial asthma, with history of multiple ALLERGIES including aspirin, NSAIDs, and many others (please refer to the ALLERGY list), history of recurrent kidney stones, urinary tract infections including vancomycin-resistant enterococcus, familial adenomatosis polyposis, status post ileostomy, [facility] with complaints of right flank pain and hematuria. She was seen at [facility] Days prior to admission however patient left AGAINST MEDICAL ADVICE related to poor pain control. Patient continued to have a fever at home, her blood cultures showed a preliminary result of Enterobacter. In the emergency department on 12/20/2021 patient had mild leukocytosis with a white blood cell count of 11.5, her hemoglobin was 8.9 INR was 0.9, sodium is 140, potassium 3.6, chloride is 112, CO2 is 21, BUN 7 creatinine 0.52, LFTs within normal limits, lactic acid was 1.4, urinalysis was bloody, with 14 white blood cells, urine hCG was negative, blood culture collected on 12/19/2021 showed Enterobacter cloacae, urine culture showed no growth. Patient was started on antibiotics in the form of cefepime, urology service saw the patient in consultation for recurrent kidney stones and CT of the abdomen and pelvis showed right-sided nonobstructing renal stones without e vidence of hydronephrosis. No surgical intervention was recommended. On the computed tomography scan of the abdomen and pelvis they were new noncalcified nodular densities noted at the lung bases one of which was cavitary in nature at the left lung base with a suspicion of septic emboli. In addition patient had a IVC filter placed in October 2021. She is not on any chronic anticoagulation on a regular basis. On 12/24/2021 rapid response team was called because of hematemesis, patient had 2 episodes of bloody vomiting. And patient was noted to have Pure blood in the emesis with clots, was a fairly large amount. Patient was transferred to the intensive care unit, her vital signs have remained stable, she was given IV hydration with normal saline, her prophylactic subcutaneous heparin was discontinued, she was initiated on antiemetics, on PPI therapy with IV Protonix. Serial H&H's were initiated, admission hemoglobin was 8.9, and is currently up to 9.3, 1 unit of packed red blood cells has been ordered but patient has not required a transfusion. Hemodynamically she remains stable, she is in sinus mechanism no tachycardia, no complaints of shortness of breath, no chest pain. No further hematemesis since transfer to the intensive care unit, GI service has been consulted and patient is scheduled for EGD tomorrow. On 12/25/2021 patient seen in follow-up in the intensive care unit, she states during the day yesterday she had the 2 smaller episodes of hematemesis, and no hematemesis overnight. She has ileostomy in place, she is passing some liquid stools, possibly a bit more liquid than usual. But no dark or bloody output was noted, she is hemodynamically stable, she is in sinus mechanism with a rate of 71 BPM, blood pressure is 96/62, afebrile, she remains on antibiotics with cefepime for enterococcus cloacae bacteremia, follow-up blood cultures from 12/21/[address] scan of the chest was obtained yesterday, showing scattered lower lobe pulmonary nodules that were seen on the computed tomography scan of the abdomen and pelvis, with the possibility of septic emboli given the patient's [id number]. Hepatic steatosis noted. Echocardiogram has been completed showing normal size and systolic function, no clear valvular abnormalities however suboptimal. Remainder pulse ox is 93%, patient is breathing comfortably, no rhonchi or wheezing, shortness of breath, no chest pain. No hemoptysis, no fever or chills. Cardiology is on the case, and case discussed with them for possibility of transesophageal echocardiogram. General surgeries on the case and patient scheduled for EGD today. Today's hemoglobin is 8.8 On 12/26/2021 patient seen in follow-up in intensive care unit. She is awake and alert, she stated she had 3 episodes of hematemesis last night, moderate amount. Hemodynamically she has remained stable, she did have EGD yesterday which showed no active upper GI bleed, multiple small duodenal polyps involving the duodenal bulb and second part of the duodenum and multiple biopsies were done from this area. Patient remains on PPI therapy. She is tolerating clear liquid diet, she had her transesophageal echocardiogram today, and there was no evidence of vegetation, there was normal left ventricle size and systolic function, there was no shunting across the intra-atrial septum. Patient still has intermittent discomfort in the epigastric area, but abdomen is soft. Her ileostomy is functioning, and putting out brown colored stool, with no visible blood in it. Today's hemoglobin is 7.7, platelet count is 302, sodium is 140, potassium 3.7, chloride is 115, CO2 is 17, BUN is 15, creatinine 0.63. Patient has IV fluids infusing at a rate of 130 ML per hour, she remains on room air, lung sounds are clear to auscultation. Her asthma is stable without evidence of exacerbation. The patient is seen today 12/27/2021 in follow-up on the regular medical floor. She is currently sitting up in bed. Awake and alert in no acute distress. No further hematemesis. She is maintaining good O2 saturations in the upper 90s on room air. She's been afebrile. Hemodynamically stable. Follow-up blood cultures revealed no growth. No new labs today. She is continued on cefepime. RADHA revealed no evidence of vegetation. EGD revealed no active bleeding. Objective - Vital Signs Vital signs: Vital Signs Temp 98.4 F 12/27/21 08:00 Pulse 90 12/27/21 08:00 Resp 16 12/27/21 08:00 BP 94/63 12/27/21 08:00 Pulse Ox 98 12/27/21 08:00 FiO2 Intake & Output 12/26/21 12/27/21 12/27/21 18:59 06:59 18:59 Intake Total 515 1080 Output Total 990 Balance -475 1080 Intake: IV 335 Cefepime 2 gm In Sodium 75 Chloride 0.9% 100 ml @ 25 mls/hr IVPB Q8H RADHA Rx#: [id number] Sodium Chloride 0.9% 1, 260 000 ml @ 130 mls/hr IV . Q7H42M RADHA Rx#:[id number] Oral 180 1080 Output: Urine 840 Stool 150 Other: Voiding Method Bedside Commode # Voids 1 - Exam GENERAL EXAM: Alert, pleasant 26-year-old female, on room air, comfortable in no apparent distress. HEAD: Normocephalic. EYES: Normal reaction of pupils, equal size. NOSE: Clear with pink turbinates. THROAT: No erythema or exudates. NECK: No masses, no JVD. CHEST: No chest wall deformity. Right chest Mediport in place. LUNGS: Equal air entry with no crackles, wheeze, rhonchi or dullness. CVS: S1 and S2 normal with no audible murmur, regular rhythm. ABDOMEN: No hepatosplenomegaly, normal bowel sounds, no guarding or rigidity. SPINE: No scoliosis or deformity SKIN: No rashes. Multiple tattoos CENTRAL NERVOUS SYSTEM: No focal deficits, tone is normal in all 4 extremities. EXTREMITIES: There is no peripheral edema. No clubbing, no cyanosis. Peripheral pulses are intact. - Labs CBC & Chem 7: 12/26/21 06:45 12/26/21 06:45 Labs: Abnormal Lab Results - Last 24 Hours (Table) 12/26/21 Range/Units 17:09 Urine Protein Trace H (Negative) Ur Leukocyte Esterase Large H (Negative) Urine RBC 10 H (0-5) /hpf Urine WBC 40 H (0-5) /hpf Urine Bacteria Rare H (None) /hpf Urine Mucus Occasional H (None) /hpf Microbiology - Last 24 Hours (Table) 12/26/21 17:09 Urine Culture - Preliminary Urine,Voided 12/20/21 12:13 Blood Culture - Final Blood No Growth after 144 hours 12/21/21 09:45 Blood Culture - Preliminary Blood No Growth after 120 hours Assessment and Plan Assessment: 1 Acute GI blood loss anemia related to hematemesis, EGD revealed no active bleeding 2 Enterococcus faecalis bacteremia related to urinary source, RADHA on 12/26/2021 showed no evidence of vegetation on the valves 3 Recurrent nephrolithiasis, non-obstructing, no surgical intervention was recommended by urology 4 Possible septic emboli, computed tomography scan of the abdomen and pelvis showed noncalcified new nodular densities at the lung bases with cavitation in the left lung base. 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 Number of minutes spent on the visit: 10.
[2021-12-27 13:51] VITALS: BMI 40.3
--- NOTE | 2021-12-27 15:36 | P.PN ---
Subjective Progress Note Date: 12/27/21 Principal diagnosis: Abdominal pain Patient was seen and examined. No acute events overnight. Patient reports epigastric pain that is 9 out of 10 in severity. RADHA showing normal EF and no vegetation. Repeat blood cultures negative so far. No more hematemesis. Objective - Vital Signs Vital signs: Vital Signs Temp 98.4 F 12/27/21 08:00 Pulse 90 12/27/21 08:00 Resp 16 12/27/21 08:00 BP 94/63 12/27/21 08:00 Pulse Ox 98 12/27/21 08:00 FiO2 Intake & Output 12/26/21 12/27/21 12/27/21 18:59 06:59 18:59 Intake Total 515 1080 Output Total 990 Balance -475 1080 Weight 110 kg Intake: IV 335 Cefepime 2 gm In Sodium 75 Chloride 0.9% 100 ml @ 25 mls/hr IVPB Q8H RADHA Rx#: [id number] Sodium Chloride 0.9% 1, 260 000 ml @ 130 mls/hr IV . Q7H42M RADHA Rx#:[id number] Oral 180 1080 Output: Urine 840 Stool 150 Other: Voiding Method Bedside Commode # Voids 1 - Exam General: [non toxic], [no distress], [appears at stated age] Derm: [warm], [dry] Head: [atraumatic], [normocephalic], [symmetric] Eyes: [EOMI], [no lid lag], [anicteric sclera] Mouth: [no lip lesion], [mucus membranes moist] Cardiovascular: [S1S2 reg], [no murmur] Lungs: [CTA bilateral], [no rhonchi, no rales] , [no accessory muscle use] Abdominal: [soft], [ nontender to palpation], [no guarding], [no appreciable organomegaly], [colostomy bag intact with stool] Ext: [no gross muscle atrophy], [no edema], [no contractures] Neuro: [no focal neuro deficits] Psych: [Alert], [oriented], [appropriate affect] - Labs CBC & Chem 7: 12/26/21 06:45 12/26/21 06:45 Labs: Abnormal Lab Results - Last 24 Hours (Table) 12/26/21 Range/Units 17:09 Urine Protein Trace H (Negative) Ur Leukocyte Esterase Large H (Negative) Urine RBC 10 H (0-5) /hpf Urine WBC 40 H (0-5) /hpf Urine Bacteria Rare H (None) /hpf Urine Mucus Occasional H (None) /hpf Microbiology - Last 24 Hours (Table) 12/21/21 09:45 Blood Culture - Final Blood No Growth after 144 hours 12/26/21 17:09 Urine Culture - Preliminary Urine,Voided 12/20/21 12:13 Blood Culture - Final Blood No Growth after 144 hours Assessment and Plan Assessment: Gram negative bacteremia, growing Enterobacter in the blood -Infectious disease following -Repeat blood cultures have been negative so far -Will likely need intermediate accountant IV antibiotics -Discussed with Dr. Potts, consult surgery for Mediport removal, will need PICC line and 6 weeks of Cefepime afterwards Septic emboli found on CT chest in the lung bases -D/w ID, echo done, no vegetations found -RADHA negative -Pulmonology on board Hematemesis -Hgb stable, is this truely hematemesis or blood from the port?, episode happened right after she was refused pain meds. -EGD showing polyps -PPI IV BID -Follow hemoglobin Symptomatic right kidney stone -Urology consulted, stones are not obstructive, will need outpatient follow up. -Pain control -Antiemetics Normocytic anemia -No long-term baseline for comparison -Monitor for now Drug seeking behaviors: -Pateint singed out AMA from multiple medical institutions in the past due to this issue -She keeps asking for IV pain meds for ''severe abdominal pain'' since she was admitted. Objectively she does not have any signs of severe pain. DVT prophylaxis -Hold heparin due to bleeding CODE STATUS: Full Code Discussed with: Patient Anticipated discharge date: 1-[address]: Home
[2021-12-27] MEDS: diphenhydrAMINE 50 MG/ML 1 ML VIAL IVP PRN (16:04)
== END 2021-12-27 16:25 | disposition left against medical advice (07) | DRG 871 ==
LOC: EC 19:33 → 3SCARD 12-20 02:21 → 2SICU 12-24 01:01 → 4SSUR 12-26 20:50
PROVIDERS: ADMIT Internal Medicine; ATTEND Internal Medicine
PROC: 0DB98ZX Excision of Duodenum, Via Natural or Artificial Opening Endoscopic, Diagnostic (ICD-10-PCS; principal; 2021-12-25 11:05)
PROC: B24BZZ4 Ultrasonography of Heart with Aorta, Transesophageal (ICD-10-PCS; 2021-12-26)
DX: A41.81 Sepsis due to Enterococcus (principal); K22.6 Gastro-esophageal laceration-hemorrhage syndrome; K27.4 Chronic or unspecified peptic ulcer, site unspecified, with hemorrhage; N39.0 Urinary tract infection, site not specified; I76 Septic arterial embolism; D62 Acute posthemorrhagic anemia; Z16.21 Resistance to vancomycin; E66.9 Obesity, unspecified; K76.0 Fatty (change of) liver, not elsewhere classified; J45.20 Mild intermittent asthma, uncomplicated; Z68.38 Body mass index [BMI] 38.0-38.9, adult; B95.2 Enterococcus as the cause of diseases classified elsewhere; R00.0 Tachycardia, unspecified; R31.0 Gross hematuria; K31.7 Polyp of stomach and duodenum; R91.8 Other nonspecific abnormal finding of lung field; K43.9 Ventral hernia without obstruction or gangrene; K43.5 Parastomal hernia without obstruction or gangrene; I08.1 Rheumatic disorders of both mitral and tricuspid valves; G43.909 Migraine, unspecified, not intractable, without status migrainosus; F41.9 Anxiety disorder, unspecified; L29.9 Pruritus, unspecified; Z76.5 Malingerer [conscious simulation]; Z53.29 Procedure and treatment not carried out because of patient's decision for other reasons; R53.83 Other fatigue; D12.6 Benign neoplasm of colon, unspecified; N20.0 Calculus of kidney; Z93.2 Ileostomy status; Z79.899 Other long term (current) drug therapy; Z93.3 Colostomy status; Z88.6 Allergy status to analgesic agent; Z91.041 Radiographic dye allergy status; Z88.8 Allergy status to other drugs, medicaments and biological substances; Z86.19 Personal history of other infectious and parasitic diseases; Z90.89 Acquired absence of other organs; Z90.49 Acquired absence of other specified parts of digestive tract; Z87.442 Personal history of urinary calculi; Z98.890 Other specified postprocedural states; Z83.79 Family history of other diseases of the digestive system
CPT/HCPCS: 36415; 43239; 71250; 74022; 74176; 80048; 80053; 81001; 81025; 82150; 83605; 83690; 83735; 85025; 85027; 85379; 85610; 85730; 86140; 86850; 86900; 86901; 86920; 87040; 87077; 87086; 87186; 87324; 88305; 93005; 93306; 93312; 93320; 93325; 94760; 96365; 96375; 96376; 99285

== ENCOUNTER 2022-01-14 20:52 | Inpatient (IN) | payer OTHER ==
[2022-01-14] MEDS ORDERED: SODIUM CHLORIDE 0.9% 1,000 ML IV STA ×2 (21:24)
[2022-01-14] MEDS ORDERED: HYDROmorphone 1 MG/ML 1 ML SYRINGE IVP STA (22:32)
[2022-01-14] MEDS ORDERED: ONDANSETRON 4 MG/2 ML VIAL IVP STA (22:32)
[2022-01-14] MEDS ORDERED: LORazepam 2 MG/ML INJ IV STA (22:32)
--- NOTE | 2022-01-14 22:42 | ED ---
Fever HPI - General Chief Complaint: Fever Stated Complaint: Coughing up blood Time Seen by Provider: 01/14/22 21:23 Source: patient Mode of arrival: wheelchair Limitations: no limitations - Related Data Home Medications Medication Instructions Recorded Confirmed Albuterol Nebulized [Ventolin 2.5 mg INHALATION RT-QID PRN 12/19/21 01/14/22 Nebulized] Albuterol Sulfate [Proair Hfa] 2 puff INHALATION RT-Q6H PRN 12/19/21 01/14/22 EPINEPHrine (Auto Inject) [Epipen] 0.3 mg IM ONCE PRN 12/19/21 01/14/22 Ferrous Sulfate [Feosol] 325 mg PO DAILY 12/19/21 01/14/22 Galcanezumab-Gnlm [Emgality Pen] 120 mg SQ Q30D 12/19/21 01/14/22 Loratadine 10 mg PO DAILY 12/19/21 01/14/22 Montelukast [Singulair] 10 mg PO DAILY 12/19/21 01/14/22 Omeprazole 40 mg PO DAILY 12/19/21 01/14/22 Ondansetron Odt [Zofran Odt] 4 mg PO Q8HR PRN 12/19/21 01/14/22 QUEtiapine [SEROquel] 50 mg PO HS 12/19/21 01/14/22 Salmeterol 50 mcg [Serevent Diskus] 1 puff INHALATION RT-BID 12/19/21 01/14/22 Ubrogepant [Ubrelvy] 100 mg PO BID PRN 12/19/21 01/14/22 clonazePAM [KlonoPIN] 1 mg PO DAILY PRN 12/19/21 01/14/22 medroxyPROGESTERone [Depo-Provera] 150 mg IM Q84D 01/14/22 01/14/22 Allergies Allergy/AdvReac Type Severity Reaction Status Date / Time acetaminophen [From Tylenol] Allergy Anaphylaxis Verified 01/14/22 22:21 aspirin Allergy Anaphylaxis Verified 01/14/22 22:21 famotidine [From Pepcid] Allergy Anaphylaxis Verified 01/14/22 22:21 haloperidol [From Haldol] Allergy Anaphylaxis Verified 01/14/22 22:21 iodine Allergy Anaphylaxis Verified 01/14/22 22:21 ketorolac [From Toradol] Allergy Anaphylaxis Verified 01/14/22 22:21 metoclopramide [From Reglan] Allergy Anaphylaxis Verified 01/14/22 22:21 NSAIDS (Non-Steroidal Allergy Anaphylaxis Verified 01/14/22 22:21 Anti-Inflamma prochlorperazine Allergy Anaphylaxis Verified 01/14/22 22:21 [From Compazine] sulfur hexafluoride Allergy Anaphylaxis Verified 01/14/22 22:21 microspheres [From Lumason] Review of Systems ROS Statement: Those systems with pertinent positive or pertinent negative responses have been documented in the HPI. ROS Other: All systems not noted in ROS Statement are negative. Past Medical History Past Medical History: Asthma Additional Past Medical History / Comment(s): FAP, c diff in past History of Any Multi-Drug Resistant Organisms: VRE Date of last positivie culture/infection: 12/26/21 MDRO Source:: Urine Past Surgical History: Appendectomy, Bowel Resection, Cholecystectomy Additional Past Surgical History / Comment(s): ileostomy, kidney stone removal, IVC filter in left groin October 2021. , medi port Past Psychological History: No Psychological Hx Reported Smoking Status: Never smoker Past Alcohol Use History: None Reported Past Drug Use History: None Reported - Past Family History Father Family Medical History: GI Bleed General Exam Limitations: no limitations Course Vital Signs 01/14/22 01/14/22 01/14/22 21:18 21:28 21:30 Temperature 102.7 F H Pulse Rate 174 H 172 H 168 H Respiratory 34 H 42 H 32 H Rate Blood Pressure 101/70 113/70 O2 Sat by Pulse 98 95 Oximetry 01/14/22 01/14/22 01/14/22 21:40 21:50 22:00 Temperature Pulse Rate 163 H 165 H 163 H Respiratory 9 L 15 33 H Rate Blood Pressure 113/70 107/87 107/87 O2 Sat by Pulse 96 96 Oximetry 01/14/22 01/14/22 01/14/22 22:10 22:20 22:30 Temperature Pulse Rate 154 H 158 H 181 H Respiratory 27 H 18 40 H Rate Blood Pressure 124/89 124/89 118/60 O2 Sat by Pulse 97 97 97 Oximetry 01/14/22 01/14/22 01/14/22 22:40 22:50 23:00 Temperature Pulse Rate 184 H 179 H 176 H Respiratory 23 6 L 10 L Rate Blood Pressure 118/60 118/85 118/85 O2 Sat by Pulse 85 L 100 98 Oximetry 01/14/22 01/14/22 01/14/22 23:10 23:16 23:20 Temperature Pulse Rate 184 H 189 H 186 H Respiratory 11 L 23 22 Rate Blood Pressure 113/67 109/55 109/55 O2 Sat by Pulse 93 L 97 95 Oximetry 01/14/22 01/14/22 01/14/22 23:26 23:30 23:40 Temperature 103 F H Pulse Rate 186 H 181 H Respiratory 22 19 Rate Blood Pressure 102/65 89/43 O2 Sat by Pulse 96 Oximetry 01/14/22 01/15/22 01/15/22 23:50 00:00 00:10 Temperature Pulse Rate 172 H 172 H 168 H Respiratory 36 H 14 36 H Rate Blood Pressure 103/37 99/55 80/55 O2 Sat by Pulse 100 Oximetry 01/15/22 01/15/22 01/15/22 00:20 00:30 00:40 Temperature Pulse Rate 163 H 170 H 168 H Respiratory 35 H 16 7 L Rate Blood Pressure 102/53 87/54 O2 Sat by Pulse Oximetry 01/15/22 01/15/22 01/15/22 00:50 01:00 01:10 Temperature Pulse Rate 161 H 161 H 163 H Respiratory 15 13 19 Rate Blood Pressure 110/45 110/45 86/42 O2 Sat by Pulse Oximetry 01/15/22 01/15/22 01/15/22 01:20 01:30 01:40 Temperature Pulse Rate 158 H 161 H 168 H Respiratory 32 H 11 L 30 H Rate Blood Pressure 84/48 85/40 94/67 O2 Sat by Pulse Oximetry 01/15/22 01/15/22 01/15/22 01:50 02:00 02:10 Temperature 101.9 F H Pulse Rate 156 H 165 H 163 H Respiratory 29 H 18 29 H Rate Blood Pressure 88/60 73/40 88/47 O2 Sat by Pulse Oximetry 01/15/22 01/15/22 01/15/22 02:20 02:30 02:40 Temperature Pulse Rate 163 H 156 H 149 H Respiratory 32 H 18 16 Rate Blood Pressure 95/43 71/34 88/34 O2 Sat by Pulse Oximetry 01/15/22 01/15/22 01/15/22 02:50 03:00 03:10 Temperature 102.3 F H Pulse Rate 142 H 141 H 144 H Respiratory 21 14 9 L Rate Blood Pressure 94/40 92/46 78/46 O2 Sat by Pulse Oximetry 01/15/22 01/15/22 01/15/22 03:20 03:30 03:40 Temperature 102.3 F H 102.5 F H Pulse Rate 151 H 144 H 142 H Respiratory 18 27 H 23 Rate Blood Pressure 105/54 103/39 88/45 O2 Sat by Pulse Oximetry 01/15/22 01/15/22 03:50 04:00 Temperature Pulse Rate 140 H 146 H Respiratory 39 H 17 Rate Blood Pressure 91/58 98/82 O2 Sat by Pulse Oximetry Medical Decision Making - Lab Data Result diagrams: 01/14/22 22:20 01/14/22 22:20 Lab Results 01/14/22 01/14/22 01/14/22 Range/Units 22:20 22:20 22:20 WBC 5.1 (3.8-10.6) k/uL RBC 4.04 (3.80-5.40) m/uL Hgb 9.4 L D (11.4-16.0) gm/dL Hct 31.1 L (34.0-46.0) % MCV 77.0 L (80.0-100.0) fL MCH 23.2 L (25.0-35.0) pg MCHC 30.1 L (31.0-37.0) g/dL RDW 15.3 (11.5-15.5) % Plt Count [employer] MPV 8.7 Neutrophils % 88 % Lymphocytes % 8 % Monocytes % 3 % Eosinophils % 1 % Basophils % 0 % Neutrophils # 4.4 (1.3-7.7) k/uL Lymphocytes # 0.4 L (1.0-4.8) k/uL Monocytes # 0.1 (0-1.0) k/uL Eosinophils # 0.1 (0-0.7) k/uL Basophils # 0.0 (0-0.2) k/uL Manual Slide Review Performed Large Platelets Present Polychromasia Present Hypochromasia Marked Microcytosis Slight Sodium 133 L (137-145) mmol/L Potassium 3.8 (3.5-5.1) mmol/L Chloride 104 (98-107) mmol/L Carbon Dioxide 17 L (22-30) mmol/L Anion Gap 12 mmol/L BUN 5 L (7-17) mg/dL Creatinine 0.74 (0.52-1.04) mg/dL Est GFR (CKD-EPI)AfAm >90 (>60 ml/min/1.73 sqM) Est GFR (CKD-EPI)NonAf >90 (>60 ml/min/1.73 sqM) Glucose 144 H (74-99) mg/dL Plasma Lactic Acid Obdulio 1.8 (0.7-2.0) mmol/L Calcium 8.4 (8.4-10.2) mg/dL Phosphorus 2.7 (2.5-4.5) mg/dL Magnesium 1.6 (1.6-2.3) mg/dL Total Bilirubin 1.1 (0.2-1.3) mg/dL AST 47 H (14-36) U/L ALT 47 H (4-34) U/L Alkaline Phosphatase 195 H (38-126) U/L Troponin I (0.000-0.034) ng/mL NT-Pro-B Natriuret Pep pg/mL Total Protein 6.8 (6.3-8.2) g/dL Albumin 3.4 L (3.5-5.0) g/dL TSH 1.090 (0.465-4.680) mIU/L 01/14/22 01/14/22 Range/Units 22:20 22:20 WBC (3.8-10.6) k/uL RBC (3.80-5.40) m/uL Hgb (11.4-16.0) gm/dL Hct (34.0-46.0) % MCV (80.0-100.0) fL MCH (25.0-35.0) pg MCHC (31.0-37.0) g/dL RDW (11.5-15.5) % Plt Count MPV Neutrophils % % Lymphocytes % % Monocytes % % Eosinophils % % Basophils % % Neutrophils # (1.3-7.7) k/uL Lymphocytes # (1.0-4.8) k/uL Monocytes # (0-1.0) k/uL Eosinophils # (0-0.7) k/uL Basophils # (0-0.2) k/uL Manual Slide Review Large Platelets Polychromasia Hypochromasia Microcytosis Sodium (137-145) mmol/L Potassium (3.5-5.1) mmol/L Chloride (98-107) mmol/L Carbon Dioxide (22-30) mmol/L Anion Gap mmol/L BUN (7-17) mg/dL Creatinine (0.52-1.04) mg/dL Est GFR (CKD-EPI)AfAm (>60 ml/min/1.73 sqM) Est GFR (CKD-EPI)NonAf (>60 ml/min/1.73 sqM) Glucose (74-99) mg/dL Plasma Lactic Acid Obdulio (0.7-2.0) mmol/L Calcium (8.4-10.2) mg/dL Phosphorus (2.5-4.5) mg/dL Magnesium (1.6-2.3) mg/dL Total Bilirubin (0.2-1.3) mg/dL AST (14-36) U/L ALT (4-34) U/L Alkaline Phosphatase (38-126) U/L Troponin I <0.012 (0.000-0.034) ng/mL NT-Pro-B Natriuret Pep 83 pg/mL Total Protein (6.3-8.2) g/dL Albumin (3.5-5.0) g/dL TSH (0.465-4.680) mIU/L - EKG Data -: EKG Interpreted by Me (EKG is SVT 169 QRS 69 QTC 352) Disposition Clinical Impression: Sepsis, Positive blood culture, UTI (urinary tract infection), Fever, Bacteremia, Hemoptysis, Anemia, Hematemesis, Abdominal pain, History of bleeding ulcers Disposition: ADMITTED IP TO THIS HOSP Condition: Serious Is patient prescribed a controlled substance at d/c from ED?: No
[2022-01-14 22:52] LABS: ALT 47 U/L (4-34); AST 47 U/L (14-36); African American GFR (CKD) >90 (>60 ml/min/1.73 sqM); Albumin 3.4 g/dL (3.5-5.0); Alkaline Phosphatase 195 U/L (38-126); Anion Gap 12 mmol/L; Blood Urea Nitrogen 5 mg/dL (7-17); Calcium 8.4 mg/dL (8.4-10.2); Carbon Dioxide 17 mmol/L (22-30); Chloride 104 mmol/L (98-107); Glucose 144 mg/dL (74-99); Magnesium 1.6 mg/dL (1.6-2.3); Non-African American GFR(CKD) >90 (>60 ml/min/1.73 sqM); Phosphorus 2.7 mg/dL (2.5-4.5); Potassium 3.8 mmol/L (3.5-5.1); Sodium 133 mmol/L (137-145); Total Bilirubin 1.1 mg/dL (0.2-1.3); Total Protein 6.8 g/dL (6.3-8.2)
[2022-01-14 23:20] LABS: Basophils % (A) 0 %; Eosinophils # (A) 0.1 k/uL (0-0.7); Eosinophils % (A) 1 %; HCT 31.1 % (34.0-46.0); HGB 9.4 gm/dL (11.4-16.0); Hypochromasia Marked; Lymphocytes # (A) 0.4 k/uL (1.0-4.8); Lymphocytes % (A) 8 %; MCH 23.2 pg (25.0-35.0); MCHC 30.1 g/dL (31.0-37.0); Mean Platelet Volume 8.7; Microcytosis Slight; Monocytes # (A) 0.1 k/uL (0-1.0); Monocytes % (A) 3 %; Neutrophils # (A) 4.4 k/uL (1.3-7.7); Neutrophils % (A) 88 %; RBC 4.04 m/uL (3.80-5.40); RDW 15.3 % (11.5-15.5); WBC 5.1 k/uL (3.8-10.6)
[2022-01-14] MEDS ORDERED: CEFEPIME 2 GM in SODIUM CHLORIDE 0.9% 100 ML IVPB STA (23:27)
[2022-01-14] MEDS ORDERED: NALOXONE 0.4 MG/ML 1 ML VIAL IV PRN (23:28)
[2022-01-14] MEDS ORDERED: HYDROmorphone 1 MG/ML 1 ML SYRINGE IVP PRN (23:28)
[2022-01-14] MEDS ORDERED: GENTAMICIN 110 MG in SODIUM CHLORIDE 0.9% 100 ML IVPB SCH (23:30)
[2022-01-14 23:52] LABS: Large Platelets Present; Polychromasia Present
[2022-01-14] MEDS ORDERED: HYDROCORTISONE SUCCINATE 100 MG/2 ML VIAL IV STA (23:52)
[2022-01-15] MEDS ORDERED: fentaNYL (PF) 50 MCG/ML 2 ML AMP IV STA ×2 (00:34)
[2022-01-15] MEDS ORDERED: GENTAMICIN 380 MG in SODIUM CHLORIDE 0.9% 100 ML IVPB ONE (01:00)
[2022-01-15] MEDS: PANTOPRAZOLE 40 MG/10 ML VIAL IVP SCH ×2 (01:13→08:45)
--- NOTE | 2022-01-15 01:28 | XR ---
EXAMINATION TYPE: XR chest 1V portable DATE OF EXAM: 01/15/2022 COMPARISON: NONE HISTORY: Pain TECHNIQUE: FINDINGS: Heart and mediastinum are normal. Lungs are clear. Diaphragm is normal. Bony thorax appears normal. There is right central venous catheter with tip in the top of the right atrium. There are ch est leads. IMPRESSION: Normal chest.
[2022-01-15] MEDS: SODIUM CHLORIDE 0.9% 1,000 ML IV SCH ×2 (01:34→08:08)
[2022-01-15 01:40] LABS: INR 1.1 (<1.2); Partial Thromboplastin Time 22.1 sec (22.0-30.0); Prothrombin Time 11.7 sec (9.0-12.0)
[2022-01-15] MEDS ORDERED: SODIUM CHLORIDE 0.9% 2,000 ML IV ONE (01:53)
[2022-01-15] MEDS ORDERED: diphenhydrAMINE 50 MG/ML 1 ML VIAL IVP STA (02:12)
[2022-01-15] MEDS ORDERED: diphenhydrAMINE 50 MG/ML 1 ML VIAL IVP PRN (02:12)
[2022-01-15] MEDS ORDERED: TRIMETHOBENZAMIDE 100 MG/ML 2 ML VIAL IM STA (02:13)
[2022-01-15] MEDS ORDERED: NALOXONE 0.4 MG/ML 1 ML VIAL IV PRN (03:21)
[2022-01-15] MEDS ORDERED: fentaNYL (PF) 50 MCG/ML 2 ML AMP IVP STA (03:53)
[2022-01-15] MEDS ORDERED: fentaNYL (PF) 50 MCG/ML 2 ML AMP IVP PRN (03:54)
[2022-01-15] MEDS: CEFEPIME 2 GM in SODIUM CHLORIDE 0.9% 100 ML IVPB SCH ×3 (05:47→18:07)
[2022-01-15 06:44] LABS: Glucose,Whole Blood 132 mg/dL (70-110)
[2022-01-15 07:23] LABS: Appearance,Urine Clear (Clear); Bilirubin,Urine Negative (Negative); Blood,Urine Negative (Negative); Color,Urine Yellow; Glucose,Urine (UA) Negative (Negative); Hyaline Casts,Urine 1 /lpf (0-2); Ketones,Urine Negative (Negative); Leukocyte Esterase,Urine Negative (Negative); Mucus,Urine Few /hpf; Nitrite,Urine Negative (Negative); Protein,Urine 1+ (Negative); RBC,Urine 1 /hpf (0-5); Specific Gravity,Urine 1.007 (1.001-1.035); Squamous Epithelial Cell,Urine 2 /hpf (0-4); Urobilinogen,Urine <2.0 mg/dL (<2.0); WBC,Urine 2 /hpf (0-5)
[2022-01-15] MEDS: LACTATED RINGERS 1,000 ML IV SCH ×8 (08:38→16:08)
[2022-01-15] MEDS ORDERED: PANTOPRAZOLE 40 MG/10 ML VIAL IVP SCH (09:00)
[2022-01-15] MEDS ORDERED: HYDROCORTISONE SUCCINATE 100 MG/2 ML VIAL IV SCH (09:00)
[2022-01-15] MEDS: NOREPINEPHRINE 8 MG in SODIUM CHLORIDE 0.9% 250 ML IV SCH (09:33)
[2022-01-15 09:39] LABS: Albumin 2.8 g/dL (3.5-5.0); Calcium 7.3 mg/dL (8.4-10.2); Magnesium 1.2 mg/dL (1.6-2.3); Phosphorus 3.2 mg/dL (2.5-4.5); Potassium 4.7 mmol/L (3.5-5.1); Total Protein 6.1 g/dL (6.3-8.2)
[2022-01-15 09:52] LABS: Basophils % (A) 0 %; Eosinophils % (A) 0 %; HCT 28.9 % (34.0-46.0); HGB 8.5 gm/dL (11.4-16.0); Hypochromasia Marked; Lymphocytes # (A) 0.4 k/uL (1.0-4.8); Lymphocytes % (A) 3 %; MCH 24.2 pg (25.0-35.0); MCHC 29.6 g/dL (31.0-37.0); MCV 81.6 fL (80.0-100.0); Mean Platelet Volume 9.4; Monocytes # (A) 0.4 k/uL (0-1.0); Monocytes % (A) 3 %; Neutrophils # (A) 14.8 k/uL (1.3-7.7); Neutrophils % (A) 93 %; RBC 3.54 m/uL (3.80-5.40); RDW 15.6 % (11.5-15.5); WBC 15.9 k/uL (3.8-10.6)
--- NOTE | 2022-01-15 09:52 | P.CNPUL ---
History of Present Illness Consult date: 01/15/22 Requesting physician: Susi Sherman Chief complaint: Sepsis. History of present illness: Pulmonary consult dated 01/15/2022. 26-year-old female, recently saw here in the hospital last month I believe. The patient has a history of multiple medical problems including asthma, Clostridium difficile infection, vancomycin-resistant enterococci, and a previous history of bowel resection for familial adenomatous polyposis. The patient also has a history of kidney stone, and an IVC filter placement. She apparently was on cefepime and gentamicin as an outpatient. The patient apparently came into the hospital with fever, and coughing up blood. There is not much in the way of information provided by the ER physician. I did speak to the ER physician last night. The patient was accepted into the intensive care unit, for possible sepsis, and hypotension. The patient's on room air. She's getting saline at 130 mL an hour. I've asked the nurses to convert her to lactated Ringer's. She Hospital between December 24 of December 27, of this year, and left AMA, because her stepdad apparently was involved in a car accident, and . I've asked the nurses to give her 2 L of lactated Ringer's, check a cortisol level, and add norepinephrine, if we can get a mean of 65. White count 5.1, hemoglobin 9.4, Macrobid 31.1, white count was not noted. Sodium 138, potassium 4.7, chlorides 116, CO2 12, BUN 12, creatinine 1.08. AST is 56 with an ALT of 40. Albumin 2.8. TSH is normal. Cortisol level is pending. Urine appears to be relatively clean. Previous blood cultures and urine cultures have shown Enterobacter cloacae, and VRE in the urine. The patient's chest x-ray is normal. Review of Systems REVIEW OF SYSTEMS: CONSTITUTIONAL: Fever. NEUROLOGIC: [ Negative.] HEENT: [ Negative.] CARDIAC: [Negative.] PULMONARY: Minimal hemoptysis. GI: [Negative.] : [Negative.] RHEUMATOLOGIC: [ Negative.] IMMUNOLOGIC: [ Negative.] ENDOCRINE: [Negative. ] DERMATOLOGIC: [Negative.] Past Medical History Past Medical History: Asthma Additional Past Medical History / Comment(s): FAP, c diff in past History of Any Multi-Drug Resistant Organisms: VRE Date of last positivie culture/infection: 12/26/21 MDRO Source:: Urine Past Surgical History: Appendectomy, Bowel Resection, Cholecystectomy Additional Past Surgical History / Comment(s): ileostomy, kidney stone removal, IVC filter in left groin October 2021. , medi port Past Psychological History: No Psychological Hx Reported Smoking Status: Never smoker Past Alcohol Use History: None Reported Past Drug Use History: None Reported - Past Family History Father Family Medical History: GI Bleed Medications and Allergies Home Medications Medication Instructions Recorded Confirmed Type Albuterol Nebulized [Ventolin 2.5 mg INHALATION RT-QID PRN 12/19/21 01/14/22 History Nebulized] Albuterol Sulfate [Proair Hfa] 2 puff INHALATION RT-Q6H PRN 12/19/21 01/14/22 History EPINEPHrine (Auto Inject) [Epipen] 0.3 mg IM ONCE PRN 12/19/21 01/14/22 History Ferrous Sulfate [Feosol] 325 mg PO DAILY 12/19/21 01/14/22 History Galcanezumab-Gnlm [Emgality Pen] 120 mg SQ Q30D 12/19/21 01/14/22 History Loratadine 10 mg PO DAILY 12/19/21 01/14/22 History Montelukast [Singulair] 10 mg PO DAILY 12/19/21 01/14/22 History Omeprazole 40 mg PO DAILY 12/19/21 01/14/22 History Ondansetron Odt [Zofran Odt] 4 mg PO Q8HR PRN 12/19/21 01/14/22 History QUEtiapine [SEROquel] 50 mg PO HS 12/19/21 01/14/22 History Salmeterol 50 mcg [Serevent Diskus] 1 puff INHALATION RT-BID 12/19/21 01/14/22 History Ubrogepant [Ubrelvy] 100 mg PO BID PRN 12/19/21 01/14/22 History clonazePAM [KlonoPIN] 1 mg PO DAILY PRN 12/19/21 01/14/22 History medroxyPROGESTERone [Depo-Provera] 150 mg IM Q84D 01/14/22 01/14/22 History Allergies Allergy/AdvReac Type Severity Reaction Status Date / Time acetaminophen [From Tylenol] Allergy Anaphylaxis Verified 01/14/22 22:21 aspirin Allergy Anaphylaxis Verified 01/14/22 22:21 famotidine [From Pepcid] Allergy Anaphylaxis Verified 01/14/22 22:21 haloperidol [From Haldol] Allergy Anaphylaxis Verified 01/14/22 22:21 iodine Allergy Anaphylaxis Verified 01/14/22 22:21 ketorolac [From Toradol] Allergy Anaphylaxis Verified 01/14/22 22:21 metoclopramide [From Reglan] Allergy Anaphylaxis Verified 01/14/22 22:21 NSAIDS (Non-Steroidal Allergy Anaphylaxis Verified 01/14/22 22:21 Anti-Inflamma prochlorperazine Allergy Anaphylaxis Verified 01/14/22 22:21 [From Compazine] sulfur hexafluoride Allergy Anaphylaxis Verified 01/14/22 22:21 microspheres [From Lumason] Physical Exam Osteopathic Statement: *. No significant issues noted on an osteopathic structural exam other than those noted in the History and Physical/Consult. Vitals: Vital Signs Temp Pulse Pulse Resp BP Pulse Ox 01/15/22 07:08 125 H 21 01/15/22 06:50 131 H 32 H 77/48 97 01/15/22 06:48 99.1 F 133 H 16 77/48 97 01/15/22 06:30 94/47 01/15/22 06:20 133 H 36 H 94/47 01/15/22 06:10 128 H 39 H 90/45 01/15/22 06:00 129 H 38 H 90/46 01/15/22 05:50 131 H 25 H 87/43 01/15/22 05:40 133 H 90/43 01/15/22 05:30 134 H 35 H 82/53 01/15/22 05:20 131 H 37 H 86/44 01/15/22 05:10 96 92/49 01/15/22 05:00 138 H 35 H 76/59 01/15/22 04:50 138 H 34 H 89/45 01/15/22 04:40 134 H 35 H 87/32 01/15/22 04:36 101.8 F H 137 H 16 01/15/22 04:30 138 H 13 81/56 01/15/22 04:20 135 H 35 H 90/49 01/15/22 04:10 135 H 35 H 101/62 01/15/22 04:00 146 H 17 98/82 01/15/22 03:50 140 H 39 H 91/58 01/15/22 03:40 142 H 23 88/45 01/15/22 03:30 102.5 F H 144 H 27 H 103/39 01/15/22 03:20 102.3 F H 151 H 18 105/54 01/15/22 03:10 102.3 F H 144 H 9 L 78/46 01/15/22 03:00 141 H 14 92/46 01/15/22 02:50 142 H 21 94/40 01/15/22 02:40 149 H 16 88/34 01/15/22 02:30 156 H 18 71/34 01/15/22 02:20 163 H 32 H 95/43 01/15/22 02:10 163 H 29 H 88/47 01/15/22 02:00 101.9 F H 165 H 18 73/40 01/15/22 01:50 156 H 29 H 88/60 01/15/22 01:40 168 H 30 H 94/67 01/15/22 01:30 161 H 11 L 85/40 01/15/22 01:20 158 H 32 H 84/48 01/15/22 01:10 163 H 19 86/42 01/15/22 01:00 161 H 13 110/45 01/15/22 00:50 161 H 15 110/45 01/15/22 00:40 168 H 7 L 87/54 01/15/22 00:30 170 H 16 01/15/22 00:20 163 H 35 H 102/53 01/15/22 00:10 168 H 36 H 80/55 01/15/22 00:00 172 H 14 99/55 01/14/22 23:50 172 H 36 H 103/37 100 01/14/22 23:40 181 H 19 89/43 96 01/14/22 23:30 186 H 22 102/65 01/14/22 23:26 103 F H 01/14/22 23:20 186 H 22 109/55 95 01/14/22 23:16 189 H 23 109/55 97 01/14/22 23:10 184 H 11 L 113/67 93 L 01/14/22 23:00 176 H 10 L 118/85 98 01/14/22 22:50 179 H 6 L 118/85 100 01/14/22 22:40 184 H 23 118/60 85 L 01/14/22 22:30 181 H 40 H 118/60 97 01/14/22 22:20 158 H 18 124/89 97 01/14/22 22:10 154 H 27 H 124/89 97 01/14/22 22:00 163 H 33 H 107/87 96 01/14/22 21:50 165 H 15 107/87 01/14/22 21:40 163 H 9 L 113/70 96 01/14/22 21:30 168 H 32 H 113/70 95 01/14/22 21:28 172 H 42 H 01/14/22 21:18 102.7 F H 174 H 34 H 101/70 98 Intake and Output 01/14/22 01/15/22 01/15/22 22:59 06:59 14:59 Intake Total 310 260 Output Total 435 Balance 310 -175 Intake: IV 260 Sodium Chloride 0.9% 1, 260 000 ml @ 130 mls/hr IV . Q7H42M [facility] Rx#:[id number] Blood Product 310 Rc Cpda-1 Unit 310 [id number] Output: Urine 435 Other: Voiding Method Indwelling Catheter Weight 102.512 kg No acute distress, oriented 3. Currently on room air. HEENT examination is grossly unremarkable. Neck supple. Full range of motion. No adenopathy thyromegaly or neck vein distention. Cardiovascular examination reveals regular rhythm rate. S1-S2 normal. No S3 or S4. No discernible murmur noted. Heart rate 130 bpm. Lungs reveal clear breath sounds. Breath sounds are equal bilaterally. No adventitious lung sounds including wheezes rhonchi or crackles. Abdomen soft bowel sounds are heard. No masses or tenderness. Extremities are intact. No cyanosis clubbing or edema. Skin is without rash or lesion. Neurologic examination is brief but nonfocal. Results - Laboratory Findings CBC and BMP: 01/14/22 22:20 01/15/22 08:36 PT/INR, D-dimer PT 11.7 sec (9.0-12.0) 01/15/22 01:20 INR 1.1 (<1.2) 01/15/22 01:20 Abnormal lab findings: Abnormal Labs 01/14/22 01/14/22 01/15/22 22:20 22:20 01:20 Hgb 9.4 L D Hct 31.1 L MCV 77.0 L MCH 23.2 L MCHC 30.1 L Lymphocytes # 0.4 L Sodium 133 L Chloride Carbon Dioxide 17 L BUN 5 L Creatinine Glucose 144 H POC Glucose (mg/dL) Calcium Magnesium Total Bilirubin AST 47 H ALT 47 H Alkaline Phosphatase 195 H Total Protein Albumin 3.4 L Urine Protein Urine Mucus Crossmatch See Detail 01/15/22 01/15/22 01/15/22 06:42 07:03 08:36 Hgb Hct MCV MCH MCHC Lymphocytes # Sodium Chloride 116 H Carbon Dioxide 12 L BUN Creatinine 1.08 H Glucose 104 H POC Glucose (mg/dL) 132 H Calcium 7.3 L Magnesium 1.2 L Total Bilirubin 10.0 H AST 56 H ALT 40 H Alkaline Phosphatase 164 H Total Protein 6.1 L Albumin 2.8 L Urine Protein 1+ H Urine Mucus Few H Crossmatch - Diagnostic Findings Chest x-ray: image reviewed Assessment and Plan Assessment: Fever, with hypotension, rule out recurrent sepsis either from a blood or urinary source. Prior history of vancomycin-resistant enterococci urinary tract infection, and Enterobacter cloacae bacteremia. Recurrent nephrolithiasis. History of mild intermittent asthma. History of FAP, status post ileostomy. Numerous ALLERGIES. History of IVC placement, mid 2021. Migraine headaches. Chronic anxiety. Plan: Plan dated 01/15/2022. The patient's IV fluids will be switched to a balanced salt solution, i.e. lactated Ringer's. The patient will get 2 L of fluid, and if the blood pressure is not 65, mean, we will add norepinephrine. We'll check a stat cortisol level. The patient's antibiotics including cefepime and gentamicin are restarted. The patient's currently on room air. Labs, x-rays, and medications are reviewed. Also, her last admission from December 24 through December 27, are reviewed. We will continue to follow and make recommendations where appropriate. Time with Patient: Greater than 30
[2022-01-15 09:53] LABS: Platelet Count 116 k/uL (150-450)
[2022-01-15] MEDS ORDERED: SODIUM CHLORIDE 0.9% 1,000 ML IV ONE (10:22)
--- NOTE | 2022-01-15 10:54 | P.CONS ---
History of Present Illness - Reason for Consult Consult date: 01/15/22 Upper GI bleed Requesting physician: Agus Quarles - Chief Complaint Fever, coughing up blood - History of Present Illness This is a 26-year-old white female with a past medical history including asthma, chronic anemia, familial adenomatosis polyposis, sepsis, UTI, and peptic ulcer disease. 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 The patient had presented to the emergency department on 12/19/2021 for complaints of abdominal pain and patient was called back to the emergency department for positive blood cultures. Apparently the patient had been seen the day before for right flank pain and urinary tract infection symptoms. Patient had stated that she was having fevers up to 103 with nausea and vomiting, and was having episodes of hematemesis. 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 During that hospitalization gastroenterology was consulted and we performed an EGD on 12/25/2021 for abdominal pain and questionable upper GI bleed. Patient had a small polyp status post polypectomy. No evidence of a GI bleed, no peptic ulcer disease. The patient was admitted for UTI and left AGAINST MEDICAL ADVICE due to her stepfather being in an motor vehicle accident and passing away. She states she never really recovered from her symptoms since her last admission. However over the last 4 days symptoms became worse, she was spiking fevers at home, she states that she was having quite a bit of coughing and she was coughing up blood and then would start coughing so hard she would vomit blood as well. She's had none since she has come up to the ICU. Again she was admitted with concerns for UTI, max temp 103. Hemoglobin on admission 9.4 with repeat today 8.5. She denies any epigastric or abdominal pain. No nausea or vomiting. She is tolerating a regular diet. She denies any black stool or blood in her stool. Ostomy was soft brown stool. WBC 15.9 hemoglobin 8.5 hematocrit 28.9 platelet count 116,000 and INR 1.1 sodium 138 potassium 4.7 BUN 12 creatinine 1.08, magnesium 1.2 total bilirubin 10.0 AST 56 ALT 40 alkaline phosphatase 164 Review of Systems REVIEW OF SYSTEMS: CARDIOPULMONARY: No chest pain or shortness of breath. Cough with hemotpysis Gastrointestinal: No abdominal pain, or epigastric pain. No nausea, patient states she will start coughing and then eventually it makes her vomit states that she has vomited bright red blood. No rectal bleeding, or melena. GENITOURINARY: No dysuria or hematuria. MUSCULOSKELETAL: Reports normal range of motion. SKIN: No rashes. No jaundice. ENDOCRINE: No chills, fevers. No excessive weight gain or loss. No polydipsia or polyuria. PSYCHIATRIC: Unremarkable. NEUROLOGY: No change in mental status. Denies dizziness, headache. ENT: Vision unremarkable. CONSTITUTIONAL: No recent weight loss. Fever, chills. Past Medical History Past Medical History: Asthma Additional Past Medical History / Comment(s): FAP, c diff in past History of Any Multi-Drug Resistant Organisms: VRE Year Discovered:: 12/26/21 MDRO Source:: Urine Past Surgical History: Appendectomy, Bowel Resection, Cholecystectomy Additional Past Surgical History / Comment(s): ileostomy, kidney stone removal, IVC filter in left groin October 2021. , medi port Past Psychological History: No Psychological Hx Reported Smoking Status: Never smoker Past Alcohol Use History: None Reported Past Drug Use History: None Reported - Past Family History Father Family Medical History: GI Bleed Medications and Allergies Home Medications Medication Instructions Recorded Confirmed Type Albuterol Nebulized [Ventolin 2.5 mg INHALATION RT-QID PRN 12/19/21 01/14/22 History Nebulized] Albuterol Sulfate [Proair Hfa] 2 puff INHALATION RT-Q6H PRN 12/19/21 01/14/22 History EPINEPHrine (Auto Inject) [Epipen] 0.3 mg IM ONCE PRN 12/19/21 01/14/22 History Ferrous Sulfate [Feosol] 325 mg PO DAILY 12/19/21 01/14/22 History Galcanezumab-Gnlm [Emgality Pen] 120 mg SQ Q30D 12/19/21 01/14/22 History Loratadine 10 mg PO DAILY 12/19/21 01/14/22 History Montelukast [Singulair] 10 mg PO DAILY 12/19/21 01/14/22 History Omeprazole 40 mg PO DAILY 12/19/21 01/14/22 History Ondansetron Odt [Zofran Odt] 4 mg PO Q8HR PRN 12/19/21 01/14/22 History QUEtiapine [SEROquel] 50 mg PO HS 12/19/21 01/14/22 History Salmeterol 50 mcg [Serevent Diskus] 1 puff INHALATION RT-BID 12/19/21 01/14/22 History Ubrogepant [Ubrelvy] 100 mg PO BID PRN 12/19/21 01/14/22 History clonazePAM [KlonoPIN] 1 mg PO DAILY PRN 12/19/21 01/14/22 History medroxyPROGESTERone [Depo-Provera] 150 mg IM Q84D 01/14/22 01/14/22 History Allergies Allergy/AdvReac Type Severity Reaction Status Date / Time acetaminophen [From Tylenol] Allergy Anaphylaxis Verified 01/14/22 22:21 aspirin Allergy Anaphylaxis Verified 01/14/22 22:21 famotidine [From Pepcid] Allergy Anaphylaxis Verified 01/14/22 22:21 haloperidol [From Haldol] Allergy Anaphylaxis Verified 01/14/22 22:21 iodine Allergy Anaphylaxis Verified 01/14/22 22:21 ketorolac [From Toradol] Allergy Anaphylaxis Verified 01/14/22 22:21 metoclopramide [From Reglan] Allergy Anaphylaxis Verified 01/14/22 22:21 NSAIDS (Non-Steroidal Allergy Anaphylaxis Verified 01/14/22 22:21 Anti-Inflamma prochlorperazine Allergy Anaphylaxis Verified 01/14/22 22:21 [From Compazine] sulfur hexafluoride Allergy Anaphylaxis Verified 01/14/22 22:21 microspheres [From Lumason] Physical Exam Vitals: Vital Signs Temp Pulse Pulse Resp BP Pulse Ox 01/15/22 07:08 125 H 21 01/15/22 06:50 131 H 32 H 77/48 97 01/15/22 06:48 99.1 F 133 H 16 77/48 97 01/15/22 06:30 94/47 01/15/22 06:20 133 H 36 H 94/47 01/15/22 06:10 128 H 39 H 90/45 01/15/22 06:00 129 H 38 H 90/46 01/15/22 05:50 131 H 25 H 87/43 01/15/22 05:40 133 H 90/43 01/15/22 05:30 134 H 35 H 82/53 08/02/22 05:20 131 H 37 H 86/44 01/15/22 05:10 96 92/49 01/15/22 05:00 138 H 35 H 76/59 01/15/22 04:50 138 H 34 H 89/45 01/15/22 04:40 134 H 35 H 87/32 01/15/22 04:36 101.8 F H 137 H 16 01/15/22 04:30 138 H 13 81/56 01/15/22 04:20 135 H 35 H 90/49 01/15/22 04:10 135 H 35 H 101/62 01/15/22 04:00 146 H 17 98/82 01/15/22 03:50 140 H 39 H 91/58 01/15/22 03:40 142 H 23 88/45 01/15/22 03:30 102.5 F H 144 H 27 H 103/39 01/15/22 03:20 102.3 F H 151 H 18 105/54 01/15/22 03:10 102.3 F H 144 H 9 L 78/46 01/15/22 03:00 141 H 14 92/46 01/15/22 02:50 142 H 21 94/40 02 02:40 149 H 16 88/34 01/15/22 02:30 156 H 18 71/34 01/15/22 02:20 163 H 32 H 95/43 01/15/22 02:10 163 H 29 H 88/47 01/15/22 02:00 101.9 F H 165 H 18 73/40 01/15/22 01:50 156 H 29 H 88/60 02 01:40 168 H 30 H 94/67 01/15/22 01:30 161 H 11 L 85/40 02 01:20 158 H 32 H 84/48 02 01:10 163 H 19 86/42 01/15/22 01:00 161 H 13 110/45 01/15/22 00:50 161 H 15 110/45 01/15/22 00:40 168 H 7 L 87/54 01/15/22 00:30 170 H 16 01/15/22 00:20 163 H 35 H 102/53 02 00:10 168 H 36 H 80/55 08/02/22 00:00 172 H 14 99/55 01/14/22 23:50 172 H 36 H 103/37 100 01/14/22 23:40 181 H 19 89/43 96 01/14/22 23:30 186 H 22 102/65 01/14/22 23:26 103 F H 01/14/22 23:20 186 H 22 109/55 95 01/14/22 23:16 189 H 23 109/55 97 01/14/22 23:10 184 H 11 L 113/67 93 L 01/14/22 23:00 176 H 10 L 118/85 98 01/14/22 22:50 179 H 6 L 118/85 100 01/14/22 22:40 184 H 23 118/60 85 L 01/14/22 22:30 181 H 40 H 118/60 97 01/14/22 22:20 158 H 18 124/89 97 01/14/22 22:10 154 H 27 H 124/89 97 01/14/22 22:00 163 H 33 H 107/87 96 01/14/22 21:50 165 H 15 107/87 01/14/22 21:40 163 H 9 L 113/70 96 01/14/22 21:30 168 H 32 H 113/70 95 01/14/22 21:28 172 H 42 H 01/14/22 21:18 102.7 F H 174 H 34 H 101/70 98 Intake and Output 01/14/22 01/15/22 01/15/22 22:59 06:59 14:59 Intake Total 310 260 Output Total 435 Balance 310 -175 Intake: IV 260 Sodium Chloride 0.9% 1, 260 000 ml @ 130 mls/hr IV . Q7H42M [facility] Rx#:[id number] Blood Product 310 Rc Cpda-1 Unit 310 [id number] Output: Urine 435 Other: Voiding Method Indwelling Catheter Weight 102.512 kg General appearance: The patient is alert, oriented, appears in no acute distress. HET: Head is normocephalic and atraumatic. Conjunctiva pink. Sclera anicteric. Neck: Supple without lymphadenopathy. Trachea midline. Heart: S1 S2. Regular rate and rhythm. Lungs: Clear to auscultation. Abdomen: Soft, nontender, nondistended with bowel sounds. Ostomy with soft brown stool. No guarding or rigidity. Skin: No rashes. No jaundice. Extremities: Normal skin color and turgor. No pedal edema. Neurological: No focal deficits. Alert and oriented x3. Results CBC & Chem 7: 01/15/22 08:08 01/15/22 08:36 Labs: Abnormal Lab Results - Last 24 Hours (Table) 01/14/22 01/14/22 01/15/22 Range/Units 22:20 22:20 01:20 Hgb 9.4 L D (11.4-16.0) gm/dL Hct 31.1 L (34.0-46.0) % MCV 77.0 L (80.0-100.0) fL MCH 23.2 L (25.0-35.0) pg MCHC 30.1 L (31.0-37.0) g/dL Lymphocytes # 0.4 L (1.0-4.8) k/uL Sodium 133 L (137-145) mmol/L Carbon Dioxide 17 L (22-30) mmol/L BUN 5 L (7-17) mg/dL Glucose 144 H (74-99) mg/dL POC Glucose (mg/dL) (70-110) mg/dL AST 47 H (14-36) U/L ALT 47 H (4-34) U/L Alkaline Phosphatase 195 H (38-126) U/L Albumin 3.4 L (3.5-5.0) g/dL Urine Protein (Negative) Urine Mucus (None) /hpf Crossmatch See Detail 01/15/22 01/15/22 Range/Units 06:42 07:03 Hgb (11.4-16.0) gm/dL Hct (34.0-46.0) % MCV (80.0-100.0) fL MCH (25.0-35.0) pg MCHC (31.0-37.0) g/dL Lymphocytes # (1.0-4.8) k/uL Sodium (137-145) mmol/L Carbon Dioxide (22-30) mmol/L BUN (7-17) mg/dL Glucose (74-99) mg/dL POC Glucose (mg/dL) 132 H (70-110) mg/dL AST (14-36) U/L ALT (4-34) U/L Alkaline Phosphatase (38-126) U/L Albumin (3.5-5.0) g/dL Urine Protein 1+ H (Negative) Urine Mucus Few H (None) /hpf Crossmatch Chest x-ray: report reviewed (Normal chest) Assessment and Plan (1) Hemoptysis Narrative/Plan: An 26-year-old female readmitted with symptoms of fever, who was recently admitted left AGAINST MEDICAL ADVICE for elevated fever, UTI, bacteremia. During that admission patient had been stating that she had vomiting blood. She had an EGD status post polypectomy, no evidence of GI bleed or peptic ulcer disease. Patient states over last 4 days she's been coughing significantly coughing up blood, and then will start vomiting and will vomit blood. Likely were dealing with a Jo-Currie tear. Patient has been admitted to the ICU to rule out recurrent sepsis. No plans on endoscopic evaluation in light of patie nt just recently underwent EGD with no evidence of GI bleed. Current Visit: Yes Status: Acute Code(s): R04.2 - HEMOPTYSIS SNOMED Code(s): 78782815 (2) Chronic anemia Narrative/Plan: The patient has history of chronic anemia, currently on oral iron. Current Visit: Yes Status: Acute Code(s): D64.9 - ANEMIA, UNSPECIFIED SNOMED Code(s): 872238021 (3) Fever Current Visit: Yes Status: Acute Code(s): R50.9 - FEVER, UNSPECIFIED SNOMED Code(s): 447767068 (4) FAP (familial adenomatous polyposis) Narrative/Plan: History of total colectomy in 2016 with ileostomy, February 2021 Current Visit: No Status: Acute Code(s): D12.6 - BENIGN NEOPLASM OF COLON, UNSPECIFIED SNOMED Code(s): 35890888 Plan: 1. Continue symptomatic and supportive care 2. Protonix 40 mg daily 3. Antiemetics as needed 4. Patient recently underwent EGD on 12/25/2021 with no evidence of GI bleed, duodenal bulb polyp status post polypectomy. No plans on endoscopic evaluation. Likely Jo Currie tear 5. Consider possible ENT evaluation for hemoptysis 7. Continue medical/ICU management Thank you for this consultation, we will continue to follow. Dr. Alvaro Sofia I agree with the dictator's note, documented as a scribe by Cyndi Dempsey.
[2022-01-15] MEDS: HYDROmorphone 0.5 MG/0.5 ML SYRINGE IVP PRN ×4 (11:04→21:04)
[2022-01-15] MEDS ORDERED: diphenhydrAMINE 25 MG CAP PO PRN (11:12)
--- NOTE | 2022-01-15 11:23 | P.HPIM ---
History of Present Illness 26-year-old female came to the hospital and see is that she came in because she left AMA last time and wanted to be treated for her bacteremia now. Patient was seen early December and left against medical advise around mid-December. Patient was comparing of abdominal pain in the left flank area 10/10 with radiating pain into the groin sharp in nature. Patient denied any other UTI symptoms her urine is not abnormal although patient was bacteremic during her last hospitalization with Enterobacter cloaca and enterococcus in the urine patient was recommended to be on IV cefepime although patient left AGAINST MEDICAL ADVICE patient mak sn't have any leukocytosis on admission but the white blood cell count went up to 15,000 now at this time patient highest temperature is around 99.1. Patient to although remains hypotensive and is on pressor support. Patient does have mildly elevated liver enzymes patient is presently on lactated Ringer's because of hyperchloremia patient does have hypomagnesemia as well. During her last hospitalization source of gram-negative bacteremia was not clear patient appeared to have multifocal lesions in the lung at that time. Patient also complaining of hematemesis with gastro-oncology evaluated the patient and patient is presently in the next they are not recommending any endoscopy at this time. Patient presently doesn't have any hematemesis. Patient is presently in IC because of hypotension and patient's requirement for norepinephrine. Apart from low blood pressure patient otherwise looks good patient is also tachycardic sinus tachycardia. Infectious disease was consulted patient was bit hyponatremic which improved with IV fluids. REVIEW OF SYSTEMS: CONSTITUTIONAL: As mentioned in HPI HEENT: No recent visual problems or hearing problems. Denied any sore throat. CARDIOVASCULAR: No chest pain, orthopnea, PND, no palpitations, no syncope. PULMONARY: No shortness of breath, no cough, no hemoptysis. GASTROINTESTINAL: No diarrhea. NEUROLOGICAL: No headaches, no weakness, no numbness. HEMATOLOGICAL: Denies any bleeding or petechiae. GENITOURINARY: Denies any burning micturition, frequency, or urgency. MUSCULOSKELETAL/RHEUMATOLOGICAL: Denies any joint pain, swelling, or any muscle pain. ENDOCRINE: Denies any polyuria or polydipsia. The rest of the 14-point review of systems is negative. PHYSICAL EXAMINATION: GENERAL: The patient is alert and oriented x3, not in any acute distress. Well developed, well nourished. HEENT: Pupils are round and equally reacting to light. EOMI. No scleral icterus. No conjunctival pallor. Normocephalic, atraumatic. No pharyngeal erythema. No thyromegaly. CARDIOVASCULAR: S1 and S2 present. No murmurs, rubs, or gallops. PULMONARY: Chest is clear to auscultation, no wheezing or crackles. ABDOMEN: Soft, some subjective left lateral lab abdominal tenderness but no CVA tenderness, nondistended, normoactive bowel sounds. No palpable organomegaly. MUSCULOSKELETAL: No joint swelling or deformity. EXTREMITIES: No cyanosis, clubbing, or pedal edema. NEUROLOGICAL: Gross neurological examination did not reveal any focal deficits. SKIN: No rashes. Assessment and plan -Hypotension, possible shock: Etiology is not clear at this time patient is being treated for sepsis and septic shock patient continues to be on Levothroid IV fluids patient had bacteremia in the past etiology of this bacteremia is not clear patient does have abdominal pain because of which I'll obtain a CT of the abdomen unfortunately because of her contrast ALLERGY a cannot use either oral or IV contrast. There is a concern for nephrolithiasis as well. Although urine is not impressive for urinary tract infection patient remains on cefepime co nsidering her Enterobacter cloacae in the past and bacteremia in the past. -Hypovolemic hyponatremia continue with IV fluids -Non-anion gap at work acidosis secondary to hyperchloremia and patient was switched to lactated Ringer's -Mild acute renal failure: Hypovolemia, continue with IV fluids -Hypomagnesemia magnesium will be replaced mild transaminitis etiology is not clear hepatitis panel will be obtained and -History of familial adenomatous polyposis status post colectomy -Possible nephrolithiasis -History of migraine for which patient is on more once a month Emgality DVT prophylaxis: Lovenox Past Medical History Past Medical History: Asthma Additional Past Medical History / Comment(s): FAP, c diff in past History of Any Multi-Drug Resistant Organisms: VRE Date of last positivie culture/infection: 12/26/21 MDRO Source:: Urine Past Surgical History: Appendectomy, Bowel Resection, Cholecystectomy Additional Past Surgical History / Comment(s): ileostomy, kidney stone removal, IVC filter in left groin October 2021. , medi port Past Psychological History: No Psychological Hx Reported Smoking Status: Never smoker Past Alcohol Use History: None Reported Past Drug Use History: None Reported - Past Family History Father Family Medical History: GI Bleed Medications and Allergies Home Medications Medication Instructions Recorded Confirmed Type Albuterol Nebulized [Ventolin 2.5 mg INHALATION RT-QID PRN 12/19/21 01/14/22 History Nebulized] Albuterol Sulfate [Proair Hfa] 2 puff INHALATION RT-Q6H PRN 12/19/21 01/14/22 History EPINEPHrine (Auto Inject) [Epipen] 0.3 mg IM ONCE PRN 12/19/21 01/14/22 History Ferrous Sulfate [Feosol] 325 mg PO DAILY 12/19/21 01/14/22 History Galcanezumab-Gnlm [Emgality Pen] 120 mg SQ Q30D 12/19/21 01/14/22 History Loratadine 10 mg PO DAILY 12/19/21 01/14/22 History Montelukast [Singulair] 10 mg PO DAILY 12/19/21 01/14/22 History Omeprazole 40 mg PO DAILY 12/19/21 01/14/22 History Ondansetron Odt [Zofran Odt] 4 mg PO Q8HR PRN 12/19/21 01/14/22 History QUEtiapine [SEROquel] 50 mg PO HS 12/19/21 01/14/22 History Salmeterol 50 mcg [Serevent Diskus] 1 puff INHALATION RT-BID 12/19/21 01/14/22 History Ubrogepant [Ubrelvy] 100 mg PO BID PRN 12/19/21 01/14/22 History clonazePAM [KlonoPIN] 1 mg PO DAILY PRN 12/19/21 01/14/22 History medroxyPROGESTERone [Depo-Provera] 150 mg IM Q84D 01/14/22 01/14/22 History Allergies Allergy/AdvReac Type Severity Reaction Status Date / Time acetaminophen [From Tylenol] Allergy Anaphylaxis Verified 01/14/22 22:21 aspirin Allergy Anaphylaxis Verified 01/14/22 22:21 famotidine [From Pepcid] Allergy Anaphylaxis Verified 01/14/22 22:21 haloperidol [From Haldol] Allergy Anaphylaxis Verified 01/14/22 22:21 iodine Allergy Anaphylaxis Verified 01/14/22 22:21 ketorolac [From Toradol] Allergy Anaphylaxis Verified 01/14/22 22:21 metoclopramide [From Reglan] Allergy Anaphylaxis Verified 01/14/22 22:21 NSAIDS (Non-Steroidal Allergy Anaphylaxis Verified 01/14/22 22:21 Anti-Inflamma prochlorperazine Allergy Anaphylaxis Verified 01/14/22 22:21 [From Compazine] sulfur hexafluoride Allergy Anaphylaxis Verified 01/14/22 22:21 microspheres [From Lumason] Physical Exam Vitals: Vital Signs Temp Pulse Pulse Resp BP Pulse Ox 01/15/22 10:00 114 H 24 87/64 98 01/15/22 09:00 120 H 24 91/49 95 01/15/22 08:00 98.1 F 120 H 29 H 73/42 95 01/15/22 07:08 125 H 21 01/15/22 07:00 135 H 32 H 70/39 01/15/22 06:50 131 H 32 H 77/48 97 01/15/22 06:48 99.1 F 133 H 16 77/48 97 01/15/22 06:30 94/47 01/15/22 06:20 133 H 36 H 94/47 01/15/22 06:10 128 H 39 H 90/45 01/15/22 06:00 129 H 38 H 90/46 01/15/22 05:50 131 H 25 H 87/43 01/15/22 05:40 133 H 90/43 01/15/22 05:30 134 H 35 H 82/53 01/15/22 05:20 131 H 37 H 86/44 01/15/22 05:10 96 92/49 01/15/22 05:00 138 H 35 H 76/59 01/15/22 04:50 138 H 34 H 89/45 01/15/22 04:40 134 H 35 H 87/32 02 04:36 101.8 F H 137 H 16 01/15/22 04:30 138 H 13 81/56 01/15/22 04:20 135 H 35 H 90/49 01/15/22 04:10 135 H 35 H 101/62 01/15/22 04:00 146 H 17 98/82 01/15/22 03:50 140 H 39 H 91/58 01/15/22 03:40 142 H 23 88/45 01/15/22 03:30 102.5 F H 144 H 27 H 103/39 01/15/22 03:20 102.3 F H 151 H 18 105/54 01/15/22 03:10 102.3 F H 144 H 9 L 78/46 01/15/22 03:00 141 H 14 92/46 01/15/22 02:50 142 H 21 94/40 01/15/22 02:40 149 H 16 88/34 01/15/22 02:30 156 H 18 71/34 01/15/22 02:20 163 H 32 H 95/43 01/15/22 02:10 163 H 29 H 88/47 01/15/22 02:00 101.9 F H 165 H 18 73/40 01/15/22 01:50 156 H 29 H 88/60 01/15/22 01:40 168 H 30 H 94/67 01/15/22 01:30 161 H 11 L 85/40 01/15/22 01:20 158 H 32 H 84/48 01/15/22 01:10 163 H 19 86/42 01/15/22 01:00 161 H 13 110/45 01/15/22 00:50 161 H 15 110/45 01/15/22 00:40 168 H 7 L 87/54 01/15/22 00:30 170 H 16 01/15/22 00:20 163 H 35 H 102/53 01/15/22 00:10 168 H 36 H 80/55 01/15/22 00:00 172 H 14 99/55 01/14/22 23:50 172 H 36 H 103/37 100 01/14/22 23:40 181 H 19 89/43 96 01/14/22 23:30 186 H 22 102/65 01/14/22 23:26 103 F H 01/14/22 23:20 186 H 22 109/55 95 01/14/22 23:16 189 H 23 109/55 97 01/14/22 23:10 184 H 11 L 113/67 93 L 01/14/22 23:00 176 H 10 L 118/85 98 01/14/22 22:50 179 H 6 L 118/85 100 01/14/22 22:40 184 H 23 118/60 85 L 01/14/22 22:30 181 H 40 H 118/60 97 01/14/22 22:20 158 H 18 124/89 97 01/14/22 22:10 154 H 27 H 124/89 97 01/14/22 22:00 163 H 33 H 107/87 96 01/14/22 21:50 165 H 15 107/87 01/14/22 21:40 163 H 9 L 113/70 96 01/14/22 21:30 168 H 32 H 113/70 95 01/14/22 21:28 172 H 42 H 01/14/22 21:18 102.7 F H 174 H 34 H 101/70 98 Intake and Output 01/14/22 01/15/22 01/15/22 22:59 06:59 14:59 Intake Total 310 260 Output Total 435 Balance 310 -175 Intake: IV 260 Sodium Chloride 0.9% 1, 260 000 ml @ 130 mls/hr IV . Q7H42M [facility] Rx#:[id number] Blood Product 310 Rc Cpda-1 Unit 310 [id number] Output: Urine 435 Other: Voiding Method Indwelling Catheter Weight 102.512 kg Results CBC & Chem 7: 01/15/22 08:08 01/15/22 08:36 Labs: Abnormal Lab Results - Last 24 Hours (Table) 01/14/22 01/14/22 01/15/22 Range/Units 22:20 22:20 01:20 WBC (3.8-10.6) k/uL RBC (3.80-5.40) m/uL Hgb 9.4 L D (11.4-16.0) gm/dL Hct 31.1 L (34.0-46.0) % MCV 77.0 L (80.0-100.0) fL MCH 23.2 L (25.0-35.0) pg MCHC 30.1 L (31.0-37.0) g/dL RDW (11.5-15.5) % Plt Count (150-450) k/uL Neutrophils # (1.3-7.7) k/uL Lymphocytes # 0.4 L (1.0-4.8) k/uL Sodium 133 L (137-145) mmol/L Chloride (98-107) mmol/L Carbon Dioxide 17 L (22-30) mmol/L BUN 5 L (7-17) mg/dL Creatinine (0.52-1.04) mg/dL Glucose 144 H (74-99) mg/dL POC Glucose (mg/dL) (70-110) mg/dL Calcium (8.4-10.2) mg/dL Magnesium (1.6-2.3) mg/dL Total Bilirubin (0.2-1.3) mg/dL AST 47 H (14-36) U/L ALT 47 H (4-34) U/L Alkaline Phosphatase 195 H (38-126) U/L Total Protein (6.3-8.2) g/dL Albumin 3.4 L (3.5-5.0) g/dL Urine Protein (Negative) Urine Mucus (None) /hpf Crossmatch See Detail 01/15/22 01/15/22 01/15/22 Range/Units 06:42 07:03 08:08 WBC 15.9 H (3.8-10.6) k/uL RBC 3.54 L (3.80-5.40) m/uL Hgb 8.5 L (11.4-16.0) gm/dL Hct 28.9 L (34.0-46.0) % MCV (80.0-100.0) fL MCH 24.2 L (25.0-35.0) pg MCHC 29.6 L (31.0-37.0) g/dL RDW 15.6 H (11.5-15.5) % Plt Count 116 L D (150-450) k/uL Neutrophils # 14.8 H (1.3-7.7) k/uL Lymphocytes # 0.4 L (1.0-4.8) k/uL Sodium (137-145) mmol/L Chloride (98-107) mmol/L Carbon Dioxide (22-30) mmol/L BUN (7-17) mg/dL Creatinine (0.52-1.04) mg/dL Glucose (74-99) mg/dL POC Glucose (mg/dL) 132 H (70-110) mg/dL Calcium (8.4-10.2) mg/dL Magnesium (1.6-2.3) mg/dL Total Bilirubin (0.2-1.3) mg/dL AST (14-36) U/L ALT (4-34) U/L Alkaline Phosphatase (38-126) U/L Total Protein (6.3-8.2) g/dL Albumin (3.5-5.0) g/dL Urine Protein 1+ H (Negative) Urine Mucus Few H (None) /hpf Crossmatch 01/15/22 Range/Units 08:36 WBC (3.8-10.6) k/uL RBC (3.80-5.40) m/uL Hgb (11.4-16.0) gm/dL Hct (34.0-46.0) % MCV (80.0-100.0) fL MCH (25.0-35.0) pg MCHC (31.0-37.0) g/dL RDW (11.5-15.5) % Plt Count (150-450) k/uL Neutrophils # (1.3-7.7) k/uL Lymphocytes # (1.0-4.8) k/uL Sodium (137-145) mmol/L Chloride 116 H (98-107) mmol/L Carbon Dioxide 12 L (22-30) mmol/L BUN (7-17) mg/dL Creatinine 1.08 H (0.52-1.04) mg/dL Glucose 104 H (74-99) mg/dL POC Glucose (mg/dL) (70-110) mg/dL Calcium 7.3 L (8.4-10.2) mg/dL Magnesium 1.2 L (1.6-2.3) mg/dL Total Bilirubin 10.0 H (0.2-1.3) mg/dL AST 56 H (14-36) U/L ALT 40 H (4-34) U/L Alkaline Phosphatase 164 H (38-126) U/L Total Protein 6.1 L (6.3-8.2) g/dL Albumin 2.8 L (3.5-5.0) g/dL Urine Protein (Negative) Urine Mucus (None) /hpf Crossmatch Microbiology - Last 24 Hours (Table) 01/14/22 23:49 Blood Culture Gram Stain - Preliminary Blood 01/14/22 23:45 Blood Culture - Final Blood
[2022-01-15 11:42] LABS: Albumin 2.5 g/dL (3.5-5.0); Bilirubin, Conjugated 4.9 mg/dL (0.0-0.3); Bilirubin, Delta 1.3 mg/dL (0.0-0.2); Bilirubin,Unconjugated 3.8 mg/dL (0.0-1.1); Total Protein 5.4 g/dL (6.3-8.2)
[2022-01-15 11:48] LABS: Gentamicin,Random 5.1 ug/mL
--- NOTE | 2022-01-15 12:12 | CT ---
EXAMINATION TYPE: CT abdomen pelvis wo con CT DLP: 1226.4 mGycm, Automated exposure control for dose reduction was used. DATE OF EXAM: 01/15/2022 11:45 AM COMPARISON: CT abdomen pelvis most recent from 12/24/2021 CLINICAL INDICATION:Female, 26 years old with history of abdominal pain, kidney stones; TECHNIQUE: Axial CT of the abdomen and pelvis. Sagittal and coronal reformats were created on a [employer] workstation. Contrast used: None Oral contrast used: without Oral Contrast FINDINGS: LOWER CHEST: Streaky atelectasis changes are seen within the lung bases. Suspected trace right pleura l effusion. This is new from prior. Partially visualized Lolnrh-r-Juqv tip terminating in the right a trium. ABDOMEN LIVER: Diffusely hypoattenuating parenchyma. GALLBLADDER AND BILE DUCTS: The gallbladder is surgically absent. PANCREAS: Unremarkable. SPLEEN: Unremarkable. ADRENAL GLANDS: Unremarkable. KIDNEYS AND URETERS: No evidence of hydronephrosis or obstructive renal calculus. Nonobstructing righ t-sided calculi measuring up to 6 mm. PELVIS BLADDER: Nondistended with Avitia catheter in place. Gas is seen within the bladder lumen. REPRODUCTIVE: Unremarkable. ABDOMEN & PELVIS STOMACH AND BOWEL: No evidence of bowel obstruction. Postsurgical changes to the cecum and sigmoid co awilda/rectum. PERITONEUM: No evidence of pneumoperitoneum or free fluid. VASCULATURE: No evidence of aortic aneurysm. The inferior vena cava is on the left side of the aorta in the abdomen. There is an IVC filter present. MUSCULOSKELETAL: No acute osseous abnormalities LYMPH NODES: No gross evidence for lymphadenopathy. SOFT TISSUE/ABDOMINAL WALL: Ostomy in the right lower quadrant is present. IMPRESSION: 1. No evidence for obstructive uropathy. Nonobstructing right renal calculi. 2. Post surgical changes to the colon with ostomy in place. No evidence of bowel obstruction. 3. Avitia catheter with urine within the bladder lumen, correlate for Avitia catheter malfunction. 4. IVC filter within the left-sided inferior vena cava. 5. Hepatic steatosis
[2022-01-15] MEDS: DAPTOmycin 500 MG in SODIUM CHLORIDE 0.9% 50 ML IVPB SCH (12:28)
[2022-01-15] MEDS: MAGNESIUM SULFATE-D5W PMX 1 GM in DEXTROSE/WATER 1 100ML.BAG IVPB SCH ×2 (13:47→16:06)
[2022-01-15] MEDS: ONDANSETRON 4 MG/2 ML VIAL IVP PRN ×2 (13:59→21:51)
[2022-01-15 19:56] LABS: Hepatitis A Antibody IgM Nonreactive (Nonreactive); Hepatitis B Core IgM Nonreactive (Nonreactive); Hepatitis C IgG Antibody Nonreactive (Nonreactive)
[2022-01-15 22:12] LABS: Hepatitis B Surface Antigen Nonreactive (Nonreactive)
--- NOTE | 2022-01-15 22:31 | P.CONS ---
History of Present Illness - Reason for Consult Consult date: 01/15/22 - History of Present Illness Patient is a 26-year-old female with a past medical history significant for familial adenomatosis polyposis in this patient status post colectomy and ileostomy the patient also have a Mediport that has been placed few years ago for IV access patient was recently admitted at this facility and the patient did have Enterobacter bacteremia which was thought to be related to the Mediport and there was a concern for a septic emboli to the lungs [facility] was negative General surgery was consulted for removal of the port however the patient signed out AMA patient is now presenting back to the hospital for fever and throwing up blood patient mention symptom has been going on for the last few days patient mention she was in the ER for similar problem few days ago patient has been complaining of some shortness of breath and cough patient has been complaining of feeling nauseated vomiting and throwing up blood some abdominal discomfort more of a dull aching at times sharp denies any diarrhea or urinary symptoms on presentation to the hospital and the patient did have a fever of 103 F patient was tachycardic did have a elevated ALT of 18.9 with a left shift creatinine is mildly elevated liver exams are elevated patient blood cultures coming back positive with Klebsiella and Enterococcus patient is currently on cefepime and gentamicin infectious disease was consulted for further management of antibiotic therapy Past Medical History Past Medical History: Asthma Additional Past Medical History / Comment(s): FAP, c diff in past History of Any Multi-Drug Resistant Organisms: VRE Year Discovered:: 12/26/21 MDRO Source:: Urine Past Surgical History: Appendectomy, Bowel Resection, Cholecystectomy Additional Past Surgical History / Comment(s): ileostomy, kidney stone removal, IVC filter in left groin October 2021. , medi port Past Psychological History: No Psychological Hx Reported Smoking Status: Never smoker Past Alcohol Use History: None Reported Past Drug Use History: None Reported - Past Family History Father Family Medical History: GI Bleed Mother Family Medical History: GI Bleed Additional Family Medical History / Comment(s): FAP Medications and Allergies Home Medications Medication Instructions Recorded Confirmed Type Albuterol Nebulized [Ventolin 2.5 mg INHALATION RT-QID PRN 12/19/21 01/14/22 History Nebulized] Albuterol Sulfate [Proair Hfa] 2 puff INHALATION RT-Q6H PRN 12/19/21 01/14/22 History EPINEPHrine (Auto Inject) [Epipen] 0.3 mg IM ONCE PRN 12/19/21 01/14/22 History Ferrous Sulfate [Feosol] 325 mg PO DAILY 12/19/21 01/14/22 History Galcanezumab-Gnlm [Emgality Pen] 120 mg SQ Q30D 12/19/21 01/14/22 History Loratadine 10 mg PO DAILY 12/19/21 01/14/22 History Montelukast [Singulair] 10 mg PO DAILY 12/19/21 01/14/22 History Omeprazole 40 mg PO DAILY 12/19/21 01/14/22 History Ondansetron Odt [Zofran Odt] 4 mg PO Q8HR PRN 12/19/21 01/14/22 History QUEtiapine [SEROquel] 50 mg PO HS 12/19/21 01/14/22 History Salmeterol 50 mcg [Serevent Diskus] 1 puff INHALATION RT-BID 12/19/21 01/14/22 History Ubrogepant [Ubrelvy] 100 mg PO BID PRN 12/19/21 01/14/22 History clonazePAM [KlonoPIN] 1 mg PO DAILY PRN 12/19/21 01/14/22 History medroxyPROGESTERone [Depo-Provera] 150 mg IM Q84D 01/14/22 01/14/22 History Allergies Allergy/AdvReac Type Severity Reaction Status Date / Time acetaminophen [From Tylenol] Allergy Anaphylaxis Verified 01/14/22 22:21 aspirin Allergy Anaphylaxis Verified 01/14/22 22:21 famotidine [From Pepcid] Allergy Anaphylaxis Verified 01/14/22 22:21 haloperidol [From Haldol] Allergy Anaphylaxis Verified 01/14/22 22:21 iodine Allergy Anaphylaxis Verified 01/14/22 22:21 ketorolac [From Toradol] Allergy Anaphylaxis Verified 01/14/22 22:21 metoclopramide [From Reglan] Allergy Anaphylaxis Verified 01/14/22 22:21 NSAIDS (Non-Steroidal Allergy Anaphylaxis Verified 01/14/22 22:21 Anti-Inflamma prochlorperazine Allergy Anaphylaxis Verified 01/14/22 22:21 [From Compazine] sulfur hexafluoride Allergy Anaphylaxis Verified 01/14/22 22:21 [facility] Physical Exam Vitals: Vital Signs Temp Pulse Pulse Resp BP Pulse Ox 01/15/22 10:00 114 H 24 87/64 98 01/15/22 09:00 120 H 24 91/49 95 01/15/22 08:00 98.1 F 120 H 29 H 73/42 95 01/15/22 07:08 125 H 21 01/15/22 07:00 135 H 32 H 70/39 01/15/22 06:50 131 H 32 H 77/48 97 01/15/22 06:48 99.1 F 133 H 16 77/48 97 01/15/22 06:30 94/47 01/15/22 06:20 133 H 36 H 94/47 01/15/22 06:10 128 H 39 H 90/45 01/15/22 06:00 129 H 38 H 90/46 01/15/22 05:50 131 H 25 H 87/43 01/15/22 05:40 133 H 90/43 01/15/22 05:30 134 H 35 H 82/53 01/15/22 05:20 131 H 37 H 86/44 01/15/22 05:10 96 92/49 01/15/22 05:00 138 H 35 H 76/59 01/15/22 04:50 138 H 34 H 89/45 01/15/22 04:40 134 H 35 H 87/32 01/15/22 04:36 101.8 F H 137 H 16 01/15/22 04:30 138 H 13 81/56 01/15/22 04:20 135 H 35 H 90/49 01/15/22 04:10 135 H 35 H 101/62 01/15/22 04:00 146 H 17 98/82 01/15/22 03:50 140 H 39 H 91/58 01/15/22 03:40 142 H 23 88/45 01/15/22 03:30 102.5 F H 144 H 27 H 103/39 01/15/22 03:20 102.3 F H 151 H 18 105/54 01/15/22 03:10 102.3 F H 144 H 9 L 78/46 01/15/22 03:00 141 H 14 92/46 01/15/22 02:50 142 H 21 94/40 01/15/22 02:40 149 H 16 88/34 01/15/22 02:30 156 H 18 71/34 01/15/22 02:20 163 H 32 H 95/43 01/15/22 02:10 163 H 29 H 88/47 01/15/22 02:00 101.9 F H 165 H 18 73/40 01/15/22 01:50 156 H 29 H 88/60 01/15/22 01:40 168 H 30 H 94/67 01/15/22 01:30 161 H 11 L 85/40 01/15/22 01:20 158 H 32 H 84/48 01/15/22 01:10 163 H 19 86/42 01/15/22 01:00 161 H 13 110/45 01/15/22 00:50 161 H 15 110/45 01/15/22 00:40 168 H 7 L 87/54 01/15/22 00:30 170 H 16 01/15/22 00:20 163 H 35 H 102/53 01/15/22 00:10 168 H 36 H 80/55 01/15/22 00:00 172 H 14 99/55 01/14/22 23:50 172 H 36 H 103/37 100 01/14/22 23:40 181 H 19 89/43 96 01/14/22 23:30 186 H 22 102/65 01/14/22 23:26 103 F H 01/14/22 23:20 186 H 22 109/55 95 01/14/22 23:16 189 H 23 109/55 97 01/14/22 23:10 184 H 11 L 113/67 93 L 01/14/22 23:00 176 H 10 L 118/85 98 01/14/22 22:50 179 H 6 L 118/85 100 01/14/22 22:40 184 H 23 118/60 85 L 01/14/22 22:30 181 H 40 H 118/60 97 01/14/22 22:20 158 H 18 124/89 97 01/14/22 22:10 154 H 27 H 124/89 97 01/14/22 22:00 163 H 33 H 107/87 96 01/14/22 21:50 165 H 15 107/87 01/14/22 21:40 163 H 9 L 113/70 96 01/14/22 21:30 168 H 32 H 113/70 95 01/14/22 21:28 172 H 42 H 01/14/22 21:18 102.7 F H 174 H 34 H 101/70 98 Intake and Output 01/14/22 01/15/22 01/15/22 22:59 06:59 14:59 Intake Total 310 260 Output Total 435 Balance 310 -175 Intake: IV 260 Sodium Chloride 0.9% 1, 260 000 ml @ 130 mls/hr IV . Q7H42M [facility] Rx#:[id number] Blood Product 310 Rc Cpda-1 Unit 310 [id number] Output: Urine 435 Other: Voiding Method Indwelling Catheter Weight 102.512 kg Results CBC & Chem 7: 01/15/22 08:08 01/15/22 08:36 Labs: Abnormal Lab Results - Last 24 Hours (Table) 01/14/22 01/14/22 01/15/22 Range/Units 22:20 22:20 01:20 WBC (3.8-10.6) k/uL RBC (3.80-5.40) m/uL Hgb 9.4 L D (11.4-16.0) gm/dL Hct 31.1 L (34.0-46.0) % MCV 77.0 L (80.0-100.0) fL MCH 23.2 L (25.0-35.0) pg MCHC 30.1 L (31.0-37.0) g/dL RDW (11.5-15.5) % Plt Count (150-450) k/uL Neutrophils # (1.3-7.7) k/uL Lymphocytes # 0.4 L (1.0-4.8) k/uL Sodium 133 L (137-145) mmol/L Chloride (98-107) mmol/L Carbon Dioxide 17 L (22-30) mmol/L BUN 5 L (7-17) mg/dL Creatinine (0.52-1.04) mg/dL Glucose 144 H (74-99) mg/dL POC Glucose (mg/dL) (70-110) mg/dL Calcium (8.4-10.2) mg/dL Magnesium (1.6-2.3) mg/dL Total Bilirubin (0.2-1.3) mg/dL AST 47 H (14-36) U/L ALT 47 H (4-34) U/L Alkaline Phosphatase 195 H (38-126) U/L Total Protein (6.3-8.2) g/dL Albumin 3.4 L (3.5-5.0) g/dL Urine Protein (Negative) Urine Mucus (None) /hpf Crossmatch See Detail 01/15/22 01/15/22 01/15/22 Range/Units 06:42 07:03 08:08 WBC 15.9 H (3.8-10.6) k/uL RBC 3.54 L (3.80-5.40) m/uL Hgb 8.5 L (11.4-16.0) gm/dL Hct 28.9 L (34.0-46.0) % MCV (80.0-100.0) fL MCH 24.2 L (25.0-35.0) pg MCHC 29.6 L (31.0-37.0) g/dL RDW 15.6 H (11.5-15.5) % Plt Count 116 L D (150-450) k/uL Neutrophils # 14.8 H (1.3-7.7) k/uL Lymphocytes # 0.4 L (1.0-4.8) k/uL Sodium (137-145) mmol/L Chloride (98-107) mmol/L Carbon Dioxide (22-30) mmol/L BUN (7-17) mg/dL Creatinine (0.52-1.04) mg/dL Glucose (74-99) mg/dL POC Glucose (mg/dL) 132 H (70-110) mg/dL Calcium (8.4-10.2) mg/dL Magnesium (1.6-2.3) mg/dL Total Bilirubin (0.2-1.3) mg/dL AST (14-36) U/L ALT (4-34) U/L Alkaline Phosphatase (38-126) U/L Total Protein (6.3-8.2) g/dL Albumin (3.5-5.0) g/dL Urine Protein 1+ H (Negative) Urine Mucus Few H (None) /hpf Crossmatch 01/15/22 Range/Units 08:36 WBC (3.8-10.6) k/uL RBC (3.80-5.40) m/uL Hgb (11.4-16.0) gm/dL Hct (34.0-46.0) % MCV (80.0-100.0) fL MCH (25.0-35.0) pg MCHC (31.0-37.0) g/dL RDW (11.5-15.5) % Plt Count (150-450) k/uL Neutrophils # (1.3-7.7) k/uL Lymphocytes # (1.0-4.8) k/uL Sodium (137-145) mmol/L Chloride 116 H (98-107) mmol/L Carbon Dioxide 12 L (22-30) mmol/L BUN (7-17) mg/dL Creatinine 1.08 H (0.52-1.04) mg/dL Glucose 104 H (74-99) mg/dL POC Glucose (mg/dL) (70-110) mg/dL Calcium 7.3 L (8.4-10.2) mg/dL Magnesium 1.2 L (1.6-2.3) mg/dL Total Bilirubin 10.0 H (0.2-1.3) mg/dL AST 56 H (14-36) U/L ALT 40 H (4-34) U/L Alkaline Phosphatase 164 H (38-126) U/L Total Protein 6.1 L (6.3-8.2) g/dL Albumin 2.8 L (3.5-5.0) g/dL Urine Protein (Negative) Urine Mucus (None) /hpf Crossmatch Microbiology - Last 24 Hours (Table) 01/14/22 23:49 Blood Culture Gram Stain - Preliminary Blood 01/14/22 23:45 Blood Culture - Final Blood Assessment and Plan Plan: 1patient presented hospital with sepsis in this patient did have a fever elevated white count tachycardia now with evidence of gram-negative as well as gram-positive bacteremia high clinic suspicious for her Mediport infection versus abdominal source as the patient been throwing up blood however abdominal was soft on rectal examination. 2blood cultures will be repeated document clearance of bacteremia. 3CT abdominal pelvis will be followed. 4continue with cefepime however discontinued azithromycin and add daptomycin to cover for the gram-positive as the patient recently grew VRE in the urine. We will follow on clinical condition and cultures to further adjust medication if needed Thank you for this consultation will follow this patient along with you Time with Patient: Greater than 30
[2022-01-16] MEDS: LACTATED RINGERS 1,000 ML IV SCH ×4 (00:01→23:20)
[2022-01-16] MEDS: CEFEPIME 2 GM in SODIUM CHLORIDE 0.9% 100 ML IVPB SCH ×4 (00:01→23:22)
[2022-01-16] MEDS: HYDROmorphone 0.5 MG/0.5 ML SYRINGE IVP PRN ×8 (00:02→22:01)
[2022-01-16] MEDS ORDERED: GENTAMICIN 380 MG in SODIUM CHLORIDE 0.9% 100 ML IVPB SCH (02:00)
[2022-01-16] MEDS: ONDANSETRON 4 MG/2 ML VIAL IVP PRN ×3 (06:22→23:31)
[2022-01-16 06:26] LABS: Basophils % (A) 0 %; Eosinophils # (A) 0.1 k/uL (0-0.7); Eosinophils % (A) 0 %; HGB 8.6 gm/dL (11.4-16.0); Hypochromasia Marked; Lymphocytes # (A) 1.2 k/uL (1.0-4.8); Lymphocytes % (A) 7 %; MCH 23.8 pg (25.0-35.0); MCHC 30.6 g/dL (31.0-37.0); MCV 77.7 fL (80.0-100.0); Mean Platelet Volume 9.8; Microcytosis Slight; Monocytes # (A) 0.3 k/uL (0-1.0); Monocytes % (A) 2 %; Neutrophils # (A) 14.1 k/uL (1.3-7.7); Neutrophils % (A) 88 %; Platelet Count 117 k/uL (150-450); Poikilocytosis Slight; RDW 15.9 % (11.5-15.5)
[2022-01-16 06:53] LABS: ALT 40 U/L (4-34); AST 36 U/L (14-36); African American GFR (CKD) >90 (>60 ml/min/1.73 sqM); Albumin 2.5 g/dL (3.5-5.0); Alkaline Phosphatase 138 U/L (38-126); Anion Gap 6 mmol/L; Blood Urea Nitrogen 9 mg/dL (7-17); Carbon Dioxide 18 mmol/L (22-30); Chloride 120 mmol/L (98-107); Glucose 117 mg/dL (74-99); Non-African American GFR(CKD) >90 (>60 ml/min/1.73 sqM); Potassium 3.9 mmol/L (3.5-5.1); Sodium 144 mmol/L (137-145); Total Bilirubin 1.6 mg/dL (0.2-1.3); Total Protein 5.2 g/dL (6.3-8.2)
[2022-01-16] MEDS: NOREPINEPHRINE 8 MG in SODIUM CHLORIDE 0.9% 250 ML IV SCH (07:00)
[2022-01-16] MEDS: PANTOPRAZOLE 40 MG/10 ML VIAL IVP SCH (08:35)
[2022-01-16] MEDS: ENOXAPARIN 40 MG/0.4 ML SYRINGE SQ SCH (08:40)
--- NOTE | 2022-01-16 08:56 | P.PN ---
Subjective Progress Note Date: 01/16/22 Principal diagnosis: Sepsis. Pulmonary consult dated 01/15/2022. 26-year-old female, recently saw here in the hospital last month I believe. The patient has a history of multiple medical problems including asthma, Clostridium difficile infection, vancomycin-resistant enterococci, and a previous history of bowel resection for familial adenomatous polyposis. The patient also has a history of kidney stone, and an IVC filter placement. She apparently was on cefepime and gentamicin as an outpatient. The patient apparently came into the hospital with fever, and coughing up blood. There is not much in the way of information provided by the ER physician. I did speak to the ER physician last night. The patient was accepted into the intensive care unit, for possible seps is, and hypotension. The patient's on room air. She's getting saline at 130 mL an hour. I've asked the nurses to convert her to lactated Ringer's. She Hospital between December 24 of December 27, of this year, and left AMA, because her stepdad apparently was involved in a car accident, and . I've asked the nurses to give her 2 L of lactated Ringer's, check a cortisol level, and add norepinephrine, if we can get a mean of 65. White count 5.1, hemoglobin 9.4, Macrobid 31.1, white count was not noted. Sodium 138, potassium 4.7, chlorides 116, CO2 12, BUN 12, creatinine 1.08. AST is 56 with an ALT of 40. Albumin 2.8. TSH is normal. Cortisol level is pending. Urine appears to be relatively clean. Previous blood cultures and urine cultures have shown Enterobacter cloacae, and VRE in the urine. The patient's chest x-ray is normal. Progress note dated 01/16/2022. This is a patient well-known to me. She was recently in the hospital a couple weeks back. She was readmitted with a diagnosis of sepsis. She came into the emergency room, with fever, and hypotension. Blood cultures did come back for Enterobacter, group D enterococcus, and Klebsiella. Currently, the patient is on cefepime and daptomycin. She is on room air. The patient is receiving norepinephrine at 0.05 mcg/kg/m, and lactated Ringer's at 130 mL an hour. White count 16, hemoglobin 8.6, hematocrit 28, and platelet count 217,000. Sodium 144, potassium 3.9, chlorides 120, CO2 18, BUN 9, and creatinine 0.56. Cortisol level was 35. CT of the abdomen and pelvis showed no evidence of obstructive uropathy, a nonobstructing right renal stone, postsurgical changes to the colon with ostomy, Avitia catheter, an IVC filter. Objective - Vital Signs Vital signs: Vital Signs Temp 97.7 F 01/16/22 03:00 Pulse 79 01/16/22 07:00 Resp 22 01/16/22 07:00 BP 95/65 01/16/22 07:00 Pulse Ox 96 01/16/22 07:00 FiO2 Intake & Output 01/15/22 01/16/22 01/16/22 18:59 06:59 18:59 Intake Total 4910 2683.313 32.068 Output Total 3935 1205 Balance 975 1478.313 32.068 Weight 102.512 kg 109 kg Intake: IV 3060 1790 Cefepime 2 gm In Sodium 200 Chloride 0.9% 100 ml @ 200 mls/hr [facility]PB [facility] Rx#:[id number] Cefepime 2 gm In Sodium 100 Chloride 0.9% 100 ml @ 25 mls/hr IVPB Q8HR [facility] Rx# :[id number] Lactated Ringers 1,000 ml 1170 1690 @ 130 mls/hr IV .Q7H42M [facility] Rx#:[id number] Lactated Ringers 1,000 ml 1130 @ 999 mls/hr IV .Q1H1M [facility] Rx#:[id number] Magnesium Sulfate-D5w Pmx 300 1 gm In Dextrose/Water 1 100ml.bag @ 100 mls/hr IVPB Q1H [facility] Rx#: [id number] Sodium Chloride 0.9% 1, 260 000 ml @ 130 mls/hr IV . Q7H42M [facility] Rx#:[id number] Intake, IV Titration 1050 163.313 32.068 Amount DAPTOmycin 500 mg In 50 Sodium Chloride 0.9% 50 ml @ 100 mls/hr IVPB Q24HR [facility] Rx#:[id number] Norepinephrine 8 mg In 163.313 32.068 Sodium Chloride 0.9% 250 ml @ 0.05 MCG/KG/MIN 9. 918 mls/hr IV .Q24H [facility] Rx#:[id number] Sodium Chloride 0.9% 1, 1000 000 ml @ 999 mls/hr IV . Q1H1M [facility] Rx#:[id number] Oral 800 730 Output: Urine 3935 1155 Stool 50 Other: Voiding Method Indwelling Catheter Indwelling Catheter - Exam No acute distress, oriented 3. Currently on room air. HEENT examination is grossly unremarkable. Neck supple. Full range of motion. No adenopathy thyromegaly or neck vein distention. Cardiovascular examination reveals regular rhythm rate. S1-S2 normal. No S3 or S4. No discernible murmur noted. Heart rate 79 bpm. Lungs reveal clear breath sounds. Breath sounds are equal bilaterally. No adventitious lung sounds including wheezes rhonchi or crackles. Abdomen soft bowel sounds are heard. No masses or tenderness. Extremities are intact. No cyanosis clubbing or edema. Skin is without rash or lesion. Neurologic examination is brief but nonfocal. - Labs CBC & Chem 7: 01/16/22 05:51 01/16/22 05:51 Labs: Abnormal Lab Results - Last 24 Hours (Table) 01/15/22 01/15/22 01/15/22 Range/Units 08:08 08:36 10:28 WBC 15.9 H (3.8-10.6) k/uL RBC 3.54 L (3.80-5.40) m/uL Hgb 8.5 L (11.4-16.0) gm/dL Hct 28.9 L (34.0-46.0) % MCV (80.0-100.0) fL MCH 24.2 L (25.0-35.0) pg MCHC 29.6 L (31.0-37.0) g/dL RDW 15.6 H (11.5-15.5) % Plt Count 116 L D (150-450) k/uL Neutrophils # 14.8 H (1.3-7.7) k/uL Lymphocytes # 0.4 L (1.0-4.8) k/uL Chloride 116 H (98-107) mmol/L Carbon Dioxide 12 L (22-30) mmol/L Creatinine 1.08 H (0.52-1.04) mg/dL Glucose 104 H (74-99) mg/dL Calcium 7.3 L (8.4-10.2) mg/dL Magnesium 1.2 L (1.6-2.3) mg/dL Total Bilirubin 10.0 H 10.0 H (0.2-1.3) mg/dL Conjugated Bilirubin 4.9 H (0.0-0.3) mg/dL Unconjugated Bilirubin 3.8 H (0.0-1.1) mg/dL Delta Bilirubin 1.3 H (0.0-0.2) mg/dL AST 56 H 58 H (14-36) U/L ALT 40 H 40 H (4-34) U/L Alkaline Phosphatase 164 H 133 H (38-126) U/L Total Protein 6.1 L 5.4 L (6.3-8.2) g/dL Albumin 2.8 L 2.5 L (3.5-5.0) g/dL 01/16/22 01/16/22 Range/Units 05:51 05:51 WBC 16.0 H (3.8-10.6) k/uL RBC 3.60 L (3.80-5.40) m/uL Hgb 8.6 L (11.4-16.0) gm/dL Hct 28.0 L (34.0-46.0) % MCV 77.7 L (80.0-100.0) fL MCH 23.8 L (25.0-35.0) pg MCHC 30.6 L (31.0-37.0) g/dL RDW 15.9 H (11.5-15.5) % Plt Count 117 L (150-450) k/uL Neutrophils # 14.1 H (1.3-7.7) k/uL Lymphocytes # (1.0-4.8) k/uL Chloride 120 H (98-107) mmol/L Carbon Dioxide 18 L (22-30) mmol/L Creatinine (0.52-1.04) mg/dL Glucose 117 H (74-99) mg/dL Calcium 8.0 L (8.4-10.2) mg/dL Magnesium (1.6-2.3) mg/dL Total Bilirubin 1.6 H (0.2-1.3) mg/dL Conjugated Bilirubin (0.0-0.3) mg/dL Unconjugated Bilirubin (0.0-1.1) mg/dL Delta Bilirubin (0.0-0.2) mg/dL AST (14-36) U/L ALT 40 H (4-34) U/L Alkaline Phosphatase 138 H (38-126) U/L Total Protein 5.2 L (6.3-8.2) g/dL Albumin 2.5 L (3.5-5.0) g/dL Microbiology - Last 24 Hours (Table) 01/15/22 00:29 Blood Culture Gram Stain - Preliminary Blood 01/14/22 23:49 Blood Culture Gram Stain - Preliminary Blood Blood Culture - Preliminary Enterobacter species Group D Enterococcus Klebsiella species 01/15/22 00:29 Blood Culture - Final Blood 01/14/22 23:45 Blood Culture - Final Blood Assessment and Plan Assessment: Fever, with hypotension, rule out recurrent sepsis either from a blood or urinary source, with blood cultures showing evidence of Enterobacter species, group D enterococcus, and Klebsiella. Patient currently on cefepime and dap tomycin. Prior history of vancomycin-resistant enterococci urinary tract infection, and Enterobacter cloacae bacteremia. Recurrent nephrolithiasis. History of mild intermittent asthma. History of FAP, status post ileostomy. Numerous ALLERGIES. History of IVC placement, mid 2021. Migraine headaches. Chronic anxiety. Plan: Plan dated 01/15/2022. The patient's IV fluids will be switched to a balanced salt solution, i.e. lactated Ringer's. The patient will get 2 L of fluid, and if the blood pressure is not 65, mean, we will add norepinephrine. We'll check a stat cortisol level. The patient's antibiotics including cefepime and gentamicin are restarted. The patient's currently on room air. Labs, x-rays, and medications are reviewed. Also, her last admission from December 24 through December 27, are reviewed. We will continue to follow and make recommendations where appropriate. Plan dated 01/16/2022. The patient's blood cultures were positive for Enterobacter, group D enterococcus, and Klebsiella. The patient is currently on cefepime and daptomycin. The patient is receiving norepinephrine for blood pressure support. She is at 0.05 mcg/kg/m. Receiving lactated Ringer's at 130 mL an hour. Labs, x-rays, and medications are reviewed. Additional recommendations and suggestions are forthcoming. Prognosis is guarded. Time with Patient: Less than 30
[2022-01-16] MEDS: DAPTOmycin 500 MG in SODIUM CHLORIDE 0.9% 50 ML IVPB SCH (09:02)
--- NOTE | 2022-01-16 11:29 | P.PN ---
Subjective Progress Note Date: 01/16/22 Principal diagnosis: Sepsis, hematemesis This is a 26-year-old white female with a past medical history including asthma, chronic anemia, familial adenomatosis polyposis, sepsis, UTI, and peptic ulcer disease. 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 The patient had presented to the emergency department on 12/19/2021 for complaints of abdominal pain and patient was called back to the emergency department for positive blood cultures. Apparently the patient had been seen the day before for right flank pain and urinary tract infection symptoms. Patient had stated that she was having fevers up to 103 with nausea and vomiting, and was having episodes of hematemesis. 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 During that hospitalization gastroenterology was consulted and we performed an EGD on 12/25/2021 for abdominal pain and questionable upper GI bleed. Patient had a small polyp status post polypectomy. No evidence of a GI bleed, no peptic ulcer disease. The patient was admitted for UTI and left AGAINST MEDICAL ADVICE due to her stepfather being in an motor vehicle accident and passing away. She states she never really recovered from her symptoms since her last admission. However over the last 4 days symptoms became worse, she was spiking fevers at home, she states that she was having quite a bit of coughing and she was coughing up blood and then would start coughing so hard she would vomit blood as well. She's had none since she has come up to the ICU. Again she was admitted with concerns for UTI, max temp 103. Hemoglobin on admission 9.4 with repeat today 8.5. 01/16/2022: Patient is seen and examined his follow-up. She remains in the ICU for bacteremia. Apparently the patient states that she had 3 episodes of vomiting through the night. Continue to have bloody emesis. States she will start with a cough and then it will make her vomit. She states then she vomits blood. Again we just recently did an EGD without any evidence of GI bleed or concern for peptic ulcer disease. Likely Jo Currie tear. She denies any ab dominal pain, nausea or vomiting. The stool is soft and brown. Patient's BUN is normal, which is not consistent with upper GI bleed. Yesterday patient had an acute increase in her total bilirubin to 10.0, hepatic panel was drawn. Conjugated bilirubin 4.9 unconjugated 3.8 AST 58 ALT 40 alkaline phosphatase 133. Hepatitis panel was ordered and has come back as nonreactive. Repeat labs today show total bilirubin 1.6 AST 36 ALT 40 alkaline phosphatase 138. Likely error in lab. Objective - Vital Signs Vital signs: Vital Signs Temp 97.7 F 01/16/22 03:00 Pulse 79 01/16/22 07:00 Resp 22 01/16/22 07:00 BP 95/65 01/16/22 07:00 Pulse Ox 96 01/16/22 07:00 FiO2 Intake & Output 01/15/22 01/16/22 01/16/22 18:59 06:59 18:59 Intake Total 4910 2683.313 32.068 Output Total 3935 1205 Balance 975 1478.313 32.068 Weight 102.512 kg 109 kg Intake: IV 3060 1790 Cefepime 2 gm In Sodium 200 Chloride 0.9% 100 ml @ 200 mls/hr IVPB ONCE [facility] Rx#:[id number] Cefepime 2 gm In Sodium 100 Chloride 0.9% 100 ml @ 25 mls/hr IVPB Q8HR [facility] Rx# :[id number] Lactated Ringers 1,000 ml 1170 1690 @ 130 mls/hr IV .Q7H42M [facility] Rx#:[id number] Lactated Ringers 1,000 ml 1130 @ 999 mls/hr IV .Q1H1M [facility] Rx#:[id number] Magnesium Sulfate-D5w Pmx 300 1 gm In Dextrose/Water 1 100ml.bag @ 100 mls/hr IVPB Q1H [facility] Rx#: [id number] Sodium Chloride 0.9% 1, 260 000 ml @ 130 mls/hr IV . Q7H42M [facility] Rx#:[id number] Intake, IV Titration 1050 163.313 32.068 Amount DAPTOmycin 500 mg In 50 Sodium Chloride 0.9% 50 ml @ 100 mls/hr IVPB Q24HR [facility] Rx#:[id number] Norepinephrine 8 mg In 163.313 32.068 Sodium Chloride 0.9% 250 ml @ 0.05 MCG/KG/MIN 9. 918 mls/hr IV .Q24H [facility] Rx#:[id number] Sodium Chloride 0.9% 1, 1000 000 ml @ 999 mls/hr IV . Q1H1M [facility] Rx#:[id number] Oral 800 730 Output: Urine 3935 1155 Stool 50 Other: Voiding Method Indwelling Catheter Indwelling Catheter - Exam General appearance: The patient is alert, oriented, appears in no acute distress. Obese. HET: Head is normocephalic and atraumatic. Conjunctiva pink. Sclera anicteric. Neck: Supple without lymphadenopathy. Abdomen: Soft, nontender, ostomy with soft brown stool, nondistended with bowel sounds. No guarding or rigidity. Extremities: Normal skin color and turgor. No pedal edema Skin: No rashes, no jaundice Neurological: No focal deficits. Alert and oriented x3. - Labs CBC & Chem 7: 01/16/22 05:51 01/16/22 05:51 Labs: Abnormal Lab Results - Last 24 Hours (Table) 01/15/22 01/15/22 01/15/22 Range/Units 08:08 08:36 10:28 WBC 15.9 H (3.8-10.6) k/uL RBC 3.54 L (3.80-5.40) m/uL Hgb 8.5 L (11.4-16.0) gm/dL Hct 28.9 L (34.0-46.0) % MCV (80.0-100.0) fL MCH 24.2 L (25.0-35.0) pg MCHC 29.6 L (31.0-37.0) g/dL RDW 15.6 H (11.5-15.5) % Plt Count 116 L D (150-450) k/uL Neutrophils # 14.8 H (1.3-7.7) k/uL Lymphocytes # 0.4 L (1.0-4.8) k/uL Chloride 116 H (98-107) mmol/L Carbon Dioxide 12 L (22-30) mmol/L Creatinine 1.08 H (0.52-1.04) mg/dL Glucose 104 H (74-99) mg/dL Calcium 7.3 L (8.4-10.2) mg/dL Magnesium 1.2 L (1.6-2.3) mg/dL Total Bilirubin 10.0 H 10.0 H (0.2-1.3) mg/dL Conjugated Bilirubin 4.9 H (0.0-0.3) mg/dL Unconjugated Bilirubin 3.8 H (0.0-1.1) mg/dL Delta Bilirubin 1.3 H (0.0-0.2) mg/dL AST 56 H 58 H (14-36) U/L ALT 40 H 40 H (4-34) U/L Alkaline Phosphatase 164 H 133 H (38-126) U/L Total Protein 6.1 L 5.4 L (6.3-8.2) g/dL Albumin 2.8 L 2.5 L (3.5-5.0) g/dL 01/16/22 01/16/22 Range/Units 05:51 05:51 WBC 16.0 H (3.8-10.6) k/uL RBC 3.60 L (3.80-5.40) m/uL Hgb 8.6 L (11.4-16.0) gm/dL Hct 28.0 L (34.0-46.0) % MCV 77.7 L (80.0-100.0) fL MCH 23.8 L (25.0-35.0) pg MCHC 30.6 L (31.0-37.0) g/dL RDW 15.9 H (11.5-15.5) % Plt Count 117 L (150-450) k/uL Neutrophils # 14.1 H (1.3-7.7) k/uL Lymphocytes # (1.0-4.8) k/uL Chloride 120 H (98-107) mmol/L Carbon Dioxide 18 L (22-30) mmol/L Creatinine (0.52-1.04) mg/dL Glucose 117 H (74-99) mg/dL Calcium 8.0 L (8.4-10.2) mg/dL Magnesium (1.6-2.3) mg/dL Total Bilirubin 1.6 H (0.2-1.3) mg/dL Conjugated Bilirubin (0.0-0.3) mg/dL Unconjugated Bilirubin (0.0-1.1) mg/dL Delta Bilirubin (0.0-0.2) mg/dL AST (14-36) U/L ALT 40 H (4-34) U/L Alkaline Phosphatase 138 H (38-126) U/L Total Protein 5.2 L (6.3-8.2) g/dL Albumin 2.5 L (3.5-5.0) g/dL Microbiology - Last 24 Hours (Table) 01/15/22 00:29 Blood Culture Gram Stain - Preliminary Blood 01/14/22 23:49 Blood Culture Gram Stain - Preliminary Blood Blood Culture - Preliminary Enterobacter species Group D Enterococcus Klebsiella species 01/15/22 00:29 Blood Culture - Final Blood 01/14/22 23:45 Blood Culture - Final Blood Assessment and Plan (1) Hematemesis Narrative/Plan: 26-year-old female readmitted with symptoms of fever, who was recently admitted left AGAINST MEDICAL ADVICE for elevated fever, UTI, bacteremia. During that admission patient had been stating that she had vomiting blood. She had an EGD status post polypectomy, no evidence of GI bleed or peptic ulcer disease. Patient states over last 4 days she's been coughing significantly coughing up blood, and then will start vomiting and will vomit blood. Likely were dealing with a Jo-Currie tear. Patient has been admitted to the ICU to rule out recurrent sepsis. No plans on endoscopic evaluation in light of patient just recently underwent EGD with no evidence of GI bleed. Current Visit: Yes Status: Acute Code(s): K92.0 - HEMATEMESIS SNOMED Code(s): 9587695 (2) Hemoptysis Narrative/Plan: An 26-year-old female readmitted with symptoms of fever, who was recently admitted left AGAINST MEDICAL ADVICE for elevated fever, UTI, bacteremia. During that admission patient had been stating that she had vomiting blood. She had an EGD status post polypectomy, no evidence of GI bleed or peptic ulcer disease. Patient states over last 4 days she's been coughing significantly coughing up blood, and then will start vomiting and will vomit blood. Likely were dealing with a Jo-Currie tear. Patient has been admitted to the ICU to rule out recurrent sepsis. No plans on endoscopic evaluation in light of patien t just recently underwent EGD with no evidence of GI bleed. Current Visit: Yes Status: Acute Code(s): R04.2 - HEMOPTYSIS SNOMED Code(s): 01768173 (3) Chronic anemia Narrative/Plan: The patient has history of chronic anemia, currently on oral iron. Current Visit: Yes Status: Acute Code(s): D64.9 - ANEMIA, UNSPECIFIED SNOMED Code(s): 633471224 (4) Fever Current Visit: Yes Status: Acute Code(s): R50.9 - FEVER, UNSPECIFIED SNOMED Code(s): 936261468 (5) FAP (familial adenomatous polyposis) Narrative/Plan: History of total colectomy in 2016 with ileostomy, February 2021 Current Visit: No Status: Acute Code(s): D12.6 - BENIGN NEOPLASM OF COLON, UNSPECIFIED SNOMED Code(s): 62565426 (6) Bacteremia Current Visit: Yes Status: Acute Code(s): R78.81 - BACTEREMIA SNOMED Code(s): 0893458 Plan: 1. Continue symptomatic and supportive care 2. Protonix 40 mg daily 3. Antiemetics as needed 4. Patient recently underwent EGD on 12/25/2021 with no evidence of GI bleed, duodenal bulb polyp status post polypectomy. No plans on endoscopic evaluation. Likely Jo Currie tear from coughing and retching. 5. Continue medical/ICU management Thank you for this consultation, we will continue to follow. Dr. Alvaro Sofia I agree with the dictator's note, documented as a scribe by Cyndi Dempsey.
--- NOTE | 2022-01-16 12:35 | P.PN ---
Subjective Progress Note Date: 01/16/22 Principal diagnosis: Bacteremia Patient is a 26-year-old female with a past medical history significant for familial adenomatosis polyposis in this patient status post co lectomy and ileostomy the patient also have a Mediport that has been placed few years ago for IV access patient was recently admitted at this facility and the patient did have Enterobacter bacteremia which was thought to be related to the Mediport and there was a concern for a septic emboli to the lungs [facility] was negative, patient left AMA and subsequently presented back to the hospital with throwing up blood and fever and did have evidence of bacteremia. On today's evaluation that is 01/16/2022, the patient is afebrile, the patient is more awake alert patient is breathing comfortably no chest pain is complaining of some shortness of breath but no need for supplemental oxygen still complaining of nausea and vomiting no diarrhea has been reported Objective - Vital Signs Vital signs: Vital Signs Temp 97.6 F 01/16/22 08:00 Pulse 96 01/16/22 11:00 Resp 29 H 01/16/22 11:00 BP 96/60 01/16/22 11:00 Pulse Ox 98 01/16/22 11:00 FiO2 Intake & Output 01/15/22 01/16/22 01/16/22 18:59 06:59 18:59 Intake Total 4910 2683.313 782.068 Output Total 3935 1205 350 Balance 975 1478.313 432.068 Weight 102.512 kg 109 kg Intake: IV 3060 1790 490 Cefepime 2 gm In Sodium 200 Chloride 0.9% 100 ml @ 200 mls/hr IVPB ONCE STA Rx#:[id number] Cefepime 2 gm In Sodium 100 100 Chloride 0.9% 100 ml @ 25 mls/hr IVPB Q8HR [facility] Rx# :[id number] Lactated Ringers 1,000 ml 1170 1690 390 @ 130 mls/hr IV .Q7H42M [facility] Rx#:[id number] Lactated Ringers 1,000 ml 1130 @ 999 mls/hr IV .Q1H1M [facility] Rx#:[id number] Magnesium Sulfate-D5w Pmx 300 1 gm In Dextrose/Water 1 100ml.bag @ 100 mls/hr IVPB Q1H [facility] Rx#: [id number] Sodium Chloride 0.9% 1, 260 000 ml @ 130 mls/hr IV . Q7H42M [facility] Rx#:[id number] Intake, IV Titration 1050 163.313 82.068 Amount DAPTOmycin 500 mg In 50 50 Sodium Chloride 0.9% 50 ml @ 100 mls/hr IVPB Q24HR [facility] Rx#:[id number] Norepinephrine 8 mg In 163.313 32.068 Sodium Chloride 0.9% 250 ml @ 0.05 MCG/KG/MIN 9. 918 mls/hr IV .Q24H [facility] Rx#:[id number] Sodium Chloride 0.9% 1, 1000 000 ml @ 999 mls/hr IV . Q1H1M [facility] Rx#:[id number] Oral 800 730 210 Output: Urine 3935 1155 350 Stool 50 Other: Voiding Method Indwelling Catheter Indwelling Catheter Indwelling Catheter - Exam GENERAL DESCRIPTION: Middle-aged female lying in bed, no distress. No tachypnea or accessory muscle of respiration use. LUNGS: Unlabored breathing decreased breath sound at the base HEART: S1, S2, regular rate and rhythm. ABDOMEN: Soft, no tenderness , guarding or rigidity, no organomegaly EXTREMITIES: No edema of feet. - Labs CBC & Chem 7: 01/16/22 05:51 01/16/22 05:51 Labs: Abnormal Lab Results - Last 24 Hours (Table) 01/16/22 01/16/22 Range/Units 05:51 05:51 WBC 16.0 H (3.8-10.6) k/uL RBC 3.60 L (3.80-5.40) m/uL Hgb 8.6 L (11.4-16.0) gm/dL Hct 28.0 L (34.0-46.0) % MCV 77.7 L (80.0-100.0) fL MCH 23.8 L (25.0-35.0) pg MCHC 30.6 L (31.0-37.0) g/dL RDW 15.9 H (11.5-15.5) % Plt Count 117 L (150-450) k/uL Neutrophils # 14.1 H (1.3-7.7) k/uL Chloride 120 H (98-107) mmol/L Carbon Dioxide 18 L (22-30) mmol/L Glucose 117 H (74-99) mg/dL Calcium 8.0 L (8.4-10.2) mg/dL Total Bilirubin 1.6 H (0.2-1.3) mg/dL ALT 40 H (4-34) U/L Alkaline Phosphatase 138 H (38-126) U/L Total Protein 5.2 L (6.3-8.2) g/dL Albumin 2.5 L (3.5-5.0) g/dL Microbiology - Last 24 Hours (Table) 01/15/22 00:29 Blood Culture Gram Stain - Preliminary Blood Blood Culture - Preliminary Group D Enterococcus Gram Neg Bacilli 01/14/22 23:49 Blood Culture Gram Stain - Preliminary Blood Blood Culture - Preliminary Enterobacter species Group D Enterococcus Klebsiella species 01/15/22 00:29 Blood Culture - Final Blood Assessment and Plan (1) Bacteremia Current Visit: Yes Status: Acute Code(s): R78.81 - BACTEREMIA SNOMED Cod e(s): 3949504 Plan: 1patient presented hospital with sepsis in this patient did have a fever elevated white count tachycardia now with evidence of gram-negative as well as gram-positive bacteremia high clinical suspicious for her Mediport infection versus abdominal source as the patient been throwing up blood however abdominal was soft on clinical examination. 2blood cultures has been repeated to document clearance of bacteremia. 3CT abdominal pelvis didnot show acute abnormality 4Pt to continue with cefepime and daptomycin, While waiting for the culture to be finalized, also recommended general surgery evaluation for removal of the infected port Time with Patient: Less than 30
--- NOTE | 2022-01-16 14:24 | P.PN ---
Subjective Progress Note Date: 01/16/22 26-year-old female came to the hospital and see is that she came in because she left AMA last time and wanted to be treated for her bacteremia now. Patient was seen early December and left against medical advise around mid-December. Patient was comparing of abdominal pain in the left flank area 10/10 with radiating pain into the groin sharp in nature. Patient denied any other UTI symptoms her urine is not abnormal although patient was bacteremic during her last hospitalization with Enterobacter cloaca and enterococcus in the urine patient was recommended to be on IV cefepime although patient left AGAINST MEDICAL ADVICE patient doesn't have any leukocytosis on admission but the white blood cell count went up to 15,000 now at this time patient highest temperature is around 99.1. Patient to although remains hypotensive and is on pressor support. Patient does have mildly elevated liver enzymes patient is presently on lactated Ringer's because of hyperchloremia patient does have hypomagnesemia as well. During her last hospitalization source of gram-negative bacteremia was not clear patient appeared to have multifocal lesions in the lung at that time. Patient also complaining of hematemesis with gastro-oncology evaluated the patient and patient is presently in the next they are not recommending any endoscopy at this time. Patient presently doesn't have any hematemesis. Patient is presently in IC because of hypotension and patient's requirement for norepinephrine. Apart from low blood pressure patient otherwise looks good patient is also tachycardic sinus tachycardia. Infectious disease was consulted patient was bit hyponatremic which improved with IV fluids. 01/16/2022 Patient evaluated today in the intensive care unit. She continues on levophed support with blood pressure in the 90s systolic. She has been afebrile throughout the night, heart rate in the 90s, on room air. Main complaint today is right flank pain which she rates a 9/10. She is receiving IV dilaudid every 3 hours. Patient also reports emesis last night, states it was bloody. She is receiving zofran and GI is following the patient. Patient recently had EGD and no current plans to undergo endoscopy. She has had ostomy since Feb. She has port in right chest for hydration. Cultures are showing Enterobacter, Group D Enterococcus, Klebsiella and repeat continues to be positive. She is on IV cefepime, IV daptomycin and infectious disease is following patient. Vascular has been consulted for port removal. Abdominal Pelvis CT completed showing nonobstructing right renal calculi, no evidence for bowel obstruction, there is IVC filter left sided inferior vena cava, hepatic steatosis Labs reviewed today showing white count 16.0, hgb 8.6, platelet count 117, sodium 144, potassium 3.9, chloride 120, CO2 18, glucose 117, calcium 8.0, magnesium 1.9, total bili 1.6, AST normalized at 36, ALT/Alk phos stable. Review of Systems Constitutional: Denied any fatigue denied any fever. Cardio vascular: denied any chest pain, palpitations Gastrointestinal: Reports nausea, vomiting, hematemesis Pulmonary: Denied any shortness of breath cough Neurologic denied any new focal deficits All inpatient medications were reviewed and appropriate changes in these medications as dictated in the interval history and assessment and plan. PHYSICAL EXAMINATION: GENERAL: The patient is alert and oriented x3, not in any acute distress. Well developed, well nourished. HEENT: Pupils are round and equally reacting to light. EOMI. No scleral icterus. No conjunctival pallor. Normocephalic, atraumatic. No pharyngeal erythema. No thyromegaly. CARDIOVASCULAR: S1 and S2 present. No murmurs, rubs, or gallops. PULMONARY: Chest is clear to auscultation, no wheezing or crackles. ABDOMEN: Soft, some subjective left lateral lab abdominal tenderness but no CVA tenderness, nondistended, normoactive bowel sounds. No palpable organomegaly. MUSCULOSKELETAL: No joint swelling or deformity. EXTREMITIES: No cyanosis, clubbing, or pedal edema. NEUROLOGICAL: Gross neurological examination did not reveal any focal deficits. SKIN: No rashes. Assessment and plan -Sepsis with septic shock patient continues on levophed and repeat blood cultures are positive. Continues on IV antibiotics and Infectious disease is following patient. Vascular has been consulted to remove chest wall port. -Hypovolemic hyponatremia, resolved -Non-anion gap metabolic acidosis secondary to hyperchloremia, continues on LR, exacerbated by vomiting -Mild acute renal failure: Hypovolemia, resolved with IV hydration -Hypomagnesemia, resolved -Mild transaminitis, hepatitis panel pending, patient does have hepatic steatosis -History of familial adenomatous polyposis status post colectomy -Possible nephrolithiasis -History of migraine for which patient is on Emgality DVT prophylaxis: Lovenox GI Prophylaxis: Protonix Full Code Plan Continue to monitor patient intensive care. Vascular consulted for port removal, repeat blood cultures and continue antibiotics. Continue pain management, antiemetics. Repeat labs in AM. The impression and plan of care has been dictated by Bee London, Nurse Practitioner as directed. Dr. Sidney MD I have performed a history and physical examination and medical decision making of this patient, discussed the same with the dictator, and agree with the dictators assessment and plan as written, documented as a scribe. Based on total visit time, I have performed more than 50% of this visit. Objective - Vital Signs Vital signs: Vital Signs Temp 97.6 F 01/16/22 08:00 Pulse 96 01/16/22 11:00 Resp 29 H 01/16/22 11:00 BP 96/60 01/16/22 11:00 Pulse Ox 98 01/16/22 11:00 FiO2 Intake & Output 01/15/22 01/16/22 01/16/22 18:59 06:59 18:59 Intake Total 4910 2683.313 782.068 Output Total 3935 1205 350 Balance 975 1478.313 432.068 Weight 102.512 kg 109 kg Intake: IV 3060 1790 490 Cefepime 2 gm In Sodium 200 Chloride 0.9% 100 ml @ 200 mls/hr IVPB ONCE [facility] Rx#:[id number] Cefepime 2 gm In Sodium 100 100 Chloride 0.9% 100 ml @ 25 mls/hr IVPB Q8HR [facility] Rx# :[id number] Lactated Ringers 1,000 ml 1170 1690 390 @ 130 mls/hr IV .Q7H42M [facility] Rx#:[id number] Lactated Ringers 1,000 ml 1130 @ 999 mls/hr IV .Q1H1M [facility] Rx#:[id number] Magnesium Sulfate-D5w Pmx 300 1 gm In Dextrose/Water 1 100ml.bag @ 100 mls/hr IVPB Q1H [facility] Rx#: [id number] Sodium Chloride 0.9% 1, 260 000 ml @ 130 mls/hr IV . Q7H42M [facility] Rx#:[id number] Intake, IV Titration 1050 163.313 82.068 Amount DAPTOmycin 500 mg In 50 50 Sodium Chloride 0.9% 50 ml @ 100 mls/hr IVPB Q24HR [facility] Rx#:[id number] Norepinephrine 8 mg In 163.313 32.068 Sodium Chloride 0.9% 250 ml @ 0.05 MCG/KG/MIN 9. 918 mls/hr IV .Q24H [facility] Rx#:[id number] Sodium Chloride 0.9% 1, 1000 000 ml @ 999 mls/hr IV . Q1H1M [facility] Rx#:[id number] Oral 800 730 210 Output: Urine 3935 1155 350 Stool 50 Other: Voiding Method Indwelling Catheter Indwelling Catheter Indwelling Catheter - Labs CBC & Chem 7: 01/16/22 05:51 01/16/22 05:51 Labs: Abnormal Lab Results - Last 24 Hours (Table) 01/16/22 01/16/22 Range/Units 05:51 05:51 WBC 16.0 H (3.8-10.6) k/uL RBC 3.60 L (3.80-5.40) m/uL Hgb 8.6 L (11.4-16.0) gm/dL Hct 28.0 L (34.0-46.0) % MCV 77.7 L (80.0-100.0) fL MCH 23.8 L (25.0-35.0) pg MCHC 30.6 L (31.0-37.0) g/dL RDW 15.9 H (11.5-15.5) % Plt Count 117 L (150-450) k/uL Neutrophils # 14.1 H (1.3-7.7) k/uL Chloride 120 H (98-107) mmol/L Carbon Dioxide 18 L (22-30) mmol/L Glucose 117 H (74-99) mg/dL Calcium 8.0 L (8.4-10.2) mg/dL Total Bilirubin 1.6 H (0.2-1.3) mg/dL ALT 40 H (4-34) U/L Alkaline Phosphatase 138 H (38-126) U/L Total Protein 5.2 L (6.3-8.2) g/dL Albumin 2.5 L (3.5-5.0) g/dL Microbiology - Last 24 Hours (Table) 01/15/22 00:29 Blood Culture Gram Stain - Preliminary Blood Blood Culture - Preliminary Group D Enterococcus Gram Neg Bacilli 01/14/22 23:49 Blood Culture Gram Stain - Preliminary Blood Blood Culture - Preliminary Enterobacter species Group D Enterococcus Klebsiella species 01/15/22 00:29 Blood Culture - Final Blood Assessment and Plan Time with Patient: Less than 30
[2022-01-16] MEDS ORDERED: Magnesium Replacement Protocol 1 EACH MISC MISCELLANE PRN (14:25)
[2022-01-16] MEDS ORDERED: POTASSIUM CHLORIDE ER 20 MEQ TAB.ER PO SCH (15:00)
[2022-01-16] MEDS: MAGNESIUM SULFATE-D5W PMX 1 GM in DEXTROSE/WATER 1 100ML.BAG IVPB SCH ×2 (15:42→17:36)
[2022-01-17] MEDS: HYDROmorphone 0.5 MG/0.5 ML SYRINGE IVP PRN ×8 (00:59→22:20)
--- NOTE | 2022-01-17 04:01 | PN ---
PROGRESS NOTE SUBJECTIVE: This is a 26-year-old female. I was consulted for removal of Port-A-Cath. The patient has this Port-A-Cath placed 2 years ago. Now, the patient has been admitted with positive blood culture. The patient has history of familial polyposis. The patient had a colectomy and ileostomy done in the past. PHYSICAL EXAMINATION: GENERAL: The patient was seen in the intensive care unit. The patient has a Port-A- Cath on the right side of the chest. No localized tenderness noted. CHEST: Clear. ABDOMEN: Soft. The patient has ileostomy. PLAN: We will arrange for removal of the Port-A-Cath. The patient should be n.p.o. for 8 hours. We will arrange and discussed with Dr. Potts. MMTAYLOR / HANSA: [id number] /
[2022-01-17 06:19] LABS: Basophils % (A) 0 %; Eosinophils % (A) 1 %; HCT 27.1 % (34.0-46.0); HGB 8.2 gm/dL (11.4-16.0); Hypochromasia Marked; Lymphocytes # (A) 0.5 k/uL (1.0-4.8); Lymphocytes % (A) 9 %; MCH 23.5 pg (25.0-35.0); MCHC 30.2 g/dL (31.0-37.0); MCV 77.7 fL (80.0-100.0); Mean Platelet Volume 9.4; Microcytosis Slight; Monocytes # (A) 0.2 k/uL (0-1.0); Monocytes % (A) 3 %; Neutrophils # (A) 4.1 k/uL (1.3-7.7); Neutrophils % (A) 85 %; RBC 3.48 m/uL (3.80-5.40); RDW 15.9 % (11.5-15.5); WBC 4.8 k/uL (3.8-10.6)
[2022-01-17 06:46] LABS: African American GFR (CKD) >90 (>60 ml/min/1.73 sqM); Anion Gap 8 mmol/L; Blood Urea Nitrogen 3 mg/dL (7-17); Calcium 7.7 mg/dL (8.4-10.2); Carbon Dioxide 18 mmol/L (22-30); Chloride 108 mmol/L (98-107); Glucose 105 mg/dL (74-99); Magnesium 1.5 mg/dL (1.6-2.3); Non-African American GFR(CKD) >90 (>60 ml/min/1.73 sqM); Sodium 134 mmol/L (137-145)
[2022-01-17] MEDS ORDERED: Magnesium Replacement Protocol 1 EACH MISC MISCELLANE PRN (06:51)
[2022-01-17] MEDS ORDERED: Potassium Replacement Protocol 1 EACH MISC MISCELLANE PRN ×2 (06:52→09:08)
[2022-01-17] MEDS: POTASSIUM CHLORIDE ER 20 MEQ TAB.ER PO SCH ×2 (07:00→09:07)
[2022-01-17] MEDS: MAGNESIUM SULFATE-D5W PMX 1 GM in DEXTROSE/WATER 1 100ML.BAG IVPB SCH ×2 (07:01→08:33)
[2022-01-17] MEDS: LACTATED RINGERS 1,000 ML IV SCH ×7 (07:02→16:38)
[2022-01-17] MEDS ORDERED: POTASSIUM CHLORIDE ER 20 MEQ TAB.ER PO STA (07:36)
[2022-01-17 08:07] LABS: Platelet Count 88 k/uL (150-450)
[2022-01-17 08:08] LABS: Tear Drop Cells Present
[2022-01-17] MEDS: PANTOPRAZOLE 40 MG/10 ML VIAL IVP SCH (08:38)
[2022-01-17] MEDS: CEFEPIME 2 GM in SODIUM CHLORIDE 0.9% 100 ML IVPB SCH ×2 (08:38→16:09)
[2022-01-17] MEDS: DAPTOmycin 500 MG in SODIUM CHLORIDE 0.9% 50 ML IVPB SCH (09:44)
--- NOTE | 2022-01-17 09:54 | P.PN ---
Subjective Progress Note Date: 01/17/22 Principal diagnosis: Sepsis. Pulmonary consult dated 01/15/2022. 26-year-old female, recently saw here in the hospital last month I believe. The patient has a history of multiple medical problems including asthma, Clostridium difficile infection, vancomycin-resistant enterococci, and a previous history of bowel resection for familial adenomatous polyposis. The patient also has a history of kidney stone, and an IVC filter placement. She apparently was on cefepime and gentamicin as an outpatient. The patient apparently came into the hospital with fever, and coughing up blood. There is not much in the way of information provided by the ER physician. I did speak to the ER physician last night. The patient was accepted into the intensive care unit, for possible seps is, and hypotension. The patient's on room air. She's getting saline at 130 mL an hour. I've asked the nurses to convert her to lactated Ringer's. She Hospital between December 24 of December 27, of this year, and left AMA, because her stepdad apparently was involved in a car accident, and . I've asked the nurses to give her 2 L of lactated Ringer's, check a cortisol level, and add norepinephrine, if we can get a mean of 65. White count 5.1, hemoglobin 9.4, Macrobid 31.1, white count was not noted. Sodium 138, potassium 4.7, chlorides 116, CO2 12, BUN 12, creatinine 1.08. AST is 56 with an ALT of 40. Albumin 2.8. TSH is normal. Cortisol level is pending. Urine appears to be relatively clean. Previous blood cultures and urine cultures have shown Enterobacter cloacae, and VRE in the urine. The patient's chest x-ray is normal. Progress note dated 01/16/2022. This is a patient well-known to me. She was recently in the hospital a couple weeks back. She was readmitted with a diagnosis of sepsis. She came into the emergency room, with fever, and hypotension. Blood cultures did come back for Enterobacter, group D enterococcus, and Klebsiella. Currently, the patient is on cefepime and daptomycin. She is on room air. The patient is receiving norepinephrine at 0.05 mcg/kg/m, and lactated Ringer's at 130 mL an hour. White count 16, hemoglobin 8.6, hematocrit 28, and platelet count 217,000. Sodium 144, potassium 3.9, chlorides 120, CO2 18, BUN 9, and creatinine 0.56. Cortisol level was 35. CT of the abdomen and pelvis showed no evidence of obstructive uropathy, a nonobstructing right renal stone, postsurgical changes to the colon with ostomy, Avitia catheter, an IVC filter. Progress note dated 01/17/2022. 26-year-old female again seen in room 260. The patient stable. Norepinephrine has been weaned off. She is on room air. She's getting lactated Ringer's at 130 mL an hour, to be reduced down to 75 mL an hour. The patient can be transferred to general medical floor without telemetry. We can advance her diet. She's currently on cefepime and daptomycin as per infectious diseases. White count 4.8, hemoglobin 8.2, hematocrit 27.1, with a platelet count of 88,000. Sodium 134, potassium 3, chlorides 108, CO2 18, BUN 3, and creatinine 0.56. Microbiologic studies are showing group D enterococcus and gram-negative bacilli in the blood from January 15 and and her back to species, group D enterococcus, and Klebsiella species in the blood from January 14. Objective - Vital Signs Vital signs: Vital Signs Temp 100.7 F H 01/17/22 08:00 Pulse 118 H 01/17/22 09:00 Resp 22 01/17/22 09:00 BP 98/58 01/17/22 09:00 Pulse Ox 94 L 01/17/22 09:00 FiO2 Intake & Output 01/16/22 01/17/22 01/17/22 18:59 06:59 18:59 Intake Total 2787.986 2600 130 Output Total 1160 2070 250 Balance 1627.986 530 -120 Weight 108.9 kg Intake: IV 1530 1660 130 Cefepime 2 gm In Sodium 100 100 Chloride 0.9% 100 ml @ 25 mls/hr IVPB Q8HR [facility] Rx# :[id number] Lactated Ringers 1,000 ml 1430 1560 130 @ 130 mls/hr IV .Q7H42M [facility] Rx#:[id number] Intake, IV Titration 247.986 100 Amount DAPTOmycin 500 mg In 50 Sodium Chloride 0.9% 50 ml @ 100 mls/hr IVPB Q24HR [facility] Rx#:[id number] Magnesium Sulfate-D5w Pmx 100 100 1 gm In Dextrose/Water 1 100ml.bag @ 100 mls/hr IVPB Q1H [facility] Rx#: [id number] Norepinephrine 8 mg In 97.986 Sodium Chloride 0.9% 250 ml @ 0.05 MCG/KG/MIN 9. 918 mls/hr IV .Q24H [facility] Rx#:[id number] Oral 1010 840 Output: Urine 1060 2020 250 Stool 100 50 Other: Voiding Method Indwelling Catheter Indwelling Catheter - Exam No acute distress, oriented 3. Currently on room air. Saturations are 94%. HEENT examination is grossly unremarkable. Neck supple. Full range of motion. No adenopathy thyromegaly or neck vein distention. Cardiovascular examination reveals regular rhythm rate. S1-S2 normal. No S3 or S4. No discernible murmur noted. Heart rate 100 bpm. Lungs reveal clear breath sounds. Breath sounds are equal bilaterally. No adventitious lung sounds including wheezes rhonchi or crackles. Abdomen soft bowel sounds are heard. No masses or tenderness. Extremities are intact. No cyanosis clubbing or edema. Skin is without rash or lesion. Neurologic examination is brief but nonfocal. - Labs CBC & Chem 7: 01/17/22 06:01 01/17/22 06:01 Labs: Abnormal Lab Results - Last 24 Hours (Table) 01/17/22 01/17/22 Range/Units 06:01 06:01 RBC 3.48 L (3.80-5.40) m/uL Hgb 8.2 L (11.4-16.0) gm/dL Hct 27.1 L (34.0-46.0) % MCV 77.7 L (80.0-100.0) fL MCH 23.5 L (25.0-35.0) pg MCHC 30.2 L (31.0-37.0) g/dL RDW 15.9 H (11.5-15.5) % Plt Count 88 L (150-450) k/uL Lymphocytes # 0.5 L (1.0-4.8) k/uL Sodium 134 L (137-145) mmol/L Potassium 3.0 L (3.5-5.1) mmol/L Chloride 108 H (98-107) mmol/L Carbon Dioxide 18 L (22-30) mmol/L BUN 3 L (7-17) mg/dL Glucose 105 H (74-99) mg/dL Calcium 7.7 L (8.4-10.2) mg/dL Magnesium 1.5 L (1.6-2.3) mg/dL Microbiology - Last 24 Hours (Table) 01/15/22 00:29 Blood Culture Gram Stain - Preliminary Blood Blood Culture - Preliminary Group D Enterococcus Gram Neg Bacilli 01/14/22 23:49 Blood Culture Gram Stain - Preliminary Blood Blood Culture - Preliminary Enterobacter species Group D Enterococcus Klebsiella species Assessment and Plan Assessment: Fever, with hypotension, rule out recurrent sepsis either from a blood or urinary source, with blood cultures showing evidence of Enterobacter species, group D enterococcus, and Klebsiella. Patient currently on cefepime and daptomycin. Prior history of vancomycin-resistant enterococci urinary tract infection, and Enterobacter cloacae bacteremia. Recurrent nephrolithiasis. History of mild intermittent asthma. History of FAP, status post ileostomy. Numerous ALLERGIES. History of IVC placement, mid 2021. Migraine headaches. Chronic anxiety. Plan: Plan dated 01/15/2022. The patient's IV fluids will be switched to a balanced salt solution, i.e. lactated Ringer's. The patient will get 2 L of fluid, and if the blood pressure is not 65, mean, we will add norepinephrine. We'll check a stat cortisol level. The patient's antibiotics including cefepime and gentamicin are restarted. The patient's currently on room air. Labs, x-rays, and medications are reviewed. A lso, her last admission from December 24 through December 27, are reviewed. We will continue to follow and make recommendations where appropriate. Plan dated 01/16/2022. The patient's blood cultures were positive for Enterobacter, group D enterococcus, and Klebsiella. The patient is currently on cefepime and daptomycin. The patient is receiving norepinephrine for blood pressure support. She is at 0.05 mcg/kg/m. Receiving lactated Ringer's at 130 mL an hour. Labs, x-rays, and medications are reviewed. Additional recommendations and suggestions are forthcoming. Prognosis is guarded. Plan dated 01/17/2022. The patient remains on lactated Ringer's. Norepinephrine has been weaned off. The patient's on daptomycin and cefepime as per infectious diseases. Microbiology has been reviewed. She's on room air. The diet can be advanced. The patient can be transferred to the general medical floor with telemetry. No additional recommendations are made. Respiratory status is stable. Time with Patient: Less than 30
[2022-01-17] MEDS: POTASSIUM CHLORIDE 20 MEQ in WATER FOR INJECTION 1 100ML.BAG IVPB SCH ×2 (09:59→12:07)
[2022-01-17] MEDS: ENOXAPARIN 40 MG/0.4 ML SYRINGE SQ SCH ×2 (11:03→14:12)
[2022-01-17] MEDS: NOREPINEPHRINE 8 MG in SODIUM CHLORIDE 0.9% 250 ML IV SCH (11:06)
[2022-01-17] MEDS ORDERED: ALBUTEROL NEBULIZED 2.5 MG/3 ML INHALATION PRN (11:27)
[2022-01-17] MEDS ORDERED: TRIMETHOBENZAMIDE 100 MG/ML 2 ML VIAL IM PRN (11:31)
--- NOTE | 2022-01-17 11:34 | P.PN ---
Subjective Progress Note Date: 01/17/22 Principal diagnosis: Sepsis, hematemesis This is a 26-year-old white female with a past medical history including asthma, chronic anemia, familial adenomatosis polyposis, sepsis, UTI, and peptic ulcer disease. 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 The patient had presented to the emergency department on 12/19/2021 for complaints of abdominal pain and patient was called back to the emergency department for positive blood cultures. Apparently the patient had been seen the day before for right flank pain and urinary tract infection symptoms. Patient had stated that she was having fevers up to 103 with nausea and vomiting, and was having episodes of hematemesis. 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 During that hospitalization gastroenterology was consulted and we performed an EGD on 12/25/2021 for abdominal pain and questionable upper GI bleed. Patient had a small polyp status post polypectomy. No evidence of a GI bleed, no peptic ulcer disease. The patient was admitted for UTI and left AGAINST MEDICAL ADVICE due to her stepfather being in an motor vehicle accident and passing away. She states she never really recovered from her symptoms since her last admission. However over the last 4 days symptoms became worse, she was spiking fevers at home, she states that she was having quite a bit of coughing and she was coughing up blood and then would start coughing so hard she would vomit blood as well. She's had none since she has come up to the ICU. Again she was admitted with concerns for UTI, max temp 103. Hemoglobin on admission 9.4 with repeat today 8.5. 01/16/2022: Patient is seen and examined his follow-up. She remains in the ICU for bacteremia. Apparently the patient states that she had 3 episodes of vomiting through the night. Continue to have bloody emesis. States she will start with a cough and then it will make her vomit. She states then she vomits blood. Again we just recently did an EGD without any evidence of GI bleed or concern for peptic ulcer disease. Likely Jo Currie tear. She denies any ab dominal pain, nausea or vomiting. The stool is soft and brown. Patient's BUN is normal, which is not consistent with upper GI bleed. Yesterday patient had an acute increase in her total bilirubin to 10.0, hepatic panel was drawn. Conjugated bilirubin 4.9 unconjugated 3.8 AST 58 ALT 40 alkaline phosphatase 133. Hepatitis panel was ordered and has come back as nonreactive. Repeat labs today show total bilirubin 1.6 AST 36 ALT 40 alkaline phosphatase 138. Likely error in lab. 01/17/2022: Patient is seen and examined in the ICU. According to the nurse she has been downgraded to medical floor. Patient is admitted with sepsis. Believe the source is her port in her right chest wall. Patient scheduled to undergo port removal tomorrow with Dr. Jauregui. She states that she has decreased appetite. Still getting some nausea and vomiting. Said she vomited up just phlegm about 3 times this morning. No blood. Denies any abdominal pain. No blood in her stool. Objective - Vital Signs Vital signs: Vital Signs Temp 99.9 F H 01/17/22 05:00 Pulse 122 H 01/17/22 07:00 Resp 26 H 01/17/22 07:00 BP 92/60 01/17/22 07:00 Pulse Ox 93 L 01/17/22 08:16 FiO2 Intake & Output 01/16/22 01/17/22 01/17/22 18:59 06:59 18:59 Intake Total 2787.986 2600 130 Output Total 1160 2070 250 Balance 1627.986 530 -120 Weight 108.9 kg Intake: IV 1530 1660 130 Cefepime 2 gm In Sodium 100 100 Chloride 0.9% 100 ml @ 25 mls/hr IVPB Q8HR [facility] Rx# :[id number] Lactated Ringers 1,000 ml 1430 1560 130 @ 130 mls/hr IV .Q7H42M [facility] Rx#:[id number] Intake, IV Titration 247.986 100 Amount DAPTOmycin 500 mg In 50 Sodium Chloride 0.9% 50 ml @ 100 mls/hr IVPB Q24HR [facility] Rx#:[id number] Magnesium Sulfate-D5w Pmx 100 100 1 gm In Dextrose/Water 1 100ml.bag @ 100 mls/hr IVPB Q1H [facility] Rx#: [id number] Norepinephrine 8 mg In 97.986 Sodium Chloride 0.9% 250 ml @ 0.05 MCG/KG/MIN 9. 918 mls/hr IV .Q24H [facility] Rx#:[id number] Oral 1010 840 Output: Urine 1060 2020 250 Stool 100 50 Other: Voiding Method Indwelling Catheter Indwelling Catheter - Exam General appearance: The patient is alert, oriented, appears in no acute distress. Obese. HET: Head is normocephalic and atraumatic. Conjunctiva pink. Sclera anicteric. Neck: Supple without lymphadenopathy. Abdomen: Soft, nontender, ostomy with soft brown stool, nondistended with bowel sounds. No guarding or rigidity. Extremities: Normal skin color and turgor. No pedal edema Skin: No rashes, no jaundice Neurological: No focal deficits. Alert and oriented x3. - Labs CBC & Chem 7: 01/17/22 06:01 01/17/22 06:01 Labs: Abnormal Lab Results - Last 24 Hours (Table) 01/17/22 01/17/22 Range/Units 06:01 06:01 RBC 3.48 L (3.80-5.40) m/uL Hgb 8.2 L (11.4-16.0) gm/dL Hct 27.1 L (34.0-46.0) % MCV 77.7 L (80.0-100.0) fL MCH 23.5 L (25.0-35.0) pg MCHC 30.2 L (31.0-37.0) g/dL RDW 15.9 H (11.5-15.5) % Plt Count 88 L (150-450) k/uL Lymphocytes # 0.5 L (1.0-4.8) k/uL Sodium 134 L (137-145) mmol/L Potassium 3.0 L (3.5-5.1) mmol/L Chloride 108 H (98-107) mmol/L Carbon Dioxide 18 L (22-30) mmol/L BUN 3 L (7-17) mg/dL Glucose 105 H (74-99) mg/dL Calcium 7.7 L (8.4-10.2) mg/dL Magnesium 1.5 L (1.6-2.3) mg/dL Microbiology - Last 24 Hours (Table) 01/15/22 00:29 Blood Culture Gram Stain - Preliminary Blood Blood Culture - Preliminary Group D Enterococcus Gram Neg Bacilli 01/14/22 23:49 Blood Culture Gram Stain - Preliminary Blood Blood Culture - Preliminary Enterobacter species Group D Enterococcus Klebsiella species Assessment and Plan (1) Hematemesis Narrative/Plan: 26-year-old female readmitted with symptoms of fever, who was recently admitted left AGAINST MEDICAL ADVICE for elevated fever, UTI, bacteremia. During that admission patient had been stating that she had vomiting blood. She had an EGD status post polypectomy, no evidence of GI bleed or peptic ulcer disease. Patient states over last 4 days she's been coughing significantly coughing up blood, and then will start vomiting and will vomit blood. Likely were dealing with a Jo-Currie tear. Patient has been admitted to the ICU to rule out recurrent sepsis. No plans on endoscopic evaluation in light of patient just recently underwent EGD with no evidence of GI bleed. Current Visit: Yes Status: Acute Code(s): K92.0 - HEMATEMESIS SNOMED Code(s): 8785677 (2) Hemoptysis Current Visit: Yes Status: Acute Code(s): R04.2 - HEMOPTYSIS SNOMED Code(s): 33650994 (3) Chronic anemia Narrative/Plan: The patient has history of chronic anemia, currently on oral iron. Current Visit: Yes Status: Acute Code(s): D64.9 - ANEMIA, UNSPECIFIED SNOMED Code(s): 798214501 (4) Fever Current Visit: Yes Status: Acute Code(s): R50.9 - FEVER, UNSPECIFIED SNOMED Code(s): 885262993 (5) FAP (familial adenomatous polyposis) Narrative/Plan: History of total colectomy in 2017 with ileostomy, February 2021 Current Visit: No Status: Acute Code(s): D12.6 - BENIGN NEOPLASM OF COLON, UNSPECIFIED SNOMED Code(s): 10412347 (6) Bacteremia Narrative/Plan: Plan for port removal tomorrow Current Visit: Yes Status: Acute Code(s): R78.81 - BACTEREMIA SNOMED Code(s): 3151181 Plan: 1. Continue symptomatic and supportive care 2. Protonix increased to 40 mg twice a day 3. Antiemetics as needed, Tigan added 4. Patient recently underwent EGD on 12/25/2021 with no evidence of GI bleed, duodenal bulb polyp status post polypectomy. No plans on endoscopic evaluation. Likely Jo Currie tear from coughing and retching. 5. Continue medical management Thank you for this consultation, we will sign off at this time. Dr. Alvaro Sofia I agree with the dictator's note, documented as a scribe by Cyndi Dempsey.
[2022-01-17] MEDS ORDERED: SODIUM CHLORIDE 0.9% 500 ML 500 ML IV ONE (11:42)
--- NOTE | 2022-01-17 14:36 | P.PN ---
Subjective Progress Note Date: 01/17/22 26-year-old female came to the hospital and see is that she came in because she left AMA last time and wanted to be treated for her bacteremia now. Patient was seen early December and left against medical advise around mid-December. Patient was comparing of abdominal pain in the left flank area 10/10 with radiating pain into the groin sharp in nature. Patient denied any other UTI symptoms her urine is not abnormal although patient was bacteremic during her last hospitalization with Enterobacter cloaca and enterococcus in the urine patient was recommended to be on IV cefepime although patient left AGAINST MEDICAL ADVICE patient doesn't have any leukocytosis on admission but the white blood cell count went up to 15,000 now at this time patient highest temperature is around 99.1. Patient to although remains hypotensive and is on pressor support. Patient does have mildly elevated liver enzymes patient is presently on lactated Ringer's because of hyperchloremia patient does have hypomagnesemia as well. During her last hospitalization source of gram-negative bacteremia was not clear patient appeared to have multifocal lesions in the lung at that time. Patient also complaining of hematemesis with gastro-oncology evaluated the patient and patient is presently in the next they are not recommending any endoscopy at this time. Patient presently doesn't have any hematemesis. Patient is presently in IC because of hypotension and patient's requirement for norepinephrine. Apart from low blood pressure patient otherwise looks good patient is also tachycardic sinus tachycardia. Infectious disease was consulted patient was bit hyponatremic which improved with IV fluids. 01/16/2022 Patient evaluated today in the intensive care unit. She continues on levophed support with blood pressure in the 90s systolic. She has been afebrile throughout the night, heart rate in the 90s, on room air. Main complaint today is right flank pain which she rates a 9/10. She is receiving IV dilaudid every 3 hours. Patient also reports emesis last night, states it was bloody. She is receiving zofran and GI is following the patient. Patient recently had EGD and no current plans to undergo endoscopy. She has had ostomy since Feb. She has port in right chest for hydration. Cultures are showing Enterobacter, Group D Enterococcus, Klebsiella and repeat continues to be positive. She is on IV cefepime, IV daptomycin and infectious disease is following patient. Vascular has been consulted for port removal. Abdominal Pelvis CT completed showing nonobstructing right renal calculi, no evidence for bowel obstruction, there is IVC filter left sided inferior vena cava, hepatic steatosis Labs reviewed today showing white count 16.0, hgb 8.6, platelet count 117, sodium 144, potassium 3.9, chloride 120, CO2 18, glucose 117, calcium 8.0, magnesium 1.9, total bili 1.6, AST normalized at 36, ALT/Alk phos stable. 01/17/2022 Patient evaluated today continues to be monitored in the intensive care unit. She was weaned off the levophed yesterday evening however she did develop tachycardia with a heart rate in the 140's, She also continues with fever 103.2 t-max today. She does have allergy to acetaminophen, she has ice packs in place, and fever did come down to 102.8. Blood pressure dropped 87/61. 12-lead EKG done showing sinus tachycardia with short [place] interval, cannot rule out atrial flutter. She complains of sharp 8/10 left sided rib pain, pleuritic. D-Dimer has been ordered. She did have elevated D-Dimer with chest CT completed previous hospital stay with possible evidence for septic emboli she did have RADHA done which was negative for valvular abnormalities or vegetation. She also had e ndoscopy done. She left AMA at that time. She continues on Lactated ringer and was given fluid bolus as well. Repeat blood cultures continue to positive for group D enterococcus, and gram negative bacilli. Continues on IV cefepime, IV daptomcyin. Infectious disease is following patient closely. Plan is for port removal tomorrow with Dr Jauregui. Also will check iron studies. Labs reviewed today showing white count 4.8, hgb 8.2, microcytic, platelets 88. Sodium 134, potassium 3.0, chloride 108, CO2 18, calcium 7.7, magnesium 1.5. Review of Systems Constitutional: Denied any fatigue denied any fever. Cardio vascular: denied any chest pain, palpitations Gastrointestinal: Reports nausea, vomiting, hematemesis Pulmonary: Denied any shortness of breath cough Neurologic denied any new focal deficits All inpatient medications were reviewed and appropriate changes in these medications as dictated in the interval history and assessment and plan. PHYSICAL EXAMINATION: GENERAL: The patient is alert and oriented x3, not in any acute distress. Well developed, well nourished. HEENT: Pupils are round and equally reacting to light. EOMI. No scleral icterus. No conjunctival pallor. Normocephalic, atraumatic. No pharyngeal erythema. No thyromegaly. CARDIOVASCULAR: S1 and S2 present. No murmurs, rubs, or gallops. PULMONARY: Chest is clear to auscultation, no wheezing or crackles. ABDOMEN: Soft, some subjective left lateral rib/abdominal tenderness but no CVA tenderness, nondistended, normoactive bowel sounds. No palpable organomegaly. Ostomy in place. MUSCULOSKELETAL: No joint swelling or deformity. EXTREMITIES: No cyanosis, clubbing, or pedal edema. NEUROLOGICAL: Gross neurological examination did not reveal any focal deficits. SKIN: No rashes. Assessment and plan -Sepsis with septic shock, patient is off levophed, pressures are in the 80s-90s systolic. She does have persistent bacteremia with enterococcus. Continues on IV antibiotics and Infectious disease is following patient. Dr Jauregui planning to remove port a cath tomorrow. Repeat blood cultures have been taken. -Tachycardia most likely from sepsis, continue on telemetry monitoring, patient did receive 2 L fluid bolus today -Hypovolemic hyponatremia -Non-anion gap metabolic acidosis secondary to hyperchloremia, continues on LR, improving -Mild acute renal failure: Hypovolemia, resolved with IV hydration -Hypomagnesemia from poor oral intake -Hypokalemia from poor oral intake, also component of diuresis from SIADH from pain, she is receiving dilaudid with caution due to hypotension. -Mild transaminitis, hepatitis panel negative, patient does have hepatic steatosis -History of familial adenomatous polyposis status post colectomy -Possible nephrolithiasis -History of migraine for which patient is on Emgality DVT prophylaxis: Lovenox monitor platelet count closely. GI Prophylaxis: Protonix Full Code Plan Continue to monitor patient closely and continue on telemetry. She has been downgraded from ICU and has been maintained of pressor support. Blood pressure did drop into the 80s to 90s systolic today and she received 2 L fluid bolus. She has tachycardia with heart rate in the 130-140s and 12 lead EKG done which we will continue to monitor heart rate closely. Vascular consulted for port re moval which is planned for tomorrow. Repeat blood cultures are pending and continue antibiotics. Continue pain management, antiemetics. Infectious disease is following patient closely as well as GI services. Repeat labs in AM. The impression and plan of care has been dictated by Bee London Nurse Practitioner as directed. Dr. Sidney MD I have performed a history and physical examination and medical decision making of this patient, discussed the same with the dictator, and agree with the dictators assessment and plan as written, documented as a scribe. Based on total visit time, I have performed more than 50% of this visit. Objective - Vital Signs Vital signs: Vital Signs Temp 102.8 F H 01/17/22 14:00 Pulse 140 H 01/17/22 14:00 Resp 24 01/17/22 14:00 BP 92/57 01/17/22 14:00 Pulse Ox 94 L 01/17/22 14:00 FiO2 Intake & Output 01/16/22 01/17/22 01/17/22 18:59 06:59 18:59 Intake Total 2787.986 2600 2810 Output Total 1160 2070 1850 Balance 1627.986 530 960 Weight 108.9 kg Intake: IV 1530 1660 1610 Cefepime 2 gm In Sodium 100 100 50 Chloride 0.9% 100 ml @ 25 mls/hr IVPB Q8HR [facility] Rx# :[id number] Lactated Ringers 1,000 ml 1430 1560 260 @ 130 mls/hr IV .Q7H42M [facility] Rx#:[id number] Lactated Ringers 1,000 ml 300 @ 75 mls/hr IV .[id number] [facility] Rx#:[id number] Lactated Ringers 1,000 ml 1000 @ 999 mls/hr IV .Q1H1M [facility] Rx#:[id number] Intake, IV Titration 247.705 331 3669 Amount DAPTOmycin 500 mg In 50 50 Sodium Chloride 0.9% 50 ml @ 100 mls/hr IVPB Q24HR [facility] Rx#:[id number] Lactated Ringers 1,000 ml 1000 @ 999 mls/hr IV .Q1H1M [facility] Rx#:[id number] Magnesium Sulfate-D5w Pmx 100 100 1 gm In Dextrose/Water 1 100ml.bag @ 100 mls/hr IVPB Q1H [facility] Rx#: [id number] Magnesium Sulfate-D5w Pmx 100 1 gm In Dextrose/Water 1 100ml.bag @ 100 mls/hr IVPB Q1H [facility] Rx#: [id number] Norepinephrine 8 mg In 97.986 Sodium Chloride 0.9% 250 ml @ 0.05 MCG/KG/MIN 9. 918 mls/hr IV .Q24H [facility] Rx#:[id number] Potassium Chloride 20 meq 50 In Water For Injection 1 100ml.bag @ 50 mls/hr IVPB Q2H [facility] Rx#: [id number] Oral 1010 840 Output: Urine 1060 2020 1850 Stool 100 50 Other: Voiding Method Indwelling Catheter Indwelling Catheter Indwelling Catheter - Labs CBC & Chem 7: 01/17/22 06:01 01/17/22 06:01 Labs: Abnormal Lab Results - Last 24 Hours (Table) 01/17/22 01/17/22 Range/Units 06:01 06:01 RBC 3.48 L (3.80-5.40) m/uL Hgb 8.2 L (11.4-16.0) gm/dL Hct 27.1 L (34.0-46.0) % MCV 77.7 L (80.0-100.0) fL MCH 23.5 L (25.0-35.0) pg MCHC 30.2 L (31.0-37.0) g/dL RDW 15.9 H (11.5-15.5) % Plt Count 88 L (150-450) k/uL Lymphocytes # 0.5 L (1.0-4.8) k/uL Sodium 134 L (137-145) mmol/L Potassium 3.0 L (3.5-5.1) mmol/L Chloride 108 H (98-107) mmol/L Carbon Dioxide 18 L (22-30) mmol/L BUN 3 L (7-17) mg/dL Glucose 105 H (74-99) mg/dL Calcium 7.7 L (8.4-10.2) mg/dL Magnesium 1.5 L (1.6-2.3) mg/dL Microbiology - Last 24 Hours (Table) 01/15/22 00:29 Blood Culture Gram Stain - Preliminary Blood Blood Culture - Preliminary Group D Enterococcus Gram Neg Bacilli 01/14/22 23:49 Blood Culture Gram Stain - Preliminary Blood Blood Culture - Preliminary Enterobacter species Group D Enterococcus Klebsiella species Assessment and Plan Time with Patient: Less than 30
[2022-01-17 16:06] LABS: Potassium 3.2 mmol/L (3.5-5.1)
[2022-01-17] MEDS: POTASSIUM CHLORIDE 10 MEQ in WATER FOR INJECTION 1 100ML.BAG IVPB SCH (22:21)
[2022-01-17 23:51] LABS: % Iron Saturation 2.4 (12.00-45.00)
[2022-01-18] MEDS: HYDROmorphone 0.5 MG/0.5 ML SYRINGE IVP PRN ×6 (01:29→21:34)
[2022-01-18] MEDS: POTASSIUM CHLORIDE 10 MEQ in WATER FOR INJECTION 1 100ML.BAG IVPB SCH ×3 (01:31→08:34)
[2022-01-18 07:28] LABS: ALT 23 U/L (4-34); AST 23 U/L (14-36); African American GFR (CKD) >90 (>60 ml/min/1.73 sqM); Albumin 2.4 g/dL (3.5-5.0); Alkaline Phosphatase 95 U/L (38-126); Anion Gap 6 mmol/L; Blood Urea Nitrogen 9 mg/dL (7-17); Calcium 8.2 mg/dL (8.4-10.2); Carbon Dioxide 21 mmol/L (22-30); Chloride 113 mmol/L (98-107); Glucose 98 mg/dL (74-99); Magnesium 1.9 mg/dL (1.6-2.3); Non-African American GFR(CKD) >90 (>60 ml/min/1.73 sqM); Sodium 140 mmol/L (137-145); Total Bilirubin 0.7 mg/dL (0.2-1.3); Total Protein 5.2 g/dL (6.3-8.2)
[2022-01-18 07:48] LABS: Anisocytosis Slight; HGB 7.9 gm/dL (11.4-16.0); Hypochromasia Marked; MCH 23.9 pg (25.0-35.0); MCHC 31.6 g/dL (31.0-37.0); MCV 75.6 fL (80.0-100.0); Mean Platelet Volume 11.5; Microcytosis Slight; Poikilocytosis Slight; RBC 3.31 m/uL (3.80-5.40); RDW 16.2 % (11.5-15.5); WBC 3.4 k/uL (3.8-10.6)
[2022-01-18 07:50] LABS: Platelet Count 61 k/uL (150-450)
[2022-01-18] MEDS: CEFEPIME 2 GM in SODIUM CHLORIDE 0.9% 100 ML IVPB SCH ×4 (08:35→23:58)
[2022-01-18 08:39] LABS: Eosinophils # (M) 0.14 k/uL (0-0.7); Lymphocytes # (M) 0.95 k/uL (1.0-4.8); Monocytes # (M) 0.03 k/uL (0-1.0); Neutrophils # (M) 2.28 k/uL (1.3-7.7); Neutrophils % (M) 67 %; Nucleated Red Blood Cells 0 /100 WBC (0-0); Total Cells Counted 100
[2022-01-18 08:42] LABS: Poikilocytosis (M) Present
[2022-01-18] MEDS: PANTOPRAZOLE 40 MG/10 ML VIAL IVP SCH ×3 (08:48→20:33)
--- NOTE | 2022-01-18 08:59 | NM ---
EXAMINATION TYPE: NM pul perfusion DATE OF EXAM: 01/18/2022 COMPARISON: Chest 01/15/2022 INDICATION: Patient age:Female; 26 years old; Reason for study: rule out PE; TECHNIQUE: Following administration of 5.2 mCi Tc 99m MAA. Images obtained post injection. FINDING: There is symmetrical and homogenous flow to the lung [place] bilaterally. Delayed images demonstrate n o perfusion abnormalities. No segmental defects are noted. IMPRESSION: PE absent by perfusion only modified PIOPED II criteria.
[2022-01-18] MEDS: ENOXAPARIN 40 MG/0.4 ML SYRINGE SQ SCH (09:02)
[2022-01-18] MEDS: LACTATED RINGERS 1,000 ML IV SCH ×7 (09:03→20:32)
--- NOTE | 2022-01-18 09:17 | P.PN ---
Subjective Progress Note Date: 01/18/22 Principal diagnosis: Sepsis. Pulmonary consult dated 01/15/2022. 26-year-old female, recently saw here in the hospital last month I believe. The patient has a history of multiple medical problems including asthma, Clostridium difficile infection, vancomycin-resistant enterococci, and a previous history of bowel resection for familial adenomatous polyposis. The patient also has a history of kidney stone, and an IVC filter placement. She apparently was on cefepime and gentamicin as an outpatient. The patient apparently came into the hospital with fever, and coughing up blood. There is not much in the way of information provided by the ER physician. I did speak to the ER physician last night. The patient was accepted into the intensive care unit, for possible seps is, and hypotension. The patient's on room air. She's getting saline at 130 mL an hour. I've asked the nurses to convert her to lactated Ringer's. She Hospital between December 24 of December 27, of this year, and left AMA, because her stepdad apparently was involved in a car accident, and . I've asked the nurses to give her 2 L of lactated Ringer's, check a cortisol level, and add norepinephrine, if we can get a mean of 65. White count 5.1, hemoglobin 9.4, Macrobid 31.1, white count was not noted. Sodium 138, potassium 4.7, chlorides 116, CO2 12, BUN 12, creatinine 1.08. AST is 56 with an ALT of 40. Albumin 2.8. TSH is normal. Cortisol level is pending. Urine appears to be relatively clean. Previous blood cultures and urine cultures have shown Enterobacter cloacae, and VRE in the urine. The patient's chest x-ray is normal. Progress note dated 01/16/2022. This is a patient well-known to me. She was recently in the hospital a couple weeks back. She was readmitted with a diagnosis of sepsis. She came into the emergency room, with fever, and hypotension. Blood cultures did come back for Enterobacter, group D enterococcus, and Klebsiella. Currently, the patient is on cefepime and daptomycin. She is on room air. The patient is receiving norepinephrine at 0.05 mcg/kg/m, and lactated Ringer's at 130 mL an hour. White count 16, hemoglobin 8.6, hematocrit 28, and platelet count 217,000. Sodium 144, potassium 3.9, chlorides 120, CO2 18, BUN 9, and creatinine 0.56. Cortisol level was 35. CT of the abdomen and pelvis showed no evidence of obstructive uropathy, a nonobstructing right renal stone, postsurgical changes to the colon with ostomy, Avitia catheter, an IVC filter. Progress note dated 01/17/2022. 26-year-old female again seen in room 260. The patient stable. Norepinephrine has been weaned off. She is on room air. She's getting lactated Ringer's at 130 mL an hour, to be reduced down to 75 mL an hour. The patient can be transferred to general medical floor without telemetry. We can advance her diet. She's currently on cefepime and daptomycin as per infectious diseases. White count 4.8, hemoglobin 8.2, hematocrit 27.1, with a platelet count of 88,000. Sodium 134, potassium 3, chlorides 108, CO2 18, BUN 3, and creatinine 0.56. Microbiologic studies are showing group D enterococcus and gram-negative bacilli in the blood from January 15 and and her back to species, group D enterococcus, and Klebsiella species in the blood from January 14. Progress note dated 01/18/2022. 26-year-old female again seen in room 260. The primary service ordered a ventilation perfusion lung scan, which we felt was unnecessary, canceled. She does have a IVC filter in place. She was on norepinephrine for a brief period of time, but that has been weaned off. The patient is currently on room air. She is getting lactated Ringer's at 75 mL an hour. She's getting cefepime and daptomycin as antibiotics, as per infectious diseases. The patient can be transferred out to the general medical floor. White count 3.4, hemoglobin 7.9, hematocrit 25, and platelet count 61,000. Sodium 140, potassium 4, chlorides 113, CO2 21, with a BUN and creatinine 9 and 0.43. Albumin is 2.4. Coronavirus status was checked, but was negative. The perfusion portion of the ventilation perfusion lung scan was done only, and was negative. Blood cultures from January 14 were positive for Enterobacter, group D enterococcus, and Klebsiella, while blood cultures from January 15, were positive for Klebsiella, and group D enterococcus. Objective - Vital Signs Vital signs: Vital Signs Temp 97.9 F 01/18/22 08:00 Pulse 109 H 01/18/22 08:00 Resp 24 01/18/22 08:00 BP 107/69 01/18/22 08:00 Pulse Ox 98 01/18/22 08:00 FiO2 Intake & Output 01/17/22 01/18/22 01/18/22 18:59 06:59 18:59 Intake Total 2885 1340 Output Total 3550 975 Balance -665 365 Intake: IV 1685 500 Cefepime 2 gm In Sodium 50 Chloride 0.9% 100 ml @ 25 mls/hr IVPB Q8HR [facility] Rx# :[id number] Lactated Ringers 1,000 ml 260 @ 130 mls/hr IV .Q7H42M [facility] Rx#:[id number] Lactated Ringers 1,000 ml 375 500 @ 75 mls/hr IV .[id number] [facility] Rx#:[id number] Lactated Ringers 1,000 ml 1000 @ 999 mls/hr IV .Q1H1M [facility] Rx#:[id number] Intake, IV Titration 1200 300 Amount DAPTOmycin 500 mg In 50 Sodium Chloride 0.9% 50 ml @ 100 mls/hr IVPB Q24HR [facility] Rx#:[id number] Lactated Ringers 1,000 ml 1000 @ 999 mls/hr IV .Q1H1M [facility] Rx#:[id number] Magnesium Sulfate-D5w Pmx 100 1 gm In Dextrose/Water 1 100ml.bag @ 100 mls/hr IVPB Q1H [facility] Rx#: [id number] Potassium Chloride 10 meq 300 In Water For Injection 1 100ml.bag @ 100 mls/hr IVPB Q1HR [facility] Rx#: [id number] Potassium Chloride 20 meq 50 In Water For Injection 1 100ml.bag @ 50 mls/hr IVPB Q2H [facility] Rx#: [id number] Oral 540 Output: Urine 3350 900 Stool 200 75 Other: Voiding Method Indwelling Catheter - Exam No acute distress, oriented 3. Currently on room air. Saturations are 98 %. HEENT examination is grossly unremarkable. Neck supple. Full range of motion. No adenopathy thyromegaly or neck vein distention. Cardiovascular examination reveals regular rhythm rate. S1-S2 normal. No S3 or S4. No discernible murmur noted. Heart rate 96 bpm. Lungs reveal clear breath sounds. Breath sounds are equal bilaterally. No adventitious lung sounds including wheezes rhonchi or crackles. Abdomen soft bowel sounds are heard. No masses or tenderness. Extremities are intact. No cyanosis clubbing or edema. Skin is without rash or lesion. Neurologic examination is brief but nonfocal. - Labs CBC & Chem 7: 01/18/22 06:26 01/18/22 06:26 Labs: Abnormal Lab Results - Last 24 Hours (Table) 01/17/22 01/17/22 01/18/22 Range/Units 15:28 15:28 06:26 WBC (3.8-10.6) k/uL RBC (3.80-5.40) m/uL Hgb (11.4-16.0) gm/dL Hct (34.0-46.0) % MCV (80.0-100.0) fL MCH (25.0-35.0) pg RDW (11.5-15.5) % Plt Count (150-450) k/uL Lymphocytes # (Manual) (1.0-4.8) k/uL D-Dimer 5.03 H (<0.60) mg/L FEU Potassium 3.2 L (3.5-5.1) mmol/L Chloride 113 H (98-107) mmol/L Carbon Dioxide 21 L (22-30) mmol/L Creatinine 0.43 L (0.52-1.04) mg/dL Calcium 8.2 L (8.4-10.2) mg/dL Iron 7 L (50-170) ug/dL % Saturation 2.40 L (12.00-45.00) Total Protein 5.2 L (6.3-8.2) g/dL Albumin 2.4 L (3.5-5.0) g/dL 01/18/22 Range/Units 06:26 WBC 3.4 L (3.8-10.6) k/uL RBC 3.31 L (3.80-5.40) m/uL Hgb 7.9 L (11.4-16.0) gm/dL Hct 25.0 L (34.0-46.0) % MCV 75.6 L (80.0-100.0) fL MCH 23.9 L (25.0-35.0) pg RDW 16.2 H (11.5-15.5) % Plt Count 61 L (150-450) k/uL Lymphocytes # (Manual) 0.95 L (1.0-4.8) k/uL D-Dimer (<0.60) mg/L FEU Potassium (3.5-5.1) mmol/L Chloride (98-107) mmol/L Carbon Dioxide (22-30) mmol/L Creatinine (0.52-1.04) mg/dL Calcium (8.4-10.2) mg/dL Iron (50-170) ug/dL % Saturation (12.00-45.00) Total Protein (6.3-8.2) g/dL Albumin (3.5-5.0) g/dL Microbiology - Last 24 Hours (Table) 01/17/22 06:01 Blood Culture - Final Blood 01/17/22 17:48 Blood Culture Gram Stain - Preliminary Blood 01/17/22 21:06 Blood Culture Gram Stain - Preliminary Blood 01/17/22 12:45 Blood Culture - Final Blood 01/16/22 16:45 Blood Culture - Final Blood 01/15/22 00:29 Blood Culture Gram Stain - Preliminary Blood Blood Culture - Preliminary Klebsiella pneumoniae Group D Enterococcus 01/14/22 23:49 Blood Culture Gram Stain - Preliminary Blood Blood Culture - Preliminary Enterobacter species Group D Enterococcus Klebsiella pneumoniae Assessment and Plan Assessment: Fever, with hypotension, rule out recurrent sepsis either from a blood or urinary source, with blood cultures showing evidence of Enterobacter species, group D enterococcus, and Klebsiella. Patient currently on cefepime and daptomycin. Prior history of vancomycin-resistant enterococci urinary tract infection, and Enterobacter cloacae bacteremia. Recurrent nephrolithiasis. History of mild intermittent asthma. Prior history of gastrointestinal bleeding. History of FAP, status post ileostomy. Numerous ALLERGIES. History of IVC placement, mid 2021. Migraine headaches. Chronic anxiety. Plan: Plan dated 01/15/2022. The patient's IV fluids will be switched to a balanced salt solution, i.e. lactated Ringer's. The patient will get 2 L of fluid, and if the blood pressure is not 65, mean, we will add norepinephrine. We'll check a stat cortisol level. The patient's antibiotics including cefepime and gentamicin are restarted. The patient's currently on room air. Labs, x-rays, and medications are reviewed. Also, her last admission from December 24 through December 27, are reviewed. We will continue to follow and make recommendations where appropriate. Plan dated 01/16/2022. The patient's blood cultures were positive for Enterobacter, group D enteroc occus, and Klebsiella. The patient is currently on cefepime and daptomycin. The patient is receiving norepinephrine for blood pressure support. She is at 0.05 mcg/kg/m. Receiving lactated Ringer's at 130 mL an hour. Labs, x-rays, and medications are reviewed. Additional recommendations and suggestions are forthcoming. Prognosis is guarded. Plan dated 01/17/2022. The patient remains on lactated Ringer's. Norepinephrine has been weaned off. The patient's on daptomycin and cefepime as per infectious diseases. Microbiology has been reviewed. She's on room air. The diet can be advanced. The patient can be transferred to the general medical floor with telemetry. No additional recommendations are made. Respiratory status is stable. Plan dated 01/18/2022. The patient's ventilation perfusion lung scan was only a perfusion lung scan, and was negative. The patient had a IVC filter in place anyway, and could not receive any blood in his, as she has had a previous GI bleed. It wasn't unnecessary test. Currently, the patient's on room air. She's getting lactated Ringer's at 75 mL an hour. She is receiving cefepime and daptomycin for infections. The patient stable for transfer out of the intensive care unit. Room air saturation 98%. Overall prognosis remains guarded. Time with Patient: Less than 30
[2022-01-18 11:54] LABS: Glucose,Whole Blood 85 mg/dL (70-110)
[2022-01-18] MEDS: DAPTOmycin 500 MG in SODIUM CHLORIDE 0.9% 50 ML IVPB SCH (12:12)
[2022-01-18] MEDS ORDERED: KETAMINE 10 MG/ML 20 ML VIAL ONE (12:50)
[2022-01-18] MEDS ORDERED: diphenhydrAMINE 50 MG/ML 1 ML VIAL ONE (12:50)
[2022-01-18] MEDS ORDERED: ONDANSETRON 4 MG/2 ML VIAL ONE (12:50)
[2022-01-18] MEDS ORDERED: fentaNYL (PF) 50 MCG/ML 2 ML AMP ONE (12:50)
[2022-01-18] MEDS ORDERED: MIDAZOLAM 2 MG/2 ML VIAL ONE (12:50)
[2022-01-18] MEDS ORDERED: PROPOFOL 10 MG/ML 20 ML VIAL IV ONE (12:50)
[2022-01-18] MEDS ORDERED: LIDOCAINE 1% INJ 10MG/ML (30 ML VIAL-PF) SQ ONE (13:38)
--- NOTE | 2022-01-18 15:45 | P.PN ---
Subjective Progress Note Date: 01/18/22 26-year-old female came to the hospital and see is that she came in because she left AMA last time and wanted to be treated for her bacteremia now. Patient was seen early December and left against medical advise around mid-December. Patient was comparing of abdominal pain in the left flank area 10/10 with radiating pain into the groin sharp in nature. Patient denied any other UTI symptoms her urine is not abnormal although patient was bacteremic during her last hospitalization with Enterobacter cloaca and enterococcus in the urine patient was recommended to be on IV cefepime although patient left AGAINST MEDICAL ADVICE patient doesn't have any leukocytosis on admission but the white blood cell count went up to 15,000 now at this time patient highest temperature is around 99.1. Patient to although remains hypotensive and is on pressor support. Patient does have mildly elevated liver enzymes patient is presently on lactated Ringer's because of hyperchloremia patient does have hypomagnesemia as well. During her last hospitalization source of gram-negative bacteremia was not clear patient appeared to have multifocal lesions in the lung at that time. Patient also complaining of hematemesis with gastro-oncology evaluated the patient and patient is presently in the next they are not recommending any endoscopy at this time. Patient presently doesn't have any hematemesis. Patient is presently in IC because of hypotension and patient's requirement for norepinephrine. Apart from low blood pressure patient otherwise looks good patient is also tachycardic sinus tachycardia. Infectious disease was consulted patient was bit hyponatremic which improved with IV fluids. 01/16/2022 Patient evaluated today in the intensive care unit. She continues on levophed support with blood pressure in the 90s systolic. She has been afebrile throughout the night, heart rate in the 90s, on room air. Main complaint today is right flank pain which she rates a 9/10. She is receiving IV dilaudid every 3 hours. Patient also reports emesis last night, states it was bloody. She is receiving zofran and GI is following the patient. Patient recently had EGD and no current plans to undergo endoscopy. She has had ostomy since Feb. She has port in right chest for hydration. Cultures are showing Enterobacter, Group D Enterococcus, Klebsiella and repeat continues to be positive. She is on IV cefepime, IV daptomycin and infectious disease is following patient. Vascular has been consulted for port removal. Abdominal Pelvis CT completed showing nonobstructing right renal calculi, no evidence for bowel obstruction, there is IVC filter left sided inferior vena cava, hepatic steatosis Labs reviewed today showing white count 16.0, hgb 8.6, platelet count 117, sodium 144, potassium 3.9, chloride 120, CO2 18, glucose 117, calcium 8.0, magnesium 1.9, total bili 1.6, AST normalized at 36, ALT/Alk phos stable. 01/17/2022 Patient evaluated today continues to be monitored in the intensive care unit. She was weaned off the levophed yesterday evening however she did develop tachycardia with a heart rate in the 140's, She also continues with fever 103.2 t-max today. She does have allergy to acetaminophen, she has ice packs in place, and fever did come down to 102.8. Blood pressure dropped 87/61. 12-lead EKG done showing sinus tachycardia with short NE interval, cannot rule out atrial flutter. She complains of sharp 8/10 left sided rib pain, pleuritic. D-Dimer has been ordered. She did have elevated D-Dimer with chest CT completed previous hospital stay with possible evidence for septic emboli she did have RADHA done which was negative for valvular abnormalities or vegetation. She also had e ndoscopy done. She left AMA at that time. She continues on Lactated ringer and was given fluid bolus as well. Repeat blood cultures continue to positive for group D enterococcus, and gram negative bacilli. Continues on IV cefepime, IV daptomcyin. Infectious disease is following patient closely. Plan is for port removal tomorrow with Dr Jauregui. Also will check iron studies. Labs reviewed today showing white count 4.8, hgb 8.2, microcytic, platelets 88. Sodium 134, potassium 3.0, chloride 108, CO2 18, calcium 7.7, magnesium 1.5. 01/18/2022 Patient evaluated today in intensive care unit she has been downgraded to medical floor when bed available. D-Dimer was elevated which pulmonary perfusion was ordered and pulmonary team recommended against and primary team agreed that patient did not need to undergo. She does continue with persistent bacteremia showing gram positive bacilli and gram negative bacilli. Infectious disease is following and patient continues on IV daptomycin and IV cefepime. She is scheduled to undergo port removal today with Dr Jauregui and blood cultures were also repeated today. Labs reviewed today showing white count 3.4, hgb 7.9, platelet count decreased to 61 which lovenox was held for today. VTE prophylaxis has been changed to low dose arixtra in place of lovenox as platelet count has dropped to 61 since being started on lovenox. It was held today for port removal. If okay with vascular can begin arixtra in the morning. She continues on lovephed and blood pressure in the low 100s/60s. Heart rate has also improved she is now in the 90s to low 100s sinus tachycardia. She has remained afebrile in the last 24 hours. She reports she is having less frequent stool from her ostomy as usual. Also reports nausea and did vomit twice last night she states. There is zofran and Tigan on as needed. Labs reviewed; sodium 140, potassium 4.0, chloride 113, CO2 21, Bun 9, creatinine 0.43, calcium 8.2, magnesium 1.9. Iron studies review continue to monitor hemoglobin Review of Systems Constitutional: Denied any fatigue, denies fever. Cardio vascular: denied any chest pain, palpitations Gastrointestinal: Reports nausea, vomiting. Pulmonary: Denied any shortness of breath cough Neurologic denied any new focal deficits All inpatient medications were reviewed and appropriate changes in these medications as dictated in the interval history and assessment and plan. PHYSICAL EXAMINATION: GENERAL: The patient is alert and oriented x3, not in any acute distress. Well developed, well nourished. HEENT: Pupils are round and equally reacting to light. EOMI. No scleral icterus. No conjunctival pallor. Normocephalic, atraumatic. No pharyngeal erythema. No thyromegaly. CARDIOVASCULAR: S1 and S2 present. No murmurs, rubs, or gallops. PULMONARY: Chest is clear to auscultation, no wheezing or crackles. ABDOMEN: Soft, some subjective left lateral rib/abdominal tenderness but no CVA tenderness, nondistended, normoactive bowel sounds. No palpable organomegaly. Ostomy in place. with small amount of brown liquid stool in ostomy bag. MUSCULOSKELETAL: No joint swelling or deformity. EXTREMITIES: No cyanosis, clubbing, or pedal edema. NEUROLOGICAL: Gross neurological examination did not reveal any focal deficits. SKIN: No rashes. Assessment and plan -Sepsis with septic shock, patient is off levophed blood pressures have improved. She does have persistent bacteremia. Continues on IV antibiotics and Infectious disease is following patient. Dr Jauregui planning to remove port a cath. Repeat blood cultures have been taken. -Tachycardia most likely from sepsis, continue on telemetry monitoring, improved -Hypovolemic hyponatremia resolved -Chronic anemia monitor hgb closely -Non-anion gap metabolic acidosis secondary to hyperchloremia, continues on LR, improving -Mild acute renal failure: Hypovolemia, resolved with IV hydration -Hypomagnesemia from poor oral intake resolved -Hypokalemia from poor oral intake, also component of diuresis from SIADH from pain, she is receiving dilaudid with caution due to hypotension, improved -Mild transaminitis, hepatitis panel negative, patient does have hepatic steatosis, improved -History of familial adenomatous polyposis status post colectomy -Possible nephrolithiasis -History of migraine for which patient is on Emgality DVT prophylaxis: Arixtra when cleared by vascular GI Prophylaxis: Protonix Full Code Plan Plan for port a cath removal today, patient can resume diet after Continue antibiotics, infectious disease following patient closely Blood cultures pending, repeat cultures taken today she continues with persistent bacteremia Repeat CBC in AM Discontinue lovenox, can begin arixtra for prophylaxis she is high risk for DVT, she does have IVC filter in place GI services has signed off The impression and plan of care has been dictated by Bee London, Nurse Practitioner as directed. Dr. Sidney MD I have performed a history and physical examination and medical decision making of this patient, discussed the same with the dictator, and agree with the dictators assessment and plan as written, documented as a scribe. Based on total visit time, I have performed more than 50% of this visit. Objective - Vital Signs Vital signs: Vital Signs Temp 97.9 F 01/18/22 08:00 Pulse 109 H 01/18/22 08:00 Resp 24 01/18/22 08:00 BP 107/69 01/18/22 08:00 Pulse Ox 98 01/18/22 12:17 FiO2 Intake & Output 01/17/22 01/18/22 01/18/22 18:59 06:59 18:59 Intake Total 2885 1340 375 Output Total 3550 975 580 Balance -665 365 -205 Intake: IV 1685 500 375 Cefepime 2 gm In Sodium 50 Chloride 0.9% 100 ml @ 25 mls/hr IVPB Q8HR RADHA Rx# :[id number] Lactated Ringers 1,000 ml 260 @ 130 mls/hr IV .[id number] RADHA Rx#:[id number] Lactated Ringers 1,000 ml 375 500 375 @ 75 mls/hr IV .[id number] RADHA Rx#:[id number] Lactated Ringers 1,000 ml 1000 @ 999 mls/hr IV .Q1H1M RADHA Rx#:[id number] Intake, IV Titration 1200 300 Amount DAPTOmycin 500 mg In 50 Sodium Chloride 0.9% 50 ml @ 100 mls/hr IVPB Q24HR RADHA Rx#:[id number] Lactated Ringers 1,000 ml 1000 @ 999 mls/hr IV .Q1H1M RADHA Rx#:[id number] Magnesium Sulfate-D5w Pmx 100 1 gm In Dextrose/Water 1 100ml.bag @ 100 mls/hr IVPB Q1H RADHA Rx#: [id number] Potassium Chloride 10 meq 300 In Water For Injection 1 100ml.bag @ 100 mls/hr IVPB Q1HR RADHA Rx#: [id number] Potassium Chloride 20 meq 50 In Water For Injection 1 100ml.bag @ 50 mls/hr IVPB Q2H RADHA Rx#: [id number] Oral 540 Output: Urine 3350 900 575 Stool 200 75 Estimated Blood Loss 5 Other: Voiding Method Indwelling Catheter Indwelling Catheter - Labs CBC & Chem 7: 01/18/22 06:26 01/18/22 06:26 Labs: Abnormal Lab Results - Last 24 Hours (Table) 01/17/22 01/17/22 01/17/22 Range/Units 06:01 15:28 15:28 WBC (3.8-10.6) k/uL RBC (3.80-5.40) m/uL Hgb (11.4-16.0) gm/dL Hct (34.0-46.0) % MCV (80.0-100.0) fL MCH (25.0-35.0) pg RDW (11.5-15.5) % Plt Count (150-450) k/uL Lymphocytes # (Manual) (1.0-4.8) k/uL D-Dimer 5.03 H (<0.60) mg/L FEU Potassium 3.2 L (3.5-5.1) mmol/L Chloride (98-107) mmol/L Carbon Dioxide (22-30) mmol/L Creatinine (0.52-1.04) mg/dL Calcium (8.4-10.2) mg/dL Iron 7 L (50-170) ug/dL % Saturation 2.40 L (12.00-45.00) Ferritin 312.0 H (10.0-291.0) ng/mL Total Protein (6.3-8.2) g/dL Albumin (3.5-5.0) g/dL 01/18/22 01/18/22 Range/Units 06:26 06:26 WBC 3.4 L (3.8-10.6) k/uL RBC 3.31 L (3.80-5.40) m/uL Hgb 7.9 L (11.4-16.0) gm/dL Hct 25.0 L (34.0-46.0) % MCV 75.6 L (80.0-100.0) fL MCH 23.9 L (25.0-35.0) pg RDW 16.2 H (11.5-15.5) % Plt Count 61 L (150-450) k/uL Lymphocytes # (Manual) 0.95 L (1.0-4.8) k/uL D-Dimer (<0.60) mg/L FEU Potassium (3.5-5.1) mmol/L Chloride 113 H (98-107) mmol/L Carbon Dioxide 21 L (22-30) mmol/L Creatinine 0.43 L (0.52-1.04) mg/dL Calcium 8.2 L (8.4-10.2) mg/dL Iron (50-170) ug/dL % Saturation (12.00-45.00) Ferritin (10.0-291.0) ng/mL Total Protein 5.2 L (6.3-8.2) g/dL Albumin 2.4 L (3.5-5.0) g/dL Microbiology - Last 24 Hours (Table) 01/17/22 06:01 Blood Culture - Final Blood 01/17/22 17:48 Blood Culture Gram Stain - Preliminary Blood 01/17/22 21:06 Blood Culture Gram Stain - Preliminary Blood 01/17/22 12:45 Blood Culture - Final Blood 01/16/22 16:45 Blood Culture - Final Blood 01/15/22 00:29 Blood Culture Gram Stain - Preliminary Blood Blood Culture - Preliminary Klebsiella pneumoniae Group D Enterococcus 01/14/22 23:49 Blood Culture Gram Stain - Preliminary Blood Blood Culture - Preliminary Enterobacter species Group D Enterococcus Klebsiella pneumoniae Assessment and Plan Time with Patient: Less than 30
[2022-01-18] MEDS ORDERED: HYDROmorphone 0.5 MG/0.5 ML SYRINGE IVP STA (16:15)
[2022-01-18 16:30] VITALS: RESP 16
[2022-01-18] MEDS: ONDANSETRON 4 MG/2 ML VIAL IVP PRN (21:34)
[2022-01-19] MEDS: HYDROmorphone 0.5 MG/0.5 ML SYRINGE IVP PRN ×4 (00:38→09:36)
--- NOTE | 2022-01-19 01:22 | OP ---
OPERATIVE REPORT PREOPERATIVE DIAGNOSIS: Port-A-Cath. POSTOPERATIVE DIAGNOSIS: Port-A-Cath. PROCEDURE: Removal of Port-A-Cath and tip of the catheter was sent for culture and sensitivity. ANESTHESIA: Local IV sedation. DESCRIPTION OF PROCEDURE: The patient was brought to the operating room, and right side of the chest was prepped and draped in a sterile manner. Under local IV sedation, incision was made on the anterior chest wall, deepened to the skin and fascia. Dissection was carried out around the Port-A-Cath. Port-A-Cath was removed, and tip of the catheter was sent for culture and sensitivity. The wound was irrigated with saline. Hemostasis was well controlled and incision was closed in 2 layers using 3-0 Vicryl, and skin closed with Monocryl with running suture. Dressing applied. The patient tolerated the procedure well. The patient was transferred to recovery room in a satisfactory condition. MMODL / IJN: [id number] /
[2022-01-19 05:54] VITALS: BP 92/61; PULSE 110; TEMP 98.4
[2022-01-19] MEDS: PANTOPRAZOLE 40 MG/10 ML VIAL IVP SCH (08:52)
[2022-01-19] MEDS: DAPTOmycin 500 MG in SODIUM CHLORIDE 0.9% 50 ML IVPB SCH (08:52)
[2022-01-19] MEDS ORDERED: FONDAPARINUX 2.5 MG/0.5 ML SYRINGE SQ SCH (09:00)
[2022-01-19] MEDS: CEFEPIME 2 GM in SODIUM CHLORIDE 0.9% 100 ML IVPB SCH (09:36)
--- NOTE | 2022-01-19 11:31 | P.PN ---
Subjective Progress Note Date: 01/19/22 Principal diagnosis: Sepsis On 01/19/2022 patient seen in follow-up. Yesterday she was transferred out of intensive care unit to regular medical surgical floor. No acute events overnight, still complaining of some chest discomfort, requiring IV Dilaudid for pain control. Yesterday patient had her MediPort removed. She remains on IV antibiotics with a combination of cefepime, daptomycin. We canceled the VQ scan yesterday however perfusion portion of it was completed showing no evidence of pulmonary embolism by perfusion. Patient was started on fondaparinux 2.5 mg viji ly by the hospitalist service. Platelet level today is 61,000, hemoglobin is 7.9, patient did have GI bleeding during her previous admission recently. She has a history of IVC filter placement in October 2021. Patient is in sinus mechanism, rate is controlled, blood pressure has been stable, today's labs have been reviewed. Objective - Vital Signs Vital signs: Vital Signs Temp 98.4 F 01/19/22 05:00 Pulse 110 H 01/19/22 05:00 Resp 16 01/19/22 05:00 BP 92/61 01/19/22 05:00 Pulse Ox 97 01/19/22 05:00 FiO2 Intake & Output 01/18/22 01/19/22 01/19/22 18:59 06:59 18:59 Intake Total 725 1430 Output Total 980 75 Balance -255 1355 Intake: IV 725 Cefepime 2 gm In Sodium 150 Chloride 0.9% 100 ml @ 25 mls/hr IVPB Q8HR RADHA Rx# :[id number] Lactated Ringers 1,000 ml 575 @ 75 mls/hr IV .[id number] RADHA Rx#:[id number] Oral 1430 Output: Urine 975 Stool 75 Estimated Blood Loss 5 Other: Voiding Method Indwelling Catheter Indwelling Catheter Indwelling Catheter # Voids 2 - Exam GENERAL EXAM: 26-year-old female patient resting quietly in bed, breathing comfortably, on room air with pulse ox of 97%, comfortable in no apparent distress. HEAD: Normocephalic/atraumatic. EYES: Normal reaction of pupils, equal size. Conjunctiva pink, sclera white. NOSE: Clear with pink turbinates. THROAT: No erythema or exudates. NECK: No masses, no JVD, no thyroid enlargement, no adenopathy. CHEST: No chest wall deformity. Symmetrical expansion. LUNGS: Equal air entry with no crackles, wheeze, rhonchi or dullness. CVS: Regular rate and rhythm, normal S1 and S2, no gallops, no murmurs, no rubs ABDOMEN: Soft, nontender. No hepatosplenomegaly, normal bowel sounds, no guarding or rigidity. EXTREMITIES: No clubbing, no edema, no cyanosis, 2+ pulses and upper and lower extremities. MUSCULOSKELETAL: Muscle strength and tone normal. SPINE: No scoliosis or deformity SKIN: No rashes CENTRAL NERVOUS SYSTEM: Alert and oriented -3. No focal deficits, tone is normal in all 4 extremities. PSYCHIATRIC: Alert and oriented -3. Appropriate affect. Intact judgment and insight. - Labs CBC & Chem 7: 01/18/22 06:26 01/18/22 06:26 Labs: Abnormal Lab Results - Last 24 Hours (Table) 01/15/22 Range/Units 01:20 Crossmatch See Detail Microbiology - Last 24 Hours (Table) 01/15/22 00:29 Blood Culture Gram Stain - Final Blood Blood Culture - Final Klebsiella pneumoniae Enterococcus faecium 01/14/22 23:49 Blood Culture Gram Stain - Final Blood Blood Culture - Final Enterobacter species Enterococcus faecalis Klebsiella pneumoniae Enterococcus faecium 01/17/22 06:01 Blood Culture Gram Stain - Preliminary Blood Blood Culture - Preliminary Gram Neg Bacilli 01/17/22 21:06 Blood Culture Gram Stain - Final Blood Blood Culture - Final Bacillus species Not Anthracis Assessment and Plan Plan: Assessment: #1. Bacteremia with blood culture showing Enterobacter species, group D enterococcus, and Klebsiella. Patient is currently on cefepime and daptomycin. MediPort has been removed on 01/18/2022, ID service is following #2. Prior history of vancomycin-resistant enterococci urinary tract infection and Enterobacter claudicate bacteremia #3. Elevated d-dimer, with perfusion scan negative for pulmonary embolism, nonspecific, patient does have a IVC filter in place placed in October 2021 #4. History of GI bleeding in December 2021, with history of ulcer disease and bleeding ulcers in the past. #5. History of FAP status post ileostomy #6. Numerous ALLERGIES #7. History of mild intermittent bronchial asthma #8. History of IVC placement in October 2021 #9. Migraine headaches #10. Chronic anxiety Plan: Patient is breathing comfortably, she is on room air Continue antibiotics per ID service recommendations MediPort has been removed Monitor for recurrence of GI bleeding as patient had recent history of GI bleeding in December 2021 Pulmonary service will sign off, see as needed I have personally seen and examined the patient, performed the documentation and the assessment and plan as written. Number of minutes spent on the visit: 10 Time with Patient: Less than 30
[2022-01-19] MEDS ORDERED: HYDROcodone/APAP 5-325MG 1 EACH TAB PO PRN ×2 (12:47→12:54)
--- NOTE | 2022-01-19 13:34 | P.PN ---
Subjective Progress Note Date: 01/17/22 Principal diagnosis: Bacteremia Patient is a 26-year-old female with a past medical history significant for familial adenomatosis polyposis in this patient status post co lectomy and ileostomy the patient also have a Mediport that has been placed few years ago for IV access patient was recently admitted at this facility and the patient did have Enterobacter bacteremia which was thought to be related to the Mediport and there was a concern for a septic emboli to the lungs RADHA was negative, patient left AMA and subsequently presented back to the hospital with throwing up blood and fever and did have evidence of bacteremia. On today's evaluation that is 01/17/2022, the patient remains to be afebrile, the patient is breathing comfortably on nasal cannula oxygen, the patient denies chest pain is complaining of some shortness of breath , still have nausea but no further vomiting and abdominal pain no diarrhea Objective - Vital Signs Vital signs: Vital Signs Temp 102.8 F H 01/17/22 14:00 Pulse 117 H 01/17/22 16:10 Resp 24 01/17/22 14:00 BP 104/48 01/17/22 16:10 Pulse Ox 96 01/17/22 16:10 FiO2 Intake & Output 01/16/22 01/17/22 01/17/22 18:59 06:59 18:59 Intake Total 2787.986 2600 2885 Output Total 1160 2070 2150 Balance 1627.986 530 735 Weight 108.9 kg Intake: IV 1530 1660 1685 Cefepime 2 gm In Sodium 100 100 50 Chloride 0.9% 100 ml @ 25 mls/hr IVPB Q8HR [facility] Rx# :[id number] Lactated Ringers 1,000 ml 1430 1560 260 @ 130 mls/hr IV .Q7H42M RADHA Rx#:[id number] Lactated Ringers 1,000 ml 375 @ 75 mls/hr IV .[id number] RADHA Rx#:[id number] Lactated Ringers 1,000 ml 1000 @ 999 mls/hr IV .Q1H1M [facility]HA Rx#:[id number] Intake, IV Titration 247.563 007 8345 Amount DAPTOmycin 500 mg In 50 50 Sodium Chloride 0.9% 50 ml @ 100 mls/hr IVPB Q24HR [facility] Rx#:[id number] Lactated Ringers 1,000 ml 1000 @ 999 mls/hr IV .Q1H1M [facility]HA Rx#:[id number] Magnesium Sulfate-D5w Pmx 100 100 1 gm In Dextrose/Water 1 100ml.bag @ 100 mls/hr IVPB Q1H [facility] Rx#: [id number] Magnesium Sulfate-D5w Pmx 100 1 gm In Dextrose/Water 1 100ml.bag @ 100 mls/hr IVPB Q1H [facility] Rx#: [id number] Norepinephrine 8 mg In 97.986 Sodium Chloride 0.9% 250 ml @ 0.05 MCG/KG/MIN 9. 918 mls/hr IV .Q24H [facility]HA Rx#:[id number] Potassium Chloride 20 meq 50 In Water For Injection 1 100ml.bag @ 50 mls/hr IVPB Q2H [facility] Rx#: [id number] Oral 1010 840 Output: Urine 1060 2020 2150 Stool 100 50 Other: Voiding Method Indwelling Catheter Indwelling Catheter Indwelling Catheter - Exam GENERAL DESCRIPTION: Middle-aged female lying in bed, no distress. No tachypnea or accessory muscle of respiration use. LUNGS: Unlabored breathing decreased breath sound at the base HEART: S1, S2, regular rate and rhythm. ABDOMEN: Soft, no tenderness , guarding or rigidity, no organomegaly EXTREMITIES: No edema of feet. - Labs CBC & Chem 7: 01/18/22 06:26 01/18/22 06:26 Labs: Abnormal Lab Results - Last 24 Hours (Table) 01/17/22 01/17/22 01/17/22 Range/Units 06:01 06:01 15:28 RBC 3.48 L (3.80-5.40) m/uL Hgb 8.2 L (11.4-16.0) gm/dL Hct 27.1 L (34.0-46.0) % MCV 77.7 L (80.0-100.0) fL MCH 23.5 L (25.0-35.0) pg MCHC 30.2 L (31.0-37.0) g/dL RDW 15.9 H (11.5-15.5) % Plt Count 88 L (150-450) k/uL Lymphocytes # 0.5 L (1.0-4.8) k/uL Sodium 134 L (137-145) mmol/L Potassium 3.0 L 3.2 L (3.5-5.1) mmol/L Chloride 108 H (98-107) mmol/L Carbon Dioxide 18 L (22-30) mmol/L BUN 3 L (7-17) mg/dL Glucose 105 H (74-99) mg/dL Calcium 7.7 L (8.4-10.2) mg/dL Magnesium 1.5 L (1.6-2.3) mg/dL Microbiology - Last 24 Hours (Table) 01/15/22 00:29 Blood Culture Gram Stain - Preliminary Blood Blood Culture - Preliminary Klebsiella pneumoniae Group D Enterococcus 01/14/22 23:49 Blood Culture Gram Stain - Preliminary Blood Blood Culture - Preliminary Enterobacter species Group D Enterococcus Klebsiella pneumoniae Assessment and Plan (1) Bacteremia Current Visit: Yes Status: Acute Code(s): R78.81 - BACTEREMIA SNOMED Code(s): 7849915 Plan: 1patient presented hospital with sepsis in this patient did have a fever elevated white count tachycardia now with evidence of gram-negative as well as gram-positive bacteremia high clinical suspicious for her Mediport infection versus abdominal source as the patient been throwing up blood however abdominal was soft on clinical examination. 2blood cultures has been repeated to document clearance of bacteremia. 3CT abdominal pelvis didnot show acute abnormality 4Pt is currently being treated with cefepime and daptomycin, waiting for risk for surgery removal of infected port scheduled for tomorrow Time with Patient: Less than 30
--- NOTE | 2022-01-19 13:36 | P.PN ---
Subjective Progress Note Date: 01/18/22 Principal diagnosis: Bacteremia Patient is a 26-year-old female with a past medical history significant for familial adenomatosis polyposis in this patient status post co lectomy and ileostomy the patient also have a Mediport that has been placed few years ago for IV access patient was recently admitted at this facility and the patient did have Enterobacter bacteremia which was thought to be related to the Mediport and there was a concern for a septic emboli to the lungs RADHA was negative, patient left AMA and subsequently presented back to the hospital with throwing up blood and fever and did have evidence of bacteremia. Patient is scheduled for removal of the infected port this afternoon On today's evaluation that is 01/18/2022, the patient is afebrile today for the last fever yesterday afternoon, the patient is breathing comfortably on nasal cannula oxygen, the patient denies chest pain is complaining of some shortness of breath , still have nausea but no further vomiting and abdominal pain no diarrhea Objective - Vital Signs Vital signs: Vital Signs Temp 97.9 F 01/18/22 08:00 Pulse 109 H 01/18/22 08:00 Resp 24 01/18/22 08:00 BP 107/69 01/18/22 08:00 Pulse Ox 98 01/18/22 12:17 FiO2 Intake & Output 01/17/22 01/18/22 01/18/22 18:59 06:59 18:59 Intake Total 2885 1340 375 Output Total 3550 975 475 Balance -665 365 -100 Intake: IV 1685 500 375 Cefepime 2 gm In Sodium 50 Chloride 0.9% 100 ml @ 25 mls/hr IVPB Q8HR [facility] Rx# :[id number] Lactated Ringers 1,000 ml 260 @ 130 mls/hr IV .[id number] [facility] Rx#:[id number] Lactated Ringers 1,000 ml 375 500 375 @ 75 mls/hr IV .[id number] [facility] Rx#:[id number] Lactated Ringers 1,000 ml 1000 @ 999 mls/hr IV .Q1H1M [facility] Rx#:[id number] Intake, IV Titration 1200 300 Amount DAPTOmycin 500 mg In 50 Sodium Chloride 0.9% 50 ml @ 100 mls/hr IVPB Q24HR [facility] Rx#:[id number] Lactated Ringers 1,000 ml 1000 @ 999 mls/hr IV .Q1H1M [facility] Rx#:[id number] Magnesium Sulfate-D5w Pmx 100 1 gm In Dextrose/Water 1 100ml.bag @ 100 mls/hr IVPB Q1H [facility] Rx#: [id number] Potassium Chloride 10 meq 300 In Water For Injection 1 100ml.bag @ 100 mls/hr IVPB Q1HR [facility] Rx#: [id number] Potassium Chloride 20 meq 50 In Water For Injection 1 100ml.bag @ 50 mls/hr IVPB Q2H [facility] Rx#: [id number] Oral 540 Output: Urine 3350 900 475 Stool 200 75 Other: Voiding Method Indwelling Catheter Indwelling Catheter - Exam GENERAL DESCRIPTION: Middle-aged female lying in bed, no distress. No tachypnea or accessory muscle of respiration use. LUNGS: Unlabored breathing decreased breath sound at the base HEART: S1, S2, regular rate and rhythm. ABDOMEN: Soft, no tenderness , guarding or rigidity, no organomegaly EXTREMITIES: No edema of feet. - Labs CBC & Chem 7: 01/18/22 06:26 01/18/22 06:26 Labs: Abnormal Lab Results - Last 24 Hours (Table) 01/17/22 01/17/22 01/17/22 Range/Units 06:01 15:28 15:28 WBC (3.8-10.6) k/uL RBC (3.80-5.40) m/uL Hgb (11.4-16.0) gm/dL Hct (34.0-46.0) % MCV (80.0-100.0) fL MCH (25.0-35.0) pg RDW (11.5-15.5) % Plt Count (150-450) k/uL Lymphocytes # (Manual) (1.0-4.8) k/uL D-Dimer 5.03 H (<0.60) mg/L FEU Potassium 3.2 L (3.5-5.1) mmol/L Chloride (98-107) mmol/L Carbon Dioxide (22-30) mmol/L Creatinine (0.52-1.04) mg/dL Calcium (8.4-10.2) mg/dL Iron 7 L (50-170) ug/dL % Saturation 2.40 L (12.00-45.00) Ferritin 312.0 H (10.0-291.0) ng/mL Total Protein (6.3-8.2) g/dL Albumin (3.5-5.0) g/dL 01/18/22 01/18/22 Range/Units 06:26 06:26 WBC 3.4 L (3.8-10.6) k/uL RBC 3.31 L (3.80-5.40) m/uL Hgb 7.9 L (11.4-16.0) gm/dL Hct 25.0 L (34.0-46.0) % MCV 75.6 L (80.0-100.0) fL MCH 23.9 L (25.0-35.0) pg RDW 16.2 H (11.5-15.5) % Plt Count 61 L (150-450) k/uL Lymphocytes # (Manual) 0.95 L (1.0-4.8) k/uL D-Dimer (<0.60) mg/L FEU Potassium (3.5-5.1) mmol/L Chloride 113 H (98-107) mmol/L Carbon Dioxide 21 L (22-30) mmol/L Creatinine 0.43 L (0.52-1.04) mg/dL Calcium 8.2 L (8.4-10.2) mg/dL Iron (50-170) ug/dL % Saturation (12.00-45.00) Ferritin (10.0-291.0) ng/mL Total Protein 5.2 L (6.3-8.2) g/dL Albumin 2.4 L (3.5-5.0) g/dL Microbiology - Last 24 Hours (Table) 01/17/22 06:01 Blood Culture - Final Blood 01/17/22 17:48 Blood Culture Gram Stain - Preliminary Blood 01/17/22 21:06 Blood Culture Gram Stain - Preliminary Blood 01/17/22 12:45 Blood Culture - Final Blood 01/16/22 16:45 Blood Culture - Final Blood 01/15/22 00:29 Blood Culture Gram Stain - Preliminary Blood Blood Culture - Preliminary Klebsiella pneumoniae Group D Enterococcus 01/14/22 23:49 Blood Culture Gram Stain - Preliminary Blood Blood Culture - Preliminary Enterobacter species Group D Enterococcus Klebsiella pneumoniae Assessment and Plan (1) Bacteremia Current Visit: Yes Status: Acute Code(s): R78.81 - BACTEREMIA SNOMED Code(s): 9503772 Plan: 1patient presented hospital with sepsis in this patient did have a fever elevated white count tachycardia now with evidence of gram-negative as well as gram-positive bacteremia high clinical suspicious for her Mediport infection versus abdominal source as the patient been throwing up blood however abdominal was soft on clinical examination. 2blood cultures has been finalized with Klebsiella Enterobacter and enterococcus, repeated blood cultures with gram-negative 3CT abdominal pelvis didnot show acute abnormality 4Pt to continue with cefepime and daptomycin, waiting for removal of infected port scheduled for this afternoon Time with Patient: Less than 30
--- NOTE | 2022-01-19 13:38 | P.PN ---
Subjective Progress Note Date: 01/19/22 Principal diagnosis: Bacteremia Patient is a 26-year-old female with a past medical history significant for familial adenomatosis polyposis in this patient status post co lectomy and ileostomy the patient also have a Mediport that has been placed few years ago for IV access patient was recently admitted at this facility and the patient did have Enterobacter bacteremia which was thought to be related to the Mediport and there was a concern for a septic emboli to the lungs RADHA was negative, patient left AMA and subsequently presented back to the hospital with throwing up blood and fever and did have evidence of bacteremia. Patient is status post removal of the infected port on 01/18/2022 On today's evaluation that is 01/19/2022, the patient remains to be afebrile, the patient is breathing comfortably on nasal cannula oxygen, the patient denies chest pain, occasional cough but no sputum production , denies any worsening nausea or vomiting and abdominal pain no diarrhea Objective - Vital Signs Vital signs: Vital Signs Temp 98.4 F 01/19/22 05:00 Pulse 110 H 01/19/22 05:00 Resp 16 01/19/22 05:00 BP 92/61 01/19/22 05:00 Pulse Ox 97 01/19/22 05:00 FiO2 Intake & Output 01/18/22 01/19/22 01/19/22 18:59 06:59 18:59 Intake Total 725 1430 Output Total 980 75 Balance -255 1355 Intake: IV 725 Cefepime 2 gm In Sodium 150 Chloride 0.9% 100 ml @ 25 mls/hr IVPB Q8HR [facility] Rx# :[id number] Lactated Ringers 1,000 ml 575 @ 75 mls/hr IV .[id number] [facility] Rx#:[id number] Oral 1430 Output: Urine 975 Stool 75 Estimated Blood Loss 5 Other: Voiding Method Indwelling Catheter Indwelling Catheter Indwelling Catheter # Voids 2 - Exam GENERAL DESCRIPTION: Middle-aged female lying in bed, no distress. No tachypnea or accessory muscle of respiration use. LUNGS: Unlabored breathing decreased breath sound at the base HEART: S1, S2, regular rate and rhythm. ABDOMEN: Soft, no tenderness , guarding or rigidity, no organomegaly EXTREMITIES: No edema of feet. - Labs CBC & Chem 7: 01/18/22 06:26 01/18/22 06:26 Labs: Abnormal Lab Results - Last 24 Hours (Table) 01/15/22 Range/Units 01:20 Crossmatch See Detail Microbiology - Last 24 Hours (Table) 01/15/22 00:29 Blood Culture Gram Stain - Final Blood Blood Culture - Final Klebsiella pneumoniae Enterococcus faecium 01/14/22 23:49 Blood Culture Gram Stain - Final Blood Blood Culture - Final Enterobacter species Enterococcus faecalis Klebsiella pneumoniae Enterococcus faecium 01/17/22 06:01 Blood Culture Gram Stain - Preliminary Blood Blood Culture - Preliminary Gram Neg Bacilli 01/17/22 21:06 Blood Culture Gram Stain - Final Blood Blood Culture - Final Bacillus species Not Anthracis Assessment and Plan (1) Bacteremia Current Visit: Yes Status: Acute Code(s): R78.81 - BACTEREMIA SNOMED Code(s): 2857503 Plan: 1patient presented hospital with sepsis in this patient did have a fever elevated white count tachycardia now with evidence of gram-negative as well as gram-positive bacteremia high clinical suspicious for her Mediport infection versus abdominal source as the patient been throwing up blood however abdominal was soft on clinical examination. 2blood cultures has been finalized with Klebsiella Enterobacter and en terococcus, repeated blood cultures with gram-negative with ID and sensitivities pending 3CT abdominal pelvis didnot show acute abnormality, infected port was removed on 01/18/2022 blood cultures will be repeated 4Pt to continue with cefepime and daptomycin, once repeat blood culture negative at 72 hours she may be able to get a PICC line to continue her antibiotic therapy Time with Patient: Less than 30
[2022-01-19] MEDS: LACTATED RINGERS 1,000 ML IV SCH (14:29)
--- NOTE | 2022-01-19 14:34 | P.PN ---
Subjective Progress Note Date: 01/19/22 Subjective Progress Note Date: 01/18/22 26-year-old female came to the hospital and see is that she came in because she left AMA last time and wanted to be treated for her bacteremia now. Patient was seen early December and left against medical advise around mid-December. Patient was comparing of abdominal pain in the left flank area 10/10 with radiating pain into the groin sharp in nature. Patient denied any other UTI symptoms her urine is not abnormal although patient was bacteremic during her last hospitalization with Enterobacter cloaca and enterococcus in the urine patient was recommended to be on IV cefepime although patient left AGAINST MEDICAL ADVICE patient doesn't have any leukocytosis on admission but the white blood cell count went up to 15,000 now at this time patient highest temperature is around 99.1. Patient to although remains hypotensive and is on pressor support. Patient does have mildly elevated liver enzymes patient is presently on lactated Ringer's because of hyperchloremia patient does have hypomagnesemia as well. During her last hospitalization source of gram-negative bacteremia was not clear patient appeared to have multifocal lesions in the lung at that time. Patient also complaining of hematemesis with gastro-oncology evaluated the patient and patient is presently in the next they are not recommending any endoscopy at this time. Patient presently doesn't have any hematemesis. Patient is presently in IC because of hypotension and patient's requirement for norepinephrine. Apart from low blood pressure patient otherwise looks good patient is also tachycardic sinus tachycardia. Infectious disease was consulted patient was bit hyponatremic which improved with IV fluids. 01/16/2022 Patient evaluated today in the intensive care unit. She continues on levophed support with blood pressure in the 90s systolic. She has been afebrile throughout the night, heart rate in the 90s, on room air. Main complaint today i s right flank pain which she rates a 9/10. She is receiving IV dilaudid every 3 hours. Patient also reports emesis last night, states it was bloody. She is receiving zofran and GI is following the patient. Patient recently had EGD and no current plans to undergo endoscopy. She has had ostomy since Feb. She has port in right chest for hydration. Cultures are showing Enterobacter, Group D Enterococcus, Klebsiella and repeat continues to be positive. She is on IV cefepime, IV daptomycin and infectious disease is following patient. Vascular has been consulted for port removal. Abdominal Pelvis CT completed showing nonobstructing right renal calculi, no evidence for bowel obstruction, there is IVC filter left sided inferior vena cava, hepatic steatosis Labs reviewed today showing white count 16.0, hgb 8.6, platelet count 117, sodium 144, potassium 3.9, chloride 120, CO2 18, glucose 117, calcium 8.0, magnesium 1.9, total bili 1.6, AST normalized at 36, ALT/Alk phos stable. 01/17/2022 Patient evaluated today continues to be monitored in the intensive care unit. She was weaned off the levophed yesterday evening however she did develop tachycardia with a heart rate in the 140's, She also continues with fever 103.2 t-max today. She does have allergy to acetaminophen, she has ice packs in place, and fever did come down to 102.8. Blood pressure dropped 87/61. 12-lead EKG done showing sinus tachycardia with short IA interval, cannot rule out atrial flutter. She complains of sharp 8/10 left sided rib pain, pleuritic. D-Dimer has been ordered. She did have elevated D-Dimer with chest CT completed previous hospital stay with possible evidence for septic emboli she did have RADHA done which was negative for valvular abnormalities or vegetation. She also had endoscopy done. She left AMA at that time. She continues on Lactated ringer and was given fluid bolus as well. Repeat blood cultures continue to positive for group D enterococcus, and gram negative bacilli. Continues on IV cefepime, IV daptomcyin. Infectious disease is following patient closely. Plan is for port removal tomorrow with Dr Jauregui. Also will check iron studies. Labs reviewed today showing white count 4.8, hgb 8.2, microcytic, platelets 88. Sodium 134, potassium 3.0, chloride 108, CO2 18, calcium 7.7, magnesium 1.5. 01/18/2022 Patient evaluated today in intensive care unit she has been downgraded to medical floor when bed available. D-Dimer was elevated which pulmonary perfusion was ordered and pulmonary team recommended against and primary team agreed that patient did not need to undergo. She does continue with persistent bacteremia showing gram positive bacilli and gram negative bacilli. Infectious disease is following and patient continues on IV daptomycin and IV cefepime. She is sc heduled to undergo port removal today with Dr Jauregui and blood cultures were also repeated today. Labs reviewed today showing white count 3.4, hgb 7.9, platelet count decreased to 61 which lovenox was held for today. VTE prophylaxis has been changed to low dose arixtra in place of lovenox as platelet count has dropped to 61 since being started on lovenox. It was held today for port removal. If okay with vascular can begin arixtra in the morning. She continues on lovephed and blood pressure in the low 100s/60s. Heart rate has also improved she is now in the 90s to low 100s sinus tachycardia. She has remained afebrile in the last 24 hours. She reports she is having less frequent stool from her ostomy as usual. Also reports nausea and did vomit twice last night she states. There is zofran and Tigan on as needed. 01/19/2022 Patient was seen and evaluated today reporting her pain is severe of the chest were she had a port removal and requesting an increase in Dilaudid strength along with increase in timing of it being given. Patient has been afebrile for over 48 hours and awaiting clearance of bacteremia with in her blood cultures. Most recent showing bacillus species not anthracis and ID is following closely well maintained on cefepime and apical. Patient was offered [place] and/or Tylenol and patient reports she has anaphylaxis reactions to these medications. Also mentioned multiple times per nursing staff that she plans on leaving if she does not receive her Dilaudid. Patient refused labs this morning along with refusing her blood thinners Arixtra. Patient denies chest pain or shortness of breath, patient is afebrile. Patient denies nausea or vomiting and has been tolerating diet. Review of Systems Constitutional: Denied any fatigue, denies fever. Continues to report severe pain Cardio vascular: denied any chest pain, palpitations Gastrointestinal: Reports nausea, vomiting. Pulmonary: Denied any shortness of breath cough Neurologic denied any new focal deficits All inpatient medications were reviewed and appropriate changes in these medications as dictated in the interval history and assessment and plan. PHYSICAL EXAMINATION: GENERAL: The patient is alert and oriented x3, not in any acute distress. Well developed, well nourished. HEENT: Pupils are round and equally reacting to light. EOMI. No scleral icterus. No conjunctival pallor. Normocephalic, atraumatic. No pharyngeal erythema. No thyromegaly. CARDIOVASCULAR: S1 and S2 present. No murmurs, rubs, or gallops. PULMONARY: Chest is clear to auscultation, no wheezing or crackles. ABDOMEN: Soft, some subjective left lateral rib/abdominal tenderness but no CVA tenderness, nondistended, normoactive bowel sounds. No palpable organomegaly. Ostomy in place. with small amount of brown liquid stool in ostomy bag. MUSCULOSKELETAL: No joint swelling or deformity. EXTREMITIES: No cyanosis, clubbing, or pedal edema. NEUROLOGICAL: Gross neurological examination did not reveal any focal deficits. SKIN: No rashes. Assessment and plan -Sepsis with septic shock, patient is off levophed blood pressures have improved. She does have persistent bacteremia. Continues on IV antibiotics and Infectious disease is following patient. Dr Jauregui planning to remove port a cath. Repeat blood cultures have been taken. -Tachycardia most likely from sepsis, continue on telemetry monitoring, improved -Hypovolemic hyponatremia resolved -Chronic anemia monitor hgb closely -Non-anion gap metabolic acidosis secondary to hyperchloremia, continues on LR, improving -Mild acute renal failure: Hypovolemia, resolved with IV hydration -Hypomagnesemia from poor oral intake resolved -Hypokalemia from poor oral intake, also component of diuresis from SIADH from pain, she is receiving dilaudid with caution due to hypotension, improved -Mild transaminitis, hepatitis panel negative, patient does have hepatic steatosis, improved -History of familial adenomatous polyposis status post colectomy -Possible nephrolithiasis -Patient has narcotic/opioid seeking behavior -History of migraine for which patient is on Emgality -DVT prophylaxis: Arixtra when cleared by vascular -GI Prophylaxis: Protonix -Full Code Plan Recommend continue with antibiotics until finalized cultures as patient continues to have persistent bacteremia with anxiety following Patient has refused labs today and is refusing any further treatment and reports she will be leaving AGAINST MEDICAL ADVICE Risks versus benefits were explained to the patient in detail and patient continues to wish to proceed with discharge. Discussed with the patient about high risk even and patient verbalized understanding. Patient is alert and oriented 3. Patient is high risk for readmissions and noncompliance with medications Prognosis is guarded. The impression and plan of care has been dictated by Lissett Bullard, Nurse Practitioner as directed. Dr. Sidney MD I have performed a history and examination and MDM of this patient, discussed the same with the dictator, and agree with the dictator's assessment and plan as written ,documented as a scribe. Based on total visit time, I have performed more than 50% of the visit. Objective - Vital Signs Vital signs: Vital Signs Temp 98.4 F 01/19/22 05:00 Pulse 110 H 01/19/22 05:00 Resp 16 01/19/22 05:00 BP 92/61 01/19/22 05:00 Pulse Ox 97 01/19/22 05:00 FiO2 Intake & Output 01/18/22 01/19/22 01/19/22 18:59 06:59 18:59 Intake Total 725 1430 Output Total 980 75 Balance -255 1355 Intake: IV 725 Cefepime 2 gm In Sodium 150 Chloride 0.9% 100 ml @ 25 mls/hr IVPB Q8HR [facility] Rx# :[id number] Lactated Ringers 1,000 ml 575 @ 75 mls/hr IV .[id number] [facility] Rx#:[id number] Oral 1430 Output: Urine 975 Stool 75 Estimated Blood Loss 5 Other: Voiding Method Indwelling Catheter Indwelling Catheter # Voids 2 - Labs CBC & Chem 7: 01/18/22 06:26 01/18/22 06:26 Labs: Abnormal Lab Results - Last 24 Hours (Table) 01/15/22 Range/Units 01:20 Crossmatch See Detail Microbiology - Last 24 Hours (Table) 01/15/22 00:29 Blood Culture Gram Stain - Final Blood Blood Culture - Final Klebsiella pneumoniae Enterococcus faecium 01/14/22 23:49 Blood Culture Gram Stain - Final Blood Blood Culture - Final Enterobacter species Enterococcus faecalis Klebsiella pneumoniae Enterococcus faecium 01/17/22 06:01 Blood Culture Gram Stain - Preliminary Blood Blood Culture - Preliminary Gram Neg Bacilli 01/17/22 21:06 Blood Culture Gram Stain - Final Blood Blood Culture - Final Bacillus species Not Anthracis
--- NOTE | 2022-01-19 14:39 | P.DS ---
Providers Date of admission: 01/14/22 23:28 Expected date of discharge: 01/19/22 Attending physician: Susi Sherman Consults: 01/14/22 23:28 Consult Physician Routine Consulting Provider: Latrell Potts Consult Reason/Comments: known Do you want consulting provider notified?: Yes 01/15/22 03:21 Consult Physician Routine Consulting Provider: Cindy Rosen Consult Reason/Comments: icu Do you want consulting provider notified?: Yes 01/16/22 10:44 Consult Physician Routine Consulting Provider: Lui Jauregui Consult Reason/Comments: Port Removal Do you want consulting provider notified?: Yes 01/17/22 21:47 Consult Physician Routine Consulting Provider: Latrell Potts Consult Reason/Comments: BC+ Gram Positive Bacilli. Do you want consulting provider notified?: Already Contacted Primary care physician: Stated None Hospital Course: Final diagnosis -Sepsis with septic shock, patient is off levophed blood pressures have improved. She does have persistent bacteremia. -Status post port removal -Tachycardia most likely from sepsis, continue on telemetry monitoring, improved -Hypovolemic hyponatremia resolved -Chronic anemia -Non-anion gap metabolic acidosis secondary to hyperchloremia -Mild acute renal failure: Hypovolemia, resolved with IV hydration -Hypomagnesemia from poor oral intake resolved -Hypokalemia from poor oral intake, also component of diuresis from SIADH from pain -Mild transaminitis, hepatitis panel negative, patient does have hepatic steatosis, improved -History of familial adenomatous polyposis status post colectomy -Possible nephrolithiasis -Patient has narcotic/opioid seeking behavior -History of migraine for which patient is on Emgality -DVT prophylaxis -GI Prophylaxis -Full Code Discharge disposition Patient is leaving AGAINST MEDICAL ADVICE in a stable condition with guarded prognosis to home. Risks versus benefits were explained to the patient in detail including and patient wishes to proceed with leaving at this time. Encourage the patient to stay while awaiting for finalized cultures and continue treatment and patient is persistent on leaving. Patient is alert and oriented 3 with a steady gait and reports verbalized understanding to the risks she is taking. AMA paperwork was signed by nursing staff along with patient Total time taken is greater than 35 minutes. Patient is extremely high risk for readmissions and hospitalizations and has recently left AGAINST MEDICAL ADVICE at another facility. Hospital course This is a 26-year-old female who is here for bacteremia with multiple medical comorbidities and being closely monitored by multiple consultations. Patient continues to elicit drug-seeking behaviors narcotics and requesting increases in her IV Dilaudid and refusing other medications reporting she has anaphylaxis to multiple other pain medications. Please refer to previous dictations and other consultations for further HPI. Currently no reports of chest pain, shortness of breath, or palpitations. Patient is afebrile. No reports of nausea or vomiting and patient is tolerating diet. Patient will be leaving AGAINST MEDICAL ADVICE Physical exam: Gen: This is a 26-year-old female awake, alert and oriented 3, morbidly obese HEENT: Head is atraumatic, normocephalic. Pupils equal, round. Sclerae is anicteric. NECK: Supple. No JVD. No lymphadenopathy. No thyromegaly. LUNGS: Clear to auscultation. No wheezes or rhonchi. No intercostal retractions. HEART: Regular rate and rhythm. No murmur. Sinus tachycardia ABDOMEN: Soft. Bowel sounds are present. No masses. No tenderness. EXTREMITIES: No pedal edema. No calf tenderness. NEUROLOGICAL: Patient is awake, alert and oriented x3. Cranial nerves 2 through 12 are grossly intact. Please refer to medication reconciliation sheet for a list of medications. The impression and plan of care has been dictated by Lissett Bullard, Nurse Practitioner as directed. Dr. Sidney MD I have performed a history and examination and MDM of this patient, discussed the same with the dictator, and agree with the dictator's assessment and plan as written ,documented as a scribe. Based on total visit time, I have performed more than 50% of the visit. Patient Condition at Discharge: Serious Plan - Discharge Summary Discharge Rx Participant: No New Discharge Prescriptions: No Action Albuterol Sulfate [Proair Hfa] 2 puff INHALATION RT-Q6H PRN PRN Reason: Shortness Of Breath Ondansetron Odt [Zofran Odt] 4 mg PO Q8HR PRN PRN Reason: Nausea Montelukast [Singulair] 10 mg PO DAILY RX: Loratadine 10 mg PO DAILY clonazePAM [KlonoPIN] 1 mg PO DAILY PRN PRN Reason: Anxiety Albuterol Nebulized [Ventolin Nebulized] 2.5 mg INHALATION RT-QID PRN PRN Reason: Shortness Of Breath Ubrogepant [Ubrelvy] 100 mg PO BID PRN PRN Reason: Migraine Headache Salmeterol 50 mcg [Serevent Diskus] 1 puff INHALATION RT-BID QUEtiapine [SEROquel] 50 mg PO HS RX: Omeprazole 40 mg PO DAILY Ferrous Sulfate [Feosol] 325 mg PO DAILY Galcanezumab-Gnlm [Emgality Pen] 120 mg SQ Q30D EPINEPHrine (Auto Inject) [Epipen] 0.3 mg IM ONCE PRN PRN Reason: Anaphylaxis medroxyPROGESTERone [Depo-Provera] 150 mg IM Q84D Discharge Medication List Albuterol Nebulized [Ventolin Nebulized] 2.5 mg INHALATION RT-QID PRN 12/19/21 [History] Albuterol Sulfate [Proair Hfa] 2 puff INHALATION RT-Q6H PRN 12/19/21 [History] EPINEPHrine (Auto Inject) [Epipen] 0.3 mg IM ONCE PRN 12/19/21 [History] Ferrous Sulfate [Feosol] 325 mg PO DAILY 12/19/21 [History] Galcanezumab-Gnlm [Emgality Pen] 120 mg SQ Q30D 12/19/21 [History] Montelukast [Singulair] 10 mg PO DAILY 12/19/21 [History] Ondansetron Odt [Zofran Odt] 4 mg PO Q8HR PRN 12/19/21 [History] QUEtiapine [SEROquel] 50 mg PO HS 12/19/21 [History] RX: Loratadine 10 mg PO DAILY 12/19/21 [History] RX: Omeprazole 40 mg PO DAILY 12/19/21 [History] Salmeterol 50 mcg [Serevent Diskus] 1 puff INHALATION RT-BID 12/19/21 [History] Ubrogepant [Ubrelvy] 100 mg PO BID PRN 12/19/21 [History] clonazePAM [KlonoPIN] 1 mg PO DAILY PRN 12/19/21 [History] medroxyPROGESTERone [Depo-Provera] 150 mg IM Q84D 01/14/22 [History] Follow up Appointment(s)/Referral(s): None,Stated [Primary Care Provider] - 1-2 days
== END 2022-01-19 14:29 | disposition left against medical advice (07) | DRG 871 ==
LOC: EC 20:52 → 4SSUR 23:28 → 2SICU 01-15 01:13 → 5NMEDONC 01-18 17:48
PROVIDERS: ADMIT Hospitalist; ATTEND Hospitalist
PROC: 05HB33Z Insertion of Infusion Device into Right Basilic Vein, Percutaneous Approach (ICD-10-PCS; 2022-01-15)
PROC: 3E043XZ Introduction of Vasopressor into Central Vein, Percutaneous Approach (ICD-10-PCS; 2022-01-15)
PROC: 0JPT0WZ Removal of Totally Implantable Vascular Access Device from Trunk Subcutaneous Tissue and Fascia, Open Approach (ICD-10-PCS; principal; 2022-01-18 13:00)
PROC: 02PAX3Z Removal of Infusion Device from Heart, External Approach (ICD-10-PCS; principal; 2022-01-18 13:00)
DX: A41.81 Sepsis due to Enterococcus (principal); K22.6 Gastro-esophageal laceration-hemorrhage syndrome; R65.21 Severe sepsis with septic shock; E22.2 Syndrome of inappropriate secretion of antidiuretic hormone; E87.2 Acidosis; N17.9 Acute kidney failure, unspecified; A41.59 Other Gram-negative sepsis; Z93.2 Ileostomy status; Z20.822 Contact with and (suspected) exposure to COVID-19; E87.8 Other disorders of electrolyte and fluid balance, not elsewhere classified; E83.42 Hypomagnesemia; E86.1 Hypovolemia; E87.6 Hypokalemia; K76.0 Fatty (change of) liver, not elsewhere classified; D64.9 Anemia, unspecified; N20.0 Calculus of kidney; G43.909 Migraine, unspecified, not intractable, without status migrainosus; J45.20 Mild intermittent asthma, uncomplicated; F41.9 Anxiety disorder, unspecified; D12.6 Benign neoplasm of colon, unspecified; R07.81 Pleurodynia; Z76.5 Malingerer [conscious simulation]; Z53.29 Procedure and treatment not carried out because of patient's decision for other reasons; Z79.899 Other long term (current) drug therapy; Z79.3 Long term (current) use of hormonal contraceptives; Z87.19 Personal history of other diseases of the digestive system; Z87.442 Personal history of urinary calculi; Z86.19 Personal history of other infectious and parasitic diseases; Z90.49 Acquired absence of other specified parts of digestive tract; Z95.828 Presence of other vascular implants and grafts; Z87.11 Personal history of peptic ulcer disease; Z87.440 Personal history of urinary (tract) infections; Z86.010 Personal history of colon polyps; Z88.6 Allergy status to analgesic agent; Z88.8 Allergy status to other drugs, medicaments and biological substances; Z91.041 Radiographic dye allergy status; Z91.048 Other nonmedicinal substance allergy status; Z83.79 Family history of other diseases of the digestive system
CPT/HCPCS: 36415; 51798; 71045; 74176; 78580; 80048; 80053; 80074; 80076; 80170; 81001; 82533; 82728; 83540; 83550; 83605; 83735; 83880; 84100; 84132; 84443; 84484; 85025; 85379; 85610; 85730; 86850; 86900; 86901; 86920; 87040; 87070; 87077; 87186; 87205; 87635; 93005; 96361; 96365; 96366; 96375; 96376; 99285